=== PATIENT | female | born 1955 | race Caucasian/White ===

== ENCOUNTER → 2016-09-23 | Outpatient (CLI) | payer OTHER, MEDICAID, MEDICARE ==
[~2016-09-23] MED LIST: /ESOM40CA PO; ACET-654 PO; AMBI10TA; AMIT75TA2; ASPI1TAB24 PO; ASPI325T PO; ASPI81TA85 PO; AZEL0.05 OP; AZELASTINE; BACL10TA2 PO; BACT800T; CALC500T21 PO; CALCTAB68 PO; CAPT25TA3; CEPH500C PO; CLON1TAB PO; CLOP75TA2 PO; COLA100C2 PO; CRES20TA PO; CYCL5TA PO; D 50CAP PO; EFFE75CA75; GABA300C2 PO; HYDR-3716 PO; HYDR-3719 PO; HYDR25TA6 PO; LEVO100T PO; LIPI20TA; LISI2.5T PO; LORA10TA2 PO; METO25TA2 PO; NEXI40CA PO; OXYC-517 PO; PLAQ200T PO; PRED5TAB PO; SOMA350T PO; SUCR1TA PO; TIZA2CAP3 PO; VICO5TAB PO
--- NOTE | 2016-10-08 00:53 | ECWPNPC ---
PATIENT NAME: HAWK CASE : 1955 GENDER: FEMALE VISIT DATE: 09/23/2016 DISCHARGE DATE: 09/23/16 1418 VISIT LOCKED DATE TIME: PHYSICIAN: GERMAN SLAUGHTER RESOURCE: GERMAN SLAUGHTER REASON FOR APPOINTMENT 1. BACK HISTORY OF PRESENT ILLNESS HISTORY OF PRESENT ILLNESS: HERE FOR F/U OF CHRONIC LBP AND THORACIC PAIN. HX OF LUPUS ERYTHMATOSIS.RATING PAIN INTENSITY 6/10 VAS.PAIN DESCRIBED INTERMITTENT ACHING AND TENDERNESS. FINDS OXYCODONE 10/325 1 TAB PO Q4H PRN FOR SEVERE PAIN EPISODES HELPFUL AT REDUCING PAIN.DENIES ADVERSE SIDE EFFECTS.PAIN IS AGGREVATED BY LEANING FORWARD AND PROLONGED STANDING.FEELS SHE IS HAVING FIBROMYALGIA FLARE UP. PAIN THE PATIENT DESCRIBES THE PAIN... THE PATIENT DESCRIBES THE PAIN... THE PATIENT DESCRIBES THE PAIN... THE PATIENT DESCRIBES THE PAIN... FALL RISK SCREENING: SCREENING :NO FALLS IN THE PAST YEAR CURRENT MEDICATIONS TAKING VITAMIN D-3 2000 CAPSULE 1 CAPSULE ORALLY DAILY TAKING CARAFATE 1 GM TABLET 2TABLET ON AN EMPTY STOMACH ORALLY ONCE DAILY TAKING PLAQUENIL 200 MG TABLET 1 TABLET WITH FOOD OR MILK ORALLY TWICE A DAY TAKING ASPIR-81 81 MG TABLET DELAYED RELEASE 1 TABLET ORALLY ONCE A DAY TAKING KLONOPIN 0.5 MG TABLET 1 TABLET ORALLY QHS TAKING LORATADINE 10 MG TABLET 1 TABLET ORALLY ONCE A DAY TAKING LISINOPRIL 10 10 MG TABLET DIRECTED ORAL DAILY TAKING LEVOTHYROXINE SODIUM 100 MCG TABLET 1 TABLET EVERY MORNING ON AN EMPTY STOMACH ORALLY ONCE A DAY TAKING NEXIUM 40 MG CAPSULE DELAYED RELEASE 1 CAPSULE ORALLY TWICE A DAY TAKING PLAVIX 75 MG TABLET 1 TABLET ORALLY ONCE A DAY TAKING HYDROCHLOROTHIAZIDE 25 25 MG SOFT GEL 1 TABLETS ORAL DAILY TAKING CRESTOR 20 MG TABLET 1 TABLET ORALLY QHS TAKING MOVANTIK 25 MG TABLET 1 TABLET IN THE MORNING ORALLY ONCE A DAY W/C COVERAGE TAKING LAMOTRIGINE 25 MG TABLET 3 TABLETS ORALLY TWICE A DAY TAKING SOMA 350 MG TABLET 1 TABLET ORALLY QHS TAKING PERCOCET 10-325 MG TABLET 1 TABLET NEEDED ORALLY Q4-6H PRN MDD 5 NOT-TAKING ONDANSETRON 1 TAB ORAL EVERY 6 HRS NEEDED NOT-TAKING HYDROCODONE-ACETAMINOPHEN 10-325 MG TABLET 1 TAB(S) ORALLY [id number] NOT-TAKING DOCUSATE SODIUM 100 MG CAPSULE 1 CAPSULE NEEDED ORALLY TWO TIMES A DAY NOT-TAKING GABAPENTIN 100 MG CAPSULE DIRECTED ORALLY THREE TIMES A DAY NEEDED NOT-TAKING MS CONTIN 15 MG TABLET EXTENDED RELEASE 1 TABLET ORALLY EVERY 12 HRS MDD2 W/C COVERAGE NOT-TAKING MORPHINE SULFATE ER 15 MG TABLET EXTENDED RELEASE 1 TABLET ORALLY EVERY 12 HRS MDD2 W/C COVERED NOT-TAKING TEMOVATE 0.05 % OINTMENT 1 APPLICATION TO AFFECTED AREA EXTERNALLY SPARINGLY TO VULVA TWICE A DAY FOR 14 DAYS THEN TWICE A WEEK PRN NOT-TAKING VALIUM 10 MG TABLET 1 CAP(S) ORALLY DIRECTED NOT-TAKING ASTELIN 137 MCG/SPRAY SOLUTION 1 PUFF NASALLY TWICE A DAY NOT-TAKING CALCIUM 600 + D 600-200 MG-UNIT TABLET 1 TABLET ORALLY DAILY NOT-TAKING LOVAZA 1 GM CAPSULE 2 CAPSULES ORALLY TWICE A DAY NOT-TAKING AMBIEN 10 MG TABLET 1 TAB(S) ORAL AT BEDTIME MDD:1 MEDICATION LIST REVIEWED AND RECONCILED WITH THE PATIENT PAST MEDICAL HISTORY PALPITATIONS, HEART HX BLOOD CLOTS, LEFT LEG HX ANEMIA ARTHRITIS, OA BACK PAIN HX BONE SPURS INSOMNIA MOOD SWINGS XEROPTHALMIA EARLY SATIETY COLONIC POLYPS RECURRENT UTIS SYSTEMIC LUPUS ERYTHEMATOUS ESOPHAGEAL REFLUX HYPOTHYROIDISM HYPERTENSION HYPERCHOLESTEROLEMIA RAYNAUDS SYNDROME NECK PAIN DEPRESSION OSTEOARTHRITIS MYOCARDIAL INFARCTION MYOFASCIAL PAIN SYNDROME LOW BACK PAIN LUMBAR RADICULOPATHY ALLERGIES PROPRANOLOL HCL: NAUSEA/VOMITING: ALLERGY CAPTOPRIL: NAUSEA/VOMITING: ALLERGY MACROBID: N/DIARRHEA: ALLERGY CIPRO: NAUSEA/VOMITING/DIARRHEA: ALLERGY MS CONTIN: N/V UNABLE TO VOID ANTIDEPRESSANTS: FLU LIKE SYMPTOMS /NAUSEA NUCYNTA ER: NIGHTMARES, INCREASED DEPRESSION: SIDE EFFECTS SOCIAL HISTORY GENERAL: TOBACCO USE ARE YOU A:NONSMOKER 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 NEW PATIENT PAIN DIARY TODAY'S VISITNOTES FROM 0-10, WHAT LEVEL IS YOUR PAIN TODAY?0 PAIN CLINIC PFS, CLERGY, PUBLIC HEALTH REFERRALS PFS REFERRAL NEEDED?NO CLERGY REFERRAL NEEDED?NO PUBLIC HEALTH REFERRAL NEEDED?NO WAS THE PROVIDER NOTIFIED OF ANY PERTINENT INFO?NO PFS REFERRAL NEEDED?NO CLERGY REFERRAL NEEDED?NO PUBLIC HEALTH REFERRAL NEEDED?NO WAS THE PROVIDER NOTIFIED OF ANY PERTINENT INFO?NO REVIEW OF SYSTEMS CONSTITUTIONAL: ANY CHANGE IN YOUR MEDICAL CONDITION? NO . CHILLS NO . FEVER NO . INFECTION: DO YOU HAVE NEW INFECTIONS? NO . DO YOU HAVE HISTORY OF MRSA? NO . MUSCULOSKELETAL: ANY NEW PATTERNS OF PAIN OR NUMBNESS? YES, MORE HIP AND BACK PAIN . GASTROENTEROLOGY: ANY NEW CHANGE IN BOWEL CONTROL? NO . GENITOURINARY: ANY NEW CHANGE IN BLADDER CONTROL? YES, CHRONIC UTI BLADDER . IS THERE A CHANCE YOU COULD BE ? NO . HEMATOLOGY/LYMPH: DO YOU TAKE ANY BLOOD THINNERS? (FOR EXAMPLE- COUMADIN, PLAVIX, AGGRENOX, PLATEL, PRADAXA, OR XARELTO) YES, PLAVIX . WHEN WAS YOUR LAST DOSE? DATE:09/23/16 TIME:1030 . NEUROLOGY: HAVE YOU FALLEN IN THE PAST 6 MONTHS? NO . ANY NEW EXTREMITY NUMBNESS OR WEAKNESS? NO . CARDIOLOGY: DO YOU HAVE A PACEMAKER OR DEFIBRILLATOR? NO . RESPIRATORY: HAVE YOU BEEN SICK IN THE PAST WEEK? NO . FEVER NO . FLU LIKE SYMPTOMS? NO . COUGH NO . INTEGUMENTARY: DO YOU HAVE ANY RASHES OR OPEN SORES? YES, NECK AND BEHIND EARS . ALLERGIC/IMMUNO: ARE YOU ALLERGIC TO SHELLFISH OR IV DYE? NO . ANY NEW ALLERGIES? NO . PSYCHIATRIC: DO YOU HAVE THOUGHTS OF HURTING YOURSELF OR SOMEONE ELSE? NO . ARE YOU ABUSED, NEGLECTED, OR IN AN UNSAFE ENVIRONMENT? NO . ENDOCRINOLOGY: ARE YOU DIABETIC? NO . OTHER: DO YOU NEED ANY PRESCRIPTIONS? NO . IF YES, PLEASE LIST: ____ . ANY NEW PROBLEMS WITH YOUR MEDICATIONS? NO . WHEN DID YOU LAST EAT? ____ . WHEN DID YOU LAST DRINK? ____ . WHAT DID YOU LAST DRINK? ____ . NAME OF PERSON DRIVING YOU HOME? ____ . DO YOU HAVE ANY OTHER QUESTIONS OR CONCERNS YES, BROWN SPOTS ON BOTH BIG TOES UNDER THE TOENAIL . REVIEWED BY: PROVIDER: GERMAN BUTTS . VITAL SIGNS WT 182 LBS, HT 64 IN, BMI 31.24 INDEX, BP 141/84 MM HG, HR 65 /MIN, RR 16 /MIN, TEMP 97.7 F, OXYGEN SAT % 94, NA INITIALS TL 1345, REVIEWED BY: CS. EXAMINATION GENERAL EXAMINATION: LUNGS:LUNG SOUNDS ARE CLEAR. HEART:HEART RATE REGULAR. MUSCULOSKELETAL:MUSCLE STRENGTH TESTING 5/5 BILATERAL LOWER EXTREMITIES. PALPATION: POSITIVE FOR PAIN OVER L/S SPINE. POSITIVE FOR PAIN OVER L/S PARASPINALS.MULTIPLE AREAS OF TENDER SPOTS INDICATIVE OF FIBROMYALGIA.. 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 (PRIMARY) MYALGIA - M79.1 CHRONIC PRESCRIPTION OPIATE USE - Z79.891 SYSTEMIC LUPUS ERYTHEMATOSUS WITH OTHER ORGAN INVOLVEMENT, UNSPECIFIED SLE TYPE - M32.19 TREATMENT LUMBAGO WITH SCIATICA, LEFT SIDE CONTINUE SOMA TABLET, 350 MG, 1 TABLET, ORALLY, QHS REFILL PERCOCET TABLET, 10-325 MG, 1 TABLET NEEDED, ORALLY, Q4-6H PRN MDD 5, 30 DAY(S), 150, REFILLS 0 PROCEDURE CODES G8730 PAIN ASSESS POS TOOL F/U PLAN DOC G8427 DOC MEDS VERIFIED W/PT OR RE FA211 ESTABILISHED PATIENT [facility] CHARGE FOLLOW UP 2 MONTHS ELECTRONICALLY SIGNED BY BENJAMÍN CHAUDHRY ON 10/06/2016 AT 09:39 AM EST DISCLAIMER : THIS IS A VISIT SUMMARY EXTRACTED FROM THE [employer] CHART. IT IS NOT A COPY OF THE [employer] PROGRESS NOTE. OSMIN
== END ==
LOC: M PAIN 14:00
PROVIDERS: ATTEND Nurse Practitioner Family
DX: Z09 Encounter for follow-up examination after completed treatment for conditions other than malignant neoplasm (principal); G89.29 Other chronic pain; M54.42 Lumbago with sciatica, left side; M79.1 Myalgia; M32.19 Other organ or system involvement in systemic lupus erythematosus; M54.2 Cervicalgia; M19.90 Unspecified osteoarthritis, unspecified site; G47.30 Sleep apnea, unspecified; G47.00 Insomnia, unspecified; K21.9 Gastro-esophageal reflux disease without esophagitis; E03.9 Hypothyroidism, unspecified; I10 Essential (primary) hypertension; E78.00 Pure hypercholesterolemia, unspecified; I73.00 Raynaud's syndrome without gangrene; R68.81 Early satiety; E50.7 Other ocular manifestations of vitamin A deficiency; I25.2 Old myocardial infarction; F32.9 Major depressive disorder, single episode, unspecified; F34.89 Other specified persistent mood disorders; Z88.5 Allergy status to narcotic agent; Z88.8 Allergy status to other drugs, medicaments and biological substances; Z79.01 Long term (current) use of anticoagulants; Z79.82 Long term (current) use of aspirin; Z79.891 Long term (current) use of opiate analgesic; Z79.899 Other long term (current) drug therapy; Z86.718 Personal history of other venous thrombosis and embolism; Z86.2 Personal history of diseases of the blood and blood-forming organs and certain disorders involving the immune mechanism

== ENCOUNTER → 2016-10-26 | Outpatient (CLI) | payer MEDICARE, MEDICAID, OTHER ==
--- NOTE | 2016-11-02 00:21 | ECWPNPC ---
PATIENT NAME: HAWK CASE : 1955 GENDER: FEMALE VISIT DATE: 10/26/2016 DISCHARGE DATE: 10/26/16 1518 VISIT LOCKED DATE TIME: PHYSICIAN: ALONZO BLOCK RESOURCE: ALONZO BLOCK REASON FOR APPOINTMENT 1. FOLLOW UP- HISTORY OF PRESENT ILLNESS HISTORY OF PRESENT ILLNESS: PAIN THE PATIENT DESCRIBES THE PAIN... 61 YEAR OLD FEMALE PATIENT WITH HISTORY OF CHRONIC NECK PAIN. PATIENT DESCRIBES THE PAIN ACHING, TENDER, SORE, AND IT COMES AND GOES WITH A PAIN SCORE OF 2-3/10 ON TODAY'S VISIT AND PATIENT STATES THAT SHE HAS PAIN IN HER ARMS THAT SHE DESCRIBES THE SHARP THAT IS RADIATING FROM HER NECK AREA. PATIENT WAS INJURED IN A WORK RELATED INJURY ON 02/28/1996 WORKING FOR [employer], PATIENT WAS LIFTING A PATIENT ONTO THE BED WHEN SHE INJURED HER NECK. PATIENT REPORTS THAT SHE IS TAKING PLAVIX. PATIENT REPORTS THAT SHE HAS TIRED PHYSICAL THERAPY IN THE PAST AND IT DID NOT WORK. PATIENT REPORTS THAT THE MEDICATION SHE IS TAKING IS HELPING HER TO BE MOBILE AND INCREASES HER FUNCTIONALITY. PATIENT STATES THAT THE TEN UNITS SHE HAS GREATLY HELPS WITH HER PAIN MANAGEMENT. PATIENT REPORTS THAT SHE NEEDS A REFILL FOR HER ELECTRODES AND BATTERY FOR HER TENS UNIT. PATIENT DENIES UNEXPLAINABLE WEIGHT LOSS, FEVER, CHILLS, NEW CHANGES ON HER URINARY OR BOWEL CONTROL. FALL RISK SCREENING: SCREENING :NO FALLS IN THE PAST YEAR CURRENT MEDICATIONS TAKING VITAMIN D-3 2000 CAPSULE 1 CAPSULE ORALLY DAILY TAKING CARAFATE 1 GM TABLET 2TABLET ON AN EMPTY STOMACH ORALLY ONCE DAILY TAKING PLAQUENIL 200 MG TABLET 1 TABLET WITH FOOD OR MILK ORALLY TWICE A DAY TAKING ASPIR-81 81 MG TABLET DELAYED RELEASE 1 TABLET ORALLY ONCE A DAY TAKING KLONOPIN 0.5 MG TABLET 1 TABLET ORALLY QHS TAKING LORATADINE 10 MG TABLET 1 TABLET ORALLY ONCE A DAY TAKING LISINOPRIL 10 10 MG TABLET DIRECTED ORAL DAILY TAKING LEVOTHYROXINE SODIUM 100 MCG TABLET 1 TABLET EVERY MORNING ON AN EMPTY STOMACH ORALLY ONCE A DAY TAKING NEXIUM 40 MG CAPSULE DELAYED RELEASE 1 CAPSULE ORALLY TWICE A DAY TAKING PLAVIX 75 MG TABLET 1 TABLET ORALLY ONCE A DAY TAKING HYDROCHLOROTHIAZIDE 25 25 MG SOFT GEL 1 TABLETS ORAL DAILY TAKING CRESTOR 20 MG TABLET 1 TABLET ORALLY QHS TAKING MOVANTIK 25 MG TABLET 1 TABLET IN THE MORNING ORALLY ONCE A DAY W/C COVERAGE TAKING LAMOTRIGINE 25 MG TABLET 1 TABLET ORALLY ONCE A DAY TAKING SOMA 350 MG TABLET 1 TABLET ORALLY QHS TAKING PERCOCET 10-325 MG TABLET 1 TABLET NEEDED ORALLY Q4-6H PRN MDD 5 NOT-TAKING ONDANSETRON 1 TAB ORAL EVERY 6 HRS NEEDED NOT-TAKING HYDROCODONE-ACETAMINOPHEN 10-325 MG TABLET 1 TAB(S) ORALLY [id number] NOT-TAKING DOCUSATE SODIUM 100 MG CAPSULE 1 CAPSULE NEEDED ORALLY TWO TIMES A DAY NOT-TAKING GABAPENTIN 100 MG CAPSULE DIRECTED ORALLY THREE TIMES A DAY NEEDED NOT-TAKING MS CONTIN 15 MG TABLET EXTENDED RELEASE 1 TABLET ORALLY EVERY 12 HRS MDD2 W/C COVERAGE NOT-TAKING MORPHINE SULFATE ER 15 MG TABLET EXTENDED RELEASE 1 TABLET ORALLY EVERY 12 HRS MDD2 W/C COVERED NOT-TAKING TEMOVATE 0.05 % OINTMENT 1 APPLICATION TO AFFECTED AREA EXTERNALLY SPARINGLY TO VULVA TWICE A DAY FOR 14 DAYS THEN TWICE A WEEK PRN NOT-TAKING VALIUM 10 MG TABLET 1 CAP(S) ORALLY DIRECTED NOT-TAKING ASTELIN 137 MCG/SPRAY SOLUTION 1 PUFF NASALLY TWICE A DAY NOT-TAKING CALCIUM 600 + D 600-200 MG-UNIT TABLET 1 TABLET ORALLY DAILY NOT-TAKING LOVAZA 1 GM CAPSULE 2 CAPSULES ORALLY TWICE A DAY NOT-TAKING AMBIEN 10 MG TABLET 1 TAB(S) ORAL AT BEDTIME MDD:1 MEDICATION LIST REVIEWED AND RECONCILED WITH THE PATIENT PAST MEDICAL HISTORY PALPITATIONS, HEART HX BLOOD CLOTS, LEFT LEG HX ANEMIA ARTHRITIS, OA BACK PAIN HX BONE SPURS INSOMNIA MOOD SWINGS XEROPTHALMIA EARLY SATIETY COLONIC POLYPS RECURRENT UTIS SYSTEMIC LUPUS ERYTHEMATOUS ESOPHAGEAL REFLUX HYPOTHYROIDISM HYPERTENSION HYPERCHOLESTEROLEMIA RAYNAUDS SYNDROME NECK PAIN DEPRESSION OSTEOARTHRITIS MYOCARDIAL INFARCTION MYOFASCIAL PAIN SYNDROME LOW BACK PAIN LUMBAR RADICULOPATHY ALLERGIES PROPRANOLOL HCL: NAUSEA/VOMITING: ALLERGY CAPTOPRIL: NAUSEA/VOMITING: ALLERGY MACROBID: N/DIARRHEA: ALLERGY CIPRO: NAUSEA/VOMITING/DIARRHEA: ALLERGY MS CONTIN: N/V UNABLE TO VOID ANTIDEPRESSANTS: FLU LIKE SYMPTOMS /NAUSEA NUCYNTA ER: NIGHTMARES, INCREASED DEPRESSION: SIDE EFFECTS SURGICAL HISTORY NECK SURGERY BONE SPUR 1997 TUBAL LIGATION 1982 ENDOMETRIAL BIOPSY 2010 CARDIAC CATHETERIZATION 09/26 CARDIAC STENT 09/26 SURGERY TO REPAIR RIGHT FEMORAL ARTERY 09/26 CARDIAC STENT 10/27 CARDIAC STENT 03/26 COLONOSCOPY 2010 FAMILY HISTORY NO FAMILY HISTORY DOCUMENTED. SOCIAL HISTORY GENERAL: TOBACCO USE ARE YOU A:NONSMOKER 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 NEW PATIENT PAIN DIARY TODAY'S VISITNOTES FROM 0-10, WHAT LEVEL IS YOUR PAIN TODAY?0 PAIN CLINIC PFS, CLERGY, PUBLIC HEALTH REFERRALS PFS REFERRAL NEEDED?NO CLERGY REFERRAL NEEDED?NO PUBLIC HEALTH REFERRAL NEEDED?NO WAS THE PROVIDER NOTIFIED OF ANY PERTINENT INFO?NO PFS REFERRAL NEEDED?NO CLERGY REFERRAL NEEDED?NO PUBLIC HEALTH REFERRAL NEEDED?NO WAS THE PROVIDER NOTIFIED OF ANY PERTINENT INFO?NO HOSPITALIZATION/MAJOR DIAGNOSTIC PROCEDURE SURGERY RELATED MYOCARDIAL INFARCTION 09/26 REVIEW OF SYSTEMS CONSTITUTIONAL: ANY CHANGE IN YOUR MEDICAL CONDITION? YES, PALPITATIONS WHEN IN COLD WEATHER, WILL BE SCHEDULING STRESS TEST . CHILLS NO . FEVER NO . INFECTION: DO YOU HAVE NEW INFECTIONS? NO . DO YOU HAVE HISTORY OF MRSA? NO . MUSCULOSKELETAL: ANY NEW PATTERNS OF PAIN OR NUMBNESS? NO . GASTROENTEROLOGY: ANY NEW CHANGE IN BOWEL CONTROL? NO . GENITOURINARY: ANY NEW CHANGE IN BLADDER CONTROL? YES, SOMETIMES . IS THERE A CHANCE YOU COULD BE ? NO . HEMATOLOGY/LYMPH: DO YOU TAKE ANY BLOOD THINNERS? (FOR EXAMPLE- COUMADIN, PLAVIX, AGGRENOX, PLATEL, PRADAXA, OR XARELTO) NO . WHEN WAS YOUR LAST DOSE? DATE: TIME: . NEUROLOGY: HAVE YOU FALLEN IN THE PAST 6 MONTHS? NO . ANY NEW EXTREMITY NUMBNESS OR WEAKNESS? NO . CARDIOLOGY: DO YOU HAVE A PACEMAKER OR DEFIBRILLATOR? NO . RESPIRATORY: HAVE YOU BEEN SICK IN THE PAST WEEK? NO . FEVER NO . FLU LIKE SYMPTOMS? NO . COUGH NO . INTEGUMENTARY: DO YOU HAVE ANY RASHES OR OPEN SORES? YES . ALLERGIC/IMMUNO: ARE YOU ALLERGIC TO SHELLFISH OR IV DYE? NO . ANY NEW ALLERGIES? NO . PSYCHIATRIC: DO YOU HAVE THOUGHTS OF HURTING YOURSELF OR SOMEONE ELSE? NO . ARE YOU ABUSED, NEGLECTED, OR IN AN UNSAFE ENVIRONMENT? NO . ENDOCRINOLOGY: ARE YOU DIABETIC? NO . OTHER: DO YOU NEED ANY PRESCRIPTIONS? YES . IF YES, PLEASE LIST: TENS UNIT SUPPLIES . ANY NEW PROBLEMS WITH YOUR MEDICATIONS? NO . WHEN DID YOU LAST EAT? ____ . WHEN DID YOU LAST DRINK? ____ . WHAT DID YOU LAST DRINK? ____ . NAME OF PERSON DRIVING YOU HOME? ____ . DO YOU HAVE ANY OTHER QUESTIONS OR CONCERNS NO, . REVIEWED BY: PROVIDER: ALONZO BLOCK MD . VITAL SIGNS WT 188.2 LBS, HT 64 IN, BMI 32.30 INDEX, BP 133/74 MM HG, HR 58 /MIN, RR 16 /MIN, TEMP 97.8 F, OXYGEN SAT % 99%, NA INITIALS SC14:04, REVIEWED BY: LS. EXAMINATION : PATIENT IS ALERT O X 3 AND COOPERATIVE. PATIENT IS ABLE TO EXTEND HER NECK AT 45 DEGREES AND FLEX HER NECK AT 60 DEGREES. PATIENT IS ABLE TO TURN HER HEAD TO THE RIGHT AT 50 DEGREES AND TO THE LEFT AT 50 DEGREES. PATIENT HAS TENDERNESS IN THE RIGHT AND LEFT CERVICAL SPINE WITH BANDS OF TISSUES, RESTRICTION OF MOVEMENT, AND PRESENCE OF TRIGGER POINTS. PATIENT IS ABLE TO ABDUCT UPPER EXTREMITIES. 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 PATIENT HAS A SURGICAL SCAR IN THE BACK OF THE NECK THAT IS APPROXIMATELY 2 AND A HALF INCHES IN LENGTH. MRI OF THE CERVICAL SPINE DONE ON 11/18/2015 SHOWS FACET ARTHROPATHY CHANGES, SPINAL STENOSIS, AND POST OPERATIVE CHANGES. ASSESSMENTS MYALGIA - M79.1 (PRIMARY) CERVICALGIA - M54.2 TREATMENT MYALGIA NOTES: WE DISCUSSED SEVERAL ISSUES WITH MS. CASE'S PAIN MANAGEMENT CASE. AT THIS TIME THE PATIENT IS A GOOD CANDIDATE FOR A TRIGGER POINT INJECTION, WE DISCUSSED THE RISK, ALTERNATIVES, AND BENEFITS AND THE PATIENT WOULD LIKE TO PROCEED. SINCE THE PATIENT IS TAKING PLAVIX I WILL NEED TO TALK TO DR. JAMES, IF IT IS OKAY TO STOP THE BLOOD THINNER FOR TWO DAYS PRIOR TO THE PROCEDURE AND BEGINNING AGAIN TWO DAYS AFTER. PATIENT TO FOLLOW UP WITH ME IN TWO MONTHS. INSTRUCTIONS WERE GIVEN, QUESTIONS WERE ANSWERED, PATIENT REPORTS UNDERSTANDING AND AGREES WITH THE PLAN. I, PINO DAMON, DOCUMENTED THE ABOVE INFORMATION ACTING A SCRIBE FOR DR. BLOCK. I HAVE REVIEWED THE ABOVE DOCUMENT, WRITTEN BY PINO RODRIGUEZ AND I VERIFY THAT IT IS ACCURATE. PROCEDURES PN WORKMANS' COMP OPINION IN YOUR OPINION, WAS THE INCIDENT THAT THE PATIENT DESCRIBED THE COMPETENT MEDICAL CAUSE OF THIS INJURY/ILLNESS? YES ARE THE PATIENT'S COMPLAINTS CONSISTENT WITH HIS/HER HISTORY OF THE INJURY/ILLNESS? YES IS THE PATIENT'S HISTORY OF THE INJURY/ILLNESS CONSISTENT WITH YOUR OBJECTIVE FINDING? YES WHAT IS THE PERCENTAGE OF TEMPORARY IMPAIRMENT? MODERATE TO MARKED = 66.7% IS THE PATIENT WORKING? NO DOCTOR ON SITE: ALONZO ALCANTARA MD PROCEDURE CODES FA211 ESTABILISHED PATIENT [facility] FACILITY CHARGE G8730 PAIN ASSESS POS TOOL F/U PLAN DOC G8427 DOC MEDS VERIFIED W/PT OR RE DISPOSITION & COMMUNICATION FOLLOW UP TPI PENDING APPROVAL ELECTRONICALLY SIGNED BY ALONZO BLOCK MD ON 10/31/2016 AT 08:59 PM EST DISCLAIMER : THIS IS A VISIT SUMMARY EXTRACTED FROM THE [employer] CHART. IT IS NOT A COPY OF THE [employer] PROGRESS NOTE. MTDD
== END ==
LOC: M PAIN 14:00
PROVIDERS: ATTEND Anesthesiology
DX: Z09 Encounter for follow-up examination after completed treatment for conditions other than malignant neoplasm (principal); M79.1 Myalgia; M54.2 Cervicalgia; G89.29 Other chronic pain; M19.90 Unspecified osteoarthritis, unspecified site; M32.9 Systemic lupus erythematosus, unspecified; I10 Essential (primary) hypertension; I73.00 Raynaud's syndrome without gangrene; E03.9 Hypothyroidism, unspecified; F32.9 Major depressive disorder, single episode, unspecified; Z79.82 Long term (current) use of aspirin; Z79.891 Long term (current) use of opiate analgesic; Z88.8 Allergy status to other drugs, medicaments and biological substances; Z88.6 Allergy status to analgesic agent

== ENCOUNTER → 2016-11-23 | Outpatient (CLI) | payer MEDICARE, MEDICAID, OTHER ==
--- NOTE | 2016-11-28 01:52 | ECWPNPC ---
PATIENT NAME: HAWK CASE : 1955 GENDER: FEMALE VISIT DATE: 11/23/2016 DISCHARGE DATE: 11/23/16 1437 VISIT LOCKED DATE TIME: PHYSICIAN: GERMAN SLAUGHTER RESOURCE: GERMAN SLAUGHTER REASON FOR APPOINTMENT 1. BACK HISTORY OF PRESENT ILLNESS HISTORY OF PRESENT ILLNESS: HERE FOR F/U OF CHRONIC LBP AND THORACIC PAIN. HX OF LUPUS ERYTHMATOSIS.RATING PAIN INTENSITY 2/10 VAS.PAIN DESCRIBED INTERMITTENT ACHING AND TENDERNESS. FINDS OXYCODONE 10/325 1 TAB PO Q4H PRN FOR SEVERE PAIN EPISODES HELPFUL AT REDUCING PAIN.DENIES ADVERSE SIDE EFFECTS.PAIN IS AGGREVATED BY LEANING FORWARD AND PROLONGED STANDING.COMPLAINING OF INCREASE IN FATIGUE. PAIN THE PATIENT DESCRIBES THE PAIN... THE PATIENT DESCRIBES THE PAIN... THE PATIENT DESCRIBES THE PAIN... THE PATIENT DESCRIBES THE PAIN... THE PATIENT DESCRIBES THE PAIN... FALL RISK SCREENING: SCREENING :NO FALLS IN THE PAST YEAR CURRENT MEDICATIONS TAKING VITAMIN D-3 2000 CAPSULE 1 CAPSULE ORALLY DAILY TAKING CARAFATE 1 GM TABLET 2TABLET ON AN EMPTY STOMACH ORALLY ONCE DAILY TAKING PLAQUENIL 200 MG TABLET 1 TABLET WITH FOOD OR MILK ORALLY TWICE A DAY TAKING ASPIR-81 81 MG TABLET DELAYED RELEASE 1 TABLET ORALLY ONCE A DAY TAKING KLONOPIN 0.5 MG TABLET 1 TABLET ORALLY QHS TAKING LORATADINE 10 MG TABLET 1 TABLET ORALLY ONCE A DAY TAKING LISINOPRIL 10 10 MG TABLET DIRECTED ORAL DAILY TAKING LEVOTHYROXINE SODIUM 100 MCG TABLET 1 TABLET EVERY MORNING ON AN EMPTY STOMACH ORALLY ONCE A DAY TAKING NEXIUM 40 MG CAPSULE DELAYED RELEASE 1 CAPSULE ORALLY TWICE A DAY TAKING PLAVIX 75 MG TABLET 1 TABLET ORALLY ONCE A DAY TAKING HYDROCHLOROTHIAZIDE 25 25 MG SOFT GEL 1 TABLETS ORAL DAILY TAKING CRESTOR 20 MG TABLET 1 TABLET ORALLY QHS TAKING MOVANTIK 25 MG TABLET 1 TABLET IN THE MORNING ORALLY ONCE A DAY W/C COVERAGE, NOTES: NOT TAKING NOW TAKING LAMOTRIGINE 25 MG TABLET 1 TABLET ORALLY TWICE A DAY TAKING SOMA 350 MG TABLET 1 TABLET ORALLY QHS TAKING PERCOCET 10-325 MG TABLET 1 TABLET NEEDED ORALLY Q4-6H PRN MDD 5 NOT-TAKING ONDANSETRON 1 TAB ORAL EVERY 6 HRS NEEDED NOT-TAKING HYDROCODONE-ACETAMINOPHEN 10-325 MG TABLET 1 TAB(S) ORALLY [id number] NOT-TAKING DOCUSATE SODIUM 100 MG CAPSULE 1 CAPSULE NEEDED ORALLY TWO TIMES A DAY NOT-TAKING GABAPENTIN 100 MG CAPSULE DIRECTED ORALLY THREE TIMES A DAY NEEDED NOT-TAKING MS CONTIN 15 MG TABLET EXTENDED RELEASE 1 TABLET ORALLY EVERY 12 HRS MDD2 W/C COVERAGE NOT-TAKING MORPHINE SULFATE ER 15 MG TABLET EXTENDED RELEASE 1 TABLET ORALLY EVERY 12 HRS MDD2 W/C COVERED NOT-TAKING TEMOVATE 0.05 % OINTMENT 1 APPLICATION TO AFFECTED AREA EXTERNALLY SPARINGLY TO VULVA TWICE A DAY FOR 14 DAYS THEN TWICE A WEEK PRN NOT-TAKING VALIUM 10 MG TABLET 1 CAP(S) ORALLY DIRECTED NOT-TAKING ASTELIN 137 MCG/SPRAY SOLUTION 1 PUFF NASALLY TWICE A DAY NOT-TAKING CALCIUM 600 + D 600-200 MG-UNIT TABLET 1 TABLET ORALLY DAILY NOT-TAKING LOVAZA 1 GM CAPSULE 2 CAPSULES ORALLY TWICE A DAY NOT-TAKING AMBIEN 10 MG TABLET 1 TAB(S) ORAL AT BEDTIME MDD:1 MEDICATION LIST REVIEWED AND RECONCILED WITH THE PATIENT PAST MEDICAL HISTORY PALPITATIONS, HEART HX BLOOD CLOTS, LEFT LEG HX ANEMIA ARTHRITIS, OA BACK PAIN HX BONE SPURS INSOMNIA MOOD SWINGS XEROPTHALMIA EARLY SATIETY COLONIC POLYPS RECURRENT UTIS SYSTEMIC LUPUS ERYTHEMATOUS ESOPHAGEAL REFLUX HYPOTHYROIDISM HYPERTENSION HYPERCHOLESTEROLEMIA RAYNAUDS SYNDROME NECK PAIN DEPRESSION OSTEOARTHRITIS MYOCARDIAL INFARCTION MYOFASCIAL PAIN SYNDROME LOW BACK PAIN LUMBAR RADICULOPATHY ALLERGIES PROPRANOLOL HCL: NAUSEA/VOMITING: ALLERGY CAPTOPRIL: NAUSEA/VOMITING: ALLERGY MACROBID: N/DIARRHEA: ALLERGY CIPRO: NAUSEA/VOMITING/DIARRHEA: ALLERGY MS CONTIN: N/V UNABLE TO VOID ANTIDEPRESSANTS: FLU LIKE SYMPTOMS /NAUSEA NUCYNTA ER: NIGHTMARES, INCREASED DEPRESSION: SIDE EFFECTS SOCIAL HISTORY GENERAL: TOBACCO USE ARE YOU A:NONSMOKER 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 NEW PATIENT PAIN DIARY TODAY'S VISITNOTES FROM 0-10, WHAT LEVEL IS YOUR PAIN TODAY?0 PAIN CLINIC PFS, CLERGY, PUBLIC HEALTH REFERRALS PFS REFERRAL NEEDED?NO CLERGY REFERRAL NEEDED?NO PUBLIC HEALTH REFERRAL NEEDED?NO WAS THE PROVIDER NOTIFIED OF ANY PERTINENT INFO?NO PFS REFERRAL NEEDED?NO CLERGY REFERRAL NEEDED?NO PUBLIC HEALTH REFERRAL NEEDED?NO WAS THE PROVIDER NOTIFIED OF ANY PERTINENT INFO?NO REVIEW OF SYSTEMS CONSTITUTIONAL: ANY CHANGE IN YOUR MEDICAL CONDITION? NO . CHILLS NO . FEVER NO . INFECTION: DO YOU HAVE NEW INFECTIONS? NO . DO YOU HAVE HISTORY OF MRSA? NO . MUSCULOSKELETAL: ANY NEW PATTERNS OF PAIN OR NUMBNESS? NO . GASTROENTEROLOGY: ANY NEW CHANGE IN BOWEL CONTROL? NO . GENITOURINARY: ANY NEW CHANGE IN BLADDER CONTROL? YES, ? UTI OR BLADDER INFECTION AND WILL BE SEEING PRIMARY . IS THERE A CHANCE YOU COULD BE ? NO . HEMATOLOGY/LYMPH: DO YOU TAKE ANY BLOOD THINNERS? (FOR EXAMPLE- COUMADIN, PLAVIX, AGGRENOX, PLATEL, PRADAXA, OR XARELTO) YES, PLAVIX . WHEN WAS YOUR LAST DOSE? DATE:11/23/16 TIME:1030 . NEUROLOGY: HAVE YOU FALLEN IN THE PAST 6 MONTHS? NO . ANY NEW EXTREMITY NUMBNESS OR WEAKNESS? NO . CARDIOLOGY: DO YOU HAVE A PACEMAKER OR DEFIBRILLATOR? NO . RESPIRATORY: HAVE YOU BEEN SICK IN THE PAST WEEK? YES, COLD . FEVER NO . FLU LIKE SYMPTOMS? NO . COUGH NO . INTEGUMENTARY: DO YOU HAVE ANY RASHES OR OPEN SORES? YES SKIN IS ITCHY . ALLERGIC/IMMUNO: ARE YOU ALLERGIC TO SHELLFISH OR IV DYE? NO . ANY NEW ALLERGIES? NO . PSYCHIATRIC: DO YOU HAVE THOUGHTS OF HURTING YOURSELF OR SOMEONE ELSE? NO . ARE YOU ABUSED, NEGLECTED, OR IN AN UNSAFE ENVIRONMENT? NO . ENDOCRINOLOGY: ARE YOU DIABETIC? NO . OTHER: DO YOU NEED ANY PRESCRIPTIONS? NO . IF YES, PLEASE LIST: ____ . ANY NEW PROBLEMS WITH YOUR MEDICATIONS? NO . WHEN DID YOU LAST EAT? ____ . WHEN DID YOU LAST DRINK? ____ . WHAT DID YOU LAST DRINK? ____ . NAME OF PERSON DRIVING YOU HOME? ____ . DO YOU HAVE ANY OTHER QUESTIONS OR CONCERNS NO . REVIEWED BY: PROVIDER: GERMAN BUTTS . VITAL SIGNS WT 188.0 LBS, HT 64 IN, BMI 32.27 INDEX, BP 143/77 MM HG, HR 58 /MIN, RR 16 /MIN, TEMP 97.9 F, OXYGEN SAT % 97, NA INITIALS TL 1405, REVIEWED BY: BOWEN. EXAMINATION GENERAL EXAMINATION: LUNGS:LUNG SOUNDS ARE CLEAR. HEART:HEART RATE REGULAR. MUSCULOSKELETAL:MUSCLE STRENGTH TESTING 5/5 BILATERAL LOWER EXTREMITIES. PALPATION: POSITIVE FOR PAIN OVER L/S SPINE. POSITIVE FOR PAIN OVER L/S PARASPINALS.MULTIPLE AREAS OF TENDER SPOTS INDICATIVE OF FIBROMYALGIA.. 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 BRINGS IN MEDICATIONS WHICH IS APPROPRIATE FOR WHAT WAS DISPENSED. RECENT URINE TOXICOLOGY REVIEWED. NO UNAUTHORIZED MEDICATIONS. NO ILLICIT SUBSTANCES AND PRESCRIBED MEDICATIONS WERE PRESENT. , RISKS AND BENEFITS OF NARCOTIC/OPIOD MEDICATIONS WERE REVIEWED WITH PATIENT - THIS INCLUDES BUT IS NOT LIMITED TO RISK OF DEPENDANCE/DEVELOPMENT OF ADDICTION, MOOD DISTURBANCE AND DEPRESSION, OSTEOPOROSIS, HORMONAL AND LABIDAL CHANGES, RESPIRATORY DEPRESSION AND . PATIENT IS ADVISED NOT TO DRIVE WHILE ON THESE MEDICATIONS, FALLS CARE PLAN: 1. RECOMMEND REMOVING ALL THROW RUGS. 2. RECOMMEND NIGHT LIGHTS 3. RECOMMEND WEARING RUBBER SOLED SHOES AND TO NOT GO BAREFOOT. 4.. ADVISED TO CHANGE POSITION SLOWLY FROM SUPINE TO STANDING TO AVOID DIZZINESS. 5. ADVISED TO USE ASSISTIVE DEVICE SUCH CANE OR WALKER 6. USE LIFELINE SERVICES OR KEEP PORTABLE PHONE READILY AVAILABLE, #128 - SCREENING BMI AND F/U PLAN IN : BMI ABOVE NORMAL TODAY. DISCUSSED WITH PATIENT NUTRITIONAL FOOD CHOICES TO ASSIST WITH WEIGHT LOSS. RECCOMMENDED REDUCING SALT, SUGAR, SODA INTAKE. RECOMMEND INCREASE ACTIVITY TO INCLUDE WALKING ON A REGULAR BASIS. PROFESSIONAL NUTRITIONAL NUTRITIONAL GUIDANCE WAS OFFERED AND WAS DECLINED. , PATIENT WAS ADVISED TO START A WALKING PROGRAM TO STRENGTHEN LUMBAR PARASPINAL MUSCLES AND IMPROVE MOBILITY. THEY WERE ADVISED THAT THIS WILL IMPROVE WEIGHT LOSS AND ALSO DEPRESSION/FIBROMYALGIA SYMPTOMS. ADVISED TO WALK 10 MINUTES EVERY OTHER DAY ON A FLAT SURFACE. EMPHASIZED THE IMPORTANCE OF DOING THIS CONSISTANTLY AND NOT SPORATICALLY TO AVOID INJURY. STRONG ADVISED NOT TO DO MORE THAN 10 MINUTES EVERY OTHER DSY FOR THE FIRST 4 WEEKS. PROCEDURE CODES FA211 ESTABILISHED PATIENT [facility] CHARGE G8730 PAIN ASSESS POS TOOL F/U PLAN DOC G8427 DOC MEDS VERIFIED W/PT OR RE G8783 BP SCR PRFRM RCMDD DEFIND SCR INTVL 3016F PT SCRND UNHLTHY [place] USE 1124F ACP DISCUSS-NO DSCNMKR DOCD 1036F TOBACCO NON-USER 0518F FALL PLAN OF CARE DOCD G8417 BMI >=30 CALCUATE W/FOLLOWUP 3288F FALL RISK ASSESSMENT DOCD DISPOSITION & COMMUNICATION FOLLOW UP 2 MONTHS ELECTRONICALLY SIGNED BY BENJAMÍN CHAUDHRY ON 11/23/2016 AT 05:04 PM EDT DISCLAIMER : THIS IS A VISIT SUMMARY EXTRACTED FROM THE [facility] CHART. IT IS NOT A COPY OF THE [facility] PROGRESS NOTE. MTDD
== END ==
LOC: M PAIN 14:00
PROVIDERS: ATTEND Nurse Practitioner Family
DX: Z09 Encounter for follow-up examination after completed treatment for conditions other than malignant neoplasm (principal); G89.29 Other chronic pain; M54.42 Lumbago with sciatica, left side; M79.1 Myalgia; M32.19 Other organ or system involvement in systemic lupus erythematosus; M54.6 Pain in thoracic spine; R00.2 Palpitations; D64.9 Anemia, unspecified; G47.00 Insomnia, unspecified; K21.9 Gastro-esophageal reflux disease without esophagitis; E03.9 Hypothyroidism, unspecified; I10 Essential (primary) hypertension; E78.00 Pure hypercholesterolemia, unspecified; F32.9 Major depressive disorder, single episode, unspecified; M19.90 Unspecified osteoarthritis, unspecified site; I73.00 Raynaud's syndrome without gangrene; Z87.440 Personal history of urinary (tract) infections; I25.2 Old myocardial infarction; Z86.718 Personal history of other venous thrombosis and embolism; Z79.891 Long term (current) use of opiate analgesic; Z79.82 Long term (current) use of aspirin; Z79.02 Long term (current) use of antithrombotics/antiplatelets; Z79.899 Other long term (current) drug therapy; Z88.1 Allergy status to other antibiotic agents; Z88.5 Allergy status to narcotic agent; Z88.8 Allergy status to other drugs, medicaments and biological substances

== ENCOUNTER → 2016-12-20 | Outpatient (CLI) | payer MEDICARE, MEDICAID ==
[2016-12-20 12:52] LABS: BASO % 0.6 % (0.0-1.0); EOS # 0.1 K/mm3 (0.0-0.50); EOS % 4.1 % (0.0-3.0); LYMPH % 30.7 % (24.0-44.0); MEAN CORPUSCULAR HEMOGLOBIN 29.1 pg (27.0-33.0); MEAN CORPUSCULAR HGB CONC 32.3 g/dl (32.0-36.5); MEAN CORPUSCULAR VOLUME 89.9 fl (80.0-96.0); MONO # 0.3 K/mm3 (0.0-0.8); MONO % 8.7 % (0.0-5.0); NEUTROPHILS # 1.6 K/mm3 (1.8-7.7); NEUTROPHILS % 53.2 % (36.0-66.0); RED CELL DISTRIBUTION WIDTH 13.4 % (11.5-14.5); WHITE BLOOD COUNT 3.1 K/mm3 (4.0-10.0)
[2016-12-20 13:24] LABS: ALBUMIN 3.8 GM/DL (3.2-5.2); ALBUMIN/GLOBULIN RATIO 1.19 (1.00-1.93); ALKALINE PHOSPHATASE 78 U/L (45-117); ALT/SGPT 22 U/L (12-78); ANION GAP 7 MEQ/L (8-16); AST/SGOT 23 U/L (15-37); BILIRUBIN,TOTAL 0.2 MG/DL (0.2-1.0); BLOOD UREA NITROGEN 13 MG/DL (7-18); CALCIUM LEVEL 9.3 MG/DL (8.8-10.2); CARBON DIOXIDE LEVEL 29 MEQ/L (21-32); CHLORIDE LEVEL 105 MEQ/L (98-107); CHOLESTEROL LEVEL 154 MG/DL (<200); CREATININE FOR GFR 0.94 MG/DL (0.55-1.02); FREE T4 0.94 NG/DL (0.76-1.46); GLOMERULAR FILTRATION RATE > 60.0 (>45); GLUCOSE, FASTING 82 MG/DL (80-110); POTASSIUM SERUM 4.2 MEQ/L (3.5-5.1); SODIUM LEVEL 141 MEQ/L (136-145); TRIGLYCERIDES LEVEL 144 MG/DL (<150)
== END ==
LOC: M LAB 11:34
PROVIDERS: ATTEND Nurse Practitioner Adult Health
DX: E03.9 Hypothyroidism, unspecified (principal); E78.5 Hyperlipidemia, unspecified; E55.9 Vitamin D deficiency, unspecified; Z79.899 Other long term (current) drug therapy

== ENCOUNTER → 2017-01-01 | Outpatient (CLI) | payer MEDICARE, MEDICAID, OTHER ==
--- NOTE | 2017-01-15 00:22 | ECWPNPC ---
PATIENT NAME: HAWK CASE : 1955 GENDER: FEMALE VISIT DATE: 01/01/2017 DISCHARGE DATE: 01/01/17 1518 VISIT LOCKED DATE TIME: PHYSICIAN: GERMAN SLAUGHTER RESOURCE: GERMAN SLAUGHTER REASON FOR APPOINTMENT 1. MEDICARE, LOW BACK HISTORY OF PRESENT ILLNESS HISTORY OF PRESENT ILLNESS: HERE FOR EVALUATION OF NEW ONSET OF LOW BACK PAIN THAT RADIATES INTO ABDOMEN BILATERALLY.RATING PAIN2/10.PAIN HAS IMPROVED BUT RADIATION TO BILATERAL ABDOMEN IS STILL THERE INTERMITTENTLY.DESCRIBES PAIN INTERMITTENT SHARP AND ACHING PAIN.PAIN AGGREVATED BY PROLONGED SITTING OR STANDING.RELIEVED SOMEWHAT WITH HEAT AND MEDICATION. PAIN THE PATIENT DESCRIBES THE PAIN... FALL RISK SCREENING: SCREENING :NO FALLS IN THE PAST YEAR CURRENT MEDICATIONS TAKING VITAMIN D-3 2000 CAPSULE 1 CAPSULE ORALLY DAILY TAKING CARAFATE 1 GM TABLET 2TABLET ON AN EMPTY STOMACH ORALLY ONCE DAILY, NOTES: UP TO TWICE ADAY TAKING PLAQUENIL 200 MG TABLET 1 TABLET WITH FOOD OR MILK ORALLY TWICE A DAY TAKING ASPIR-81 81 MG TABLET DELAYED RELEASE 1 TABLET ORALLY ONCE A DAY TAKING KLONOPIN 0.5 MG TABLET 1 TABLET ORALLY QHS TAKING LORATADINE 10 MG TABLET 1 TABLET ORALLY ONCE A DAY TAKING LISINOPRIL 10 10 MG TABLET ORAL DAILY TAKING LEVOTHYROXINE SODIUM 100 MCG TABLET 1 TABLET EVERY MORNING ON AN EMPTY STOMACH ORALLY ONCE A DAY TAKING NEXIUM 40 MG CAPSULE DELAYED RELEASE 1 CAPSULE ORALLY TWICE A DAY TAKING PLAVIX 75 MG TABLET 1 TABLET ORALLY ONCE A DAY TAKING HYDROCHLOROTHIAZIDE 25 25 MG SOFT GEL 1 TABLETS ORAL DAILY TAKING CRESTOR 20 MG TABLET 1 TABLET ORALLY QHS TAKING LAMOTRIGINE 25 MG TABLET 1 TABLET ORALLY THREE TIMES DAILY TAKING DOCUSATE SODIUM 100 MG CAPSULE 1 CAPSULE NEEDED ORALLY TWO TIMES A DAY TAKING PERCOCET 10-325 MG TABLET 1 TABLET NEEDED ORALLY Q4-6H PRN MDD6 TAKING SOMA 350 MG TABLET 1 TABLET ORALLY Q8H PRN MDD3 NOT-TAKING MOVANTIK 25 MG TABLET 1 TABLET IN THE MORNING ORALLY ONCE A DAY W/C COVERAGE, NOTES: NOT TAKING NOW/ NO REFILS NOT-TAKING ONDANSETRON 1 TAB ORAL EVERY 6 HRS NEEDED NOT-TAKING HYDROCODONE-ACETAMINOPHEN 10-325 MG TABLET 1 TAB(S) ORALLY [id number] NOT-TAKING GABAPENTIN 100 MG CAPSULE DIRECTED ORALLY THREE TIMES A DAY NEEDED NOT-TAKING MS CONTIN 15 MG TABLET EXTENDED RELEASE 1 TABLET ORALLY EVERY 12 HRS MDD2 W/C COVERAGE NOT-TAKING MORPHINE SULFATE ER 15 MG TABLET EXTENDED RELEASE 1 TABLET ORALLY EVERY 12 HRS MDD2 W/C COVERED NOT-TAKING TEMOVATE 0.05 % OINTMENT 1 APPLICATION TO AFFECTED AREA EXTERNALLY SPARINGLY TO VULVA TWICE A DAY FOR 14 DAYS THEN TWICE A WEEK PRN NOT-TAKING VALIUM 10 MG TABLET 1 CAP(S) ORALLY DIRECTED NOT-TAKING ASTELIN 137 MCG/SPRAY SOLUTION 1 PUFF NASALLY TWICE A DAY NOT-TAKING CALCIUM 600 + D 600-200 MG-UNIT TABLET 1 TABLET ORALLY DAILY NOT-TAKING LOVAZA 1 GM CAPSULE 2 CAPSULES ORALLY TWICE A DAY NOT-TAKING AMBIEN 10 MG TABLET 1 TAB(S) ORAL AT BEDTIME MDD:1 MEDICATION LIST REVIEWED AND RECONCILED WITH THE PATIENT PAST MEDICAL HISTORY PALPITATIONS, HEART HX BLOOD CLOTS, LEFT LEG HX ANEMIA ARTHRITIS, OA BACK PAIN HX BONE SPURS INSOMNIA MOOD SWINGS XEROPTHALMIA EARLY SATIETY COLONIC POLYPS RECURRENT UTIS SYSTEMIC LUPUS ERYTHEMATOUS ESOPHAGEAL REFLUX HYPOTHYROIDISM HYPERTENSION HYPERCHOLESTEROLEMIA RAYNAUDS SYNDROME NECK PAIN DEPRESSION OSTEOARTHRITIS MYOCARDIAL INFARCTION MYOFASCIAL PAIN SYNDROME LOW BACK PAIN LUMBAR RADICULOPATHY ALLERGIES PROPRANOLOL HCL: NAUSEA/VOMITING: ALLERGY CAPTOPRIL: NAUSEA/VOMITING: ALLERGY MACROBID: N/DIARRHEA: ALLERGY CIPRO: NAUSEA/VOMITING/DIARRHEA: ALLERGY MS CONTIN: N/V UNABLE TO VOID ANTIDEPRESSANTS: FLU LIKE SYMPTOMS /NAUSEA NUCYNTA ER: NIGHTMARES, INCREASED DEPRESSION: SIDE EFFECTS SOCIAL HISTORY GENERAL: PAIN CLINIC PFS, CLERGY, PUBLIC HEALTH REFERRALS CLERGY REFERRAL NEEDED?NO WAS THE PROVIDER NOTIFIED OF ANY PERTINENT INFO?NO PFS REFERRAL NEEDED?NO PUBLIC HEALTH REFERRAL NEEDED?NO PATIENT: ____. REVIEW OF SYSTEMS CONSTITUTIONAL: ANY CHANGE IN YOUR MEDICAL CONDITION? NO . CHILLS NO . FEVER NO . INFECTION: DO YOU HAVE NEW INFECTIONS? NO . DO YOU HAVE HISTORY OF MRSA? NO . MUSCULOSKELETAL: ANY NEW PATTERNS OF PAIN OR NUMBNESS? NO . GASTROENTEROLOGY: ANY NEW CHANGE IN BOWEL CONTROL? NO . GENITOURINARY: ANY NEW CHANGE IN BLADDER CONTROL? NO . IS THERE A CHANCE YOU COULD BE ? NO . HEMATOLOGY/LYMPH: DO YOU TAKE ANY BLOOD THINNERS? (FOR EXAMPLE- COUMADIN, PLAVIX, AGGRENOX, PLATEL, PRADAXA, OR XARELTO) NO . WHEN WAS YOUR LAST DOSE? DATE: TIME: . NEUROLOGY: HAVE YOU FALLEN IN THE PAST 6 MONTHS? NO . ANY NEW EXTREMITY NUMBNESS OR WEAKNESS? NO . CARDIOLOGY: DO YOU HAVE A PACEMAKER OR DEFIBRILLATOR? NO . RESPIRATORY: HAVE YOU BEEN SICK IN THE PAST WEEK? NO . FEVER NO . FLU LIKE SYMPTOMS? NO . COUGH NO . INTEGUMENTARY: DO YOU HAVE ANY RASHES OR OPEN SORES? NO . ALLERGIC/IMMUNO: ARE YOU ALLERGIC TO SHELLFISH OR IV DYE? NO . ANY NEW ALLERGIES? NO . PSYCHIATRIC: DO YOU HAVE THOUGHTS OF HURTING YOURSELF OR SOMEONE ELSE? NO . ARE YOU ABUSED, NEGLECTED, OR IN AN UNSAFE ENVIRONMENT? NO . ENDOCRINOLOGY: ARE YOU DIABETIC? NO . OTHER: DO YOU NEED ANY PRESCRIPTIONS? NO . IF YES, PLEASE LIST: ____ . ANY NEW PROBLEMS WITH YOUR MEDICATIONS? NO . WHEN DID YOU LAST EAT? ____ . WHEN DID YOU LAST DRINK? ____ . WHAT DID YOU LAST DRINK? ____ . NAME OF PERSON DRIVING YOU HOME? ____ . DO YOU HAVE ANY OTHER QUESTIONS OR CONCERNS NO . REVIEWED BY: PROVIDER: GERMAN BUTTS . VITAL SIGNS WT 186.2 LBS, HT 64 IN, BMI 31.96 INDEX, BP 146/68 MM HG, HR 62 /MIN, RR 16 /MIN, TEMP 98.2 F, OXYGEN SAT % 96%, NA INITIALS SC 14:36, REVIEWED BY: KG. EXAMINATION GENERAL EXAMINATION: LUNGS:LUNG SOUNDS ARE CLEAR. HEART:HEART RATE REGULAR. MUSCULOSKELETAL:MUSCLE STRENGTH TESTING 5/5 BILATERAL LOWER EXTREMITIES. PALPATION: POSITIVE FOR PAIN OVER L/S SPINE. POSITIVE FOR PAIN OVER L/S PARASPINALS.MULTIPLE AREAS OF TENDER SPOTS INDICATIVE OF FIBROMYALGIA.. 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 WITHOUT [id number] PROCEDURE CODES FA211 ESTABILISHED PATIENT [facility] FACILITY CHARGE G8730 PAIN ASSESS POS TOOL F/U PLAN DOC G8427 DOC MEDS VERIFIED W/PT OR RE DISPOSITION & COMMUNICATION FOLLOW UP 4 WEEKS ELECTRONICALLY SIGNED BY BENJAMÍN CHAUDHRY ON 01/14/2017 AT 05:01 PM EDT DISCLAIMER : THIS IS A VISIT SUMMARY [facility]. IT IS NOT A COPY OF THE [email or web address] PROGRESS NOTE. OSMIN
== END ==
LOC: M PAIN 14:20
PROVIDERS: ATTEND Nurse Practitioner Family
DX: G89.29 Other chronic pain (principal); M54.42 Lumbago with sciatica, left side; M79.1 Myalgia; M19.90 Unspecified osteoarthritis, unspecified site; G47.00 Insomnia, unspecified; M32.9 Systemic lupus erythematosus, unspecified; K21.9 Gastro-esophageal reflux disease without esophagitis; E03.9 Hypothyroidism, unspecified; I10 Essential (primary) hypertension; E78.00 Pure hypercholesterolemia, unspecified; F32.9 Major depressive disorder, single episode, unspecified; I25.2 Old myocardial infarction; Z88.5 Allergy status to narcotic agent; Z88.8 Allergy status to other drugs, medicaments and biological substances; Z79.82 Long term (current) use of aspirin; Z79.891 Long term (current) use of opiate analgesic; Z79.899 Other long term (current) drug therapy

== ENCOUNTER → 2017-01-18 | Outpatient (CLI) | payer OTHER, MEDICARE, MEDICAID ==
--- NOTE | 2017-01-30 23:48 | ECWPNPC ---
PATIENT NAME: HAWK CASE : 1955 GENDER: FEMALE VISIT DATE: 01/18/2017 DISCHARGE DATE: 01/18/17 1653 VISIT LOCKED DATE TIME: PHYSICIAN: ALONZO BLOCK RESOURCE: ALONZO BLOCK REASON FOR APPOINTMENT 1. W/C NECK PAIN HISTORY OF PRESENT ILLNESS HISTORY OF PRESENT ILLNESS: PAIN THE PATIENT DESCRIBES THE PAIN... 61 YEAR OLD FEMALE PATIENT WITH HISTORY OF CHRONIC NECK PAIN. PATIENT DESCRIBES THE PAIN ACHING, SHARP, TENDER, WITH THE PAIN COMING AND GOING AND CURRENT PAIN SCORE OF 1-2/10. 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 PATIENT REPORTS HAVING A SURGERY IN 1997. MRS. CASE STATES THAT SHE HAS TRIED PHYSICAL THERAPY IN THE PAST BUT IT DID NOT AID IN PAIN RELIEF OR FUNCTIONALITY AND MOBILITY. MRS. CASE DOES USE A TENNS MACHINE AND STATES THAT IT KEEPS HER MOBILE AND FUNCTIONAL. CURRENTLY THE PATIENT IS USING SOMA AND PERCOCET FOR PAIN MANAGEMENT AND IT KEEPS HER MOBILE AND FUNCTIONAL. PATIENT DENIES UNEXPLAINABLE WEIGHT LOSS, FEVER, CHILLS, NEW CHANGES ON HER URINARY OR BOWEL CONTROL. FALL RISK SCREENING: SCREENING :NO FALLS IN THE PAST YEAR CURRENT MEDICATIONS TAKING VITAMIN D-3 2000 CAPSULE 1 CAPSULE ORALLY DAILY TAKING CARAFATE 1 GM TABLET 2TABLET ON AN EMPTY STOMACH ORALLY ONCE DAILY, NOTES: UP TO TWICE ADAY TAKING PLAQUENIL 200 MG TABLET 1 TABLET WITH FOOD OR MILK ORALLY TWICE A DAY TAKING ASPIR-81 81 MG TABLET DELAYED RELEASE 1 TABLET ORALLY ONCE A DAY TAKING KLONOPIN 0.5 MG TABLET 1 TABLET ORALLY QHS TAKING LORATADINE 10 MG TABLET 1 TABLET ORALLY ONCE A DAY TAKING LEVOTHYROXINE SODIUM 100 MCG TABLET 1 TABLET EVERY MORNING ON AN EMPTY STOMACH ORALLY ONCE A DAY TAKING NEXIUM 40 MG CAPSULE DELAYED RELEASE 1 CAPSULE ORALLY TWICE A DAY TAKING PLAVIX 75 MG TABLET 1 TABLET ORALLY ONCE A DAY TAKING HYDROCHLOROTHIAZIDE 25 25 MG SOFT GEL 1 TABLETS ORAL DAILY TAKING CRESTOR 20 MG TABLET 1 TABLET ORALLY QHS TAKING LAMOTRIGINE 100 MG TABLET 1 TABLET ORALLY ONCE DAILY TAKING DOCUSATE SODIUM 100 MG CAPSULE 1 CAPSULE NEEDED ORALLY TWO TIMES A DAY TAKING PERCOCET 10-325 MG TABLET 1 TABLET NEEDED ORALLY Q4-6H PRN MDD6 TAKING SOMA 350 MG TABLET 1 TABLET ORALLY Q8H PRN MDD3 TAKING LISINOPRIL 2.5 MG TABLET 1 TABLET ORALLY ONCE A DAY DISCONTINUED LISINOPRIL 10 10 MG TABLET ORAL DAILY DISCONTINUED MOVANTIK 25 MG TABLET 1 TABLET IN THE MORNING ORALLY ONCE A DAY W/C COVERAGE, NOTES: NOT TAKING NOW/ NO REFILS DISCONTINUED ONDANSETRON 1 TAB ORAL EVERY 6 HRS NEEDED DISCONTINUED HYDROCODONE-ACETAMINOPHEN 10-325 MG TABLET 1 TAB(S) ORALLY [id number] DISCONTINUED GABAPENTIN 100 MG CAPSULE DIRECTED ORALLY THREE TIMES A DAY NEEDED DISCONTINUED MS CONTIN 15 MG TABLET EXTENDED RELEASE 1 TABLET ORALLY EVERY 12 HRS MDD2 W/C COVERAGE DISCONTINUED MORPHINE SULFATE ER 15 MG TABLET EXTENDED RELEASE 1 TABLET ORALLY EVERY 12 HRS MDD2 W/C COVERED DISCONTINUED TEMOVATE 0.05 % OINTMENT 1 APPLICATION TO AFFECTED AREA EXTERNALLY SPARINGLY TO VULVA TWICE A DAY FOR 14 DAYS THEN TWICE A WEEK PRN DISCONTINUED VALIUM 10 MG TABLET 1 CAP(S) ORALLY DIRECTED DISCONTINUED ASTELIN 137 MCG/SPRAY SOLUTION 1 PUFF NASALLY TWICE A DAY DISCONTINUED CALCIUM 600 + D 600-200 MG-UNIT TABLET 1 TABLET ORALLY DAILY DISCONTINUED LOVAZA 1 GM CAPSULE 2 CAPSULES ORALLY TWICE A DAY DISCONTINUED AMBIEN 10 MG TABLET 1 TAB(S) ORAL AT BEDTIME MDD:1 MEDICATION LIST REVIEWED AND RECONCILED WITH THE PATIENT PAST MEDICAL HISTORY PALPITATIONS, HEART HX BLOOD CLOTS, LEFT LEG HX ANEMIA ARTHRITIS, OA BACK PAIN HX BONE SPURS INSOMNIA MOOD SWINGS XEROPTHALMIA EARLY SATIETY COLONIC POLYPS RECURRENT UTIS SYSTEMIC LUPUS ERYTHEMATOUS ESOPHAGEAL REFLUX HYPOTHYROIDISM HYPERTENSION HYPERCHOLESTEROLEMIA RAYNAUDS SYNDROME NECK PAIN DEPRESSION OSTEOARTHRITIS MYOCARDIAL INFARCTION MYOFASCIAL PAIN SYNDROME LOW BACK PAIN LUMBAR RADICULOPATHY ALLERGIES PROPRANOLOL HCL: NAUSEA/VOMITING: ALLERGY CAPTOPRIL: NAUSEA/VOMITING: ALLERGY MACROBID: N/DIARRHEA: ALLERGY CIPRO: NAUSEA/VOMITING/DIARRHEA: ALLERGY MS CONTIN: N/V UNABLE TO VOID ANTIDEPRESSANTS: FLU LIKE SYMPTOMS /NAUSEA NUCYNTA ER: NIGHTMARES, INCREASED DEPRESSION: SIDE EFFECTS SURGICAL HISTORY NECK SURGERY BONE SPUR 1997 TUBAL LIGATION 1982 ENDOMETRIAL BIOPSY 2010 CARDIAC CATHETERIZATION 09/26 CARDIAC STENT 09/26 SURGERY TO REPAIR RIGHT FEMORAL ARTERY 09/26 CARDIAC STENT 10/27 CARDIAC STENT 03/26 COLONOSCOPY 2010 FAMILY HISTORY NO FAMILY HISTORY DOCUMENTED. SOCIAL HISTORY GENERAL: PAIN CLINIC PFS, CLERGY, PUBLIC HEALTH REFERRALS CLERGY REFERRAL NEEDED?NO WAS THE PROVIDER NOTIFIED OF ANY PERTINENT INFO?NO PFS REFERRAL NEEDED?NO PUBLIC HEALTH REFERRAL NEEDED?NO PATIENT: ____. HOSPITALIZATION/MAJOR DIAGNOSTIC PROCEDURE SURGERY RELATED MYOCARDIAL INFARCTION 09/26 REVIEW OF SYSTEMS CONSTITUTIONAL: ANY CHANGE IN YOUR MEDICAL CONDITION? NO . CHILLS NO . FEVER NO . INFECTION: DO YOU HAVE NEW INFECTIONS? NO . DO YOU HAVE HISTORY OF MRSA? NO . MUSCULOSKELETAL: ANY NEW PATTERNS OF PAIN OR NUMBNESS? YES, PAST WEEK RIGHT ARM WAKES HER UP WHEN SLEEPING, EXTREME PAIN. TENDER TO TOUCH. HAS CLICKING IN RIGHT SIDE OF HER NECK. . GASTROENTEROLOGY: ANY NEW CHANGE IN BOWEL CONTROL? NO . GENITOURINARY: ANY NEW CHANGE IN BLADDER CONTROL? NO . IS THERE A CHANCE YOU COULD BE ? NO . HEMATOLOGY/LYMPH: DO YOU TAKE ANY BLOOD THINNERS? (FOR EXAMPLE- COUMADIN, PLAVIX, AGGRENOX, PLATEL, PRADAXA, OR XARELTO) YES, PLAVIX . WHEN WAS YOUR LAST DOSE? DATE: TIME: 01-18-17899 . NEUROLOGY: HAVE YOU FALLEN IN THE PAST 6 MONTHS? NO . ANY NEW EXTREMITY NUMBNESS OR WEAKNESS? NO . CARDIOLOGY: DO YOU HAVE A PACEMAKER OR DEFIBRILLATOR? NO . RESPIRATORY: HAVE YOU BEEN SICK IN THE PAST WEEK? NO . FEVER NO . FLU LIKE SYMPTOMS? NO . COUGH NO . INTEGUMENTARY: DO YOU HAVE ANY RASHES OR OPEN SORES? YES, RASH ON RIGHT NECK . ALLERGIC/IMMUNO: ARE YOU ALLERGIC TO SHELLFISH OR IV DYE? NO . ANY NEW ALLERGIES? NO . PSYCHIATRIC: DO YOU HAVE THOUGHTS OF HURTING YOURSELF OR SOMEONE ELSE? NO . ARE YOU ABUSED, NEGLECTED, OR IN AN UNSAFE ENVIRONMENT? NO . ENDOCRINOLOGY: ARE YOU DIABETIC? NO . OTHER: DO YOU NEED ANY PRESCRIPTIONS? NO . IF YES, PLEASE LIST: ____ . ANY NEW PROBLEMS WITH YOUR MEDICATIONS? NO . WHEN DID YOU LAST EAT? ____ . WHEN DID YOU LAST DRINK? ____ . WHAT DID YOU LAST DRINK? ____ . NAME OF PERSON DRIVING YOU HOME? ____ . DO YOU HAVE ANY OTHER QUESTIONS OR CONCERNS YES, WOULD LIKE TPI BUT IS ON PLAQUENAL AND HASN'T SEEN MD FOR LUPUS. NEEDS SCRIPT FOR A NEW TENS UNIT. . REVIEWED BY: PROVIDER: ALONZO BLOCK MD . VITAL SIGNS WT 186.2 LBS, HT 64 IN, BMI 31.96 INDEX, BP 136/62 MM HG, HR 62 /MIN, RR 16 /MIN, TEMP 97.4 F, OXYGEN SAT % 100%, NA INITIALS SC 15:46, REVIEWED BY: DVAID. EXAMINATION : PATIENT IS ALERT O X 3 AND COOPERATIVE. TENDERNESS IN THE CERVICAL AREA AND PARASPINAL MUSCLE GROUP. PATIENT ABLE TO EXTEND NECK 20 DEGREES AND FLEX 20 DEGREES WITH LATERAL ROTATION TO THE LEFT AND RIGHT AT 50 DEGREES. LEFT ARM AND HAND INSPECTOR HEATING AND REFRIGERATION IS WEAKER THEN THE RIGHT. BANDS OF TISSUE, RESTRICTION OF MOVEMENT, AND PRESENCE OF TRIGGER POINTS IN THE CERVICAL AREA. MRI DONE ON 11/18/15 SHOWS MULTILEVEL DEGENERATIVE DISC DISEASE, SPINAL STENOSIS, AND TARLOV CYSTS AT C7-T1. ASSESSMENTS SPONDYLOSIS WITHOUT MYELOPATHY OR RADICULOPATHY, CERVICAL REGION - M47.812 (PRIMARY) POSTLAMINECTOMY SYNDROME, NOT ELSEWHERE CLASSIFIED - M96.1 MYALGIA - M79.1 CERVICAL DISC DISORDER AT C4-C5 LEVEL WITH RADICULOPATHY - M50.121 MID-CERVICAL DISC DISORDER, UNSPECIFIED - M50.120 LUPUS PATIENT ON PLAQUENIL.HISTORY OF HEART ATTACKS - PLAVIXARTERIAL CORONARY DISEASE. TREATMENT SPONDYLOSIS WITHOUT MYELOPATHY OR RADICULOPATHY, CERVICAL REGION NOTES: WE DISCUSSED SEVERAL ISSUES WITH MRS. CASE'S PAIN MANAGEMENT CASE. AT THIS TIME THE PATIENT WILL CONTINUE WITH THE SAME MEDICATION REGIME BEFORE. PATIENT WILL CONTINUE TO USE THE PERCOCET FOR THE SOMATIC PAIN AND THE SOMA FOR THE MUSCLE SPASMS AND PAIN. PATIENT DENIES ABUSE OF ANY MEDICATION, DENIES USE OF ILLEGAL SUBSTANCES, AND STATES THAT SHE IS ONLY USING THE MEDICATION FOR PAIN MANAGEMENT. URINE TOXICOLOGY REPORT DONE ON 08/12/2016 SHOWS CONSISTENT RESULTS WITH THE PATIENT'S MEDICATION LIST. I WILL ORDER THE PATIENT A NEW TENNS UNIT, HERS HAS BROKEN AND SHE REPORTS IT AIDING IN PAIN RELIEF AND MOBILITY AND FUNCTIONALITY. PATIENT IS A GOOD CANDIDATE FOR TRIGGER POINT INJECTION OR A CERVICAL EPIDURAL HOWEVER AT THIS TIME THE PATIENT IS USING PLAQUENIL AND PLAVIX AND DOES NOT WANT TO STOP MEDICATION WITHOUT SPEAKING TO THE DOCTORS FIRST. I WILL SPEAK WITH THE PATIENT'S LUPUS DOCTOR ABOUT THE PLAQUENIL. PATIENT WILL FOLLOW UP IN 3 WEEKS AFTER I HAVE DISCUSSED THE MEDICATIONS WITH THE OTHER DOCTORS. INSTRUCTIONS WERE GIVEN, QUESTIONS WERE ANSWERED, PATIENT REPORTS UNDERSTANDING AND AGREES WITH THE PLAN. I, KORI ADLER, DOCUMENTED THE ABOVE INFORMATION ACTING A SCRIBE FOR DR. BLOCK. I HAVE REVIEWED THE ABOVE DOCUMENT, WRITTEN BY KORI RODRIGUEZ AND I VERIFY THAT IT IS ACCURATE. PROCEDURES PN WORKMANS' COMP OPINION IN YOUR OPINION, WAS THE INCIDENT THAT THE PATIENT DESCRIBED THE COMPETENT MEDICAL CAUSE OF THIS INJURY/ILLNESS? YES ARE THE PATIENT'S COMPLAINTS CONSISTENT WITH HIS/HER HISTORY OF THE INJURY/ILLNESS? YES IS THE PATIENT'S HISTORY OF THE INJURY/ILLNESS CONSISTENT WITH YOUR OBJECTIVE FINDING? YES WHAT IS THE PERCENTAGE OF TEMPORARY IMPAIRMENT? MODERATE TO MARKED = 66.7% IS THE PATIENT WORKING? NO DOCTOR ON SITE: ALONZO ALCANTARA MD PROCEDURE CODES FA211 ESTABILISHED PATIENT THE [facility] FACILITY CHARGE G8427 DOC MEDS VERIFIED W/PT OR RE G8730 PAIN ASSESS POS TOOL F/U PLAN DOC DISPOSITION & COMMUNICATION FOLLOW UP 3 WEEKS ELECTRONICALLY SIGNED BY ALONZO BLOCK MD ON 01/30/2017 AT 06:44 PM EDT DISCLAIMER : THIS IS A VISIT SUMMARY EXTRACTED FROM THE [employer] CHART. IT IS NOT A COPY OF THE [employer] PROGRESS NOTE. OSMIN
== END | disposition home or self-care (01) ==
LOC: M PAIN 15:40
PROVIDERS: ATTEND Anesthesiology
DX: G89.29 Other chronic pain (principal); M47.812 Spondylosis without myelopathy or radiculopathy, cervical region; M96.1 Postlaminectomy syndrome, not elsewhere classified; M79.1 Myalgia; M50.121 Cervical disc disorder at C4-C5 level with radiculopathy; M50.120 Mid-cervical disc disorder, unspecified level; I10 Essential (primary) hypertension; R00.2 Palpitations; D64.9 Anemia, unspecified; M19.90 Unspecified osteoarthritis, unspecified site; G47.00 Insomnia, unspecified; Z86.010 Personal history of colon polyps; Z87.440 Personal history of urinary (tract) infections; M32.9 Systemic lupus erythematosus, unspecified; K21.9 Gastro-esophageal reflux disease without esophagitis; E03.9 Hypothyroidism, unspecified; E78.00 Pure hypercholesterolemia, unspecified; I73.00 Raynaud's syndrome without gangrene; F33.9 Major depressive disorder, recurrent, unspecified; Z79.899 Other long term (current) drug therapy; Z79.82 Long term (current) use of aspirin; Z79.01 Long term (current) use of anticoagulants; Z88.8 Allergy status to other drugs, medicaments and biological substances

== ENCOUNTER → 2017-01-22 | Outpatient (CLI) | payer MEDICARE, MEDICAID ==
--- NOTE | 2017-01-22 19:32 | REP ---
MRI lumbar spine without contrast: History: Lumbago with sciatica left-sided. The patient reports low back pain going around to both hips and the abdomen. Comparison MRI study is from [facility] dated 11/09/2012. Technique: Sagittal and axial T1 and T2-weighted scans are acquired in the usual fashion with and without fat saturation. Sequences include spin echo, turbo spin-echo, and STIR imaging sequences. MRI findings: Lumbar vertebral body heights are preserved. Alignment is normal. A normal caliber aorta is seen. No extra spinal abnormality is appreciated. Conus medullaris is normal in position and appearance at T12-L1 unchanged. There is degenerative disc and osteoarthritic facet disease again noted at multiple levels. Axial and sagittal images taken at L1-L2 demonstrate diffuse disc bulging of the posterior disc margin. This effaces the ventral margin of the thecal sac. There is no central canal stenosis. No neural foraminal encroachment is seen. No change from comparison study. At L2-3, there are similar findings of diffuse disc bulging effacing the ventral subarachnoid space. Mild ligamentum flavum hypertrophy is seen. Canal size is borderline. No neural foraminal encroachment is seen. Findings are unchanged. At L3-4, there is mild central canal stenosis due to diffuse disc bulging, developmentally short pedicles, and ligamentum flavum and facet hypertrophy. The thecal sac has an 8 mm mid sagittal AP dimension at L3-4. No neural foraminal narrowing is seen. At L4-5, there is moderate central canal stenosis due to central disc broad-based protrusion with annulus tear, short pedicles, ligamentum flavum and facet hypertrophy. The disc protrusion is more prominent and the central canal stenosis is more prominent as a result when compared with the prior study. There is bilateral neural foraminal narrowing at L4-5 which also appears more prominent. At L5-S1, there is a 2 mm degenerative grade 1 spondylolisthesis without spondylolysis. This is unchanged. No neural foraminal narrowing is observed. No disc protrusion is seen. Osteoarthritic facet hypertrophy is noted bilaterally. Impression: Degenerative spondylosis. Central canal stenosis moderate at L4-5 and more pronounced due to increase in the size of the disc protrusion at L4-5 compared to the prior study. Mild central canal stenosis at L3-4 unchanged. Disc bulging at L1-2 L2-3 unchanged. Signed by Juan Miller MD 01/22/2017 08:53 P
== END ==
LOC: M PLARAD 14:42
PROVIDERS: ATTEND Nurse Practitioner Family
DX: M54.42 Lumbago with sciatica, left side (principal); M47.816 Spondylosis without myelopathy or radiculopathy, lumbar region; M99.53 Intervertebral disc stenosis of neural canal of lumbar region

== ENCOUNTER → 2017-01-27 | Outpatient (CLI) | payer MEDICARE, MEDICAID, OTHER ==
[~2017-01-27] MED LIST changes: +PENI250T57 PO; +ZOFR4TAB3 PO
--- NOTE | 2017-02-10 02:07 | ECWPNPC ---
PATIENT NAME: HAWK CASE : 1955 GENDER: FEMALE VISIT DATE: 01/27/2017 DISCHARGE DATE: 01/27/17 1515 VISIT LOCKED DATE TIME: PHYSICIAN: GERMAN SLAUGHTER RESOURCE: GERMAN SLAUGHTER HISTORY OF PRESENT ILLNESS HISTORY OF PRESENT ILLNESS: HERE FOR F/U OF LOW BACK PAIN AND REVIEW MRI L/S SPINE DONE ON 01-22-17.PATIENT HAD SEVERE EXACERBATION OF LBP A FEW MONTHS AGO.IT HAS DISIPATED A BIT BUT CONTINUES WITH LOW BACK PAIN RATED 2/10VAS.MRI REVIEWED SHOWING INCREASE IN DISC PROTRUSION AT L4/5 WITH INCREASE IN SEVERITY OF SPINAL STENOSIS.ALSO MORE PROMINENT NEURAL FORAMINAL NARROWING.DESCRIBES PAIN INTERMITTENT ACHING AND TENDERNESS. PAIN THE PATIENT DESCRIBES THE PAIN... FALL RISK SCREENING: SCREENING :NO FALLS IN THE PAST YEAR CURRENT MEDICATIONS TAKING VITAMIN D-3 2000 CAPSULE 1 CAPSULE ORALLY DAILY TAKING CARAFATE 1 GM TABLET 2TABLET ON AN EMPTY STOMACH ORALLY ONCE DAILY, NOTES: UP TO TWICE ADAY TAKING PLAQUENIL 200 MG TABLET 1 TABLET WITH FOOD OR MILK ORALLY TWICE A DAY TAKING ASPIR-81 81 MG TABLET DELAYED RELEASE 1 TABLET ORALLY ONCE A DAY TAKING KLONOPIN 0.5 MG TABLET 1 TABLET ORALLY QHS TAKING LORATADINE 10 MG TABLET 1 TABLET ORALLY ONCE A DAY TAKING LEVOTHYROXINE SODIUM 100 MCG TABLET 1 TABLET EVERY MORNING ON AN EMPTY STOMACH ORALLY ONCE A DAY TAKING NEXIUM 40 MG CAPSULE DELAYED RELEASE 1 CAPSULE ORALLY TWICE A DAY TAKING PLAVIX 75 MG TABLET 1 TABLET ORALLY ONCE A DAY TAKING HYDROCHLOROTHIAZIDE 25 25 MG SOFT GEL 1 TABLETS ORAL DAILY TAKING CRESTOR 20 MG TABLET 1 TABLET ORALLY QHS TAKING LAMOTRIGINE 100 MG TABLET 1 TABLET ORALLY ONCE DAILY TAKING DOCUSATE SODIUM 100 MG CAPSULE 1 CAPSULE NEEDED ORALLY TWO TIMES A DAY TAKING PERCOCET 10-325 MG TABLET 1 TABLET NEEDED ORALLY Q4-6H PRN MDD6 TAKING SOMA 350 MG TABLET 1 TABLET ORALLY Q8H PRN MDD3 TAKING LISINOPRIL 2.5 MG TABLET 1 TABLET ORALLY ONCE A DAY MEDICATION LIST REVIEWED AND RECONCILED WITH THE PATIENT PAST MEDICAL HISTORY PALPITATIONS, HEART HX BLOOD CLOTS, LEFT LEG HX ANEMIA ARTHRITIS, OA BACK PAIN HX BONE SPURS INSOMNIA MOOD SWINGS XEROPTHALMIA EARLY SATIETY COLONIC POLYPS RECURRENT UTIS SYSTEMIC LUPUS ERYTHEMATOUS ESOPHAGEAL REFLUX HYPOTHYROIDISM HYPERTENSION HYPERCHOLESTEROLEMIA RAYNAUDS SYNDROME NECK PAIN DEPRESSION OSTEOARTHRITIS MYOCARDIAL INFARCTION MYOFASCIAL PAIN SYNDROME LOW BACK PAIN LUMBAR RADICULOPATHY ALLERGIES PROPRANOLOL HCL: NAUSEA/VOMITING: ALLERGY CAPTOPRIL: NAUSEA/VOMITING: ALLERGY MACROBID: N/DIARRHEA: ALLERGY CIPRO: NAUSEA/VOMITING/DIARRHEA: ALLERGY MS CONTIN: N/V UNABLE TO VOID ANTIDEPRESSANTS: FLU LIKE SYMPTOMS /NAUSEA NUCYNTA ER: NIGHTMARES, INCREASED DEPRESSION: SIDE EFFECTS SURGICAL HISTORY NECK SURGERY BONE SPUR 1997 TUBAL LIGATION 1982 ENDOMETRIAL BIOPSY 2010 CARDIAC CATHETERIZATION 09/26 CARDIAC STENT 09/26 SURGERY TO REPAIR RIGHT FEMORAL ARTERY 09/26 CARDIAC STENT 10/27 CARDIAC STENT 03/26 COLONOSCOPY 2010 HOSPITALIZATION/MAJOR DIAGNOSTIC PROCEDURE SURGERY RELATED MYOCARDIAL INFARCTION 09/26 REVIEW OF SYSTEMS CONSTITUTIONAL: ANY CHANGE IN YOUR MEDICAL CONDITION? NO . CHILLS NO . FEVER NO . INFECTION: DO YOU HAVE NEW INFECTIONS? NO . DO YOU HAVE HISTORY OF MRSA? NO . MUSCULOSKELETAL: ANY NEW PATTERNS OF PAIN OR NUMBNESS? NO . GASTROENTEROLOGY: ANY NEW CHANGE IN BOWEL CONTROL? NO . GENITOURINARY: ANY NEW CHANGE IN BLADDER CONTROL? NO . IS THERE A CHANCE YOU COULD BE ? NO . HEMATOLOGY/LYMPH: DO YOU TAKE ANY BLOOD THINNERS? (FOR EXAMPLE- COUMADIN, PLAVIX, AGGRENOX, PLATEL, PRADAXA, OR XARELTO) NO . WHEN WAS YOUR LAST DOSE? DATE: TIME: . NEUROLOGY: HAVE YOU FALLEN IN THE PAST 6 MONTHS? NO . ANY NEW EXTREMITY NUMBNESS OR WEAKNESS? NO . CARDIOLOGY: DO YOU HAVE A PACEMAKER OR DEFIBRILLATOR? NO . RESPIRATORY: HAVE YOU BEEN SICK IN THE PAST WEEK? NO . FEVER NO . FLU LIKE SYMPTOMS? NO . COUGH NO . INTEGUMENTARY: DO YOU HAVE ANY RASHES OR OPEN SORES? YES. RASHES BEHIND EARS & ON NECK. PT STATES SHE SAW HER PCP FOR THIS, NO NEW TX GIVEN. PT STATSE SHE PUTS HYDROCORTISONE CREAM TO RASHES WHICH HELPS. . ALLERGIC/IMMUNO: ARE YOU ALLERGIC TO SHELLFISH OR IV DYE? NO . ANY NEW ALLERGIES? NO . PSYCHIATRIC: DO YOU HAVE THOUGHTS OF HURTING YOURSELF OR SOMEONE ELSE? NO . ARE YOU ABUSED, NEGLECTED, OR IN AN UNSAFE ENVIRONMENT? NO . ENDOCRINOLOGY: ARE YOU DIABETIC? NO . OTHER: DO YOU NEED ANY PRESCRIPTIONS? NO . IF YES, PLEASE LIST: ____ . ANY NEW PROBLEMS WITH YOUR MEDICATIONS? NO . WHEN DID YOU LAST EAT? ____ . WHEN DID YOU LAST DRINK? ____ . WHAT DID YOU LAST DRINK? ____ . NAME OF PERSON DRIVING YOU HOME? ____ . DO YOU HAVE ANY OTHER QUESTIONS OR CONCERNS NO . REVIEWED BY: PROVIDER: GERMAN BUTTS . VITAL SIGNS WT 188.2 LBS, HT 64 IN, BMI 32.30 INDEX, BP 114/65 MM HG, HR 65 /MIN, RR 16 /MIN, TEMP 98.2 F, OXYGEN SAT % 96%, SAFE IN ENV? (Y/N) Y, NA INITIALS TL 1430, REVIEWED BY: EM. EXAMINATION GENERAL EXAMINATION: LUNGS:LUNG SOUNDS ARE CLEAR. HEART:HEART RATE REGULAR. MUSCULOSKELETAL:MUSCLE STRENGTH TESTING 5/5 BILATERAL LOWER EXTREMITIES. PALPATION: POSITIVE FOR PAIN OVER L/S SPINE. POSITIVE FOR PAIN OVER L/S PARASPINALS.MULTIPLE AREAS OF TENDER SPOTS INDICATIVE OF FIBROMYALGIA.. 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 (PRIMARY) MYALGIA - M79.1 CHRONIC PRESCRIPTION OPIATE USE - Z79.891 TREATMENT LUMBAGO WITH SCIATICA, LEFT SIDE REFILL PERCOCET TABLET, 10-325 MG, 1 TABLET NEEDED, ORALLY, Q4-6H PRN MDD5, 30 DAY(S), 150, REFILLS 0 REFILL SOMA TABLET, 350 MG, 1 TABLET, ORALLY, Q8H PRN MDD3, 30 DAY(S), 45, REFILLS 0 NOTES: ISTOP REGISTRY REVIEWED AND DEMNOSTRATES COMPLLIANCE. BRINGS IN MEDICATIONS WHICH IS APPROPRIATE FOR WHAT WAS DISPENSED. RECENT URINE TOXICOLOGY REVIEWED. NO UNAUTHORIZED MEDICATIONS. NO ILLICIT SUBSTANCES AND PRESCRIBED MEDICATIONS WERE PRESENT. , RISKS AND BENEFITS OF NARCOTIC/OPIOD MEDICATIONS WERE REVIEWED WITH PATIENT - THIS INCLUDES BUT IS NOT LIMITED TO RISK OF DEPENDANCE/DEVELOPMENT OF ADDICTION, MOOD DISTURBANCE AND DEPRESSION, OSTEOPOROSIS, HORMONAL AND LABIDAL CHANGES, RESPIRATORY DEPRESSION AND . PATIENT IS ADVISED NOT TO DRIVE WHILE ON THESE MEDICATIONS. [facility] RE[facility]ON:L4/5 CENTRAL DISC PROTRUSION W ANNULUS TEAR/W RADICULOPATHY PROCEDURE CODES FA211 ESTABILISHED PATIENT [facility] FACILITY CHARGE K0120 PAIN ASSESS POS TOOL F/U PLAN DOC G8427 DOC MEDS VERIFIED W/PT OR RE DISPOSITION & COMMUNICATION FOLLOW UP 2 MONTHS (REASON: F/U LBP) ELECTRONICALLY SIGNED BY BENJAMÍN CHAUDHRY ON 02/09/2017 AT 09:08 AM EDT DISCLAIMER : THIS IS A VISIT SUMMARY EXTRACTED FROM THE [employer] CHART. IT IS NOT A COPY OF THE [employer] PROGRESS NOTE. OSMIN
== END ==
LOC: M PAIN 14:20
PROVIDERS: ATTEND Nurse Practitioner Family
DX: G89.29 Other chronic pain (principal); M54.42 Lumbago with sciatica, left side; M79.1 Myalgia; M19.90 Unspecified osteoarthritis, unspecified site; G47.00 Insomnia, unspecified; M32.9 Systemic lupus erythematosus, unspecified; K21.9 Gastro-esophageal reflux disease without esophagitis; E03.9 Hypothyroidism, unspecified; I10 Essential (primary) hypertension; E78.00 Pure hypercholesterolemia, unspecified; I73.00 Raynaud's syndrome without gangrene; F32.9 Major depressive disorder, single episode, unspecified; I25.2 Old myocardial infarction; R21 Rash and other nonspecific skin eruption; Z88.5 Allergy status to narcotic agent; Z88.8 Allergy status to other drugs, medicaments and biological substances; Z79.82 Long term (current) use of aspirin; Z79.891 Long term (current) use of opiate analgesic; Z79.899 Other long term (current) drug therapy

== ENCOUNTER 2017-02-13 19:57 | Emergency (ER) | payer MEDICARE, MEDICAID ==
[~2017-02-13] VITALS: Ht 160 cm; Wt 81.6 kg
[~2017-02-13 19:57] MED LIST changes: -PENI250T57 PO; -ZOFR4TAB3 PO
[2017-02-13 20:02] VITALS: BP 157/74
[2017-02-13] MEDS ORDERED: PENI250T57 PO (22:05)
[2017-02-13] MEDS ORDERED: ZOFR4TAB3 PO (22:06)
[2017-02-13] MEDS ORDERED: ONDANSETRON 4 MG TAB (S0181) PO ONE (22:15)
[2017-02-13] MEDS ORDERED: PENICILLIN V POTASSIUM 500 MG TAB PO ONE (22:15)
== END 2017-02-13 22:55 | disposition home or self-care (01) ==
LOC: M ED 20:56
DX: S02.5XXA Fracture of tooth (traumatic), initial encounter for closed fracture (principal); X58.XXXA Exposure to other specified factors, initial encounter; Y92.89 Other specified places as the place of occurrence of the external cause; Y93.89 Activity, other specified; Y99.8 Other external cause status; K02.9 Dental caries, unspecified; M32.9 Systemic lupus erythematosus, unspecified; Z88.1 Allergy status to other antibiotic agents; Z88.8 Allergy status to other drugs, medicaments and biological substances; Z91.040 Latex allergy status; Z91.041 Radiographic dye allergy status

== ENCOUNTER → 2017-03-26 | Outpatient (CLI) | payer MEDICARE, MEDICAID ==
[~2017-03-26] MED LIST changes: -ACET-654 PO; +ACET1TAB17 PO; +ASPI-161 PO; -ASPI1TAB24 PO; +KLON0.5T PO; +LAMO100T; +PENI250T57 PO; +VITA20008 PO; +ZOFR4TAB3 PO
--- NOTE | 2017-04-15 02:07 | ECWPNPC ---
PATIENT NAME: HAWK CASE : 1955 GENDER: FEMALE VISIT DATE: 03/26/2017 DISCHARGE DATE: 03/26/17 1504 VISIT LOCKED DATE TIME: PHYSICIAN: GERMAN SLAUGHTER RESOURCE: GERMAN SLAUGHTER REASON FOR APPOINTMENT 1. BACK HISTORY OF PRESENT ILLNESS HISTORY OF PRESENT ILLNESS: HERE FOR F/U AND EVALUATION OF CHRONIC LBP.RATING PAIN VAS 4/10.COMPLAINING OF RIGHT HIP PAIN.THIS HAS BEEN BOTHERING HER THE PAST TWO WEEKS.HAS BEEN USING STAIRS ON A REGULAR BASIS AND FEELS THIS HAS AGGREVATED PAIN.FINDS OXYCODONE 10/325 AND SOMA SOMEWHAT HELPFUL. PAIN THE PATIENT DESCRIBES THE PAIN... FALL RISK SCREENING: SCREENING :NO FALLS IN THE PAST YEAR CURRENT MEDICATIONS TAKING VITAMIN D-3 2000 CAPSULE 1 CAPSULE ORALLY DAILY TAKING CARAFATE 1 GM TABLET 2TABLET ON AN EMPTY STOMACH ORALLY ONCE DAILY, NOTES: UP TO TWICE ADAY TAKING PLAQUENIL 200 MG TABLET 1 TABLET WITH FOOD OR MILK ORALLY TWICE A DAY TAKING ASPIR-81 81 MG TABLET DELAYED RELEASE 1 TABLET ORALLY ONCE A DAY TAKING KLONOPIN 0.5 MG TABLET 1 TABLET ORALLY QHS TAKING LORATADINE 10 MG TABLET 1 TABLET ORALLY ONCE A DAY TAKING LEVOTHYROXINE SODIUM 100 MCG TABLET 1 TABLET EVERY MORNING ON AN EMPTY STOMACH ORALLY ONCE A DAY TAKING NEXIUM 40 MG CAPSULE DELAYED RELEASE 1 CAPSULE ORALLY TWICE A DAY TAKING PLAVIX 75 MG TABLET 1 TABLET ORALLY ONCE A DAY TAKING HYDROCHLOROTHIAZIDE 25 25 MG SOFT GEL 1 TABLETS ORAL DAILY TAKING CRESTOR 20 MG TABLET 1 TABLET ORALLY QHS TAKING LAMOTRIGINE 100 MG TABLET 1 TABLET ORALLY ONCE DAILY TAKING DOCUSATE SODIUM 100 MG CAPSULE 1 CAPSULE NEEDED ORALLY TWO TIMES A DAY TAKING LISINOPRIL 2.5 MG TABLET 1 TABLET ORALLY ONCE A DAY TAKING PERCOCET 10-325 MG TABLET 1 TABLET NEEDED ORALLY Q4-6H PRN MDD5 TAKING SOMA 350 MG TABLET 1 TABLET ORALLY Q8H PRN MDD3 TAKING AUGMENTIN 875-125 MG TABLET 1 TABLET ORALLY EVERY 12 HRS MEDICATION LIST REVIEWED AND RECONCILED WITH THE PATIENT PAST MEDICAL HISTORY PALPITATIONS, HEART HX BLOOD CLOTS, LEFT LEG HX ANEMIA ARTHRITIS, OA BACK PAIN HX BONE SPURS INSOMNIA MOOD SWINGS XEROPTHALMIA EARLY SATIETY COLONIC POLYPS RECURRENT UTIS SYSTEMIC LUPUS ERYTHEMATOUS ESOPHAGEAL REFLUX HYPOTHYROIDISM HYPERTENSION HYPERCHOLESTEROLEMIA RAYNAUDS SYNDROME NECK PAIN DEPRESSION OSTEOARTHRITIS MYOCARDIAL INFARCTION MYOFASCIAL PAIN SYNDROME LOW BACK PAIN LUMBAR RADICULOPATHY ALLERGIES PROPRANOLOL HCL: NAUSEA/VOMITING: ALLERGY CAPTOPRIL: NAUSEA/VOMITING: ALLERGY MACROBID: N/DIARRHEA: ALLERGY CIPRO: NAUSEA/VOMITING/DIARRHEA: ALLERGY MS CONTIN: N/V UNABLE TO VOID ANTIDEPRESSANTS: FLU LIKE SYMPTOMS /NAUSEA NUCYNTA ER: NIGHTMARES, INCREASED DEPRESSION: SIDE EFFECTS SURGICAL HISTORY NECK SURGERY BONE SPUR 1997 TUBAL LIGATION 1982 ENDOMETRIAL BIOPSY 2010 CARDIAC CATHETERIZATION 09/26 CARDIAC STENT 09/26 SURGERY TO REPAIR RIGHT FEMORAL ARTERY 09/26 CARDIAC STENT 10/27 CARDIAC STENT 03/26 COLONOSCOPY 2010 HOSPITALIZATION/MAJOR DIAGNOSTIC PROCEDURE SURGERY RELATED MYOCARDIAL INFARCTION 09/26 REVIEW OF SYSTEMS REVIEWED BY: PROVIDER: GERMAN BUTTS . CONSTITUTIONAL: ANY CHANGE IN YOUR MEDICAL CONDITION? NO . CHILLS NO . FEVER NO . INFECTION: DO YOU HAVE NEW INFECTIONS? YES, SINUSITIS, TAKING AUGMENTIN . DO YOU HAVE HISTORY OF MRSA? NO . MUSCULOSKELETAL: ANY NEW PATTERNS OF PAIN OR NUMBNESS? YES, RIGHT HIP PAIN-PAIN BOTHERS PT WHEN WALKING OR CLIMBING STAIRS. PT STATES SHE TAKES ONE STEP AT A TIME STARTING WITH LEFT LEG. PT STATES SHE PULLS HERSELF UPSTAIRS. . GASTROENTEROLOGY: ANY NEW CHANGE IN BOWEL CONTROL? NO . GENITOURINARY: ANY NEW CHANGE IN BLADDER CONTROL? NO . IS THERE A CHANCE YOU COULD BE ? NO . HEMATOLOGY/LYMPH: DO YOU TAKE ANY BLOOD THINNERS? (FOR EXAMPLE- COUMADIN, PLAVIX, AGGRENOX, PLATEL, PRADAXA, OR XARELTO) YES, PLAVIX . WHEN WAS YOUR LAST DOSE? DATE: TIME: . NEUROLOGY: HAVE YOU FALLEN IN THE PAST 6 MONTHS? NO . ANY NEW EXTREMITY NUMBNESS OR WEAKNESS? NO . CARDIOLOGY: DO YOU HAVE A PACEMAKER OR DEFIBRILLATOR? NO . RESPIRATORY: HAVE YOU BEEN SICK IN THE PAST WEEK? NO . FEVER NO . FLU LIKE SYMPTOMS? NO . COUGH NO . INTEGUMENTARY: DO YOU HAVE ANY RASHES OR OPEN SORES? NO . ALLERGIC/IMMUNO: ARE YOU ALLERGIC TO SHELLFISH OR IV DYE? NO . ANY NEW ALLERGIES? NO . PSYCHIATRIC: DO YOU HAVE THOUGHTS OF HURTING YOURSELF OR SOMEONE ELSE? NO . ARE YOU ABUSED, NEGLECTED, OR IN AN UNSAFE ENVIRONMENT? NO . ENDOCRINOLOGY: ARE YOU DIABETIC? NO . OTHER: DO YOU NEED ANY PRESCRIPTIONS? YES, WILL NEED SOON . IF YES, PLEASE LIST: ____ . ANY NEW PROBLEMS WITH YOUR MEDICATIONS? NO . WHEN DID YOU LAST EAT? ____ . WHEN DID YOU LAST DRINK? ____ . WHAT DID YOU LAST DRINK? ____ . NAME OF PERSON DRIVING YOU HOME? ____ . DO YOU HAVE ANY OTHER QUESTIONS OR CONCERNS NO . VITAL SIGNS WT 185.6 LBS, HT 64 IN, BMI 31.85 INDEX, BP 154/77 MM HG, HR 57 /MIN, RR 16 /MIN, TEMP 97.9 F, OXYGEN SAT % 100%, SAFE IN ENV? (Y/N) Y, NA INITIALS TL 1410, REVIEWED BY: EM. EXAMINATION GENERAL EXAMINATION: LUNGS:LUNG SOUNDS ARE CLEAR. HEART:HEART RATE REGULAR. MUSCULOSKELETAL:MUSCLE STRENGTH TESTING 5/5 BILATERAL LOWER EXTREMITIES. PALPATION: POSITIVE FOR PAIN OVER L/S SPINE. POSITIVE FOR PAIN OVER L/S PARASPINALS.MULTIPLE AREAS OF TENDER SPOTS INDICATIVE OF FIBROMYALGIA.. 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 (PRIMARY) MYALGIA - M79.1 CHRONIC PRESCRIPTION OPIATE USE - Z79.891 TREATMENT OTHERS REFILL PERCOCET TABLET, 10-325 MG, 1 TABLET NEEDED, ORALLY, Q4-6H PRN MDD5, 30 DAY(S), 150, REFILLS 0 REFILL SOMA TABLET, 350 MG, 1 TABLET, ORALLY, Q8H PRN MDD3, 30 DAY(S), 45, REFILLS 0 NOTES: ISTOP REGISTRY REVIEWED AND DEMNOSTRATES COMPLLIANCE. BRINGS IN MEDICATIONS WHICH IS APPROPRIATE FOR WHAT WAS DISPENSED. RECENT URINE TOXICOLOGY REVIEWED. NO UNAUTHORIZED MEDICATIONS. NO ILLICIT SUBSTANCES AND PRESCRIBED MEDICATIONS WERE PRESENT. , RISKS AND BENEFITS OF NARCOTIC/OPIOD MEDICATIONS WERE REVIEWED WITH PATIENT - THIS INCLUDES BUT IS NOT LIMITED TO RISK OF DEPENDANCE/DEVELOPMENT OF ADDICTION, MOOD DISTURBANCE AND DEPRESSION, OSTEOPOROSIS, HORMONAL AND LABIDAL CHANGES, RESPIRATORY DEPRESSION AND . PATIENT IS ADVISED NOT TO DRIVE WHILE ON THESE MEDICATIONS.URINE TOX TODAY. PROCEDURES PN WORKMANS' COMP OPINION IN YOUR OPINION, WAS THE INCIDENT THAT THE PATIENT DESCRIBED THE COMPETENT MEDICAL CAUSE OF THIS INJURY/ILLNESS? YES ARE THE PATIENT'S COMPLAINTS CONSISTENT WITH HIS/HER HISTORY OF THE INJURY/ILLNESS? YES IS THE PATIENT'S HISTORY OF THE INJURY/ILLNESS CONSISTENT WITH YOUR OBJECTIVE FINDING? YES WHAT IS THE PERCENTAGE OF TEMPORARY IMPAIRMENT? MODERATE TO MARKED = 66.7% IS THE PATIENT WORKING? NO DOCTOR ON SITE: ALONZO ALCANTARA MD PROCEDURE CODES FA211 ESTABILISHED PATIENT [facility] CHARGE DISPOSITION & COMMUNICATION FOLLOW UP 4 WEEKS ELECTRONICALLY SIGNED BY BENJAMÍN CHAUDHRY ON 04/14/2017 AT 07:12 PM EDT DISCLAIMER : THIS IS A VISIT SUMMARY EXTRACTED FROM THE [employer] CHART. IT IS NOT A COPY OF THE [employer] PROGRESS NOTE. OSMIN
== END ==
LOC: M PAIN 14:00
PROVIDERS: ATTEND Nurse Practitioner Family
DX: G89.29 Other chronic pain (principal); M54.42 Lumbago with sciatica, left side; M79.1 Myalgia; M19.90 Unspecified osteoarthritis, unspecified site; G47.00 Insomnia, unspecified; M32.9 Systemic lupus erythematosus, unspecified; K21.9 Gastro-esophageal reflux disease without esophagitis; E03.9 Hypothyroidism, unspecified; I10 Essential (primary) hypertension; E78.00 Pure hypercholesterolemia, unspecified; I73.00 Raynaud's syndrome without gangrene; I25.2 Old myocardial infarction; Z88.5 Allergy status to narcotic agent; Z88.8 Allergy status to other drugs, medicaments and biological substances; Z79.82 Long term (current) use of aspirin; Z79.891 Long term (current) use of opiate analgesic; Z79.899 Other long term (current) drug therapy

== ENCOUNTER → 2017-04-06 | Outpatient (CLI) | payer OTHER ==
--- NOTE | 2017-04-21 01:11 | ECWPNPC ---
PATIENT NAME: HAWK CASE : 1955 GENDER: FEMALE VISIT DATE: 04/06/2017 DISCHARGE DATE: 04/06/17 1348 VISIT LOCKED DATE TIME: PHYSICIAN: ALONZO BLOCK RESOURCE: ALONZO BLOCK REASON FOR APPOINTMENT 1. NECK W/C HISTORY OF PRESENT ILLNESS HISTORY OF PRESENT ILLNESS: PAIN THE PATIENT DESCRIBES THE PAIN... 61 YEAR OLD FEMALE PATIENT WITH HISTORY OF CHRONIC NECK PAIN. PATIENT DESCRIBES THE PAIN ACHING, TENDER, THROBBING AND SORE WITH THE PAIN COMING AND GOING AND CURRENT PAIN SCORE OF 2/10. 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 PATIENT REPORTS HAVING A SURGERY IN 1997. MRS. CASE STATES THAT SHE HAS TRIED PHYSICAL THERAPY IN THE PAST BUT IT DID NOT AID IN PAIN RELIEF OR FUNCTIONALITY AND MOBILITY. MRS. CASE DOES USE A TENNS MACHINE AND STATES THAT IT KEEPS HER MOBILE AND FUNCTIONAL. CURRENTLY THE PATIENT IS USING SOMA AND PERCOCET FOR PAIN MANAGEMENT AND IT KEEPS HER MOBILE AND FUNCTIONAL. PATIENT DENIES UNEXPLAINABLE WEIGHT LOSS, FEVER, CHILLS, NEW CHANGES ON HER URINARY OR BOWEL CONTROL. FALL RISK SCREENING: SCREENING :NO FALLS IN THE PAST YEAR CURRENT MEDICATIONS TAKING VITAMIN D-3 2000 CAPSULE 1 CAPSULE ORALLY DAILY TAKING CARAFATE 1 GM TABLET 2TABLET ON AN EMPTY STOMACH ORALLY ONCE DAILY, NOTES: UP TO TWICE ADAY TAKING PLAQUENIL 200 MG TABLET 1 TABLET WITH FOOD OR MILK ORALLY TWICE A DAY TAKING ASPIR-81 81 MG TABLET DELAYED RELEASE 1 TABLET ORALLY ONCE A DAY TAKING KLONOPIN 0.5 MG TABLET 1 TABLET ORALLY QHS TAKING LORATADINE 10 MG TABLET 1 TABLET ORALLY ONCE A DAY TAKING LEVOTHYROXINE SODIUM 100 MCG TABLET 1 TABLET EVERY MORNING ON AN EMPTY STOMACH ORALLY ONCE A DAY TAKING NEXIUM 40 MG CAPSULE DELAYED RELEASE 1 CAPSULE ORALLY TWICE A DAY TAKING PLAVIX 75 MG TABLET 1 TABLET ORALLY ONCE A DAY TAKING HYDROCHLOROTHIAZIDE 25 25 MG SOFT GEL 1 TABLETS ORAL DAILY TAKING CRESTOR 20 MG TABLET 1 TABLET ORALLY QHS TAKING LAMOTRIGINE 100 MG TABLET 1 TABLET ORALLY ONCE DAILY TAKING DOCUSATE SODIUM 100 MG CAPSULE 1 CAPSULE NEEDED ORALLY TWO TIMES A DAY TAKING LISINOPRIL 2.5 MG TABLET 1 TABLET ORALLY ONCE A DAY TAKING PERCOCET 10-325 MG TABLET 1 TABLET NEEDED ORALLY Q4-6H PRN MDD5 TAKING SOMA 350 MG TABLET 1 TABLET ORALLY Q8H PRN MDD3 DISCONTINUED AUGMENTIN 875-125 MG TABLET 1 TABLET ORALLY EVERY 12 HRS MEDICATION LIST REVIEWED AND RECONCILED WITH THE PATIENT PAST MEDICAL HISTORY PALPITATIONS, HEART HX BLOOD CLOTS, LEFT LEG HX ANEMIA ARTHRITIS, OA BACK PAIN HX BONE SPURS INSOMNIA MOOD SWINGS XEROPTHALMIA EARLY SATIETY COLONIC POLYPS RECURRENT UTIS SYSTEMIC LUPUS ERYTHEMATOUS ESOPHAGEAL REFLUX HYPOTHYROIDISM HYPERTENSION HYPERCHOLESTEROLEMIA RAYNAUDS SYNDROME NECK PAIN DEPRESSION OSTEOARTHRITIS MYOCARDIAL INFARCTION MYOFASCIAL PAIN SYNDROME LOW BACK PAIN LUMBAR RADICULOPATHY ALLERGIES PROPRANOLOL HCL: NAUSEA/VOMITING: ALLERGY CAPTOPRIL: NAUSEA/VOMITING: ALLERGY MACROBID: N/DIARRHEA: ALLERGY CIPRO: NAUSEA/VOMITING/DIARRHEA: ALLERGY MS CONTIN: N/V UNABLE TO VOID ANTIDEPRESSANTS: FLU LIKE SYMPTOMS /NAUSEA NUCYNTA ER: NIGHTMARES, INCREASED DEPRESSION: SIDE EFFECTS REVIEW OF SYSTEMS REVIEWED BY: PROVIDER: ALONZO BLOCK MD . CONSTITUTIONAL: ANY CHANGE IN YOUR MEDICAL CONDITION? NO . CHILLS NO . FEVER NO . INFECTION: DO YOU HAVE NEW INFECTIONS? NO . DO YOU HAVE HISTORY OF MRSA? NO . MUSCULOSKELETAL: ANY NEW PATTERNS OF PAIN OR NUMBNESS? NO . GASTROENTEROLOGY: ANY NEW CHANGE IN BOWEL CONTROL? PT REPORTS INCREASE IN CONSTIPATION, TAKES DOCUSATE NEEDED . GENITOURINARY: ANY NEW CHANGE IN BLADDER CONTROL? YES PT REPORTS INCREASE IN BLADDER STRESS INCONTINENCE. . IS THERE A CHANCE YOU COULD BE ? NO . HEMATOLOGY/LYMPH: DO YOU TAKE ANY BLOOD THINNERS? (FOR EXAMPLE- COUMADIN, PLAVIX, AGGRENOX, PLATEL, PRADAXA, OR XARELTO) NO . WHEN WAS YOUR LAST DOSE? DATE: TIME: . NEUROLOGY: HAVE YOU FALLEN IN THE PAST 6 MONTHS? NO . ANY NEW EXTREMITY NUMBNESS OR WEAKNESS? NO . CARDIOLOGY: DO YOU HAVE A PACEMAKER OR DEFIBRILLATOR? NO . RESPIRATORY: HAVE YOU BEEN SICK IN THE PAST WEEK? NO . FEVER NO . FLU LIKE SYMPTOMS? NO . COUGH NO . INTEGUMENTARY: DO YOU HAVE ANY RASHES OR OPEN SORES? NO . ALLERGIC/IMMUNO: ARE YOU ALLERGIC TO SHELLFISH OR IV DYE? NO . ANY NEW ALLERGIES? NO . PSYCHIATRIC: DO YOU HAVE THOUGHTS OF HURTING YOURSELF OR SOMEONE ELSE? NO . ARE YOU ABUSED, NEGLECTED, OR IN AN UNSAFE ENVIRONMENT? NO . ENDOCRINOLOGY: ARE YOU DIABETIC? NO . OTHER: DO YOU NEED ANY PRESCRIPTIONS? NO . IF YES, PLEASE LIST: ____ . ANY NEW PROBLEMS WITH YOUR MEDICATIONS? NO . WHEN DID YOU LAST EAT? ____ . WHEN DID YOU LAST DRINK? ____ . WHAT DID YOU LAST DRINK? ____ . NAME OF PERSON DRIVING YOU HOME? ____ . DO YOU HAVE ANY OTHER QUESTIONS OR CONCERNS YES STILL WAITING FOR TENS UNIT SINCE LAST VISIT 01/18/17 . VITAL SIGNS WT 185.0 LBS, HT 64 IN, BMI 31.75 INDEX, BP 152/67 MM HG, HR 65 /MIN, RR 16 /MIN, TEMP 97.6 F, OXYGEN SAT % 98%, SAFE IN ENV? (Y/N) YES, NA INITIALS TL 1303, REVIEWED BY: CLOVER. EXAMINATION : PATIENT IS ALERT O X 3 AND COOPERATIVE. TENDERNESS IN THE CERVICAL AREA AND PARASPINAL MUSCLE GROUP. PATIENT ABLE TO EXTEND NECK 20 DEGREES AND FLEX 20 DEGREES WITH LATERAL ROTATION TO THE LEFT AND RIGHT AT 50 DEGREES. 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 BANDS OF TISSUE, RESTRICTION OF MOVEMENT, AND PRESENCE OF TRIGGER POINTS IN THE CERVICAL AREA. MRI DONE ON 11/18/15 SHOWS MULTILEVEL DEGENERATIVE DISC DISEASE, SPINAL STENOSIS, AND TARLOV CYSTS AT C7-T1. ASSESSMENTS SPONDYLOSIS WITHOUT MYELOPATHY OR RADICULOPATHY, CERVICAL REGION - M47.812 (PRIMARY) MYALGIA - M79.1 CERVICAL DISC DISORDER AT C4-C5 LEVEL WITH RADICULOPATHY - M50.121 TREATMENT SPONDYLOSIS WITHOUT MYELOPATHY OR RADICULOPATHY, CERVICAL REGION NOTES: WE DISCUSSED SEVERAL ISSUES WITH MRS. CASE'S PAIN MANAGEMENT CASE. AT THIS TIME THE PATIENT WILL CONTINUE WITH THE SAME MEDICATION REGIME BEFORE. PATIENT WILL CONTINUE TO USE THE PERCOCET FOR THE SOMATIC PAIN AND THE SOMA FOR THE MUSCLE SPASMS AND PAIN. PATIENT DENIES ABUSE OF ANY MEDICATION, DENIES USE OF ILLEGAL SUBSTANCES, AND STATES THAT SHE IS ONLY USING THE MEDICATION FOR PAIN MANAGEMENT. URINE TOXICOLOGY REPORT DONE ON 03/16/17 SHOWS CONSISTENT RESULTS WITH THE PATIENT'S MEDICATION LIST. I WILL ORDER THE PATIENT A NEW TENNS UNIT, HERS HAS BROKEN AND SHE REPORTS IT AIDING IN PAIN RELIEF AND MOBILITY AND FUNCTIONALITY. PATIENT IS A GOOD CANDIDATE FOR TRIGGER POINT INJECTION OR A CERVICAL EPIDURAL HOWEVER AT THIS TIME THE PATIENT IS USING PLAQUENIL AND PLAVIX AND DOES NOT WANT TO STOP MEDICATION WITHOUT SPEAKING TO THE DOCTORS FIRST. I WILL SPEAK WITH THE PATIENT'S LUPUS DOCTOR ABOUT THE PLAQUENIL. PATIENT WILL FOLLOW UP IN 3 WEEKS AFTER I HAVE DISCUSSED THE MEDICATIONS WITH THE OTHER DOCTORS. INSTRUCTIONS WERE GIVEN, QUESTIONS WERE ANSWERED, PATIENT REPORTS UNDERSTANDING AND AGREES WITH THE PLAN. I, KORI ADLER, DOCUMENTED THE ABOVE INFORMATION ACTING A SCRIBE FOR DR. BLOCK. I HAVE REVIEWED THE ABOVE DOCUMENT, WRITTEN BY KORI RODRIGUEZ AND I VERIFY THAT IT IS ACCURATE. PROCEDURES PN WORKMANS' COMP OPINION IN YOUR OPINION, WAS THE INCIDENT THAT THE PATIENT DESCRIBED THE COMPETENT MEDICAL CAUSE OF THIS INJURY/ILLNESS? YES ARE THE PATIENT'S COMPLAINTS CONSISTENT WITH HIS/HER HISTORY OF THE INJURY/ILLNESS? YES IS THE PATIENT'S HISTORY OF THE INJURY/ILLNESS CONSISTENT WITH YOUR OBJECTIVE FINDING? YES WHAT IS THE PERCENTAGE OF TEMPORARY IMPAIRMENT? MODERATE TO MARKED = 66.7% IS THE PATIENT WORKING? NO DOCTOR ON SITE: ALONZO ALCANTARA MD PROCEDURE CODES FA211 ESTABILISHED PATIENT [facility] FACILITY CHARGE G8427 DOC MEDS VERIFIED W/PT OR RE G8730 PAIN ASSESS POS TOOL F/U PLAN DOC DISPOSITION & COMMUNICATION FOLLOW UP TPI AFTER CLEARANCE ELECTRONICALLY SIGNED BY ALONZO BLOCK MD ON 04/19/2017 AT 01:22 PM EDT DISCLAIMER : THIS IS A VISIT SUMMARY EXTRACTED FROM THE [employer] CHART. IT IS NOT A COPY OF THE [employer] PROGRESS NOTE. OSMIN
== END ==
LOC: M PAIN 13:00
PROVIDERS: ATTEND Anesthesiology
DX: G89.29 Other chronic pain (principal); M47.812 Spondylosis without myelopathy or radiculopathy, cervical region; M50.121 Cervical disc disorder at C4-C5 level with radiculopathy; M79.1 Myalgia; G47.00 Insomnia, unspecified; M32.9 Systemic lupus erythematosus, unspecified; K21.9 Gastro-esophageal reflux disease without esophagitis; E03.9 Hypothyroidism, unspecified; I10 Essential (primary) hypertension; E78.00 Pure hypercholesterolemia, unspecified; I73.00 Raynaud's syndrome without gangrene; F32.9 Major depressive disorder, single episode, unspecified; M19.90 Unspecified osteoarthritis, unspecified site; I25.2 Old myocardial infarction; Z88.5 Allergy status to narcotic agent; Z88.8 Allergy status to other drugs, medicaments and biological substances; Z79.82 Long term (current) use of aspirin; Z79.891 Long term (current) use of opiate analgesic; Z79.899 Other long term (current) drug therapy

== ENCOUNTER 2017-05-25 19:00 | Emergency (ER) | payer MEDICARE, MEDICAID ==
[~2017-05-25] VITALS: Ht 160 cm; Wt 83.2 kg
[~2017-05-25 19:00] MED LIST changes: -KLON0.5T PO; -LAMO100T; -VITA20008 PO
[2017-05-25] MEDS ORDERED: VITA20008 PO (19:12)
[2017-05-25] MEDS ORDERED: KLON0.5T PO (19:17)
[2017-05-25] MEDS ORDERED: SUCR1TA PO (19:17)
[2017-05-25] MEDS ORDERED: LAMO100T (19:17)
[2017-05-25] MEDS ORDERED: LIDOCAINE 1% MDV 20ML VIAL As Ordered ONE (21:57)
[2017-05-25] MEDS ORDERED: ADACEL/BOOSTRIX VACCINE (DIPHTH/PERTUSS/ACELL/TETANUS)0.5ML SYR (90715) IM ONE (22:00)
[2017-05-25] MEDS ORDERED: LIDOCAINE 1% MDV 20ML VIAL IM ONE (22:00)
[2017-05-25 22:44] VITALS: BP 110/62
== END 2017-05-25 22:48 | disposition home or self-care (01) ==
LOC: M ED 19:00
DX: S61.012A Laceration without foreign body of left thumb without damage to nail, initial encounter (principal); W26.8XXA Contact with other sharp object(s), not elsewhere classified, initial encounter; Y92.099 Unspecified place in other non-institutional residence as the place of occurrence of the external cause; Y93.89 Activity, other specified; Y99.9 Unspecified external cause status; F41.9 Anxiety disorder, unspecified; M32.9 Systemic lupus erythematosus, unspecified; Z87.891 Personal history of nicotine dependence; Z79.82 Long term (current) use of aspirin; Z79.899 Other long term (current) drug therapy; Z88.1 Allergy status to other antibiotic agents; Z88.8 Allergy status to other drugs, medicaments and biological substances; Z91.041 Radiographic dye allergy status; Z91.040 Latex allergy status

== ENCOUNTER → 2017-05-27 | Outpatient (CLI) | payer MEDICARE, MEDICAID, OTHER ==
[~2017-05-27] MED LIST changes: +KLON0.5T PO; +LAMO100T; +VITA20008 PO
--- NOTE | 2017-06-09 02:19 | ECWPNPC ---
PATIENT NAME: HAWK CASE : 1955 GENDER: FEMALE VISIT DATE: 05/27/2017 DISCHARGE DATE: 05/27/17 1430 VISIT LOCKED DATE TIME: PHYSICIAN: GERMAN SLAUGHTER RESOURCE: GERMAN SLAUGHTER REASON FOR APPOINTMENT 1. BACK HISTORY OF PRESENT ILLNESS HISTORY OF PRESENT ILLNESS: HERE FOR F/U AND EVALUATION OF CHRONIC LBP.RATING PAIN VAS 2/10.COMPLAINING OF RIGHT HIP PAIN.THIS HAS BEEN BOTHERING HER THE PAST TWO WEEKS.HAS BEEN USING STAIRS ON A REGULAR BASIS AND FEELS THIS HAS AGGREVATED PAIN.REPORTS FLARE UP OF LOW BACK PAIN AND RIGHT LEG PAIN ONE MONTH AGO.THIS HAS GOTTEN BETTER.C/O INCREASE IN BILATERAL KNEE PAIN LEFT >RIGHT.FINDS OXYCODONE 10/325 AND SOMA SOMEWHAT HELPFUL. PAIN THE PATIENT DESCRIBES THE PAIN... THE PATIENT DESCRIBES THE PAIN... FALL RISK SCREENING: SCREENING :NO FALLS IN THE PAST YEAR CURRENT MEDICATIONS TAKING VITAMIN D-3 2000 CAPSULE 1 CAPSULE ORALLY DAILY TAKING CARAFATE 1 GM TABLET 2TABLET ON AN EMPTY STOMACH ORALLY ONCE DAILY, NOTES: UP TO TWICE ADAY TAKING PLAQUENIL 200 MG TABLET 1 TABLET WITH FOOD OR MILK ORALLY TWICE A DAY TAKING ASPIR-81 81 MG TABLET DELAYED RELEASE 1 TABLET ORALLY ONCE A DAY TAKING KLONOPIN 0.5 MG TABLET 1 TABLET ORALLY QHS TAKING LORATADINE 10 MG TABLET 1 TABLET ORALLY ONCE A DAY TAKING LEVOTHYROXINE SODIUM 100 MCG TABLET 1 TABLET EVERY MORNING ON AN EMPTY STOMACH ORALLY ONCE A DAY TAKING NEXIUM 40 MG CAPSULE DELAYED RELEASE 1 CAPSULE ORALLY TWICE A DAY TAKING PLAVIX 75 MG TABLET 1 TABLET ORALLY ONCE A DAY TAKING HYDROCHLOROTHIAZIDE 25 25 MG SOFT GEL 1 TABLETS ORAL DAILY TAKING CRESTOR 20 MG TABLET 1 TABLET ORALLY QHS TAKING LAMOTRIGINE 100 MG TABLET 1 TABLET ORALLY ONCE DAILY TAKING DOCUSATE SODIUM 100 MG CAPSULE 1 CAPSULE NEEDED ORALLY TWO TIMES A DAY TAKING LISINOPRIL 2.5 MG TABLET 1 TABLET ORALLY ONCE A DAY TAKING SOMA 350 MG TABLET 1 TABLET ORALLY Q8H PRN MDD3 TAKING PERCOCET 10-325 MG TABLET 1 TABLET NEEDED ORALLY Q4-6H PRN MDD5 MEDICATION LIST REVIEWED AND RECONCILED WITH THE PATIENT PAST MEDICAL HISTORY PALPITATIONS, HEART HX BLOOD CLOTS, LEFT LEG HX ANEMIA ARTHRITIS, OA BACK PAIN HX BONE SPURS INSOMNIA MOOD SWINGS XEROPTHALMIA EARLY SATIETY COLONIC POLYPS RECURRENT UTIS SYSTEMIC LUPUS ERYTHEMATOUS ESOPHAGEAL REFLUX HYPOTHYROIDISM HYPERTENSION HYPERCHOLESTEROLEMIA RAYNAUDS SYNDROME NECK PAIN DEPRESSION OSTEOARTHRITIS MYOCARDIAL INFARCTION MYOFASCIAL PAIN SYNDROME LOW BACK PAIN LUMBAR RADICULOPATHY ALLERGIES PROPRANOLOL HCL: NAUSEA/VOMITING: ALLERGY CAPTOPRIL: NAUSEA/VOMITING: ALLERGY MACROBID: N/DIARRHEA: ALLERGY CIPRO: NAUSEA/VOMITING/DIARRHEA: ALLERGY MS CONTIN: N/V UNABLE TO VOID ANTIDEPRESSANTS: FLU LIKE SYMPTOMS /NAUSEA NUCYNTA ER: NIGHTMARES, INCREASED DEPRESSION: SIDE EFFECTS REVIEW OF SYSTEMS REVIEWED BY: PROVIDER: GERMAN BUTTS . CONSTITUTIONAL: ANY CHANGE IN YOUR MEDICAL CONDITION? NO . CHILLS NO . FEVER NO . INFECTION: DO YOU HAVE NEW INFECTIONS? NO . DO YOU HAVE HISTORY OF MRSA? NO . MUSCULOSKELETAL: ANY NEW PATTERNS OF PAIN OR NUMBNESS? YES, LEFT KNEE . GASTROENTEROLOGY: ANY NEW CHANGE IN BOWEL CONTROL? NO . GENITOURINARY: ANY NEW CHANGE IN BLADDER CONTROL? NO . IS THERE A CHANCE YOU COULD BE ? NO . HEMATOLOGY/LYMPH: DO YOU TAKE ANY BLOOD THINNERS? (FOR EXAMPLE- COUMADIN, PLAVIX, AGGRENOX, PLATEL, PRADAXA, OR XARELTO) YES, PLAVIX . WHEN WAS YOUR LAST DOSE? DATE: TIME: . NEUROLOGY: HAVE YOU FALLEN IN THE PAST 6 MONTHS? NO . ANY NEW EXTREMITY NUMBNESS OR WEAKNESS? NO . CARDIOLOGY: DO YOU HAVE A PACEMAKER OR DEFIBRILLATOR? NO . RESPIRATORY: HAVE YOU BEEN SICK IN THE PAST WEEK? NO . FEVER NO . FLU LIKE SYMPTOMS? NO . COUGH NO . INTEGUMENTARY: DO YOU HAVE ANY RASHES OR OPEN SORES? NO . ALLERGIC/IMMUNO: ARE YOU ALLERGIC TO SHELLFISH OR IV DYE? NO . ANY NEW ALLERGIES? NO . PSYCHIATRIC: DO YOU HAVE THOUGHTS OF HURTING YOURSELF OR SOMEONE ELSE? NO . ARE YOU ABUSED, NEGLECTED, OR IN AN UNSAFE ENVIRONMENT? NO . ENDOCRINOLOGY: ARE YOU DIABETIC? NO . OTHER: DO YOU NEED ANY PRESCRIPTIONS? YES . IF YES, PLEASE LIST: SOMA, HYDROCODONE . ANY NEW PROBLEMS WITH YOUR MEDICATIONS? NO . WHEN DID YOU LAST EAT? ____ . WHEN DID YOU LAST DRINK? ____ . WHAT DID YOU LAST DRINK? ____ . NAME OF PERSON DRIVING YOU HOME? ____ . DO YOU HAVE ANY OTHER QUESTIONS OR CONCERNS LEGS BOTHERING HER KNEES TO FEET. HURTS TO TOUCH/ RUB LOWER LEGS AND FEET HURT EVEN WHEN NOT WALKING NEEDS TO HAVE KNEE REPLACEMENTS . VITAL SIGNS WT 182.3 LBS, HT 64 IN, BMI 31.29 INDEX, BP 143/83 MM HG, HR 59 /MIN, RR 16 /MIN, TEMP 97 F, OXYGEN SAT % 100, REVIEWED BY: NL. EXAMINATION GENERAL EXAMINATION: LUNGS:LUNG SOUNDS ARE CLEAR. HEART:HEART RATE REGULAR. MUSCULOSKELETAL:MUSCLE STRENGTH TESTING 5/5 BILATERAL LOWER EXTREMITIES. PALPATION: POSITIVE FOR PAIN OVER L/S SPINE. POSITIVE FOR PAIN OVER L/S PARASPINALS.MULTIPLE AREAS OF TENDER SPOTS INDICATIVE OF FIBROMYALGIA.. 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 (PRIMARY) MYALGIA - M79.1 CHRONIC PRESCRIPTION OPIATE USE - Z79.891 TREATMENT LUMBAGO WITH SCIATICA, LEFT SIDE REFILL SOMA TABLET, 350 MG, 1 TABLET, ORALLY, Q8H PRN MDD3, 30 DAY(S), 45, REFILLS 0 REFILL PERCOCET TABLET, 10-325 MG, 1 TABLET NEEDED, ORALLY, Q4-6H PRN MDD5, 30 DAYS, 150, REFILLS 0 NOTES: ISTOP REGISTRY REVIEWED AND DEMNOSTRATES COMPLLIANCE. BRINGS IN MEDICATIONS WHICH IS APPROPRIATE FOR WHAT WAS DISPENSED. RECENT URINE TOXICOLOGY REVIEWED. NO UNAUTHORIZED MEDICATIONS. NO ILLICIT SUBSTANCES AND PRESCRIBED MEDICATIONS WERE PRESENT. , RISKS AND BENEFITS OF NARCOTIC/OPIOD MEDICATIONS WERE REVIEWED WITH PATIENT - THIS INCLUDES BUT IS NOT LIMITED TO RISK OF DEPENDANCE/DEVELOPMENT OF ADDICTION, MOOD DISTURBANCE AND DEPRESSION, OSTEOPOROSIS, HORMONAL AND LABIDAL CHANGES, RESPIRATORY DEPRESSION AND . PATIENT IS ADVISED NOT TO DRIVE WHILE ON THESE MEDICATIONS. PROCEDURE CODES FA211 ESTABILISHED PATIENT [facility] FACILITY CHARGE G8730 PAIN ASSESS POS TOOL F/U PLAN DOC G8427 DOC MEDS VERIFIED W/PT OR RE DISPOSITION & COMMUNICATION FOLLOW UP 2 MONTHS ELECTRONICALLY SIGNED BY BENJAMÍN CHAUDHRY ON 06/08/2017 AT 08:59 AM EDT DISCLAIMER : THIS IS A VISIT SUMMARY EXTRACTED FROM THE [employer] CHART. IT IS NOT A COPY OF THE [employer] PROGRESS NOTE. SERENAD
== END ==
LOC: M PAIN 14:00
PROVIDERS: ATTEND Nurse Practitioner Family
DX: G89.29 Other chronic pain (principal); M54.42 Lumbago with sciatica, left side; M79.1 Myalgia; E03.9 Hypothyroidism, unspecified; I10 Essential (primary) hypertension; E78.00 Pure hypercholesterolemia, unspecified; I73.00 Raynaud's syndrome without gangrene; I25.2 Old myocardial infarction; Z88.5 Allergy status to narcotic agent; Z88.8 Allergy status to other drugs, medicaments and biological substances; Z79.01 Long term (current) use of anticoagulants; Z79.82 Long term (current) use of aspirin; Z79.891 Long term (current) use of opiate analgesic; Z79.899 Other long term (current) drug therapy

== ENCOUNTER → 2017-07-02 | Outpatient (CLI) | payer MEDICAID, MEDICARE, OTHER ==
--- NOTE | 2017-07-30 02:00 | ECWPNPC ---
PATIENT NAME: HAWK CASE : 1955 GENDER: FEMALE VISIT DATE: 07/02/2017 DISCHARGE DATE: 07/02/17 1427 VISIT LOCKED DATE TIME: PHYSICIAN: GERMAN SLAUGHTER RESOURCE: GERMAN SLAUGHTER REASON FOR APPOINTMENT 1. W/C NECK PAIN HISTORY OF PRESENT ILLNESS HISTORY OF PRESENT ILLNESS: PAIN THE PATIENT DESCRIBES THE PAIN... THE PATIENT DESCRIBES THE PAIN... 61 YEAR OLD FEMALE PATIENT WITH HISTORY OF CHRONIC NECK PAIN. PATIENT DESCRIBES THE PAIN ACHING, TENDER, THROBBING AND SORE WITH THE PAIN COMING AND GOING AND CURRENT PAIN SCORE OF 5/10. 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 PATIENT REPORTS HAVING A SURGERY IN 1997. MRS. CASE STATES THAT SHE HAS TRIED PHYSICAL THERAPY IN THE PAST BUT IT DID NOT AID IN PAIN RELIEF OR FUNCTIONALITY AND MOBILITY. MRS. CASE DOES USE A TENS MACHINE AND STATES THAT IT KEEPS HER MOBILE AND FUNCTIONAL. PATIENT DENIES UNEXPLAINABLE WEIGHT LOSS, FEVER, CHILLS, NEW CHANGES ON HER URINARY OR BOWEL CONTROL.WE ARE EXPECTING TO GET CLEARANCE FROM RHEUMATOLOGY TO BE OFF PLAQUENIL FOR THREE DAYS.DR. BLOCK WOULD LIKE TO TRY TPI.SHE CAN NOT BE OFF PLAVIX PER CARDIOLOGY. FALL RISK SCREENING: SCREENING :NO FALLS IN THE PAST YEAR CURRENT MEDICATIONS TAKING VITAMIN D-3 2000 CAPSULE 1 CAPSULE ORALLY DAILY TAKING CARAFATE 1 GM TABLET 2TABLET ON AN EMPTY STOMACH ORALLY ONCE DAILY, NOTES: UP TO TWICE ADAY TAKING PLAQUENIL 200 MG TABLET 1 TABLET WITH FOOD OR MILK ORALLY TWICE A DAY TAKING ASPIR-81 81 MG TABLET DELAYED RELEASE 1 TABLET ORALLY ONCE A DAY TAKING KLONOPIN 0.5 MG TABLET 1 TABLET ORALLY QHS TAKING LORATADINE 10 MG TABLET 1 TABLET ORALLY ONCE A DAY TAKING LEVOTHYROXINE SODIUM 100 MCG TABLET 1 TABLET EVERY MORNING ON AN EMPTY STOMACH ORALLY ONCE A DAY TAKING NEXIUM 40 MG CAPSULE DELAYED RELEASE 1 CAPSULE ORALLY TWICE A DAY TAKING PLAVIX 75 MG TABLET 1 TABLET ORALLY ONCE A DAY TAKING HYDROCHLOROTHIAZIDE 25 25 MG SOFT GEL 1 TABLETS ORAL DAILY TAKING CRESTOR 20 MG TABLET 1 TABLET ORALLY QHS TAKING LAMOTRIGINE 100 MG TABLET 1 TABLET ORALLY ONCE DAILY TAKING DOCUSATE SODIUM 100 MG CAPSULE 1 CAPSULE NEEDED ORALLY TWO TIMES A DAY TAKING LISINOPRIL 2.5 MG TABLET 1 TABLET ORALLY ONCE A DAY TAKING SOMA 350 MG TABLET 1 TABLET ORALLY Q8H PRN MDD3 TAKING PERCOCET 10-325 MG TABLET 1 TABLET NEEDED ORALLY Q4-6H PRN MDD5 PAST MEDICAL HISTORY PALPITATIONS, HEART HX BLOOD CLOTS, LEFT LEG HX ANEMIA ARTHRITIS, OA BACK PAIN HX BONE SPURS INSOMNIA MOOD SWINGS XEROPTHALMIA EARLY SATIETY COLONIC POLYPS RECURRENT UTIS SYSTEMIC LUPUS ERYTHEMATOUS ESOPHAGEAL REFLUX HYPOTHYROIDISM HYPERTENSION HYPERCHOLESTEROLEMIA RAYNAUDS SYNDROME NECK PAIN DEPRESSION OSTEOARTHRITIS MYOCARDIAL INFARCTION MYOFASCIAL PAIN SYNDROME LOW BACK PAIN LUMBAR RADICULOPATHY ALLERGIES PROPRANOLOL HCL: NAUSEA/VOMITING: ALLERGY CAPTOPRIL: NAUSEA/VOMITING: ALLERGY MACROBID: N/DIARRHEA: ALLERGY CIPRO: NAUSEA/VOMITING/DIARRHEA: ALLERGY MS CONTIN: N/V UNABLE TO VOID ANTIDEPRESSANTS: FLU LIKE SYMPTOMS /NAUSEA NUCYNTA ER: NIGHTMARES, INCREASED DEPRESSION: SIDE EFFECTS SURGICAL HISTORY NECK SURGERY BONE SPUR 1997 TUBAL LIGATION 1982 ENDOMETRIAL BIOPSY 2010 CARDIAC CATHETERIZATION 09/26 CARDIAC STENT 09/26 SURGERY TO REPAIR RIGHT FEMORAL ARTERY 09/26 CARDIAC STENT 10/27 CARDIAC STENT 03/26 COLONOSCOPY 2011 HOSPITALIZATION/MAJOR DIAGNOSTIC PROCEDURE SURGERY RELATED MYOCARDIAL INFARCTION 09/26 REVIEW OF SYSTEMS REVIEWED BY: PROVIDER: GERMAN BUTTS . CONSTITUTIONAL: ANY CHANGE IN YOUR MEDICAL CONDITION? NO . CHILLS NO . FEVER NO . INFECTION: DO YOU HAVE NEW INFECTIONS? NO . DO YOU HAVE HISTORY OF MRSA? NO . MUSCULOSKELETAL: ANY NEW PATTERNS OF PAIN OR NUMBNESS? YES, LEFT ARM . GASTROENTEROLOGY: ANY NEW CHANGE IN BOWEL CONTROL? NO . GENITOURINARY: ANY NEW CHANGE IN BLADDER CONTROL? NO . IS THERE A CHANCE YOU COULD BE ? NO . HEMATOLOGY/LYMPH: DO YOU TAKE ANY BLOOD THINNERS? (FOR EXAMPLE- COUMADIN, PLAVIX, AGGRENOX, PLATEL, PRADAXA, OR XARELTO) YES . WHEN WAS YOUR LAST DOSE? DATE: TIME: . NEUROLOGY: HAVE YOU FALLEN IN THE PAST 6 MONTHS? NO . ANY NEW EXTREMITY NUMBNESS OR WEAKNESS? NO . CARDIOLOGY: DO YOU HAVE A PACEMAKER OR DEFIBRILLATOR? NO . RESPIRATORY: HAVE YOU BEEN SICK IN THE PAST WEEK? NO . FEVER NO . FLU LIKE SYMPTOMS? NO . COUGH NO . INTEGUMENTARY: DO YOU HAVE ANY RASHES OR OPEN SORES? NO . ALLERGIC/IMMUNO: ARE YOU ALLERGIC TO SHELLFISH OR IV DYE? NO . ANY NEW ALLERGIES? NO . PSYCHIATRIC: DO YOU HAVE THOUGHTS OF HURTING YOURSELF OR SOMEONE ELSE? NO . ARE YOU ABUSED, NEGLECTED, OR IN AN UNSAFE ENVIRONMENT? NO . ENDOCRINOLOGY: ARE YOU DIABETIC? NO . OTHER: DO YOU NEED ANY PRESCRIPTIONS? YES . IF YES, PLEASE LIST: PERCOCET . ANY NEW PROBLEMS WITH YOUR MEDICATIONS? NO . WHEN DID YOU LAST EAT? ____ . WHEN DID YOU LAST DRINK? ____ . WHAT DID YOU LAST DRINK? ____ . NAME OF PERSON DRIVING YOU HOME? ____ . DO YOU HAVE ANY OTHER QUESTIONS OR CONCERNS NO . VITAL SIGNS WT 182 LBS, HT 64 IN, BMI 31.24 INDEX, BP 147/70 MM HG, HR 59 /MIN, RR 16 /MIN, TEMP 98.6 F, OXYGEN SAT % 98%, NA INITIALS SC14:11, REVIEWED BY: NL. EXAMINATION GENERAL EXAMINATION: GENERAL APPEARANCE:COMFORTABLE. PSYCHAFFECT NORMAL. NECK:TRACHEA MIDLINE. NO CERVICAL OR SUPRACLAVICULAR LYMPHADENOPATHY NOTED. LUNGS:LUNG CATES ARE CLEAR TO AUSCULTATION BILATERALLY. GOOD MOVEMENT OF AIR. HEART:S1, S2 IN A REGULAR RATE AND RHYTHM. NO SIGNIFICANT MURMURS, RUBS OR GALLOPS NOTED. ABDOMEN:SOFT, NON-TENDER, NO ORGANOMEGALY, BOWEL SOUNDS ARE NORMAL. CERVICALMARKED TENDERNESS PALPATION OVER CERVICAL SPINE AND PARASPINALS L>R. ASSESSMENTS CERVICALGIA - M54.2 (PRIMARY) CERVICAL DISC DISPLACEMENT - M50.20 TREATMENT CERVICALGIA NOTES: W/C REQUEST TPI NECK. PROCEDURES PN WORKMANS' COMP OPINION IN YOUR OPINION, WAS THE INCIDENT THAT THE PATIENT DESCRIBED THE COMPETENT MEDICAL CAUSE OF THIS INJURY/ILLNESS? YES ARE THE PATIENT'S COMPLAINTS CONSISTENT WITH HIS/HER HISTORY OF THE INJURY/ILLNESS? YES IS THE PATIENT'S HISTORY OF THE INJURY/ILLNESS CONSISTENT WITH YOUR OBJECTIVE FINDING? YES WHAT IS THE PERCENTAGE OF TEMPORARY IMPAIRMENT? MODERATE TO MARKED = 66.7% IS THE PATIENT WORKING? NO DOCTOR ON SITE: ALONZO ALCANTARA MD PROCEDURE CODES FA211 ESTABILISHED PATIENT LOCATED WITHIN [facility] CHARGE DISPOSITION & COMMUNICATION FOLLOW UP 2WK POST AND, 4 WEEKS (REASON: W/C REQUEST TPI NECK) ELECTRONICALLY SIGNED BY BENJAMÍN CHAUDHRY ON 07/27/2017 AT 08:30 PM EST DISCLAIMER : THIS IS A VISIT SUMMARY EXTRACTED FROM THE [employer] CHART. IT IS NOT A COPY OF THE [employer] PROGRESS NOTE. OSMIN
== END ==
LOC: M PAIN 13:30
PROVIDERS: ATTEND Nurse Practitioner Family
DX: M54.2 Cervicalgia (principal); G89.29 Other chronic pain; I10 Essential (primary) hypertension; E03.9 Hypothyroidism, unspecified; E78.00 Pure hypercholesterolemia, unspecified; Z79.82 Long term (current) use of aspirin; Z79.01 Long term (current) use of anticoagulants; Z79.891 Long term (current) use of opiate analgesic; Z79.899 Other long term (current) drug therapy; Z88.2 Allergy status to sulfonamides; Z88.1 Allergy status to other antibiotic agents; Z88.8 Allergy status to other drugs, medicaments and biological substances

== ENCOUNTER → 2017-07-30 | Outpatient (CLI) | payer OTHER, MEDICARE, MEDICAID ==
--- NOTE | 2017-07-31 00:41 | ECWPNPC ---
PATIENT NAME: HAWK CASE : 1955 GENDER: FEMALE VISIT DATE: 07/30/2017 DISCHARGE DATE: 07/30/17 1432 VISIT LOCKED DATE TIME: PHYSICIAN: GERMAN SLAUGHTER RESOURCE: GERMAN SLAUGHTER REASON FOR APPOINTMENT 1. BACK- NON COMP HISTORY OF PRESENT ILLNESS HISTORY OF PRESENT ILLNESS: HERE FOR F/U AND EVALUATION OF CHRONIC LBP.RATING PAIN VAS 2/10.COMPLAINING OF RIGHT HIP PAIN.THIS HAS BEEN BOTHERING HER THE PAST TWO WEEKS.HAS BEEN USING STAIRS ON A REGULAR BASIS AND FEELS THIS HAS AGGREVATED PAIN.REPORTS FLARE UP OF LOW BACK PAIN AND RIGHT LEG PAIN ONE MONTH AGO.THIS HAS GOTTEN BETTER.C/O INCREASE IN BILATERAL KNEE PAIN LEFT >RIGHT.FINDS OXYCODONE 10/325 AND SOMA SOMEWHAT HELPFUL.PLAVIX WAS DISCONTINUED 2WK AGO BY CARDIOLOGY. PAIN THE PATIENT DESCRIBES THE PAIN... THE PATIENT DESCRIBES THE PAIN... THE PATIENT DESCRIBES THE PAIN... FALL RISK SCREENING: SCREENING :NO FALLS IN THE PAST YEAR CURRENT MEDICATIONS TAKING VITAMIN D-3 2000 CAPSULE 1 CAPSULE ORALLY DAILY TAKING CARAFATE 1 GM TABLET 2TABLET ON AN EMPTY STOMACH ORALLY ONCE DAILY, NOTES: UP TO TWICE ADAY TAKING PLAQUENIL 200 MG TABLET 1 TABLET WITH FOOD OR MILK ORALLY TWICE A DAY TAKING ASPIR-81 81 MG TABLET DELAYED RELEASE 1 TABLET ORALLY ONCE A DAY TAKING KLONOPIN 0.5 MG TABLET 1 TABLET ORALLY QHS TAKING LORATADINE 10 MG TABLET 1 TABLET ORALLY ONCE A DAY TAKING LEVOTHYROXINE SODIUM 100 MCG TABLET 1 TABLET EVERY MORNING ON AN EMPTY STOMACH ORALLY ONCE A DAY TAKING NEXIUM 40 MG CAPSULE DELAYED RELEASE 1 CAPSULE ORALLY TWICE A DAY TAKING HYDROCHLOROTHIAZIDE 25 25 MG SOFT GEL 1 TABLETS ORAL DAILY TAKING CRESTOR 20 MG TABLET 1 TABLET ORALLY QHS TAKING LAMOTRIGINE 200 MG TABLET 1 TABLET ORALLY ONCE DAILY TAKING DOCUSATE SODIUM 100 MG CAPSULE 1 CAPSULE NEEDED ORALLY TWO TIMES A DAY TAKING LISINOPRIL 2.5 MG TABLET 1 TABLET ORALLY ONCE A DAY TAKING SOMA 350 MG TABLET 1 TABLET ORALLY Q8H PRN MDD3 TAKING PERCOCET 10-325 MG TABLET 1 TABLET NEEDED ORALLY Q4-6H PRN MDD5 DISCONTINUED PLAVIX 75 MG TABLET 1 TABLET ORALLY ONCE A DAY MEDICATION LIST REVIEWED AND RECONCILED WITH THE PATIENT PAST MEDICAL HISTORY PALPITATIONS, HEART HX BLOOD CLOTS, LEFT LEG HX ANEMIA ARTHRITIS, OA BACK PAIN HX BONE SPURS INSOMNIA MOOD SWINGS XEROPTHALMIA EARLY SATIETY COLONIC POLYPS RECURRENT UTIS SYSTEMIC LUPUS ERYTHEMATOUS ESOPHAGEAL REFLUX HYPOTHYROIDISM HYPERTENSION HYPERCHOLESTEROLEMIA RAYNAUDS SYNDROME NECK PAIN DEPRESSION OSTEOARTHRITIS MYOCARDIAL INFARCTION MYOFASCIAL PAIN SYNDROME LOW BACK PAIN LUMBAR RADICULOPATHY ALLERGIES PROPRANOLOL HCL: NAUSEA/VOMITING: ALLERGY CAPTOPRIL: NAUSEA/VOMITING: ALLERGY MACROBID: N/DIARRHEA: ALLERGY CIPRO: NAUSEA/VOMITING/DIARRHEA: ALLERGY MS CONTIN: N/V UNABLE TO VOID ANTIDEPRESSANTS: FLU LIKE SYMPTOMS /NAUSEA NUCYNTA ER: NIGHTMARES, INCREASED DEPRESSION: SIDE EFFECTS SOCIAL HISTORY GENERAL: PAIN CLINIC PFS, CLERGY, PUBLIC HEALTH REFERRALS HAS THE PATIENT BEEN EDUCATED REGARDING HIS/HER PLAN OF CARE?YES HAS THE PATIENT BEEN EDUCATED REGARDING PAIN, THE RISK FOR PAIN, THE IMPORTANCE OF EFFECTIVE PAIN MANAGEMENT, AND THE PAIN ASSESSMENT PROCESS?YES PATIENT: ____. REVIEW OF SYSTEMS REVIEWED BY: PROVIDER: GERMAN BUTTS . CONSTITUTIONAL: ANY CHANGE IN YOUR MEDICAL CONDITION? NO . CHILLS NO . FEVER NO . INFECTION: DO YOU HAVE NEW INFECTIONS? NO . DO YOU HAVE HISTORY OF MRSA? NO . MUSCULOSKELETAL: ANY NEW PATTERNS OF PAIN OR NUMBNESS? YES . GASTROENTEROLOGY: ANY NEW CHANGE IN BOWEL CONTROL? NO . GENITOURINARY: ANY NEW CHANGE IN BLADDER CONTROL? YES . IS THERE A CHANCE YOU COULD BE ? NO . HEMATOLOGY/LYMPH: DO YOU TAKE ANY BLOOD THINNERS? (FOR EXAMPLE- COUMADIN, PLAVIX, AGGRENOX, PLATEL, PRADAXA, OR XARELTO) NO . WHEN WAS YOUR LAST DOSE? DATE: TIME: . NEUROLOGY: HAVE YOU FALLEN IN THE PAST 6 MONTHS? NO . ANY NEW EXTREMITY NUMBNESS OR WEAKNESS? NO . CARDIOLOGY: DO YOU HAVE A PACEMAKER OR DEFIBRILLATOR? NO . RESPIRATORY: HAVE YOU BEEN SICK IN THE PAST WEEK? NO . FEVER NO . FLU LIKE SYMPTOMS? NO . COUGH NO . INTEGUMENTARY: DO YOU HAVE ANY RASHES OR OPEN SORES? NO . ALLERGIC/IMMUNO: ARE YOU ALLERGIC TO SHELLFISH OR IV DYE? NO . ANY NEW ALLERGIES? NO . PSYCHIATRIC: DO YOU HAVE THOUGHTS OF HURTING YOURSELF OR SOMEONE ELSE? NO . ARE YOU ABUSED, NEGLECTED, OR IN AN UNSAFE ENVIRONMENT? NO . ENDOCRINOLOGY: ARE YOU DIABETIC? NO . OTHER: DO YOU NEED ANY PRESCRIPTIONS? YES . IF YES, PLEASE LIST: ____OXYCODONE,CARISPRODOL, . ANY NEW PROBLEMS WITH YOUR MEDICATIONS? NO . WHEN DID YOU LAST EAT? ____ . WHEN DID YOU LAST DRINK? ____ . WHAT DID YOU LAST DRINK? ____ . NAME OF PERSON DRIVING YOU HOME? ____ . DO YOU HAVE ANY OTHER QUESTIONS OR CONCERNS , YES,INCREASED PAIN IN LEFT ARM AND NUMBNESS, CLICKING ON THE RIGHT SIDE OF NECK . VITAL SIGNS WT 182.0 LBS, HT 64 IN, BMI 31.24 INDEX, BP 142/75 MM HG, HR 63 /MIN, RR 16 /MIN, TEMP 98.5 F, OXYGEN SAT % 98%, SAFE IN ENV? (Y/N) YES, NA INITIALS TL 1316, REVIEWED BY: ELIO. EXAMINATION GENERAL EXAMINATION: LUNGS:LUNG SOUNDS ARE CLEAR. HEART:HEART RATE REGULAR. MUSCULOSKELETAL:MUSCLE STRENGTH TESTING 5/5 BILATERAL LOWER EXTREMITIES. PALPATION: POSITIVE FOR PAIN OVER L/S SPINE. POSITIVE FOR PAIN OVER L/S PARASPINALS.MULTIPLE AREAS OF TENDER SPOTS INDICATIVE OF FIBROMYALGIA.. 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 (PRIMARY) PROTRUDED LUMBAR DISC - M51.26 TREATMENT LUMBAGO WITH SCIATICA, LEFT SIDE REFILL SOMA TABLET, 350 MG, 1 TABLET, ORALLY, Q8H PRN MDD3, 30 DAY(S), 45, REFILLS 0 REFILL PERCOCET TABLET, 10-325 MG, 1 TABLET NEEDED, ORALLY, Q4-6H PRN MDD5, 30 DAYS, 150, REFILLS 0 NOTES: L4/5 INTRALANINAR LESISTOP PLAQUENIL 3 DAYS PRE PROCEDURE,WHAT IS LUMBAR EPIDURAL INJECTION? MATERIAL WAS PRINTED, ISTOP REGISTRY REVIEWED [id number] AND DEMNOSTRATES COMPLLIANCE. BRINGS IN MEDICATIONS WHICH IS APPROPRIATE FOR WHAT WAS DISPENSED. RECENT URINE TOXICOLOGY REVIEWED. NO UNAUTHORIZED MEDICATIONS. NO ILLICIT SUBSTANCES AND PRESCRIBED MEDICATIONS WERE PRESENT. PROCEDURE CODES FA211 ESTABILISHED PATIENT [facility] FACILITY CHARGE G8730 PAIN ASSESS POS TOOL F/U PLAN DOC G8427 DOC MEDS VERIFIED W/PT OR RE DISPOSITION & COMMUNICATION FOLLOW UP 2WK POST (REASON: L4/5 INTRALAMINAR LESI) ELECTRONICALLY SIGNED BY BENJAMÍN CHAUDHRY ON 07/30/2017 AT 02:35 PM EST DISCLAIMER : THIS IS A VISIT SUMMARY EXTRACTED FROM THE [employer] CHART. IT IS NOT A COPY OF THE [employer] PROGRESS NOTE. OSMIN
== END ==
LOC: M PAIN 13:15
PROVIDERS: ATTEND Nurse Practitioner Family
DX: G89.29 Other chronic pain (principal); M54.42 Lumbago with sciatica, left side; M51.26 Other intervertebral disc displacement, lumbar region; M19.90 Unspecified osteoarthritis, unspecified site; G47.00 Insomnia, unspecified; M32.9 Systemic lupus erythematosus, unspecified; K21.9 Gastro-esophageal reflux disease without esophagitis; E03.9 Hypothyroidism, unspecified; I10 Essential (primary) hypertension; E78.5 Hyperlipidemia, unspecified; I73.00 Raynaud's syndrome without gangrene; F32.9 Major depressive disorder, single episode, unspecified; Z88.5 Allergy status to narcotic agent; Z88.8 Allergy status to other drugs, medicaments and biological substances; Z79.52 Long term (current) use of systemic steroids; Z79.891 Long term (current) use of opiate analgesic; Z79.899 Other long term (current) drug therapy

== ENCOUNTER → 2017-08-17 | Outpatient (CLI) | payer OTHER, MEDICAID, MEDICARE | LOC: M PAIN 13:45 | PROVIDERS: ATTEND Nurse Practitioner Family | DX: M54.2 Cervicalgia (principal); M96.1 Postlaminectomy syndrome, not elsewhere classified; G89.29 Other chronic pain; E03.9 Hypothyroidism, unspecified; I10 Essential (primary) hypertension; I25.2 Old myocardial infarction; Z79.82 Long term (current) use of aspirin; Z79.899 Other long term (current) drug therapy; Z79.891 Long term (current) use of opiate analgesic; Z88.1 Allergy status to other antibiotic agents; Z88.8 Allergy status to other drugs, medicaments and biological substances; Z86.718 Personal history of other venous thrombosis and embolism ==

== ENCOUNTER → 2017-10-12 | Outpatient (CLI) | payer MEDICARE, MEDICAID ==
[~2017-10-12] MED LIST changes: -/ESOM40CA PO; -ACET1TAB17 PO; -AMBI10TA; -AMIT75TA2; -ASPI-161 PO; -ASPI325T PO; -ASPI81TA85 PO; -AZEL0.05 OP; -AZELASTINE; -BACL10TA2 PO; -BACT800T; -CALC500T21 PO; -CALCTAB68 PO; -CAPT25TA3; -CEPH500C PO; -CLON1TAB PO; -CLOP75TA2 PO; -COLA100C2 PO; -CRES20TA PO; -CYCL5TA PO; -D 50CAP PO; -EFFE75CA75; -GABA300C2 PO; -HYDR-3716 PO; -HYDR-3719 PO; -HYDR25TA6 PO; +ISOVUE-M 300 61% 15ML VIAL (Q9967) As Ordered; -KLON0.5T PO; -LAMO100T; -LEVO100T PO; +LIDOCAINE 1% SDV INJ 30 ML VIAL As Ordered; -LIPI20TA; -LISI2.5T PO; -LORA10TA2 PO; -METO25TA2 PO; -NEXI40CA PO; -OXYC-517 PO; -PENI250T57 PO; -PLAQ200T PO; -PRED5TAB PO; -SOMA350T PO; -SUCR1TA PO; -TIZA2CAP3 PO; -VICO5TAB PO; -VITA20008 PO; -ZOFR4TAB3 PO; +diazePAM 5 MG TAB As Ordered; +diphenhydrAMINE 25 MG CAP As Ordered; +methylPREDNISolone SUSP 40 MG/ML (DEPO-medrol) VIAL (J1030) As Ordered; +oxyCODONE 5MG TAB As Ordered
== END ==
LOC: M PAIN 11:15
DX: G89.29 Other chronic pain (principal); M51.16 Intervertebral disc disorders with radiculopathy, lumbar region; Z86.718 Personal history of other venous thrombosis and embolism; M19.90 Unspecified osteoarthritis, unspecified site; G47.00 Insomnia, unspecified; M32.9 Systemic lupus erythematosus, unspecified; K21.9 Gastro-esophageal reflux disease without esophagitis; E03.9 Hypothyroidism, unspecified; I10 Essential (primary) hypertension; E78.00 Pure hypercholesterolemia, unspecified; I73.00 Raynaud's syndrome without gangrene; F32.9 Major depressive disorder, single episode, unspecified; I25.2 Old myocardial infarction; M79.7 Fibromyalgia; Z79.82 Long term (current) use of aspirin; Z79.891 Long term (current) use of opiate analgesic; Z88.1 Allergy status to other antibiotic agents; Z88.8 Allergy status to other drugs, medicaments and biological substances
CPT/HCPCS: J1030

== ENCOUNTER → 2017-10-25 | Outpatient (CLI) | payer OTHER, MEDICAID, MEDICARE ==
[~2017-10-25] MED LIST changes: +BUPIVACAINE HCL 0.25% 10 ML VIAL As Ordered; +BUPIVACAINE HCL 0.25% 30 ML VIAL As Ordered; -ISOVUE-M 300 61% 15ML VIAL (Q9967) As Ordered; -LIDOCAINE 1% SDV INJ 30 ML VIAL As Ordered; +TRIAMCINOLONE ACETONIDE SUSP 40 MG/ML VIAL (J3301) As Ordered; -diphenhydrAMINE 25 MG CAP As Ordered; -methylPREDNISolone SUSP 40 MG/ML (DEPO-medrol) VIAL (J1030) As Ordered
== END ==
LOC: M PAIN 14:00
DX: G89.29 Other chronic pain (principal); M79.1 Myalgia; I10 Essential (primary) hypertension; E03.9 Hypothyroidism, unspecified; Z79.82 Long term (current) use of aspirin; Z79.891 Long term (current) use of opiate analgesic; Z79.899 Other long term (current) drug therapy; Z88.1 Allergy status to other antibiotic agents; Z88.8 Allergy status to other drugs, medicaments and biological substances
CPT/HCPCS: J3301

== ENCOUNTER → 2017-11-02 | Outpatient (CLI) | payer MEDICARE, MEDICAID, OTHER | LOC: M PAIN 14:00 | DX: M54.42 Lumbago with sciatica, left side (principal); Z79.891 Long term (current) use of opiate analgesic; Z79.899 Other long term (current) drug therapy; Z79.82 Long term (current) use of aspirin; Z88.8 Allergy status to other drugs, medicaments and biological substances | CPT/HCPCS: G0463 ==

== ENCOUNTER → 2017-11-08 | Outpatient (REF) | payer MEDICARE, MEDICAID | LOC: M LAB REF 09:19 | DX: N39.0 Urinary tract infection, site not specified (principal) | CPT/HCPCS: 87186 ==

== ENCOUNTER → 2017-11-30 | Outpatient (CLI) | payer OTHER, MEDICAID, MEDICARE | LOC: M PAIN 13:30 | DX: M54.2 Cervicalgia (principal); M47.812 Spondylosis without myelopathy or radiculopathy, cervical region; I10 Essential (primary) hypertension; E03.9 Hypothyroidism, unspecified; E78.00 Pure hypercholesterolemia, unspecified; K21.9 Gastro-esophageal reflux disease without esophagitis; I73.00 Raynaud's syndrome without gangrene; Z79.82 Long term (current) use of aspirin; Z79.891 Long term (current) use of opiate analgesic; Z79.899 Other long term (current) drug therapy; Z88.8 Allergy status to other drugs, medicaments and biological substances; Z86.718 Personal history of other venous thrombosis and embolism; Z86.79 Personal history of other diseases of the circulatory system | CPT/HCPCS: G0463 ==

== ENCOUNTER → 2018-01-04 | Outpatient (CLI) | payer MEDICARE, MEDICAID, OTHER ==
[~2018-01-04] MED LIST changes: -BUPIVACAINE HCL 0.25% 10 ML VIAL As Ordered; -BUPIVACAINE HCL 0.25% 30 ML VIAL As Ordered; +ISOVUE-M 300 61% 15ML VIAL (Q9967) As Ordered; +LIDOCAINE 1% SDV INJ 30 ML VIAL As Ordered; -TRIAMCINOLONE ACETONIDE SUSP 40 MG/ML VIAL (J3301) As Ordered; +methylPREDNISolone SUSP 40 MG/ML (DEPO-medrol) VIAL (J1030) As Ordered
== END ==
LOC: M PAIN 10:45
DX: G89.29 Other chronic pain (principal); M51.16 Intervertebral disc disorders with radiculopathy, lumbar region; G47.00 Insomnia, unspecified; M32.9 Systemic lupus erythematosus, unspecified; K21.9 Gastro-esophageal reflux disease without esophagitis; E03.9 Hypothyroidism, unspecified; I10 Essential (primary) hypertension; E78.00 Pure hypercholesterolemia, unspecified; I73.00 Raynaud's syndrome without gangrene; F32.9 Major depressive disorder, single episode, unspecified; I25.2 Old myocardial infarction; Z79.82 Long term (current) use of aspirin; Z79.891 Long term (current) use of opiate analgesic; Z79.899 Other long term (current) drug therapy; Z86.718 Personal history of other venous thrombosis and embolism; Z88.1 Allergy status to other antibiotic agents; Z88.8 Allergy status to other drugs, medicaments and biological substances
CPT/HCPCS: J1030

== ENCOUNTER → 2018-01-25 | Outpatient (CLI) | payer MEDICARE, MEDICAID, OTHER ==
[~2018-01-25] MED LIST changes: +BUPIVACAINE HCL 0.25% 30 ML VIAL As Ordered; +MIDAZOLAM INJ 2 MG/2 ML VIAL (J2250) As Ordered; +TRIAMCINOLONE ACETONIDE SUSP 40 MG/ML VIAL (J3301) As Ordered; -diazePAM 5 MG TAB As Ordered; +fentaNYL 100 MCG/2 ML INJECTION (J3010) As Ordered; -methylPREDNISolone SUSP 40 MG/ML (DEPO-medrol) VIAL (J1030) As Ordered; -oxyCODONE 5MG TAB As Ordered
== END ==
LOC: M PAIN 13:00
DX: G89.29 Other chronic pain (principal); M47.812 Spondylosis without myelopathy or radiculopathy, cervical region; M19.90 Unspecified osteoarthritis, unspecified site; G47.00 Insomnia, unspecified; M32.9 Systemic lupus erythematosus, unspecified; K21.9 Gastro-esophageal reflux disease without esophagitis; E03.9 Hypothyroidism, unspecified; I10 Essential (primary) hypertension; I73.00 Raynaud's syndrome without gangrene; F29 Unspecified psychosis not due to a substance or known physiological condition; I25.2 Old myocardial infarction; Z79.82 Long term (current) use of aspirin; Z79.891 Long term (current) use of opiate analgesic; Z79.899 Other long term (current) drug therapy; Z88.5 Allergy status to narcotic agent; Z88.8 Allergy status to other drugs, medicaments and biological substances
CPT/HCPCS: J3301

== ENCOUNTER → 2018-02-16 | Outpatient (CLI) | payer OTHER, MEDICAID, MEDICARE | LOC: M PAIN 13:30 | DX: M47.892 Other spondylosis, cervical region (principal); G47.00 Insomnia, unspecified; E03.9 Hypothyroidism, unspecified; I10 Essential (primary) hypertension; E78.00 Pure hypercholesterolemia, unspecified; I73.00 Raynaud's syndrome without gangrene; F32.9 Major depressive disorder, single episode, unspecified; I25.2 Old myocardial infarction; M19.90 Unspecified osteoarthritis, unspecified site; Z79.82 Long term (current) use of aspirin; Z79.891 Long term (current) use of opiate analgesic; Z79.899 Other long term (current) drug therapy; Z88.5 Allergy status to narcotic agent; Z88.8 Allergy status to other drugs, medicaments and biological substances; Z86.79 Personal history of other diseases of the circulatory system | CPT/HCPCS: G0463 ==

== ENCOUNTER → 2018-04-22 | Outpatient (CLI) | payer MEDICARE, MEDICAID, OTHER | LOC: M PAIN 13:30 | DX: M54.42 Lumbago with sciatica, left side (principal); K21.9 Gastro-esophageal reflux disease without esophagitis; E03.9 Hypothyroidism, unspecified; I10 Essential (primary) hypertension; E78.00 Pure hypercholesterolemia, unspecified; I73.00 Raynaud's syndrome without gangrene; F32.9 Major depressive disorder, single episode, unspecified; M19.90 Unspecified osteoarthritis, unspecified site; I25.2 Old myocardial infarction; M79.1 Myalgia; G47.00 Insomnia, unspecified; M32.9 Systemic lupus erythematosus, unspecified; Z79.891 Long term (current) use of opiate analgesic; Z86.718 Personal history of other venous thrombosis and embolism; Z87.440 Personal history of urinary (tract) infections; Z79.82 Long term (current) use of aspirin; Z79.899 Other long term (current) drug therapy; Z95.5 Presence of coronary angioplasty implant and graft; Z88.1 Allergy status to other antibiotic agents; Z88.5 Allergy status to narcotic agent; Z88.8 Allergy status to other drugs, medicaments and biological substances | CPT/HCPCS: G0463 ==

== ENCOUNTER → 2018-04-26 | Outpatient (CLI) | payer MEDICARE, OTHER, MEDICAID | LOC: M PAIN 14:45 | DX: M54.2 Cervicalgia (principal); E03.9 Hypothyroidism, unspecified; I10 Essential (primary) hypertension; E78.00 Pure hypercholesterolemia, unspecified; F32.9 Major depressive disorder, single episode, unspecified; Z79.82 Long term (current) use of aspirin; Z79.891 Long term (current) use of opiate analgesic; Z79.899 Other long term (current) drug therapy; Z95.5 Presence of coronary angioplasty implant and graft; Z88.8 Allergy status to other drugs, medicaments and biological substances | CPT/HCPCS: G0463 ==

== ENCOUNTER → 2018-06-12 | Outpatient (CLI) | payer MEDICARE, MEDICAID | LOC: M RAD 14:29 | DX: M25.531 Pain in right wrist (principal) | CPT/HCPCS: 73110 ==

== ENCOUNTER → 2018-06-28 | Outpatient (CLI) | payer OTHER, MEDICAID, MEDICARE | LOC: M PAIN 14:00 | DX: M54.2 Cervicalgia (principal); M19.90 Unspecified osteoarthritis, unspecified site; G47.00 Insomnia, unspecified; M32.9 Systemic lupus erythematosus, unspecified; K21.9 Gastro-esophageal reflux disease without esophagitis; E03.9 Hypothyroidism, unspecified; I10 Essential (primary) hypertension; M79.18 Myalgia, other site; E78.00 Pure hypercholesterolemia, unspecified; I73.00 Raynaud's syndrome without gangrene; M54.16 Radiculopathy, lumbar region; F32.9 Major depressive disorder, single episode, unspecified; I25.2 Old myocardial infarction; Z86.718 Personal history of other venous thrombosis and embolism; Z95.5 Presence of coronary angioplasty implant and graft; Z87.442 Personal history of urinary calculi; Z79.82 Long term (current) use of aspirin; Z79.891 Long term (current) use of opiate analgesic; Z79.899 Other long term (current) drug therapy; Z88.1 Allergy status to other antibiotic agents; Z88.8 Allergy status to other drugs, medicaments and biological substances | CPT/HCPCS: G0463 ==

== ENCOUNTER → 2018-07-15 | Outpatient (CLI) | payer OTHER, MEDICAID, MEDICARE | LOC: M PAIN 14:30 | DX: M54.42 Lumbago with sciatica, left side (principal); G89.29 Other chronic pain; M19.90 Unspecified osteoarthritis, unspecified site; G47.00 Insomnia, unspecified; E03.9 Hypothyroidism, unspecified; I10 Essential (primary) hypertension; E78.00 Pure hypercholesterolemia, unspecified; I73.00 Raynaud's syndrome without gangrene; F32.9 Major depressive disorder, single episode, unspecified; I25.2 Old myocardial infarction; Z79.82 Long term (current) use of aspirin; Z79.891 Long term (current) use of opiate analgesic; Z79.899 Other long term (current) drug therapy; Z88.5 Allergy status to narcotic agent; Z88.8 Allergy status to other drugs, medicaments and biological substances; Z86.2 Personal history of diseases of the blood and blood-forming organs and certain disorders involving the immune mechanism; Z87.39 Personal history of other diseases of the musculoskeletal system and connective tissue | CPT/HCPCS: G0463 ==

== ENCOUNTER → 2018-08-26 | Outpatient (CLI) | payer OTHER, MEDICAID, MEDICARE ==
[~2018-08-26] MED LIST changes: +/ESOM40CA PO; +ACET1TAB55 PO; +AMBI10TA; +AMIT75TA2; +ASPI-161 PO; +ASPI325T PO; +ASPI81TA85 PO; +AUGM875T28 PO; +AZEL0.05 OP; +AZELASTINE; +BACL10TA2 PO; +BACT800T; -BUPIVACAINE HCL 0.25% 30 ML VIAL As Ordered; +CALC500T21 PO; +CALCTAB68 PO; +CAPT25TA3; +CEPH500C PO; +CLON1TAB8 PO; +CLOP75TA2 PO; +COLA100C2 PO; +CRES20TA PO; +CYCL5TA PO; +D 50CAP PO; +DIFL150T PO; +EFFE75CA75; +GABA300C2 PO; +HYDR-3716 PO; +HYDR-3719 PO; +HYDR25TA6 PO; -ISOVUE-M 300 61% 15ML VIAL (Q9967) As Ordered; +KLON0.5T PO; +LAMO100T; +LEVO100T PO; -LIDOCAINE 1% SDV INJ 30 ML VIAL As Ordered; +LIPI20TA; +LISI2.5T PO; +LORA10TA2 PO; +METO25TA2 PO; -MIDAZOLAM INJ 2 MG/2 ML VIAL (J2250) As Ordered; +MODA200T15 PO; +NEOM1SOL19 OTIC; +NEXI40CA PO; +OXYC-517 PO; +PENI250T57 PO; +PLAQ200T PO; +PRED5TAB PO; +SOMA350T PO; +SUCR1TA PO; +TIZA2CAP PO; -TRIAMCINOLONE ACETONIDE SUSP 40 MG/ML VIAL (J3301) As Ordered; +VICO5TAB PO; +VITA20008 PO; +ZOFR4TAB14 PO; -fentaNYL 100 MCG/2 ML INJECTION (J3010) As Ordered
--- NOTE | 2018-09-20 02:17 | ECWPNPC ---
PATIENT NAME: HAWK CASE : 1955 GENDER: FEMALE VISIT DATE: 08/26/2018 DISCHARGE DATE: 08/26/18 1451 VISIT LOCKED DATE TIME: PHYSICIAN: GERMAN SLAUGHTER RESOURCE: GERMAN SLAUGHTER REASON FOR APPOINTMENT 1. WC NECK HISTORY OF PRESENT ILLNESS DEPRESSION SCREENING: PHQ-2 IN LAST TWO WEEKS HAVE YOU BEEN BOTHERED BY LITTLE INTEREST OR PLEASURE IN DOING THINGSNO FEELING DOWN, DEPRESSED, OR HOPELESSNO HISTORY OF PRESENT ILLNESS: PAIN THE PATIENT DESCRIBES THE PAIN... THE PATIENT DESCRIBES THE PAIN... THE PATIENT DESCRIBES THE PAIN... THE PATIENT DESCRIBES THE PAIN... THE PATIENT DESCRIBES THE PAIN... THE PATIENT DESCRIBES THE PAIN... THE PATIENT DESCRIBES THE PAIN... PAIN THE PATIENT DESCRIBES THE PAIN... THE PATIENT DESCRIBES THE PAIN... THE PATIENT DESCRIBES THE PAIN... THE PATIENT DESCRIBES THE PAIN... THE PATIENT DESCRIBES THE PAIN... THE PATIENT DESCRIBES THE PAIN... THE PATIENT DESCRIBES THE PAIN... HERE FOR F/U OF CHRONIC NECK PAIN WITH HISTORY OF CHRONIC NECK PAIN. PATIENT DESCRIBES THE PAIN ACHING, TENDER, THROBBING AND SORE WITH THE PAIN COMING AND GOING AND CURRENT PAIN SCORE OF 3/10. 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 PATIENT REPORTS HAVING A SURGERY IN 1996. MRS. CASE STATES THAT SHE HAS TRIED PHYSICAL THERAPY IN THE PAST BUT IT DID NOT AID IN PAIN RELIEF OR FUNCTIONALITY AND MOBILITY. MRS. CASE DOES USE A TENS MACHINE AND STATES THAT IT KEEPS HER MOBILE AND FUNCTIONAL. PATIENT HAS HAD A 5# WEIGHT LOSS SINCE LAST VISIT.DENIES FEVER, CHILLS, NEW CHANGES ON HER URINARY OR BOWEL CONTROL. FALL RISK SCREENING: SCREENING :NO FALLS IN THE PAST YEAR CURRENT MEDICATIONS TAKING VITAMIN D-3 2000 CAPSULE 1 CAPSULE ORALLY DAILY TAKING CARAFATE 1 GM TABLET 2TABLET ON AN EMPTY STOMACH ORALLY ONCE DAILY TAKING ASPIR-81 81 MG TABLET DELAYED RELEASE 1 TABLET ORALLY ONCE A DAY TAKING KLONOPIN 1 MG TABLET 1 TABLET ORALLY QHS TAKING LORATADINE 10 MG TABLET 1 TABLET ORALLY ONCE A DAY TAKING LEVOTHYROXINE SODIUM 100 MCG TABLET 1 TABLET EVERY MORNING ON AN EMPTY STOMACH ORALLY ONCE A DAY TAKING NEXIUM 40 MG CAPSULE DELAYED RELEASE 1 CAPSULE ORALLY TWICE A DAY TAKING HYDROCHLOROTHIAZIDE 25 25 MG SOFT GEL 1 TABLETS ORAL DAILY TAKING CRESTOR 20 MG TABLET 1 TABLET ORALLY ONCE A DAY TAKING LAMOTRIGINE 200 MG TABLET HALF TABLET ORALLY ONCE DAILY TAKING LISINOPRIL 2.5 MG TABLET 1 TABLET ORALLY ONCE A DAY TAKING DOCUSATE SODIUM 100 MG CAPSULE 2 ORALLY 3X DAILY, NOTES: TAKES NEEDED TAKING MODAFINIL 200 MG TABLET 1 TABLET IN THE MORNING ORALLY ONCE A DAY TAKING SOMA 350 MG TABLET 1 TABLET ORALLY Q8H PRN MDD1 TAKING PERCOCET 10-325 MG TABLET 1 TABLET NEEDED ORALLY Q4-6H PRN MDD5 NOT-TAKING ARAVA 10 MG TABLET 1 TABLET ORALLY ONCE A DAY MEDICATION LIST REVIEWED AND RECONCILED WITH THE PATIENT PAST MEDICAL HISTORY PALPITATIONS, HEART HX BLOOD CLOTS, LEFT LEG HX ANEMIA ARTHRITIS, OA BACK PAIN HX BONE SPURS INSOMNIA MOOD SWINGS XEROPTHALMIA EARLY SATIETY COLONIC POLYPS RECURRENT UTIS SYSTEMIC LUPUS ERYTHEMATOUS ESOPHAGEAL REFLUX HYPOTHYROIDISM HYPERTENSION HYPERCHOLESTEROLEMIA RAYNAUDS SYNDROME NECK PAIN DEPRESSION OSTEOARTHRITIS MYOCARDIAL INFARCTION MYOFASCIAL PAIN SYNDROME LOW BACK PAIN LUMBAR RADICULOPATHY ALLERGIES PROPRANOLOL HCL: NAUSEA/VOMITING: ALLERGY CAPTOPRIL: NAUSEA/VOMITING: ALLERGY MACROBID: N/DIARRHEA: ALLERGY CIPRO: NAUSEA/VOMITING/DIARRHEA: ALLERGY MS CONTIN: N/V UNABLE TO VOID ANTIDEPRESSANTS: FLU LIKE SYMPTOMS /NAUSEA NUCYNTA ER: NIGHTMARES, INCREASED DEPRESSION: SIDE EFFECTS SURGICAL HISTORY NECK SURGERY BONE SPUR 1996 TUBAL LIGATION 1982 ENDOMETRIAL BIOPSY 2010 CARDIAC CATHETERIZATION 09/26 CARDIAC STENT 09/26 SURGERY TO REPAIR RIGHT FEMORAL ARTERY 09/26 CARDIAC STENT 10/27 CARDIAC STENT 03/26 COLONOSCOPY 2010 FAMILY HISTORY FATHER: DIAGNOSED WITH DIABETES, HYPERTENSION, CANCER MOTHER: DIAGNOSED WITH DIABETES, HYPERTENSION, CANCER PATERNAL GRAND MOTHER: DIAGNOSED WITH CANCER MATERNAL GRAND MOTHER: DIAGNOSED WITH CANCER SOCIAL HISTORY GENERAL: TOBACCO USE ARE YOU A:NONSMOKER ALCOHOL SCREENING DID YOU HAVE A DRINK CONTAINING ALCOHOL IN THE PAST YEAR?NO POINTS0 INTERPRETATIONNEGATIVE RECREATIONAL DRUG USE DRUG USE?NO CAFFEINE CAFFEINE USE?YES 1 CUP COFFEE/ DAY HINDUISM [id number] ALEVISM LANGUAGE LANGUAGES SPOKEN:AMHARIC EDUCATION LEVEL OF EDUCATION:COLLEGE A COUPLE OF SEMESTERS LEARNING BARRIERS / SPECIAL NEEDS BARRIERS TO LEARNING?NO HEARING IMPAIRED?NO VISION IMPAIRED?YES :CORRECTIVE LENSES COGNITIVELY IMPAIRED?NO READINESS TO LEARN?YES LEARNING PREFERENCES?YES :TAPES/VIDEOS, BOOKLETS, HANDOUTS LEARNING CAPABILITIES PRESENT?YES EMOTIONAL BARRIERS?NO SPECIAL DEVICES?YES :CANE 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 NEEDED?NO DOMESTIC VIOLENCE DO YOU FEEL SAFE IN YOUR ENVIRONMENT?YES PAIN CLINIC PFS, CLERGY, PUBLIC HEALTH REFERRALS PFS REFERRAL NEEDED?NO CLERGY REFERRAL NEEDED?NO PUBLIC HEALTH REFERRAL NEEDED?NO HAS THE PATIENT BEEN EDUCATED REGARDING HIS/HER PLAN OF CARE?YES HAS THE PATIENT BEEN EDUCATED REGARDING PAIN, THE RISK FOR PAIN, THE IMPORTANCE OF EFFECTIVE PAIN MANAGEMENT, AND THE PAIN ASSESSMENT PROCESS?YES ADVANCE DIRECTIVE ADVANCE DIRECTIVE DISCUSSED WITH PATIENT:YES HCP INFORMATION GIVEN AT THIS TIME, DECLINED ASSISTANCE WITH FILLING OUT FORM REVIEWED WITH PT 04/22/18 1345 LASREVIEWED WITH PT 06/28/18 1433 BVREVIEWED WITH PT 07/15/18 1418 BVREVIEWED WITH PATIENT 08/26/18 1420 JS. HOSPITALIZATION/MAJOR DIAGNOSTIC PROCEDURE SURGERY RELATED MYOCARDIAL INFARCTION 09/26 REVIEW OF SYSTEMS REVIEWED BY: PROVIDER: GERMAN BUTTS . CONSTITUTIONAL: ANY CHANGE IN YOUR MEDICAL CONDITION? YES, RIGHT HAND/WRIST/ARM IN A CAST DUE TO FRACTURED WRIST . CHILLS NO . FEVER NO . INFECTION: DO YOU HAVE NEW INFECTIONS? NO . DO YOU HAVE HISTORY OF MRSA? NO . MUSCULOSKELETAL: ANY NEW PATTERNS OF PAIN OR NUMBNESS? NO . GASTROENTEROLOGY: ANY NEW CHANGE IN BOWEL CONTROL? NO . GENITOURINARY: ANY NEW CHANGE IN BLADDER CONTROL? NO . IS THERE A CHANCE YOU COULD BE ? NO . HEMATOLOGY/LYMPH: DO YOU TAKE ANY BLOOD THINNERS? (FOR EXAMPLE- COUMADIN, PLAVIX, AGGRENOX, PLATEL, PRADAXA, OR XARELTO) NO . WHEN WAS YOUR LAST DOSE? DATE: TIME: . NEUROLOGY: HAVE YOU FALLEN IN THE PAST 6 MONTHS? YES, STATES DISCUSSED AT LAST VISIT . ANY NEW EXTREMITY NUMBNESS OR WEAKNESS? YES, STATES NUMBNESS/WEAKNESS TO RIGHT ARM . CARDIOLOGY: DO YOU HAVE A PACEMAKER OR DEFIBRILLATOR? NO . RESPIRATORY: HAVE YOU BEEN SICK IN THE PAST WEEK? NO . FEVER NO . FLU LIKE SYMPTOMS? NO . COUGH NO . INTEGUMENTARY: DO YOU HAVE ANY RASHES OR OPEN SORES? YES, SORES TO RIGHT SIDE OF NECK . ALLERGIC/IMMUNO: ARE YOU ALLERGIC TO SHELLFISH OR IV DYE? NO . ANY NEW ALLERGIES? NO . PSYCHIATRIC: DO YOU HAVE THOUGHTS OF HURTING YOURSELF OR SOMEONE ELSE? NO . ARE YOU ABUSED, NEGLECTED, OR IN AN UNSAFE ENVIRONMENT? NO . ENDOCRINOLOGY: ARE YOU DIABETIC? NO . OTHER: DO YOU NEED ANY PRESCRIPTIONS? YES . IF YES, PLEASE LIST: ____OXYCODONE . ANY NEW PROBLEMS WITH YOUR MEDICATIONS? NO . WHEN DID YOU LAST EAT? ____ . WHEN DID YOU LAST DRINK? ____ . WHAT DID YOU LAST DRINK? ____ . NAME OF PERSON DRIVING YOU HOME? ____ . DO YOU HAVE ANY OTHER QUESTIONS OR CONCERNS NO . VITAL SIGNS WT 177.6 LBS, HT 64 IN, BMI 30.48 INDEX, BP 149/69 MM HG, HR 56 /MIN, RR 18 /MIN, TEMP 97.5 F, OXYGEN SAT % 100%, SAFE IN ENV? (Y/N) YES, NA INITIALS AW 1409, REVIEWED BY: DAVID. EXAMINATION GENERAL EXAMINATION: LUNGS:LUNG SOUNDS ARE CLEAR. HEART:HEART RATE REGULAR. MUSCULOSKELETAL:MUSCLE STRENGTH TESTING 5/5 BILATERAL UPPER EXTREMITIES. PALPATION: POSITIVE FOR PAIN OVER CERVICAL SPINE. ASSESSMENTS CERVICALGIA - M54.2 (PRIMARY) TREATMENT CERVICALGIA NOTES: CONTINUE TENS UNIT. PROCEDURES PN WORKMANS' COMP OPINION IN YOUR OPINION, WAS THE INCIDENT THAT THE PATIENT DESCRIBED THE COMPETENT MEDICAL CAUSE OF THIS INJURY/ILLNESS? YES ARE THE PATIENT'S COMPLAINTS CONSISTENT WITH HIS/HER HISTORY OF THE INJURY/ILLNESS? YES IS THE PATIENT'S HISTORY OF THE INJURY/ILLNESS CONSISTENT WITH YOUR OBJECTIVE FINDING? YES WHAT IS THE PERCENTAGE OF TEMPORARY IMPAIRMENT? MODERATE TO MARKED = 66.7% IS THE PATIENT WORKING? NO DOCTOR ON SITE: ALONZO ALCANTARA MD PROCEDURE CODES FA211 ESTABILISHED PATIENT [facility] FACILITY CHARGE DISPOSITION & COMMUNICATION FOLLOW UP 3 MONTHS ELECTRONICALLY SIGNED BY BENJAMÍN MORALES ON 09/19/2018 AT 04:38 PM EST DISCLAIMER : THIS IS A VISIT SUMMARY EXTRACTED FROM THE [employer] CHART. IT IS NOT A COPY OF THE [employer] PROGRESS NOTE. OSMIN
== END ==
LOC: M PAIN 14:30
PROVIDERS: ATTEND Nurse Practitioner Family
DX: M54.2 Cervicalgia (principal); G89.29 Other chronic pain; G47.00 Insomnia, unspecified; E03.9 Hypothyroidism, unspecified; I10 Essential (primary) hypertension; E78.00 Pure hypercholesterolemia, unspecified; I73.00 Raynaud's syndrome without gangrene; F32.9 Major depressive disorder, single episode, unspecified; M19.90 Unspecified osteoarthritis, unspecified site; Z79.82 Long term (current) use of aspirin; Z79.891 Long term (current) use of opiate analgesic; Z79.899 Other long term (current) drug therapy; Z88.5 Allergy status to narcotic agent; Z88.8 Allergy status to other drugs, medicaments and biological substances; Z86.79 Personal history of other diseases of the circulatory system; Z87.39 Personal history of other diseases of the musculoskeletal system and connective tissue

== ENCOUNTER 2018-09-14 12:21 | Emergency (ER) | payer MEDICARE, MEDICAID ==
[~2018-09-14] VITALS: Ht 160 cm; Wt 77.7 kg
[~2018-09-14 12:21] MED LIST changes: -AUGM875T28 PO; -DIFL150T PO; -MODA200T15 PO; -NEOM1SOL19 OTIC
[2018-09-14 12:22] VITALS: BP 138/72
[2018-09-14] MEDS ORDERED: MODA200T15 PO (12:45)
[2018-09-14] MEDS ORDERED: NEOM1SOL19 OTIC (13:22)
[2018-09-14] MEDS ORDERED: AUGM875T28 PO (13:22)
[2018-09-14] MEDS ORDERED: DIFL150T PO (13:28)
== END 2018-09-14 13:32 | disposition home or self-care (01) ==
LOC: M ED 12:21
DX: J32.9 Chronic sinusitis, unspecified (principal); H60.91 Unspecified otitis externa, right ear; I10 Essential (primary) hypertension; E03.9 Hypothyroidism, unspecified; K21.9 Gastro-esophageal reflux disease without esophagitis; J06.9 Acute upper respiratory infection, unspecified; F41.9 Anxiety disorder, unspecified; F32.9 Major depressive disorder, single episode, unspecified; Z95.5 Presence of coronary angioplasty implant and graft; Z91.041 Radiographic dye allergy status; Z88.8 Allergy status to other drugs, medicaments and biological substances; Z88.1 Allergy status to other antibiotic agents; Z91.040 Latex allergy status; Z79.899 Other long term (current) drug therapy; Z79.82 Long term (current) use of aspirin
CPT/HCPCS: 99282; G0463

== ENCOUNTER → 2018-09-14 | Outpatient (CLI) | payer MEDICARE, MEDICAID ==
--- NOTE | 2018-10-05 02:06 | ECWPNPC ---
PATIENT NAME: HAWK CASE : 1955 GENDER: FEMALE VISIT DATE: 09/14/2018 DISCHARGE DATE: 09/14/18 1202 VISIT LOCKED DATE TIME: PHYSICIAN: GERMAN SLAUGHTER RESOURCE: GERMAN SLAUGHTER REASON FOR APPOINTMENT 1. BACK-NON COMP HISTORY OF PRESENT ILLNESS HISTORY OF PRESENT ILLNESS: HERE FOR F/U OF CHRONIC LOW BACK PAIN.PAIN IS WORSE LEFT HIP.DESCRIBES PAIN INTERMITTENT,TENDER AND SORE.PAIN OVER LEFT HIP AWAKENS HER AT NIGHT.RATING PAIN VAS 3/10.USING OXYCODONE 10/325 Q4-6HRS PRN FOR SEVERE PAIN WHICH PATIENT FINDS SOMEWHAT HELPFUL.TAKING SOMA 350MG AT HS PRN FOR SEVERE PAIN.DISCUSSED MEDICATION AND TREATMENT OPTIONS. PAIN THE PATIENT DESCRIBES THE PAIN... THE PATIENT DESCRIBES THE PAIN... THE PATIENT DESCRIBES THE PAIN... PAIN THE PATIENT DESCRIBES THE PAIN... THE PATIENT DESCRIBES THE PAIN... THE PATIENT DESCRIBES THE PAIN... FALL RISK SCREENING: SCREENING :NO FALLS IN THE PAST YEAR CURRENT MEDICATIONS TAKING VITAMIN D-3 2000 CAPSULE 1 CAPSULE ORALLY DAILY TAKING CARAFATE 1 GM TABLET 2TABLET ON AN EMPTY STOMACH ORALLY ONCE DAILY TAKING ASPIR-81 81 MG TABLET DELAYED RELEASE 1 TABLET ORALLY ONCE A DAY TAKING KLONOPIN 1 MG TABLET 1 TABLET ORALLY QHS TAKING LORATADINE 10 MG TABLET 1 TABLET ORALLY ONCE A DAY TAKING LEVOTHYROXINE SODIUM 100 MCG TABLET 1 TABLET EVERY MORNING ON AN EMPTY STOMACH ORALLY ONCE A DAY TAKING NEXIUM 40 MG CAPSULE DELAYED RELEASE 1 CAPSULE ORALLY TWICE A DAY TAKING HYDROCHLOROTHIAZIDE 25 25 MG SOFT GEL 1 TABLETS ORAL DAILY TAKING CRESTOR 20 MG TABLET 1 TABLET ORALLY ONCE A DAY TAKING LAMOTRIGINE 200 MG TABLET 1 TABLET ORALLY ONCE DAILY TAKING LISINOPRIL 2.5 MG TABLET 1 TABLET ORALLY ONCE A DAY TAKING DOCUSATE SODIUM 100 MG CAPSULE 2 ORALLY 3X DAILY, NOTES: TAKES NEEDED TAKING MODAFINIL 200 MG TABLET 1 TABLET IN THE MORNING ORALLY ONCE A DAY TAKING SOMA 350 MG TABLET 1 TABLET ORALLY Q8H PRN MDD1 TAKING PERCOCET 10-325 MG TABLET 1 TABLET NEEDED ORALLY Q4-6H PRN MDD5 NOT-TAKING ARAVA 10 MG TABLET 1 TABLET ORALLY ONCE A DAY MEDICATION LIST REVIEWED AND RECONCILED WITH THE PATIENT PAST MEDICAL HISTORY PALPITATIONS, HEART HX BLOOD CLOTS, LEFT LEG HX ANEMIA ARTHRITIS, OA BACK PAIN HX BONE SPURS INSOMNIA MOOD SWINGS XEROPTHALMIA EARLY SATIETY COLONIC POLYPS RECURRENT UTIS SYSTEMIC LUPUS ERYTHEMATOUS ESOPHAGEAL REFLUX HYPOTHYROIDISM HYPERTENSION HYPERCHOLESTEROLEMIA RAYNAUDS SYNDROME NECK PAIN DEPRESSION OSTEOARTHRITIS MYOCARDIAL INFARCTION MYOFASCIAL PAIN SYNDROME LOW BACK PAIN LUMBAR RADICULOPATHY FRACTURED HAND JOINT ALLERGIES PROPRANOLOL HCL: NAUSEA/VOMITING: ALLERGY CAPTOPRIL: NAUSEA/VOMITING: ALLERGY MACROBID: N/DIARRHEA: ALLERGY CIPRO: NAUSEA/VOMITING/DIARRHEA: ALLERGY MS CONTIN: N/V UNABLE TO VOID ANTIDEPRESSANTS: FLU LIKE SYMPTOMS /NAUSEA NUCYNTA ER: NIGHTMARES, INCREASED DEPRESSION: SIDE EFFECTS SURGICAL HISTORY NECK SURGERY BONE SPUR 1996 TUBAL LIGATION 1981 ENDOMETRIAL BIOPSY 2010 CARDIAC CATHETERIZATION 09/26 CARDIAC STENT 09/26 SURGERY TO REPAIR RIGHT FEMORAL ARTERY 09/26 CARDIAC STENT 10/27 CARDIAC STENT 03/26 COLONOSCOPY 2010 FAMILY HISTORY FATHER: DIAGNOSED WITH DIABETES, HYPERTENSION, CANCER MOTHER: DIAGNOSED WITH DIABETES, HYPERTENSION, CANCER PATERNAL GRAND MOTHER: DIAGNOSED WITH CANCER MATERNAL GRAND MOTHER: DIAGNOSED WITH CANCER SOCIAL HISTORY GENERAL: TOBACCO USE ARE YOU A:NONSMOKER ALCOHOL SCREENING DID YOU HAVE A DRINK CONTAINING ALCOHOL IN THE PAST YEAR?NO POINTS0 INTERPRETATIONNEGATIVE RECREATIONAL DRUG USE DRUG USE?NO CAFFEINE CAFFEINE USE?YES 1 CUP COFFEE/ DAY FAITH [id number] ANGLICAN LANGUAGE LANGUAGES SPOKEN:[place] EDUCATION LEVEL OF EDUCATION:COLLEGE A COUPLE OF SEMESTERS LEARNING BARRIERS / SPECIAL NEEDS BARRIERS TO LEARNING?NO HEARING IMPAIRED?NO VISION IMPAIRED?YES :CORRECTIVE LENSES COGNITIVELY IMPAIRED?NO READINESS TO LEARN?YES LEARNING PREFERENCES?YES :TAPES/VIDEOS, BOOKLETS, HANDOUTS LEARNING CAPABILITIES PRESENT?YES EMOTIONAL BARRIERS?NO SPECIAL DEVICES?YES :CANE 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 REVIEWED WITH PT 04/22/18 1345 LASREVIEWED WITH PT 06/28/18 1433 BVREVIEWED WITH PT 07/15/18 1418 BVREVIEWED WITH PATIENT 08/26/18 1420 JS. HOSPITALIZATION/MAJOR DIAGNOSTIC PROCEDURE SURGERY RELATED MYOCARDIAL INFARCTION 09/26 REVIEW OF SYSTEMS REVIEWED BY: PROVIDER: GERMAN BUTTS . CONSTITUTIONAL: ANY CHANGE IN YOUR MEDICAL CONDITION? YES, STATES SICK THIS PAST WEEK. ALSO STATES SHE HAS BEEN LOSING WEIGHT RECENTLY WITHOUT TRYING AND IS TIRED ALL OF THE TIME . CHILLS NO . FEVER NO . INFECTION: DO YOU HAVE NEW INFECTIONS? NO . DO YOU HAVE HISTORY OF MRSA? NO . MUSCULOSKELETAL: ANY NEW PATTERNS OF PAIN OR NUMBNESS? NO . GASTROENTEROLOGY: ANY NEW CHANGE IN BOWEL CONTROL? NO . GENITOURINARY: ANY NEW CHANGE IN BLADDER CONTROL? NO . IS THERE A CHANCE YOU COULD BE ? NO . HEMATOLOGY/LYMPH: DO YOU TAKE ANY BLOOD THINNERS? (FOR EXAMPLE- COUMADIN, PLAVIX, AGGRENOX, PLATEL, PRADAXA, OR XARELTO) NO . WHEN WAS YOUR LAST DOSE? DATE: TIME: . NEUROLOGY: HAVE YOU FALLEN IN THE PAST 6 MONTHS? YES, STATES FALL IN , DISCUSSED AT LAST VISIT. ALSO STATES A FALL A COUPLE OF WEEKS AGO FROM SLIPPING ON ICE, STATES NO INJURIES OR ED VISIT . ANY NEW EXTREMITY NUMBNESS OR WEAKNESS? YES, STATES OVERALL WEAKNESS . CARDIOLOGY: DO YOU HAVE A PACEMAKER OR DEFIBRILLATOR? NO . RESPIRATORY: HAVE YOU BEEN SICK IN THE PAST WEEK? YES, STATES NAUSEA AND COLD CHILLS THE PAST WEEK . FEVER NO . FLU LIKE SYMPTOMS? NO . COUGH YES . INTEGUMENTARY: DO YOU HAVE ANY RASHES OR OPEN SORES? YES, STATES LUPUS RASH/SORES AROUND EARS . ALLERGIC/IMMUNO: ARE YOU ALLERGIC TO SHELLFISH OR IV DYE? NO . ANY NEW ALLERGIES? NO . PSYCHIATRIC: DO YOU HAVE THOUGHTS OF HURTING YOURSELF OR SOMEONE ELSE? NO . ARE YOU ABUSED, NEGLECTED, OR IN AN UNSAFE ENVIRONMENT? NO . ENDOCRINOLOGY: ARE YOU DIABETIC? NO . OTHER: DO YOU NEED ANY PRESCRIPTIONS? NO . IF YES, PLEASE LIST: ____ . ANY NEW PROBLEMS WITH YOUR MEDICATIONS? NO . WHEN DID YOU LAST EAT? ____ . WHEN DID YOU LAST DRINK? ____ . WHAT DID YOU LAST DRINK? ____ . NAME OF PERSON DRIVING YOU HOME? ____ . DO YOU HAVE ANY OTHER QUESTIONS OR CONCERNS NO . VITAL SIGNS WT 171.4 LBS, HT 64 IN, BMI 29.42 INDEX, BP 126/64 MM HG, HR 64 /MIN, RR 18 /MIN, TEMP 97.2 F, OXYGEN SAT % 96%, SAFE IN ENV? (Y/N) YES, NA INITIALS AW 1118, REVIEWED BY: DAVID. EXAMINATION GENERAL EXAMINATION: LUNGS:LUNG SOUNDS ARE CLEAR. HEART:HEART RATE REGULAR. MUSCULOSKELETAL:MUSCLE STRENGTH TESTING 5/5 BILATERAL LOWER EXTREMITIES. PALPATION: POSITIVE FOR PAIN OVER L/S SPINE. POSITIVE FOR PAIN OVER L/S PARASPINALS.MULTIPLE AREAS OF TENDER SPOTS INDICATIVE OF FIBROMYALGIA.. 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 (PRIMARY) TREATMENT LUMBAGO WITH SCIATICA, LEFT SIDE REFILL SOMA TABLET, 350 MG, 1 TABLET, ORALLY, Q8H PRN MDD1, 30 DAY(S), 30, REFILLS 2 REFILL PERCOCET TABLET, 10-325 MG, 1 TABLET NEEDED, ORALLY, Q4-6H PRN MDD5, 30 DAY(S), 150, REFILLS 0 NOTES: [employer] REGISTRY REVIEWED AND DEMONSTRATES COMPLLIANCE. (REF # [id number] ) BRINGS IN MEDICATIONS WHICH IS APPROPRIATE FOR WHAT WAS DISPENSED. RECENT URINE TOXICOLOGY REVIEWED. NO UNAUTHORIZED MEDICATIONS. NO ILLICIT SUBSTANCES AND PRESCRIBED MEDICATIONS WERE PRESENT. , RISKS AND BENEFITS OF NARCOTIC/OPIOD MEDICATIONS WERE REVIEWED WITH PATIENT - THIS INCLUDES BUT IS NOT LIMITED TO RISK OF DEPENDANCE/DEVELOPMENT OF ADDICTION, MOOD DISTURBANCE AND DEPRESSION, OSTEOPOROSIS, HORMONAL AND LABIDAL CHANGES, RESPIRATORY DEPRESSION AND . PATIENT IS ADVISED NOT TO DRIVE OR DRINK ALCOHOL WHILE ON THESE MEDICATIONS. PROCEDURE CODES FA211 ESTABILISHED PATIENT [facility] CHARGE DISPOSITION & COMMUNICATION FOLLOW UP 3 MONTHS ELECTRONICALLY SIGNED BY BENJAMÍN MORALES ON 10/04/2018 AT 04:13 PM EST DISCLAIMER : THIS IS A VISIT SUMMARY EXTRACTED FROM THE [employer] CHART. IT IS NOT A COPY OF THE [employer] PROGRESS NOTE. OSMIN
== END ==
LOC: M PAIN 11:45
PROVIDERS: ATTEND Nurse Practitioner Family
DX: M54.42 Lumbago with sciatica, left side (principal); G89.29 Other chronic pain; E03.9 Hypothyroidism, unspecified; I10 Essential (primary) hypertension; E78.00 Pure hypercholesterolemia, unspecified; I73.00 Raynaud's syndrome without gangrene; F32.9 Major depressive disorder, single episode, unspecified; I25.2 Old myocardial infarction; M19.90 Unspecified osteoarthritis, unspecified site; G47.00 Insomnia, unspecified; R68.81 Early satiety; Z79.82 Long term (current) use of aspirin; Z79.891 Long term (current) use of opiate analgesic; Z79.899 Other long term (current) drug therapy; Z88.5 Allergy status to narcotic agent; Z88.8 Allergy status to other drugs, medicaments and biological substances; Z86.79 Personal history of other diseases of the circulatory system; Z87.39 Personal history of other diseases of the musculoskeletal system and connective tissue

== ENCOUNTER → 2018-11-28 | Outpatient (REF) | payer MEDICARE, MEDICAID ==
[~2018-11-28] MED LIST changes: +AUGM875T28 PO; +DIFL150T PO; +MODA200T15 PO; +NEOM1SOL19 OTIC
== END ==
LOC: M LAB REF 11:33
PROVIDERS: ATTEND Physician Assistant
DX: J09.X2 Influenza due to identified novel influenza A virus with other respiratory manifestations (principal)

== ENCOUNTER → 2018-12-13 | Outpatient (CLI) | payer MEDICARE, MEDICAID ==
[~2018-12-13] MED LIST changes: -/ESOM40CA PO; -CYCL5TA PO; +CYCL5TAB5 PO; +NEXI1CAP3 PO
--- NOTE | 2018-12-24 00:39 | ECWPNPC ---
PATIENT NAME: HAWK CASE : 1955 GENDER: FEMALE VISIT DATE: 12/13/2018 DISCHARGE DATE: 12/13/18 1354 VISIT LOCKED DATE TIME: PHYSICIAN: GERMAN SLAUGHTER RESOURCE: GERMAN SLAUGHTER REASON FOR APPOINTMENT 1. BACK-NON COMP HISTORY OF PRESENT ILLNESS HISTORY OF PRESENT ILLNESS: HERE FOR F/U OF CHRONIC LOW BACK PAIN.PAIN IS WORSE LEFT HIP.DESCRIBES PAIN INTERMITTENT,TENDER AND SORE.PAIN OVER LEFT HIP AWAKENS HER AT NIGHT.RATING PAIN VAS 3/10.USING OXYCODONE 10/325 Q4-6HRS PRN FOR SEVERE PAIN WHICH PATIENT FINDS SOMEWHAT HELPFUL.TAKING SOMA 350MG AT HS PRN FOR SEVERE PAIN.DISCUSSED MEDICATION AND TREATMENT OPTIONS. PAIN THE PATIENT DESCRIBES THE PAIN... THE PATIENT DESCRIBES THE PAIN... THE PATIENT DESCRIBES THE PAIN... THE PATIENT DESCRIBES THE PAIN... PAIN THE PATIENT DESCRIBES THE PAIN... THE PATIENT DESCRIBES THE PAIN... THE PATIENT DESCRIBES THE PAIN... THE PATIENT DESCRIBES THE PAIN... FALL RISK SCREENING: SCREENING :NO FALLS REPORTED IN THE LAST YEAR CURRENT MEDICATIONS TAKING VITAMIN D-3 2000 CAPSULE 1 CAPSULE ORALLY DAILY TAKING CARAFATE 1 GM TABLET 2TABLET ON AN EMPTY STOMACH ORALLY ONCE DAILY TAKING ASPIR-81 81 MG TABLET DELAYED RELEASE 1 TABLET ORALLY ONCE A DAY TAKING KLONOPIN 1 MG TABLET 1 TABLET ORALLY QHS TAKING LORATADINE 10 MG TABLET 1 TABLET ORALLY ONCE A DAY TAKING LEVOTHYROXINE SODIUM 100 MCG TABLET 1 TABLET EVERY MORNING ON AN EMPTY STOMACH ORALLY ONCE A DAY TAKING NEXIUM 40 MG CAPSULE DELAYED RELEASE 1 CAPSULE ORALLY TWICE A DAY TAKING HYDROCHLOROTHIAZIDE 25 25 MG SOFT GEL 1 TABLETS ORAL DAILY TAKING CRESTOR 20 MG TABLET 1 TABLET ORALLY ONCE A DAY TAKING LAMOTRIGINE 200 MG TABLET 1 TABLET ORALLY ONCE DAILY TAKING LISINOPRIL 2.5 MG TABLET 1 TABLET ORALLY ONCE A DAY TAKING DOCUSATE SODIUM 100 MG CAPSULE 2 ORALLY 3X DAILY, NOTES: TAKES NEEDED TAKING MODAFINIL 200 MG TABLET 1 TABLET IN THE MORNING ORALLY ONCE A DAY TAKING SOMA 350 MG TABLET 1 TABLET ORALLY Q8H PRN MDD1 TAKING PERCOCET 10-325 MG TABLET 1 TABLET NEEDED ORALLY Q4-6H PRN MDD5 TAKING FLUTICASONE FUROATE 27.5 MCG/SPRAY SUSPENSION 1 SPRAY IN EACH NOSTRIL NASALLY ONCE A DAY DISCONTINUED ARAVA 10 MG TABLET 1 TABLET ORALLY ONCE A DAY MEDICATION LIST REVIEWED AND RECONCILED WITH THE PATIENT PAST MEDICAL HISTORY PALPITATIONS, HEART HX BLOOD CLOTS, LEFT LEG HX ANEMIA ARTHRITIS, OA BACK PAIN HX BONE SPURS INSOMNIA MOOD SWINGS XEROPTHALMIA EARLY SATIETY COLONIC POLYPS RECURRENT UTIS SYSTEMIC LUPUS ERYTHEMATOUS ESOPHAGEAL REFLUX HYPOTHYROIDISM HYPERTENSION HYPERCHOLESTEROLEMIA RAYNAUDS SYNDROME NECK PAIN DEPRESSION OSTEOARTHRITIS MYOCARDIAL INFARCTION MYOFASCIAL PAIN SYNDROME LOW BACK PAIN LUMBAR RADICULOPATHY FRACTURED HAND JOINT ALLERGIES PROPRANOLOL HCL: NAUSEA/VOMITING - ALLERGY CAPTOPRIL: NAUSEA/VOMITING - ALLERGY MACROBID: N/DIARRHEA - ALLERGY CIPRO: NAUSEA/VOMITING/DIARRHEA - ALLERGY MS CONTIN: N/V UNABLE TO VOID ANTIDEPRESSANTS: FLU LIKE SYMPTOMS /NAUSEA NUCYNTA ER: NIGHTMARES, INCREASED DEPRESSION - SIDE EFFECTS SURGICAL HISTORY NECK SURGERY BONE SPUR 1997 TUBAL LIGATION 1981 ENDOMETRIAL BIOPSY 2010 CARDIAC CATHETERIZATION 09/26 CARDIAC STENT 09/26 SURGERY TO REPAIR RIGHT FEMORAL ARTERY 09/26 CARDIAC STENT 10/27 CARDIAC STENT 03/26 COLONOSCOPY 2010 FAMILY HISTORY FATHER: DIAGNOSED WITH CANCER, DIABETES, HYPERTENSION MOTHER: CANCER, DIABETES, HYPERTENSION PATERNAL GRAND MOTHER: CANCER MATERNAL GRAND MOTHER: CANCER 7 BROTHER(S) , 3 SISTER(S) . 1 SON(S) , 3 DAUGHTER(S) . BROTHER CAD,IMMDM,CANCER BROTHER HEART DIEASE IDDM,BROTHER HEART DIEASE, IDDM, SISTER FROM LIVER FAILURE, SISTER HEART DIEASE, HTNDAUGHTER DIESED FROM DRUG OVERDOSE METPROBAMATE. ONE DAUGHTER TIERRA. SOCIAL HISTORY GENERAL: TOBACCO USE ARE YOU A:NONSMOKER LATEX QUESTIONNAIRE LATEX ALLERGY : HAVE YOU EVER DEVELOPED ANY TYPE OF REACTION AFTER HANDLING LATEX PRODUCTS SUCH RUBBER GLOVES, CONDOMS, DIAPHRAGMS, BALLOONS, SOCKS, OR UNDERWEAR?YES - PLEASE INDICATE :RUBBER GLOVES LATEX ALLERGY : HAVE YOU EVER DEVELOPED ANY TYPE OF REACTION DURING OR AFTER DENTAL APPOINTMENT, VAGINAL/RECTAL EXAMINATION, SURGICAL PROCEDURE, OR ANY OTHER EXPOSURE?NO LATEX RISK : HAVE YOU EVER HAD ANY DIFFICULTY BREATHING OR HIVES AFTER EATING OR HANDLING ANY FRUITS, OR VEGETABLES; SUCH KIWI, BANANAS, STONE FRUITS, OR CHESTNUTSNO LATEX RISK : DO YOU HAVE A PREVIOUS PERSONAL HISTORY OF MORE THAN NINE SURGERIES, SPINA BIFIDA, OR REPEATED CATHERTIZATIONS? NO LATEX RISK : ARE YOU FREQUENTLY EXPOSED TO LATEX PRODUCTS IN YOUR OCCUPATION?NO DATE ASKED : 12/13/2018 ALCOHOL SCREENING DID YOU HAVE A DRINK CONTAINING ALCOHOL IN THE PAST YEAR?NO POINTS0 INTERPRETATIONNEGATIVE RECREATIONAL DRUG USE DRUG USE?NO CAFFEINE CAFFEINE USE?YES 1 CUP COFFEE/ DAY SIKH [id number] TENRIISM LANGUAGE LANGUAGES SPOKEN:MALTESE EDUCATION LEVEL OF EDUCATION:COLLEGE A COUPLE OF SEMESTERS LEARNING BARRIERS / SPECIAL NEEDS BARRIERS TO LEARNING?NO HEARING IMPAIRED?NO VISION IMPAIRED?YES :CORRECTIVE LENSES COGNITIVELY IMPAIRED?NO READINESS TO LEARN?YES LEARNING PREFERENCES?YES :TAPES/VIDEOS, BOOKLETS, HANDOUTS LEARNING CAPABILITIES PRESENT?YES EMOTIONAL BARRIERS?NO 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 DIET: REGULAR. EXERCISE: NONE. MARITAL STATUS: .. OTHERS AT HOME: CHILD. PAIN CLINIC PFS, CLERGY, PUBLIC HEALTH REFERRALS PFS REFERRAL NEEDED?NO CLERGY REFERRAL NEEDED?NO PUBLIC HEALTH REFERRAL NEEDED?NO HAS THE PATIENT BEEN EDUCATED REGARDING HIS/HER PLAN OF CARE?YES HAS THE PATIENT BEEN EDUCATED REGARDING PAIN, THE RISK FOR PAIN, THE IMPORTANCE OF EFFECTIVE PAIN MANAGEMENT, AND THE PAIN ASSESSMENT PROCESS?YES ADVANCE DIRECTIVE ADVANCE DIRECTIVE DISCUSSED WITH PATIENT:YES HCP INFORMATION GIVEN LAST VISIT, DECLINES INFORMATION THIS VISIT. REVIEWED WITH PT 04/22/18 1345 LASREVIEWED WITH PT 06/28/18 1433 BVREVIEWED WITH PT 07/15/18 1418 BVREVIEWED WITH PATIENT 08/26/18 1420 JS. HOSPITALIZATION/MAJOR DIAGNOSTIC PROCEDURE SURGERY RELATED MYOCARDIAL INFARCTION 09/26 REVIEW OF SYSTEMS REVIEWED BY: PROVIDER: GERMAN BUTTS . CONSTITUTIONAL: ANY CHANGE IN YOUR MEDICAL CONDITION? NO . CHILLS NO . FEVER NO . INFECTION: DO YOU HAVE NEW INFECTIONS? NO . DO YOU HAVE HISTORY OF MRSA? NO . MUSCULOSKELETAL: ANY NEW PATTERNS OF PAIN OR NUMBNESS? YES . GASTROENTEROLOGY: ANY NEW CHANGE IN BOWEL CONTROL? NO . GENITOURINARY: ANY NEW CHANGE IN BLADDER CONTROL? YES, UTI OR BLADDER INFECTION . IS THERE A CHANCE YOU COULD BE ? NO . HEMATOLOGY/LYMPH: DO YOU TAKE ANY BLOOD THINNERS? (FOR EXAMPLE- COUMADIN, PLAVIX, AGGRENOX, PLATEL, PRADAXA, OR XARELTO) NO . WHEN WAS YOUR LAST DOSE? DATE: TIME: . NEUROLOGY: HAVE YOU FALLEN IN THE PAST 12 MONTHS? YES . ANY NEW EXTREMITY NUMBNESS OR WEAKNESS? NO . CARDIOLOGY: DO YOU HAVE A PACEMAKER OR DEFIBRILLATOR? NO . RESPIRATORY: HAVE YOU BEEN SICK IN THE PAST WEEK? YES . FEVER YES . FLU LIKE SYMPTOMS? YES . COUGH NO . INTEGUMENTARY: DO YOU HAVE ANY RASHES OR OPEN SORES? NO . ALLERGIC/IMMUNO: ARE YOU ALLERGIC TO IV DYE? NO . ANY NEW ALLERGIES? NO . PSYCHIATRIC: DO YOU HAVE THOUGHTS OF HURTING YOURSELF OR SOMEONE ELSE? NO . ARE YOU ABUSED, NEGLECTED, OR IN AN UNSAFE ENVIRONMENT? NO . ENDOCRINOLOGY: ARE YOU DIABETIC? NO . OTHER: DO YOU NEED ANY PRESCRIPTIONS? NO . IF YES, PLEASE LIST: ____ . ANY NEW PROBLEMS WITH YOUR MEDICATIONS? NO . WHEN DID YOU LAST EAT? ____ . WHEN DID YOU LAST DRINK? ____ . WHAT DID YOU LAST DRINK? ____ . NAME OF PERSON DRIVING YOU HOME? ____ . DO YOU HAVE ANY OTHER QUESTIONS OR CONCERNS NO . VITAL SIGNS WT 164 LBS, HT 62 IN, BMI 29.99 INDEX, BP 148/68 MM HG, HR 51 /MIN, RR 18 /MIN, TEMP 97.5 F, OXYGEN SAT % 100, SAFE IN ENV? (Y/N) YES, REVIEWED BY: VD. EXAMINATION GENERAL EXAMINATION: LUNGS:LUNG SOUNDS ARE CLEAR. HEART:HEART RATE REGULAR. MUSCULOSKELETAL:MUSCLE STRENGTH TESTING 5/5 BILATERAL LOWER EXTREMITIES. PALPATION: POSITIVE FOR PAIN OVER L/S SPINE. POSITIVE FOR PAIN OVER L/S PARASPINALS.MULTIPLE AREAS OF TENDER SPOTS INDICATIVE OF FIBROMYALGIA.. 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 (PRIMARY) TREATMENT LUMBAGO WITH SCIATICA, LEFT SIDE CONTINUE SOMA TABLET, 350 MG, 1 TABLET, ORALLY, Q8H PRN MDD1, 30 DAY(S), 30, REFILLS 2 CONTINUE PERCOCET TABLET, 10-325 MG, 1 TABLET NEEDED, ORALLY, Q4-6H PRN MDD5, 30 DAY(S), 150, REFILLS 0 NOTES: ISTOP REGISTRY REVIEWED AND DEMONSTRATES COMPLLIANCE. (REF #[id number] ) BRINGS IN MEDICATIONS WHICH IS APPROPRIATE FOR WHAT WAS DISPENSED. RECENT URINE TOXICOLOGY REVIEWED. NO UNAUTHORIZED MEDICATIONS. NO ILLICIT SUBSTANCES AND PRESCRIBED MEDICATIONS WERE PRESENT. URINE TOX TODAY, RISKS AND BENEFITS OF NARCOTIC/OPIOD MEDICATIONS WERE REVIEWED WITH PATIENT - THIS INCLUDES BUT IS NOT LIMITED TO RISK OF DEPENDANCE/DEVELOPMENT OF ADDICTION, MOOD DISTURBANCE AND DEPRESSION, OSTEOPOROSIS, HORMONAL AND LABIDAL CHANGES, RESPIRATORY DEPRESSION AND . PATIENT IS ADVISED NOT TO DRIVE OR DRINK ALCOHOL WHILE ON THESE MEDICATIONS. PROCEDURE CODES FA211 ESTABILISHED PATIENT [facility] CHARGE DISPOSITION & COMMUNICATION FOLLOW UP 3 MONTHS ELECTRONICALLY SIGNED BY BENJAMÍN MORALES ON 12/23/2018 AT 04:36 PM EDT DISCLAIMER : THIS IS A VISIT SUMMARY EXTRACTED FROM THE [employer] CHART. IT IS NOT A COPY OF THE [employer] PROGRESS NOTE. OSMIN
== END ==
LOC: M PAIN 13:00
PROVIDERS: ATTEND Nurse Practitioner Family
DX: M54.42 Lumbago with sciatica, left side (principal); G89.29 Other chronic pain; M19.90 Unspecified osteoarthritis, unspecified site; E03.9 Hypothyroidism, unspecified; I10 Essential (primary) hypertension; E78.00 Pure hypercholesterolemia, unspecified; I73.00 Raynaud's syndrome without gangrene; F32.9 Major depressive disorder, single episode, unspecified; I25.2 Old myocardial infarction; Z79.82 Long term (current) use of aspirin; Z79.891 Long term (current) use of opiate analgesic; Z79.899 Other long term (current) drug therapy; Z88.5 Allergy status to narcotic agent; Z88.8 Allergy status to other drugs, medicaments and biological substances; Z91.040 Latex allergy status; Z87.39 Personal history of other diseases of the musculoskeletal system and connective tissue; Z86.79 Personal history of other diseases of the circulatory system

== ENCOUNTER → 2018-12-20 | Outpatient (CLI) | payer OTHER, MEDICAID ==
--- NOTE | 2019-01-03 01:57 | ECWPNPC ---
PATIENT NAME: HAWK CASE : 1955 GENDER: FEMALE VISIT DATE: 12/20/2018 DISCHARGE DATE: 12/20/18 1214 VISIT LOCKED DATE TIME: PHYSICIAN: GERMAN SLAUGHTER RESOURCE: GERMAN SLAUGHTER REASON FOR APPOINTMENT 1. WC NECK HISTORY OF PRESENT ILLNESS HISTORY OF PRESENT ILLNESS: PAIN THE PATIENT DESCRIBES THE PAIN... THE PATIENT DESCRIBES THE PAIN... THE PATIENT DESCRIBES THE PAIN... THE PATIENT DESCRIBES THE PAIN... THE PATIENT DESCRIBES THE PAIN... THE PATIENT DESCRIBES THE PAIN... THE PATIENT DESCRIBES THE PAIN... THE PATIENT DESCRIBES THE PAIN... PAIN THE PATIENT DESCRIBES THE PAIN... THE PATIENT DESCRIBES THE PAIN... THE PATIENT DESCRIBES THE PAIN... THE PATIENT DESCRIBES THE PAIN... THE PATIENT DESCRIBES THE PAIN... THE PATIENT DESCRIBES THE PAIN... THE PATIENT DESCRIBES THE PAIN... THE PATIENT DESCRIBES THE PAIN... HERE FOR F/U OF CHRONIC NECK PAIN WITH HISTORY OF CHRONIC NECK PAIN. PATIENT DESCRIBES THE PAIN ACHING, TENDER, THROBBING AND SORE WITH THE PAIN COMING AND GOING AND CURRENT PAIN SCORE OF 3/10. 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 PATIENT REPORTS HAVING A SURGERY IN 1996. MRS. CASE STATES THAT SHE HAS TRIED PHYSICAL THERAPY IN THE PAST BUT IT DID NOT AID IN PAIN RELIEF OR FUNCTIONALITY AND MOBILITY. MRS. CASE DOES USE A TENS MACHINE AND STATES THAT IT KEEPS HER MOBILE AND FUNCTIONAL. PATIENT HAS HAD A 5# WEIGHT LOSS SINCE LAST VISIT.DENIES FEVER, CHILLS, NEW CHANGES ON HER URINARY OR BOWEL CONTROL. FALL RISK SCREENING: SCREENING :NO FALLS REPORTED IN THE LAST YEAR CURRENT MEDICATIONS TAKING VITAMIN D-3 2000 CAPSULE 1 CAPSULE ORALLY DAILY TAKING CARAFATE 1 GM TABLET 2TABLET ON AN EMPTY STOMACH ORALLY ONCE DAILY TAKING ASPIR-81 81 MG TABLET DELAYED RELEASE 1 TABLET ORALLY ONCE A DAY TAKING KLONOPIN 1 MG TABLET 1 TABLET ORALLY QHS TAKING LORATADINE 10 MG TABLET 1 TABLET ORALLY ONCE A DAY TAKING LEVOTHYROXINE SODIUM 100 MCG TABLET 1 TABLET EVERY MORNING ON AN EMPTY STOMACH ORALLY ONCE A DAY TAKING NEXIUM 40 MG CAPSULE DELAYED RELEASE 1 CAPSULE ORALLY TWICE A DAY TAKING HYDROCHLOROTHIAZIDE 25 25 MG SOFT GEL 1 TABLETS ORAL DAILY TAKING CRESTOR 20 MG TABLET 1 TABLET ORALLY ONCE A DAY TAKING LAMOTRIGINE 200 MG TABLET 1 TABLET ORALLY ONCE DAILY TAKING LISINOPRIL 2.5 MG TABLET 1 TABLET ORALLY ONCE A DAY TAKING DOCUSATE SODIUM 100 MG CAPSULE 2 ORALLY 3X DAILY, NOTES: TAKES NEEDED TAKING MODAFINIL 200 MG TABLET 1 TABLET IN THE MORNING ORALLY ONCE A DAY TAKING FLUTICASONE FUROATE 27.5 MCG/SPRAY SUSPENSION 1 SPRAY IN EACH NOSTRIL NASALLY ONCE A DAY TAKING SOMA 350 MG TABLET 1 TABLET ORALLY Q8H PRN MDD1 TAKING PERCOCET 10-325 MG TABLET 1 TABLET NEEDED ORALLY Q4-6H PRN MDD5 MEDICATION LIST REVIEWED AND RECONCILED WITH THE PATIENT PAST MEDICAL HISTORY PALPITATIONS, HEART HX BLOOD CLOTS, LEFT LEG HX ANEMIA ARTHRITIS, OA BACK PAIN HX BONE SPURS INSOMNIA MOOD SWINGS XEROPTHALMIA EARLY SATIETY COLONIC POLYPS RECURRENT UTIS SYSTEMIC LUPUS ERYTHEMATOUS ESOPHAGEAL REFLUX HYPOTHYROIDISM HYPERTENSION HYPERCHOLESTEROLEMIA RAYNAUDS SYNDROME NECK PAIN DEPRESSION OSTEOARTHRITIS MYOCARDIAL INFARCTION MYOFASCIAL PAIN SYNDROME LOW BACK PAIN LUMBAR RADICULOPATHY FRACTURED HAND JOINT ALLERGIES PROPRANOLOL HCL: NAUSEA/VOMITING - ALLERGY CAPTOPRIL: NAUSEA/VOMITING - ALLERGY MACROBID: N/DIARRHEA - ALLERGY CIPRO: NAUSEA/VOMITING/DIARRHEA - ALLERGY MS CONTIN: N/V UNABLE TO VOID ANTIDEPRESSANTS: FLU LIKE SYMPTOMS /NAUSEA NUCYNTA ER: NIGHTMARES, INCREASED DEPRESSION - SIDE EFFECTS SURGICAL HISTORY NECK SURGERY BONE SPUR 1996 TUBAL LIGATION 1982 ENDOMETRIAL BIOPSY 2010 CARDIAC CATHETERIZATION 09/26 CARDIAC STENT 09/26 SURGERY TO REPAIR RIGHT FEMORAL ARTERY 09/26 CARDIAC STENT 10/27 CARDIAC STENT 03/26 COLONOSCOPY 2010 FAMILY HISTORY FATHER: DIAGNOSED WITH CANCER, DIABETES, HYPERTENSION MOTHER: CANCER, DIABETES, HYPERTENSION PATERNAL GRAND MOTHER: CANCER MATERNAL GRAND MOTHER: CANCER 7 BROTHER(S) , 3 SISTER(S) . 1 SON(S) , 3 DAUGHTER(S) . BROTHER CAD,IMMDM,CANCER BROTHER HEART DIEASE IDDM,BROTHER HEART DIEASE, IDDM, SISTER FROM LIVER FAILURE, SISTER HEART DIEASE, HTN\NDAUGHTER DIESED FROM DRUG OVERDOSE METPROBAMATE. ONE DAUGHTER TIERRA. SOCIAL HISTORY GENERAL: TOBACCO USE ARE YOU A:NONSMOKER LATEX QUESTIONNAIRE LATEX ALLERGY : HAVE YOU EVER DEVELOPED ANY TYPE OF REACTION AFTER HANDLING LATEX PRODUCTS SUCH RUBBER GLOVES, CONDOMS, DIAPHRAGMS, BALLOONS, SOCKS, OR UNDERWEAR?YES - PLEASE INDICATE :RUBBER GLOVES LATEX ALLERGY : HAVE YOU EVER DEVELOPED ANY TYPE OF REACTION DURING OR AFTER DENTAL APPOINTMENT, VAGINAL/RECTAL EXAMINATION, SURGICAL PROCEDURE, OR ANY OTHER EXPOSURE?NO LATEX RISK : HAVE YOU EVER HAD ANY DIFFICULTY BREATHING OR HIVES AFTER EATING OR HANDLING ANY FRUITS, OR VEGETABLES; SUCH KIWI, BANANAS, STONE FRUITS, OR CHESTNUTSNO LATEX RISK : DO YOU HAVE A PREVIOUS PERSONAL HISTORY OF MORE THAN NINE SURGERIES, SPINA BIFIDA, OR REPEATED CATHERTIZATIONS? NO LATEX RISK : ARE YOU FREQUENTLY EXPOSED TO LATEX PRODUCTS IN YOUR OCCUPATION?NO DATE ASKED : 12/13/2018 ALCOHOL SCREENING DID YOU HAVE A DRINK CONTAINING ALCOHOL IN THE PAST YEAR?NO POINTS0 INTERPRETATIONNEGATIVE RECREATIONAL DRUG USE DRUG USE?NO CAFFEINE CAFFEINE USE?YES 1 CUP COFFEE/ DAY MANDAEN [id number] MU-ISM LANGUAGE LANGUAGES SPOKEN:KAZAKH EDUCATION LEVEL OF EDUCATION:COLLEGE A COUPLE OF SEMESTERS LEARNING BARRIERS / SPECIAL NEEDS BARRIERS TO LEARNING?NO HEARING IMPAIRED?NO VISION IMPAIRED?YES :CORRECTIVE LENSES COGNITIVELY IMPAIRED?NO READINESS TO LEARN?YES LEARNING PREFERENCES?YES :TAPES/VIDEOS, BOOKLETS, HANDOUTS LEARNING CAPABILITIES PRESENT?YES EMOTIONAL BARRIERS?NO 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 DIET: REGULAR. EXERCISE: NONE. MARITAL STATUS: .. OTHERS AT HOME: CHILD. PAIN CLINIC PFS, CLERGY, PUBLIC HEALTH REFERRALS PFS REFERRAL NEEDED?NO CLERGY REFERRAL NEEDED?NO PUBLIC HEALTH REFERRAL NEEDED?NO HAS THE PATIENT BEEN EDUCATED REGARDING HIS/HER PLAN OF CARE?YES HAS THE PATIENT BEEN EDUCATED REGARDING PAIN, THE RISK FOR PAIN, THE IMPORTANCE OF EFFECTIVE PAIN MANAGEMENT, AND THE PAIN ASSESSMENT PROCESS?YES ADVANCE DIRECTIVE ADVANCE DIRECTIVE DISCUSSED WITH PATIENT:YES HCP INFORMATION GIVEN LAST VISIT, DECLINES INFORMATION THIS VISIT. 12/20/18 REVIEWED WITH PT 04/22/18 1345 LASREVIEWED WITH PT 06/28/18 1433 BVREVIEWED WITH PT 07/15/18 1418 BVREVIEWED WITH PATIENT 08/26/18 1420 JSREVIEWED WITH PT 12/20/18 1143 BV. 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 CONSTITUTIONAL: ANY CHANGE IN YOUR MEDICAL CONDITION? NO . CHILLS NO . FEVER NO . INFECTION: DO YOU HAVE NEW INFECTIONS? YES, PT STATES SHE HAD THE FLU AND AN EAR INFECTION ABOUT 2-3 WEEKS AGO. STATES SHE WENT TO URGENT CARE AND WAS TREATED. STATES SYMPTOMS HAVE RESOLVED AND SHE IS FEELING BETTER. . DO YOU HAVE HISTORY OF MRSA? NO . MUSCULOSKELETAL: ANY NEW PATTERNS OF PAIN OR NUMBNESS? YES, PT STATES SHE HAS HAD INTERMITTENT NUMBNESS IN BILATERAL ARMS FOR THE PAST MONTH. . GASTROENTEROLOGY: ANY NEW CHANGE IN BOWEL CONTROL? NO . GENITOURINARY: ANY NEW CHANGE IN BLADDER CONTROL? PT STATES SHE HAS CHRONIC UTI . IS THERE A CHANCE YOU COULD BE ? NO . HEMATOLOGY/LYMPH: DO YOU TAKE ANY BLOOD THINNERS? (FOR EXAMPLE- COUMADIN, PLAVIX, AGGRENOX, PLATEL, PRADAXA, OR XARELTO) NO . WHEN WAS YOUR LAST DOSE? DATE: TIME: . NEUROLOGY: HAVE YOU FALLEN IN THE PAST 12 MONTHS? NO . ANY NEW EXTREMITY NUMBNESS OR WEAKNESS? NO . CARDIOLOGY: DO YOU HAVE A PACEMAKER OR DEFIBRILLATOR? NO . RESPIRATORY: HAVE YOU BEEN SICK IN THE PAST WEEK? NO . FEVER NO . FLU LIKE SYMPTOMS? NO . COUGH NO . INTEGUMENTARY: DO YOU HAVE ANY RASHES OR OPEN SORES? YES, MULTIPLE SORES TO NECK. PT STATES SHE HAS LUPUS AND BREAKS OUT FREQUENTLY. . ALLERGIC/IMMUNO: ARE YOU ALLERGIC TO IV DYE? NO . ANY NEW ALLERGIES? NO . PSYCHIATRIC: DO YOU HAVE THOUGHTS OF HURTING YOURSELF OR SOMEONE ELSE? NO . ARE YOU ABUSED, NEGLECTED, OR IN AN UNSAFE ENVIRONMENT? NO . ENDOCRINOLOGY: ARE YOU DIABETIC? NO . OTHER: DO YOU NEED ANY PRESCRIPTIONS? NO . IF YES, PLEASE LIST: ____ . ANY NEW PROBLEMS WITH YOUR MEDICATIONS? NO . WHEN DID YOU LAST EAT? ____ . WHEN DID YOU LAST DRINK? ____ . WHAT DID YOU LAST DRINK? ____ . NAME OF PERSON DRIVING YOU HOME? ____ . DO YOU HAVE ANY OTHER QUESTIONS OR CONCERNS NO . VITAL SIGNS WT 164 LBS, HT 62 IN, BMI 29.99 INDEX, BP 145/67 MM HG, HR 51 /MIN, RR 18 /MIN, TEMP 97.4 F, OXYGEN SAT % 96%, NA INITIALS AW 1107, REVIEWED BY: BV. EXAMINATION GENERAL EXAMINATION: LUNGS:LUNG SOUNDS ARE CLEAR. HEART:HEART RATE REGULAR. MUSCULOSKELETAL:MUSCLE STRENGTH TESTING 5/5 BILATERAL UPPER EXTREMITIES. PALPATION: POSITIVE FOR PAIN OVER CERVICAL SPINE. ASSESSMENTS CERVICALGIA - M54.2 (PRIMARY) TREATMENT CERVICALGIA NOTES: CONTINUE USE OF TENS /HOME STRETCHING AND EXCERSISE. PROCEDURES PN WORKMANS' COMP OPINION IN YOUR OPINION, WAS THE INCIDENT THAT THE PATIENT DESCRIBED THE COMPETENT MEDICAL CAUSE OF THIS INJURY/ILLNESS? YES ARE THE PATIENT'S COMPLAINTS CONSISTENT WITH HIS/HER HISTORY OF THE INJURY/ILLNESS? YES IS THE PATIENT'S HISTORY OF THE INJURY/ILLNESS CONSISTENT WITH YOUR OBJECTIVE FINDING? YES WHAT IS THE PERCENTAGE OF TEMPORARY IMPAIRMENT? MODERATE TO MARKED = 66.7% IS THE PATIENT WORKING? NO DOCTOR ON SITE: ALONZO ALCANTARA MD PROCEDURE CODES FA211 ESTABILISHED PATIENT [facility] FACILITY CHARGE DISPOSITION & COMMUNICATION FOLLOW UP 3 MONTHS ELECTRONICALLY SIGNED BY BENJAMÍN MORALES ON 01/02/2019 AT 05:56 PM EDT DISCLAIMER : THIS IS A VISIT SUMMARY EXTRACTED FROM THE [employer] CHART. IT IS NOT A COPY OF THE [employer] PROGRESS NOTE. OSMIN
== END ==
LOC: M PAIN 11:15
PROVIDERS: ATTEND Nurse Practitioner Family
DX: M54.2 Cervicalgia (principal); G89.29 Other chronic pain; E03.9 Hypothyroidism, unspecified; I10 Essential (primary) hypertension; E78.00 Pure hypercholesterolemia, unspecified; I73.00 Raynaud's syndrome without gangrene; I25.2 Old myocardial infarction; M32.9 Systemic lupus erythematosus, unspecified; M19.90 Unspecified osteoarthritis, unspecified site; Z79.82 Long term (current) use of aspirin; Z79.899 Other long term (current) drug therapy; Z88.1 Allergy status to other antibiotic agents; Z88.5 Allergy status to narcotic agent; Z88.8 Allergy status to other drugs, medicaments and biological substances; Z91.09 Other allergy status, other than to drugs and biological substances; Z86.79 Personal history of other diseases of the circulatory system; Z86.59 Personal history of other mental and behavioral disorders

== ENCOUNTER → 2019-03-21 | Outpatient (CLI) | payer MEDICARE, MEDICAID ==
--- NOTE | 2019-04-05 02:30 | ECWPNPC ---
PATIENT NAME: HAWK CASE : 1955 GENDER: FEMALE VISIT DATE: 03/21/2019 DISCHARGE DATE: 03/21/19 1335 VISIT LOCKED DATE TIME: PHYSICIAN: GERMAN SLAUGHTER RESOURCE: GERMAN SLAUGHTER REASON FOR APPOINTMENT 1. BACK-NON COMP HISTORY OF PRESENT ILLNESS HISTORY OF PRESENT ILLNESS: HERE FOR F/U OF CHRONIC LOW BACK PAIN.PAIN IS WORSE LEFT HIP.DESCRIBES PAIN INTERMITTENT,TENDER AND SORE.PAIN OVER LEFT HIP AWAKENS HER AT NIGHT.RATING PAIN VAS 3/10.USING OXYCODONE 10/325 Q4-6HRS PRN FOR SEVERE PAIN WHICH PATIENT FINDS SOMEWHAT HELPFUL.TAKING SOMA 350MG AT HS PRN FOR SEVERE PAIN.DISCUSSED MEDICATION AND TREATMENT OPTIONS. PAIN THE PATIENT DESCRIBES THE PAIN... THE PATIENT DESCRIBES THE PAIN... THE PATIENT DESCRIBES THE PAIN... THE PATIENT DESCRIBES THE PAIN... THE PATIENT DESCRIBES THE PAIN... PAIN THE PATIENT DESCRIBES THE PAIN... THE PATIENT DESCRIBES THE PAIN... THE PATIENT DESCRIBES THE PAIN... THE PATIENT DESCRIBES THE PAIN... THE PATIENT DESCRIBES THE PAIN... FALL RISK SCREENING: SCREENING :NO FALLS REPORTED IN THE LAST YEAR CURRENT MEDICATIONS TAKING VITAMIN D-3 2000 CAPSULE 1 CAPSULE ORALLY DAILY TAKING CARAFATE 1 GM TABLET 2TABLET ON AN EMPTY STOMACH ORALLY ONCE DAILY TAKING ASPIR-81 81 MG TABLET DELAYED RELEASE 1 TABLET ORALLY ONCE A DAY TAKING KLONOPIN 1 MG TABLET 1 TABLET ORALLY QHS TAKING LORATADINE 10 MG TABLET 1 TABLET ORALLY ONCE A DAY TAKING LEVOTHYROXINE SODIUM 100 MCG TABLET 1 TABLET EVERY MORNING ON AN EMPTY STOMACH ORALLY ONCE A DAY TAKING NEXIUM 40 MG CAPSULE DELAYED RELEASE 1 CAPSULE ORALLY TWICE A DAY TAKING HYDROCHLOROTHIAZIDE 25 25 MG SOFT GEL 1 TABLETS ORAL DAILY TAKING CRESTOR 20 MG TABLET 1 TABLET ORALLY ONCE A DAY TAKING LAMOTRIGINE 200 MG TABLET 1 TABLET ORALLY ONCE DAILY TAKING LISINOPRIL 2.5 MG TABLET 1 TABLET ORALLY ONCE A DAY TAKING DOCUSATE SODIUM 100 MG CAPSULE 2 ORALLY 3X DAILY, NOTES: TAKES NEEDED TAKING MODAFINIL 200 MG TABLET 1 TABLET IN THE MORNING ORALLY ONCE A DAY TAKING SOMA 350 MG TABLET 1 TABLET ORALLY Q8H PRN MDD1 TAKING PERCOCET 10-325 MG TABLET 1 TABLET NEEDED ORALLY Q4-6H PRN MDD5 DISCONTINUED FLUTICASONE FUROATE 27.5 MCG/SPRAY SUSPENSION 1 SPRAY IN EACH NOSTRIL NASALLY ONCE A DAY MEDICATION LIST REVIEWED AND RECONCILED WITH THE PATIENT PAST MEDICAL HISTORY PALPITATIONS, HEART HX BLOOD CLOTS, LEFT LEG HX ANEMIA ARTHRITIS, OA BACK PAIN HX BONE SPURS INSOMNIA MOOD SWINGS XEROPTHALMIA EARLY SATIETY COLONIC POLYPS RECURRENT UTIS SYSTEMIC LUPUS ERYTHEMATOUS ESOPHAGEAL REFLUX HYPOTHYROIDISM HYPERTENSION HYPERCHOLESTEROLEMIA RAYNAUDS SYNDROME NECK PAIN DEPRESSION OSTEOARTHRITIS MYOCARDIAL INFARCTION MYOFASCIAL PAIN SYNDROME LOW BACK PAIN LUMBAR RADICULOPATHY FRACTURED HAND JOINT ALLERGIES PROPRANOLOL HCL: NAUSEA/VOMITING - ALLERGY CAPTOPRIL: NAUSEA/VOMITING - ALLERGY MACROBID: N/DIARRHEA - ALLERGY CIPRO: NAUSEA/VOMITING/DIARRHEA - ALLERGY MS CONTIN: N/V UNABLE TO VOID ANTIDEPRESSANTS: FLU LIKE SYMPTOMS /NAUSEA NUCYNTA ER: NIGHTMARES, INCREASED DEPRESSION - SIDE EFFECTS SURGICAL HISTORY NECK SURGERY BONE SPUR 1997 TUBAL LIGATION 1981 ENDOMETRIAL BIOPSY 2010 CARDIAC CATHETERIZATION 09/26 CARDIAC STENT 09/26 SURGERY TO REPAIR RIGHT FEMORAL ARTERY 09/26 CARDIAC STENT 10/27 CARDIAC STENT 03/26 COLONOSCOPY 2010 FAMILY HISTORY FATHER: DIAGNOSED WITH CANCER, DIABETES, HYPERTENSION MOTHER: CANCER, DIABETES, HYPERTENSION PATERNAL GRAND MOTHER: CANCER MATERNAL GRAND MOTHER: CANCER 7 BROTHER(S) , 3 SISTER(S) . 1 SON(S) , 3 DAUGHTER(S) . BROTHER CAD,IMMDM,CANCER BROTHER HEART DIEASE IDDM,BROTHER HEART DIEASE, IDDM, SISTER FROM LIVER FAILURE, SISTER HEART DIEASE, HTN\NDAUGHTER DIESED FROM DRUG OVERDOSE METPROBAMATE. ONE DAUGHTER TIERRA. SOCIAL HISTORY GENERAL: TOBACCO USE ARE YOU A:NONSMOKER OTHERS AT HOME: CHILD. EDUCATION LEVEL OF EDUCATION:COLLEGE A COUPLE OF SEMESTERS DIET: REGULAR. LANGUAGE LANGUAGES SPOKEN:[place] DOMESTIC VIOLENCE DO YOU FEEL SAFE IN YOUR ENVIRONMENT?YES RECREATIONAL DRUG USE DRUG USE?NO EXERCISE: NONE. LEARNING BARRIERS / SPECIAL NEEDS BARRIERS TO LEARNING?NO HEARING IMPAIRED?NO VISION IMPAIRED?YES :CORRECTIVE LENSES COGNITIVELY IMPAIRED?NO READINESS TO LEARN?YES LEARNING PREFERENCES?YES :TAPES/VIDEOS, BOOKLETS, HANDOUTS LEARNING CAPABILITIES PRESENT?YES EMOTIONAL BARRIERS?NO SPECIAL DEVICES?YES :CANE LEARNING ANALYST NEEDED?NO PAIN CLINIC PFS, CLERGY, PUBLIC HEALTH REFERRALS PFS REFERRAL NEEDED?NO CLERGY REFERRAL NEEDED?NO PUBLIC HEALTH REFERRAL NEEDED?NO HAS THE PATIENT BEEN EDUCATED REGARDING HIS/HER PLAN OF CARE?YES HAS THE PATIENT BEEN EDUCATED REGARDING PAIN, THE RISK FOR PAIN, THE IMPORTANCE OF EFFECTIVE PAIN MANAGEMENT, AND THE PAIN ASSESSMENT PROCESS?YES LATEX QUESTIONNAIRE LATEX ALLERGY : HAVE YOU EVER DEVELOPED ANY TYPE OF REACTION AFTER HANDLING LATEX PRODUCTS SUCH RUBBER GLOVES, CONDOMS, DIAPHRAGMS, BALLOONS, SOCKS, OR UNDERWEAR?YES - PLEASE INDICATE :RUBBER GLOVES LATEX ALLERGY : HAVE YOU EVER DEVELOPED ANY TYPE OF REACTION DURING OR AFTER DENTAL APPOINTMENT, VAGINAL/RECTAL EXAMINATION, SURGICAL PROCEDURE, OR ANY OTHER EXPOSURE?NO LATEX RISK : HAVE YOU EVER HAD ANY DIFFICULTY BREATHING OR HIVES AFTER EATING OR HANDLING ANY FRUITS, OR VEGETABLES; SUCH KIWI, BANANAS, STONE FRUITS, OR CHESTNUTSNO LATEX RISK : DO YOU HAVE A PREVIOUS PERSONAL HISTORY OF MORE THAN NINE SURGERIES, SPINA BIFIDA, OR REPEATED CATHERIZATIONS? NO LATEX RISK : ARE YOU FREQUENTLY EXPOSED TO LATEX PRODUCTS IN YOUR OCCUPATION?NO DATE ASKED : 12/13/2018 CAFFEINE CAFFEINE USE?YES 1 CUP COFFEE/ DAY ADVANCE DIRECTIVE ADVANCE DIRECTIVE DISCUSSED WITH PATIENT:YES HCP INFORMATION GIVEN LAST VISIT, DECLINES INFORMATION THIS VISIT. ANABAPTISM [id number] YAZDANISM MARITAL STATUS: .. ALCOHOL SCREENING DID YOU HAVE A DRINK CONTAINING ALCOHOL IN THE PAST YEAR?NO POINTS0 INTERPRETATIONNEGATIVE OCCUPATION: DISABLED. REVIEWED WITH PT 04/22/18 1345 LASREVIEWED WITH PT 06/28/18 1433 BVREVIEWED WITH PT 07/15/18 1418 BVREVIEWED WITH PATIENT 08/26/18 1420 JSREVIEWED WITH PT 12/20/18 1143 BV. HOSPITALIZATION/MAJOR DIAGNOSTIC PROCEDURE SURGERY RELATED MYOCARDIAL INFARCTION 09/26 REVIEW OF SYSTEMS REVIEWED BY: PROVIDER: GERMAN BUTTS . CONSTITUTIONAL: ANY CHANGE IN YOUR MEDICAL CONDITION? NO . CHILLS NO . FEVER NO . INFECTION: DO YOU HAVE NEW INFECTIONS? YES, SUN POISONING DX BY PHARMACIST . DO YOU HAVE HISTORY OF MRSA? NO . MUSCULOSKELETAL: ANY NEW PATTERNS OF PAIN OR NUMBNESS? YES, LEFT HIP PAIN WHEN RAISING LEG TO GET INTO VEHICLE . GASTROENTEROLOGY: ANY NEW CHANGE IN BOWEL CONTROL? NO . GENITOURINARY: ANY NEW CHANGE IN BLADDER CONTROL? NO . IS THERE A CHANCE YOU COULD BE ? NO . HEMATOLOGY/LYMPH: DO YOU TAKE ANY BLOOD THINNERS? (FOR EXAMPLE- COUMADIN, PLAVIX, AGGRENOX, PLATEL, PRADAXA, OR XARELTO) NO . WHEN WAS YOUR LAST DOSE? DATE: TIME: . NEUROLOGY: HAVE YOU FALLEN IN THE PAST 12 MONTHS? YES ,PRIOR TO LAST VISIT . ANY NEW EXTREMITY NUMBNESS OR WEAKNESS? NO . CARDIOLOGY: DO YOU HAVE A PACEMAKER OR DEFIBRILLATOR? NO . RESPIRATORY: HAVE YOU BEEN SICK IN THE PAST WEEK? YES, SUN POISONING . FEVER NO . FLU LIKE SYMPTOMS? NO . COUGH NO . INTEGUMENTARY: DO YOU HAVE ANY RASHES OR OPEN SORES? YES, SKIN PEELING FROM SUNBURN . ALLERGIC/IMMUNO: ARE YOU ALLERGIC TO IV DYE? NO . ANY NEW ALLERGIES? NO . PSYCHIATRIC: DO YOU HAVE THOUGHTS OF HURTING YOURSELF OR SOMEONE ELSE? NO . ARE YOU ABUSED, NEGLECTED, OR IN AN UNSAFE ENVIRONMENT? NO . ENDOCRINOLOGY: ARE YOU DIABETIC? NO . OTHER: DO YOU NEED ANY PRESCRIPTIONS? NO . IF YES, PLEASE LIST: ____ . ANY NEW PROBLEMS WITH YOUR MEDICATIONS? NO . WHEN DID YOU LAST EAT? ____ . WHEN DID YOU LAST DRINK? ____ . WHAT DID YOU LAST DRINK? ____ . NAME OF PERSON DRIVING YOU HOME? ____ . DO YOU HAVE ANY OTHER QUESTIONS OR CONCERNS YES, STILL SEEING DR RAIN PCP, IN PROCESS OF SEEING A NEW ADULT CLINIC, HAVE TO SIGN RELEASE TO GET RECORDS SENT . VITAL SIGNS WT 168.4 LBS, HT 62 IN, BMI 30.80 INDEX, BP 159/69 MM HG, HR 53 /MIN, RR 18 /MIN, TEMP 98.0 F, OXYGEN SAT % 98%, NA INITIALS AW 1252, REVIEWED BY: EM. EXAMINATION GENERAL EXAMINATION: LUNGS:LUNG SOUNDS ARE CLEAR. HEART:HEART RATE REGULAR. MUSCULOSKELETAL:MUSCLE STRENGTH TESTING 5/5 BILATERAL LOWER EXTREMITIES. PALPATION: POSITIVE FOR PAIN OVER L/S SPINE. POSITIVE FOR PAIN OVER L/S PARASPINALS.MULTIPLE AREAS OF TENDER SPOTS INDICATIVE OF FIBROMYALGIA.. 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 (PRIMARY) TREATMENT LUMBAGO WITH SCIATICA, LEFT SIDE CONTINUE SOMA TABLET, 350 MG, 1 TABLET, ORALLY, Q8H PRN MDD1 CONTINUE PERCOCET TABLET, 10-325 MG, 1 TABLET NEEDED, ORALLY, Q4-6H PRN MDD5 NOTES: ISTOP REGISTRY REVIEWED AND DEMONSTRATES COMPLLIANCE. (REF # ) BRINGS IN MEDICATIONS WHICH IS APPROPRIATE FOR WHAT WAS DISPENSED. RECENT URINE TOXICOLOGY REVIEWED. NO UNAUTHORIZED MEDICATIONS. NO ILLICIT SUBSTANCES AND PRESCRIBED MEDICATIONS WERE PRESENT. , RISKS AND BENEFITS OF NARCOTIC/OPIOD MEDICATIONS WERE REVIEWED WITH PATIENT - THIS INCLUDES BUT IS NOT LIMITED TO RISK OF DEPENDANCE/DEVELOPMENT OF ADDICTION, MOOD DISTURBANCE AND DEPRESSION, OSTEOPOROSIS, HORMONAL AND LABIDAL CHANGES, RESPIRATORY DEPRESSION AND . PATIENT IS ADVISED NOT TO DRIVE OR DRINK ALCOHOL WHILE ON THESE MEDICATIONS. PROCEDURE CODES FA211 ESTABILISHED PATIENT [facility] CHARGE DISPOSITION & COMMUNICATION FOLLOW UP 3 MONTHS ELECTRONICALLY SIGNED BY BENJAMÍN MORALES ON 04/03/2019 AT 08:50 AM EDT DISCLAIMER : THIS IS A VISIT SUMMARY EXTRACTED FROM THE [employer] CHART. IT IS NOT A COPY OF THE [employer] PROGRESS NOTE. OSMIN
== END ==
LOC: M PAIN 13:00
PROVIDERS: ATTEND Nurse Practitioner Family
DX: M54.42 Lumbago with sciatica, left side (principal); R00.2 Palpitations; M19.90 Unspecified osteoarthritis, unspecified site; G47.00 Insomnia, unspecified; M32.9 Systemic lupus erythematosus, unspecified; K21.9 Gastro-esophageal reflux disease without esophagitis; E03.9 Hypothyroidism, unspecified; I10 Essential (primary) hypertension; E78.00 Pure hypercholesterolemia, unspecified; I73.00 Raynaud's syndrome without gangrene; F32.9 Major depressive disorder, single episode, unspecified; I25.2 Old myocardial infarction; M79.18 Myalgia, other site; Z79.82 Long term (current) use of aspirin; Z79.891 Long term (current) use of opiate analgesic; Z79.899 Other long term (current) drug therapy; Z95.5 Presence of coronary angioplasty implant and graft; Z88.1 Allergy status to other antibiotic agents; Z88.8 Allergy status to other drugs, medicaments and biological substances

== ENCOUNTER → 2019-04-18 | Outpatient (CLI) | payer OTHER ==
--- NOTE | 2019-05-02 23:58 | ECWPNPC ---
PATIENT NAME: HAWK CASE : 1955 GENDER: FEMALE VISIT DATE: 04/18/2019 DISCHARGE DATE: 04/18/19 1539 VISIT LOCKED DATE TIME: PHYSICIAN: GERMAN SLAUGHTER RESOURCE: GERMAN SLAUGHTER REASON FOR APPOINTMENT 1. W/C NECK HISTORY OF PRESENT ILLNESS HISTORY OF PRESENT ILLNESS: PAIN THE PATIENT DESCRIBES THE PAIN... THE PATIENT DESCRIBES THE PAIN... THE PATIENT DESCRIBES THE PAIN... THE PATIENT DESCRIBES THE PAIN... THE PATIENT DESCRIBES THE PAIN... THE PATIENT DESCRIBES THE PAIN... THE PATIENT DESCRIBES THE PAIN... THE PATIENT DESCRIBES THE PAIN... THE PATIENT DESCRIBES THE PAIN... THE PATIENT DESCRIBES THE PAIN... THE PATIENT DESCRIBES THE PAIN... THE PATIENT DESCRIBES THE PAIN... THE PATIENT DESCRIBES THE PAIN... THE PATIENT DESCRIBES THE PAIN... THE PATIENT DESCRIBES THE PAIN... THE PATIENT DESCRIBES THE PAIN... THE PATIENT DESCRIBES THE PAIN... PAIN THE PATIENT DESCRIBES THE PAIN... THE PATIENT DESCRIBES THE PAIN... THE PATIENT DESCRIBES THE PAIN... THE PATIENT DESCRIBES THE PAIN... THE PATIENT DESCRIBES THE PAIN... THE PATIENT DESCRIBES THE PAIN... THE PATIENT DESCRIBES THE PAIN... THE PATIENT DESCRIBES THE PAIN... THE PATIENT DESCRIBES THE PAIN... THE PATIENT DESCRIBES THE PAIN... THE PATIENT DESCRIBES THE PAIN... THE PATIENT DESCRIBES THE PAIN... THE PATIENT DESCRIBES THE PAIN... THE PATIENT DESCRIBES THE PAIN... THE PATIENT DESCRIBES THE PAIN... THE PATIENT DESCRIBES THE PAIN... THE PATIENT DESCRIBES THE PAIN... HERE FOR F/U OF CHRONIC NECK PAIN WITH HISTORY OF CHRONIC NECK PAIN. PATIENT DESCRIBES THE PAIN ACHING, TENDER, THROBBING AND SORE WITH THE PAIN COMING AND GOING AND CURRENT PAIN SCORE OF 3/10. 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 PATIENT REPORTS HAVING A SURGERY IN 1996. MRS. CASE STATES THAT SHE HAS TRIED PHYSICAL THERAPY IN THE PAST BUT IT DID NOT AID IN PAIN RELIEF OR FUNCTIONALITY AND MOBILITY. MRS. CASE DOES USE A TENS MACHINE AND STATES THAT IT KEEPS HER MOBILE. HERE FOR F/U OF CHRONIC NECK PAIN WITH HISTORY OF CHRONIC NECK PAIN. PATIENT DESCRIBES THE PAIN ACHING, TENDER, THROBBING AND SORE WITH THE PAIN COMING AND GOING AND CURRENT PAIN SCORE OF 3/10. 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 PATIENT REPORTS HAVING A SURGERY IN 1996. MRS. CASE STATES THAT SHE HAS TRIED PHYSICAL THERAPY IN THE PAST BUT IT DID NOT AID IN PAIN RELIEF OR FUNCTIONALITY AND MOBILITY. MRS. CASE DOES USE A TENS MACHINE AND STATES THAT IT KEEPS HER MOBILE AND FUNCTIONAL. PATIENT HAS HAD A 5# WEIGHT LOSS SINCE LAST VISIT.DENIES FEVER, CHILLS, NEW CHANGES ON HER URINARY OR BOWEL CONTROL. FALL RISK SCREENING: SCREENING :NO FALLS REPORTED IN THE LAST YEAR CURRENT MEDICATIONS TAKING VITAMIN D-3 2000 CAPSULE 1 CAPSULE ORALLY DAILY TAKING CARAFATE 1 GM TABLET 2TABLET ON AN EMPTY STOMACH ORALLY ONCE DAILY TAKING ASPIR-81 81 MG TABLET DELAYED RELEASE 1 TABLET ORALLY ONCE A DAY TAKING KLONOPIN 1 MG TABLET 1 TABLET ORALLY QHS TAKING LORATADINE 10 MG TABLET 1 TABLET ORALLY ONCE A DAY TAKING LEVOTHYROXINE SODIUM 100 MCG TABLET 1 TABLET EVERY MORNING ON AN EMPTY STOMACH ORALLY ONCE A DAY TAKING NEXIUM 40 MG CAPSULE DELAYED RELEASE 1 CAPSULE ORALLY TWICE A DAY TAKING HYDROCHLOROTHIAZIDE 25 25 MG SOFT GEL 1 TABLETS ORAL DAILY TAKING CRESTOR 20 MG TABLET 1 TABLET ORALLY ONCE A DAY TAKING LAMOTRIGINE 200 MG TABLET 1 TABLET ORALLY ONCE DAILY TAKING LISINOPRIL 2.5 MG TABLET 1 TABLET ORALLY ONCE A DAY TAKING DOCUSATE SODIUM 100 MG CAPSULE 2 ORALLY 3X DAILY, NOTES: TAKES NEEDED TAKING MODAFINIL 200 MG TABLET 1 TABLET IN THE MORNING ORALLY ONCE A DAY TAKING SOMA 350 MG TABLET 1 TABLET ORALLY Q8H PRN MDD1 TAKING PERCOCET 10-325 MG TABLET 1 TABLET NEEDED ORALLY Q4-6H PRN MDD5 MEDICATION LIST REVIEWED AND RECONCILED WITH THE PATIENT PAST MEDICAL HISTORY PALPITATIONS, HEART HX BLOOD CLOTS, LEFT LEG HX ANEMIA ARTHRITIS, OA BACK PAIN HX BONE SPURS INSOMNIA MOOD SWINGS XEROPTHALMIA EARLY SATIETY COLONIC POLYPS RECURRENT UTIS SYSTEMIC LUPUS ERYTHEMATOUS ESOPHAGEAL REFLUX HYPOTHYROIDISM HYPERTENSION HYPERCHOLESTEROLEMIA RAYNAUDS SYNDROME NECK PAIN DEPRESSION OSTEOARTHRITIS MYOCARDIAL INFARCTION MYOFASCIAL PAIN SYNDROME LOW BACK PAIN LUMBAR RADICULOPATHY FRACTURED HAND JOINT ALLERGIES PROPRANOLOL HCL: NAUSEA/VOMITING - ALLERGY CAPTOPRIL: NAUSEA/VOMITING - ALLERGY MACROBID: N/DIARRHEA - ALLERGY CIPRO: NAUSEA/VOMITING/DIARRHEA - ALLERGY MS CONTIN: N/V UNABLE TO VOID ANTIDEPRESSANTS: FLU LIKE SYMPTOMS /NAUSEA NUCYNTA ER: NIGHTMARES, INCREASED DEPRESSION - SIDE EFFECTS SURGICAL HISTORY NECK SURGERY BONE SPUR 1996 TUBAL LIGATION 1981 ENDOMETRIAL BIOPSY 2010 CARDIAC CATHETERIZATION 09/26 CARDIAC STENT 09/26 SURGERY TO REPAIR RIGHT FEMORAL ARTERY 09/26 CARDIAC STENT 10/27 CARDIAC STENT 03/26 COLONOSCOPY 2010 FAMILY HISTORY FATHER: DIAGNOSED WITH CANCER, DIABETES, HYPERTENSION MOTHER: CANCER, DIABETES, HYPERTENSION PATERNAL GRAND MOTHER: CANCER MATERNAL GRAND MOTHER: CANCER 7 BROTHER(S) , 3 SISTER(S) . 1 SON(S) , 3 DAUGHTER(S) . BROTHER CAD,IMMDM,CANCER BROTHER HEART DIEASE IDDM,BROTHER HEART DIEASE, IDDM, SISTER FROM LIVER FAILURE, SISTER HEART DIEASE, HTN\NDAUGHTER DIESED FROM DRUG OVERDOSE METPROBAMATE. ONE DAUGHTER TIERRA. SOCIAL HISTORY GENERAL: TOBACCO USE ARE YOU A:NONSMOKER OTHERS AT HOME: CHILD. EDUCATION LEVEL OF EDUCATION:COLLEGE A COUPLE OF SEMESTERS DIET: REGULAR. LANGUAGE LANGUAGES SPOKEN:[place]WK DOMESTIC VIOLENCE DO YOU FEEL SAFE IN YOUR ENVIRONMENT?YES RECREATIONAL DRUG USE DRUG USE?NO EXERCISE: NONE. 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 NEEDED?NO PAIN CLINIC PFS, CLERGY, PUBLIC HEALTH REFERRALS PFS REFERRAL NEEDED?NO CLERGY REFERRAL NEEDED?NO PUBLIC HEALTH REFERRAL NEEDED?NO HAS THE PATIENT BEEN EDUCATED REGARDING HIS/HER PLAN OF CARE?YES HAS THE PATIENT BEEN EDUCATED REGARDING PAIN, THE RISK FOR PAIN, THE IMPORTANCE OF EFFECTIVE PAIN MANAGEMENT, AND THE PAIN ASSESSMENT PROCESS?YES LATEX QUESTIONNAIRE LATEX ALLERGY : HAVE YOU EVER DEVELOPED ANY TYPE OF REACTION AFTER HANDLING LATEX PRODUCTS SUCH RUBBER GLOVES, CONDOMS, DIAPHRAGMS, BALLOONS, SOCKS, OR UNDERWEAR?YES - PLEASE INDICATE :RUBBER GLOVES LATEX ALLERGY : HAVE YOU EVER DEVELOPED ANY TYPE OF REACTION DURING OR AFTER DENTAL APPOINTMENT, VAGINAL/RECTAL EXAMINATION, SURGICAL PROCEDURE, OR ANY OTHER EXPOSURE?NO LATEX RISK : HAVE YOU EVER HAD ANY DIFFICULTY BREATHING OR HIVES AFTER EATING OR HANDLING ANY FRUITS, OR VEGETABLES; SUCH KIWI, BANANAS, STONE FRUITS, OR CHESTNUTSNO LATEX RISK : DO YOU HAVE A PREVIOUS PERSONAL HISTORY OF MORE THAN NINE SURGERIES, SPINA BIFIDA, OR REPEATED CATHERIZATIONS? NO LATEX RISK : ARE YOU FREQUENTLY EXPOSED TO LATEX PRODUCTS IN YOUR OCCUPATION?NO DATE ASKED : 12/13/2018 CAFFEINE CAFFEINE USE?YES 1 CUP COFFEE/ DAY ADVANCE DIRECTIVE ADVANCE DIRECTIVE DISCUSSED WITH PATIENT:YES HCP INFORMATION GIVEN , DECLINES ASSISTANCE AT THIS TIME ZOROASTRIAN [id number] PROTESTANT MARITAL STATUS: .. ALCOHOL SCREENING DID YOU HAVE A DRINK CONTAINING ALCOHOL IN THE PAST YEAR?NO POINTS0 INTERPRETATIONNEGATIVE OCCUPATION: DISABLED. REVIEWED WITH PT 04/22/18 1345 LASREVIEWED WITH PT 06/28/18 1433 BVREVIEWED WITH PT 07/15/18 1418 BVREVIEWED WITH PATIENT 08/26/18 1420 JSREVIEWED WITH PT 12/20/18 1143 BVREVIEWED WITH PT 04/18/19 1500 LAS. HOSPITALIZATION/MAJOR DIAGNOSTIC PROCEDURE SURGERY RELATED MYOCARDIAL INFARCTION 09/26 REVIEW OF SYSTEMS REVIEWED BY: PROVIDER: GERMAN BUTTS . CONSTITUTIONAL: ANY CHANGE IN YOUR MEDICAL CONDITION? NO . CHILLS NO . FEVER NO . INFECTION: DO YOU HAVE NEW INFECTIONS? NO . DO YOU HAVE HISTORY OF MRSA? NO . MUSCULOSKELETAL: ANY NEW PATTERNS OF PAIN OR NUMBNESS? NO . GASTROENTEROLOGY: ANY NEW CHANGE IN BOWEL CONTROL? NO . GENITOURINARY: ANY NEW CHANGE IN BLADDER CONTROL? NO . IS THERE A CHANCE YOU COULD BE ? NO . HEMATOLOGY/LYMPH: DO YOU TAKE ANY BLOOD THINNERS? (FOR EXAMPLE- COUMADIN, PLAVIX, AGGRENOX, PLATEL, PRADAXA, OR XARELTO) NO . WHEN WAS YOUR LAST DOSE? DATE: TIME: . NEUROLOGY: HAVE YOU FALLEN IN THE PAST 12 MONTHS? NO . ANY NEW EXTREMITY NUMBNESS OR WEAKNESS? NO . CARDIOLOGY: DO YOU HAVE A PACEMAKER OR DEFIBRILLATOR? NO . RESPIRATORY: HAVE YOU BEEN SICK IN THE PAST WEEK? NO . FEVER NO . FLU LIKE SYMPTOMS? NO . COUGH NO . INTEGUMENTARY: DO YOU HAVE ANY RASHES OR OPEN SORES? YES PT HAS A RASH ON THE RIGHT SIDE OF HER FACE/CHEEK/NECK. SEES HER LUPUS DOCTOR, WHO HAS PRESCRIBED A CREAM FOR THIS. . ALLERGIC/IMMUNO: ARE YOU ALLERGIC TO IV DYE? NO . ANY NEW ALLERGIES? NO . PSYCHIATRIC: DO YOU HAVE THOUGHTS OF HURTING YOURSELF OR SOMEONE ELSE? NO . ARE YOU ABUSED, NEGLECTED, OR IN AN UNSAFE ENVIRONMENT? NO . ENDOCRINOLOGY: ARE YOU DIABETIC? NO . OTHER: DO YOU NEED ANY PRESCRIPTIONS? NO . IF YES, PLEASE LIST: ____ . ANY NEW PROBLEMS WITH YOUR MEDICATIONS? NO . WHEN DID YOU LAST EAT? ____ . WHEN DID YOU LAST DRINK? ____ . WHAT DID YOU LAST DRINK? ____ . NAME OF PERSON DRIVING YOU HOME? ____ . DO YOU HAVE ANY OTHER QUESTIONS OR CONCERNS NO . VITAL SIGNS WT 170.8 LBS, HT 62 IN, BMI 31.24 INDEX, BP 183/76 MM HG, HR 50 /MIN, RR 18 /MIN, TEMP 98.1 F, OXYGEN SAT % 100%, SAFE IN ENV? (Y/N) YES, NA INITIALS SC 14:50, REVIEWED BY: CLOVER. EXAMINATION GENERAL EXAMINATION: LUNGS:LUNG SOUNDS ARE CLEAR. HEART:HEART RATE REGULAR. MUSCULOSKELETAL:MUSCLE STRENGTH TESTING 5/5 BILATERAL UPPER EXTREMITIES. PALPATION: POSITIVE FOR PAIN OVER CERVICAL SPINE. ASSESSMENTS CERVICALGIA - M54.2 (PRIMARY) PROCEDURES PN WORKMANS' COMP OPINION IN YOUR OPINION, WAS THE INCIDENT THAT THE PATIENT DESCRIBED THE COMPETENT MEDICAL CAUSE OF THIS INJURY/ILLNESS? YES ARE THE PATIENT'S COMPLAINTS CONSISTENT WITH HIS/HER HISTORY OF THE INJURY/ILLNESS? YES IS THE PATIENT'S HISTORY OF THE INJURY/ILLNESS CONSISTENT WITH YOUR OBJECTIVE FINDING? YES WHAT IS THE PERCENTAGE OF TEMPORARY IMPAIRMENT? MODERATE TO MARKED = 66.7% IS THE PATIENT WORKING? NO DOCTOR ON SITE: ALONZO ALCANTARA MD PROCEDURE CODES FA211 ESTABILISHED PATIENT [facility] CHARGE DISPOSITION & COMMUNICATION FOLLOW UP 3 MONTHS (REASON: W/C NECK) ELECTRONICALLY SIGNED BY BENJAMÍN MORALES ON 05/02/2019 AT 03:13 PM EDT DISCLAIMER : THIS IS A VISIT SUMMARY EXTRACTED FROM THE [employer] CHART. IT IS NOT A COPY OF THE [employer] PROGRESS NOTE. OSMIN
== END ==
LOC: M PAIN 14:30
PROVIDERS: ATTEND Nurse Practitioner Family
DX: M54.2 Cervicalgia (principal); G89.29 Other chronic pain; M19.90 Unspecified osteoarthritis, unspecified site; G47.00 Insomnia, unspecified; Z86.59 Personal history of other mental and behavioral disorders; K21.9 Gastro-esophageal reflux disease without esophagitis; E03.9 Hypothyroidism, unspecified; I10 Essential (primary) hypertension; E78.00 Pure hypercholesterolemia, unspecified; I25.2 Old myocardial infarction; Z95.5 Presence of coronary angioplasty implant and graft; Z88.1 Allergy status to other antibiotic agents; Z88.5 Allergy status to narcotic agent; Z88.8 Allergy status to other drugs, medicaments and biological substances; Z79.82 Long term (current) use of aspirin; Z79.899 Other long term (current) drug therapy

== ENCOUNTER → 2019-07-04 | Outpatient (CLI) | payer MEDICARE, MEDICAID ==
--- NOTE | 2019-07-18 01:04 | ECWPNPC ---
PATIENT NAME: HAWK CASE : 1955 GENDER: FEMALE VISIT DATE: 07/04/2019 DISCHARGE DATE: 07/04/191513 VISIT LOCKED DATE TIME: PHYSICIAN: GERMAN SLAUGHTER RESOURCE: GERMAN SLAUGHTER REASON FOR APPOINTMENT 1. BACK-NON COMP HISTORY OF PRESENT ILLNESS HISTORY OF PRESENT ILLNESS: HERE FOR F/U OF CHRONIC LOW BACK PAIN.PAIN IS WORSE LEFT HIP.DESCRIBES PAIN INTERMITTENT,TENDER AND SORE.RATING PAIN VAS 3/10.PROLONGED SITTING OR STANDING AGGREVATES PAIN.CONTINUES WITH NUMBNESS AND TINGLING OVER LEFT LEG.USING OXYCODONE 10/325 Q4-6HRS PRN FOR SEVERE PAIN WHICH PATIENT FINDS SOMEWHAT HELPFUL.TAKING SOMA 350MG AT HS PRN FOR SEVERE PAIN.REPORTING AN INCREASE IN BILAT FOOT AND LEG CRAMPING.DISCUSSED MEDICATION AND TREATMENT OPTIONS. PAIN THE PATIENT DESCRIBES THE PAIN... THE PATIENT DESCRIBES THE PAIN... THE PATIENT DESCRIBES THE PAIN... THE PATIENT DESCRIBES THE PAIN... THE PATIENT DESCRIBES THE PAIN... THE PATIENT DESCRIBES THE PAIN... FALL RISK SCREENING: SCREENING :NO FALLS REPORTED IN THE LAST YEAR CURRENT MEDICATIONS TAKING VITAMIN D-3 2000 CAPSULE 1 CAPSULE ORALLY DAILY TAKING CARAFATE 1 GM TABLET 2TABLET ON AN EMPTY STOMACH ORALLY ONCE DAILY TAKING ASPIR-81 81 MG TABLET DELAYED RELEASE 1 TABLET ORALLY ONCE A DAY TAKING KLONOPIN 1 MG TABLET 1 TABLET ORALLY QHS TAKING LORATADINE 10 MG TABLET 1 TABLET ORALLY ONCE A DAY TAKING LEVOTHYROXINE SODIUM 100 MCG TABLET 1 TABLET EVERY MORNING ON AN EMPTY STOMACH ORALLY ONCE A DAY TAKING NEXIUM 40 MG CAPSULE DELAYED RELEASE 1 CAPSULE ORALLY TWICE A DAY TAKING HYDROCHLOROTHIAZIDE 25 25 MG SOFT GEL 1 TABLETS ORAL DAILY TAKING CRESTOR 20 MG TABLET 1 TABLET ORALLY ONCE A DAY TAKING LAMOTRIGINE 200 MG TABLET 1 TABLET ORALLY ONCE DAILY TAKING LISINOPRIL 2.5 MG TABLET 1 TABLET ORALLY ONCE A DAY TAKING DOCUSATE SODIUM 100 MG CAPSULE 2 ORALLY 3X DAILY, NOTES: TAKES NEEDED TAKING MODAFINIL 200 MG TABLET 1 TABLET IN THE MORNING ORALLY ONCE A DAY TAKING SOMA 350 MG TABLET 1 TABLET ORALLY Q8H PRN MDD1 TAKING PERCOCET 10-325 MG TABLET 1 TABLET NEEDED ORALLY Q4-6H PRN MDD5 TAKING MIRALAX - PACKET 1 PACKET MIXED WITH 8 OUNCES OF FLUID ORALLY ONCE A DAY MEDICATION LIST REVIEWED AND RECONCILED WITH THE PATIENT PAST MEDICAL HISTORY PALPITATIONS, HEART HX BLOOD CLOTS, LEFT LEG HX ANEMIA ARTHRITIS, OA BACK PAIN HX BONE SPURS INSOMNIA MOOD SWINGS XEROPTHALMIA EARLY SATIETY COLONIC POLYPS RECURRENT UTIS SYSTEMIC LUPUS ERYTHEMATOUS ESOPHAGEAL REFLUX HYPOTHYROIDISM HYPERTENSION HYPERCHOLESTEROLEMIA RAYNAUDS SYNDROME NECK PAIN DEPRESSION OSTEOARTHRITIS MYOCARDIAL INFARCTION MYOFASCIAL PAIN SYNDROME LOW BACK PAIN LUMBAR RADICULOPATHY FRACTURED HAND JOINT ALLERGIES PROPRANOLOL HCL: NAUSEA/VOMITING - ALLERGY CAPTOPRIL: NAUSEA/VOMITING - ALLERGY MACROBID: N/DIARRHEA - ALLERGY CIPRO: NAUSEA/VOMITING/DIARRHEA - ALLERGY MS CONTIN: N/V UNABLE TO VOID ANTIDEPRESSANTS: FLU LIKE SYMPTOMS /NAUSEA NUCYNTA ER: NIGHTMARES, INCREASED DEPRESSION - SIDE EFFECTS SURGICAL HISTORY NECK SURGERY BONE SPUR 1997 TUBAL LIGATION 1981 ENDOMETRIAL BIOPSY 2010 CARDIAC CATHETERIZATION 09/26 CARDIAC STENT 09/26 SURGERY TO REPAIR RIGHT FEMORAL ARTERY 09/26 CARDIAC STENT 10/27 CARDIAC STENT 03/26 COLONOSCOPY 2010 FAMILY HISTORY FATHER: DIAGNOSED WITH DIABETES, HYPERTENSION, OTHER MALIGNANT NEOPLASM OF UNSPECIFIED SITE MOTHER: DIABETES, HYPERTENSION, OTHER MALIGNANT NEOPLASM OF UNSPECIFIED SITE PATERNAL GRAND MOTHER: OTHER MALIGNANT NEOPLASM OF UNSPECIFIED SITE MATERNAL GRAND MOTHER: OTHER MALIGNANT NEOPLASM OF UNSPECIFIED SITE 7 BROTHER(S) , 3 SISTER(S) . 1 SON(S) , 3 DAUGHTER(S) . BROTHER CAD,IMMDM,CANCER BROTHER HEART DIEASE IDDM,BROTHER HEART DIEASE, IDDM, SISTER FROM LIVER FAILURE, SISTER HEART DIEASE, HTN\NDAUGHTER DIESED FROM DRUG OVERDOSE METPROBAMATE. ONE DAUGHTER LUPUS, BACK PROBLEMS. SOCIAL HISTORY GENERAL: TOBACCO USE ARE YOU A:NONSMOKER OTHERS AT HOME: CHILD. EDUCATION LEVEL OF EDUCATION:COLLEGE A COUPLE OF SEMESTERS DIET: REGULAR. LANGUAGE LANGUAGES SPOKEN:EGYPTIAN DOMESTIC VIOLENCE DO YOU FEEL SAFE IN YOUR ENVIRONMENT?YES RECREATIONAL DRUG USE DRUG USE?NO EXERCISE: NONE. LEARNING BARRIERS / SPECIAL NEEDS BARRIERS TO LEARNING?NO HEARING IMPAIRED?NO VISION IMPAIRED?YES COGNITIVELY IMPAIRED?NO :CORRECTIVE LENSES READINESS TO LEARN?YES LEARNING PREFERENCES?YES :TAPES/VIDEOS, BOOKLETS, HANDOUTS LEARNING CAPABILITIES PRESENT?YES EMOTIONAL BARRIERS?NO SPECIAL DEVICES?YES :CANE REFUELING RAMPMAN NEEDED?NO PAIN CLINIC PFS, CLERGY, PUBLIC HEALTH REFERRALS PFS REFERRAL NEEDED?NO CLERGY REFERRAL NEEDED?NO PUBLIC HEALTH REFERRAL NEEDED?NO HAS THE PATIENT BEEN EDUCATED REGARDING HIS/HER PLAN OF CARE?YES HAS THE PATIENT BEEN EDUCATED REGARDING PAIN, THE RISK FOR PAIN, THE IMPORTANCE OF EFFECTIVE PAIN MANAGEMENT, AND THE PAIN ASSESSMENT PROCESS?YES LATEX QUESTIONNAIRE LATEX ALLERGY : HAVE YOU EVER DEVELOPED ANY TYPE OF REACTION AFTER HANDLING LATEX PRODUCTS SUCH RUBBER GLOVES, CONDOMS, DIAPHRAGMS, BALLOONS, SOCKS, OR UNDERWEAR?YES - PLEASE INDICATE :RUBBER GLOVES LATEX ALLERGY : HAVE YOU EVER DEVELOPED ANY TYPE OF REACTION DURING OR AFTER DENTAL APPOINTMENT, VAGINAL/RECTAL EXAMINATION, SURGICAL PROCEDURE, OR ANY OTHER EXPOSURE?NO LATEX RISK : HAVE YOU EVER HAD ANY DIFFICULTY BREATHING OR HIVES AFTER EATING OR HANDLING ANY FRUITS, OR VEGETABLES; SUCH KIWI, BANANAS, STONE FRUITS, OR CHESTNUTSNO LATEX RISK : DO YOU HAVE A PREVIOUS PERSONAL HISTORY OF MORE THAN NINE SURGERIES, SPINA BIFIDA, OR REPEATED CATHERIZATIONS? NO LATEX RISK : ARE YOU FREQUENTLY EXPOSED TO LATEX PRODUCTS IN YOUR OCCUPATION?NO DATE ASKED : 12/13/2018 CAFFEINE CAFFEINE USE?YES 1 CUP COFFEE/ DAY ADVANCE DIRECTIVE ADVANCE DIRECTIVE DISCUSSED WITH PATIENT:YES PATIENT STATES SHE HAS THE INFORMATION AT HOME, DECLINES ASSISTANCE AT THIS TIME IN FILLING IT OUT. ANABAPTIST [id number] ORTHODOX MARITAL STATUS: .. ALCOHOL SCREENING DID YOU HAVE A DRINK CONTAINING ALCOHOL IN THE PAST YEAR?NO POINTS0 INTERPRETATIONNEGATIVE OCCUPATION: DISABLED. REVIEWED WITH PT 04/22/18 1345 LASREVIEWED WITH PT 06/28/18 1433 BVREVIEWED WITH PT 07/15/18 1418 BVREVIEWED WITH PATIENT 08/26/18 1420 JSREVIEWED WITH PT 12/20/18 1143 BVREVIEWED WITH PT 04/18/19 1500 LASREVIEWED WITH PATIENT 07/04/19 1413 JS. HOSPITALIZATION/MAJOR DIAGNOSTIC PROCEDURE SURGERY RELATED MYOCARDIAL INFARCTION 09/26 REVIEW OF SYSTEMS REVIEWED BY: PROVIDER: GERMAN BUTTS . CONSTITUTIONAL: ANY CHANGE IN YOUR MEDICAL CONDITION? NO . CHILLS NO . FEVER NO . INFECTION: DO YOU HAVE NEW INFECTIONS? NO . DO YOU HAVE HISTORY OF MRSA? NO . MUSCULOSKELETAL: ANY NEW PATTERNS OF PAIN OR NUMBNESS? YES, STATES PAIN INCREASES THROUGHOUT THE DAY NO MATTER WHAT HER ACTIVITY IS . GASTROENTEROLOGY: ANY NEW CHANGE IN BOWEL CONTROL? NO, STATES INCREASE IN CONSTIPATION . GENITOURINARY: ANY NEW CHANGE IN BLADDER CONTROL? YES, STATES URINARY URGENCY AND SOME INCONTINENCE . IS THERE A CHANCE YOU COULD BE ? NO . HEMATOLOGY/LYMPH: DO YOU TAKE ANY BLOOD THINNERS? (FOR EXAMPLE- COUMADIN, PLAVIX, AGGRENOX, PLATEL, PRADAXA, OR XARELTO) NO . WHEN WAS YOUR LAST DOSE? DATE: TIME: . NEUROLOGY: HAVE YOU FALLEN IN THE PAST 12 MONTHS? YES, STATES FALL PRIOR TO LAST VISIT, DISCUSSED AT PREVIOUS VISIT . ANY NEW EXTREMITY NUMBNESS OR WEAKNESS? NO . CARDIOLOGY: DO YOU HAVE A PACEMAKER OR DEFIBRILLATOR? NO . RESPIRATORY: HAVE YOU BEEN SICK IN THE PAST WEEK? YES, COUGHING, SNEEZING, SOME NAUSEA . FEVER NO . FLU LIKE SYMPTOMS? NO . COUGH YES . INTEGUMENTARY: DO YOU HAVE ANY RASHES OR OPEN SORES? YES, RASH/SORE TO FACE/NECK AREA, STATES DUE TO LUPUS . ALLERGIC/IMMUNO: ARE YOU ALLERGIC TO IV DYE? NO . ANY NEW ALLERGIES? NO, STATES DERMATOLOGY APPOINTMENT SCHEDULED TP DETERMINE CAUSE OF RASH/SORES . PSYCHIATRIC: DO YOU HAVE THOUGHTS OF HURTING YOURSELF OR SOMEONE ELSE? NO . ARE YOU ABUSED, NEGLECTED, OR IN AN UNSAFE ENVIRONMENT? NO . ENDOCRINOLOGY: ARE YOU DIABETIC? NO . OTHER: DO YOU NEED ANY PRESCRIPTIONS? YES . IF YES, PLEASE LIST: ____OXYCODONE NEEDED JULY 15 . ANY NEW PROBLEMS WITH YOUR MEDICATIONS? NO . WHEN DID YOU LAST EAT? ____ . WHEN DID YOU LAST DRINK? ____ . WHAT DID YOU LAST DRINK? ____ . NAME OF PERSON DRIVING YOU HOME? ____ . DO YOU HAVE ANY OTHER QUESTIONS OR CONCERNS NO . VITAL SIGNS WT 169.4 LBS, HT 62 IN, BMI 30.98 INDEX, BP 157/70 MM HG, HR 52 /MIN, RR 18 /MIN, TEMP 98.1 F, OXYGEN SAT % 100%, NA INITIALS SC 14:16. EXAMINATION GENERAL EXAMINATION: LUNGS:LUNG SOUNDS ARE CLEAR. HEART:HEART RATE REGULAR. MUSCULOSKELETAL:MUSCLE STRENGTH TESTING 5/5 BILATERAL LOWER EXTREMITIES. PALPATION: POSITIVE FOR PAIN OVER L/S SPINE. POSITIVE FOR PAIN OVER L/S PARASPINALS.MULTIPLE AREAS OF TENDER SPOTS INDICATIVE OF FIBROMYALGIA.. 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 (PRIMARY) TREATMENT LUMBAGO WITH SCIATICA, LEFT SIDE REFILL SOMA TABLET, 350 MG, 1 TABLET, ORALLY, Q8H PRN MDD1, 30 DAYS, 30, REFILLS 2 REFILL PERCOCET TABLET, 10-325 MG, 1 TABLET NEEDED, ORALLY, Q4-6H PRN MDD5, 30 DAYS, 150, REFILLS 0 START ROPINIROLE HCL TABLET, 0.25 MG, 1 TO 2 TAB, ORALLY, 2 HRS PRE BEDTIME, 30 DAY(S), 60, REFILLS 1 START LIDOCAINE HCL CREAM, 2 %, DIRECTED, EXTERNALLY, APPLY TO LEFT HIP DIRECTED Q8H PRN, 30 DAYS, 1, REFILLS 5 NOTES: ISTOP REGISTRY REVIEWED AND DEMONSTRATES COMPLLIANCE. BRINGS IN MEDICATIONS WHICH IS APPROPRIATE FOR WHAT WAS DISPENSED. RECENT URINE TOXICOLOGY REVIEWED. NO UNAUTHORIZED MEDICATIONS. NO ILLICIT SUBSTANCES AND PRESCRIBED MEDICATIONS WERE PRESENT. URINE TOX TODAY, RISKS OF NARCOTIC/OPIOD MEDICATIONS INCLUDES BUT IS NOT LIMITED TO RISK OF DEPENDANCE/DEVELOPMENT OF ADDICTION, MOOD DISTURBANCE AND DEPRESSION, OSTEOPOROSIS, HORMONAL AND LABIDAL CHANGES, RESPIRATORY DEPRESSION AND . PATIENT IS ADVISED NOT TO DRIVE OR DRINK ALCOHOL WHILE ON THESE MEDICATIONS. PREVENTIVE MEDICINE PAIN CLINIC TEACHING: PROCEDURE TEACHING [place] AND LIDOCAINE DRUG INFO SJEETS PRINTED AND REVIEWED WITH PATIENT 07/04/19 1511 [facility]. PROCEDURE CODES FA211 ESTABILISHED PATIENT [facility] CHARGE DISPOSITION & COMMUNICATION FOLLOW UP 3 MONTHS (REASON: NON COMP LBP) ELECTRONICALLY SIGNED BY BENJAMÍN MORALES ON 07/17/2019 AT 03:51 PM EST DISCLAIMER : THIS IS A VISIT SUMMARY EXTRACTED FROM THE [employer] CHART. IT IS NOT A COPY OF THE [employer] PROGRESS NOTE. OSMIN
== END ==
LOC: M PAIN 13:30
PROVIDERS: ATTEND Nurse Practitioner Family
DX: M54.42 Lumbago with sciatica, left side (principal); G89.29 Other chronic pain; M19.90 Unspecified osteoarthritis, unspecified site; G47.00 Insomnia, unspecified; Z86.59 Personal history of other mental and behavioral disorders; K21.9 Gastro-esophageal reflux disease without esophagitis; E03.9 Hypothyroidism, unspecified; I10 Essential (primary) hypertension; E78.00 Pure hypercholesterolemia, unspecified; I25.2 Old myocardial infarction; Z88.1 Allergy status to other antibiotic agents; Z88.5 Allergy status to narcotic agent; Z88.8 Allergy status to other drugs, medicaments and biological substances; Z79.82 Long term (current) use of aspirin; Z79.899 Other long term (current) drug therapy

== ENCOUNTER → 2019-07-19 | Outpatient (CLI) | payer OTHER, MEDICAID ==
[~2019-07-19] MED LIST changes: +AMOX875T PO; +CRES20TA2 PO; +DOCU100C16 PO; +HYDR25TAB PO; +LAMO200T2 PO; +LISI-1046 PO; +LORA-674 PO; +MODA100T13 PO; +OXYC10TA3 PO; +SYNT100T PO
--- NOTE | 2019-08-09 04:55 | ECWPNPC ---
PATIENT NAME: HAWK CASE : 1955 GENDER: FEMALE VISIT DATE: 07/19/2019 DISCHARGE DATE: 07/19/19 1509 VISIT LOCKED DATE TIME: PHYSICIAN: GERMAN SLAUGHTER RESOURCE: GERMAN SLAUGHTER REASON FOR APPOINTMENT 1. W/C NECK HISTORY OF PRESENT ILLNESS HISTORY OF PRESENT ILLNESS: PAIN THE PATIENT DESCRIBES THE PAIN... THE PATIENT DESCRIBES THE PAIN... THE PATIENT DESCRIBES THE PAIN... THE PATIENT DESCRIBES THE PAIN... THE PATIENT DESCRIBES THE PAIN... THE PATIENT DESCRIBES THE PAIN... THE PATIENT DESCRIBES THE PAIN... THE PATIENT DESCRIBES THE PAIN... THE PATIENT DESCRIBES THE PAIN... THE PATIENT DESCRIBES THE PAIN... THE PATIENT DESCRIBES THE PAIN... THE PATIENT DESCRIBES THE PAIN... THE PATIENT DESCRIBES THE PAIN... THE PATIENT DESCRIBES THE PAIN... THE PATIENT DESCRIBES THE PAIN... THE PATIENT DESCRIBES THE PAIN... THE PATIENT DESCRIBES THE PAIN... THE PATIENT DESCRIBES THE PAIN... HERE FOR F/U OF CHRONIC NECK PAIN WITH HISTORY OF CHRONIC NECK PAIN. PATIENT DESCRIBES THE PAIN ACHING, TENDER, THROBBING AND SORE WITH THE PAIN COMING AND GOING AND CURRENT PAIN SCORE OF 3/10. 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 PATIENT REPORTS HAVING A SURGERY IN 1996. MRS. CASE STATES THAT SHE HAS TRIED PHYSICAL THERAPY IN THE PAST BUT IT DID NOT AID IN PAIN RELIEF OR FUNCTIONALITY AND MOBILITY. MRS. CASE DOES USE A TENS MACHINE AND STATES THAT IT KEEPS HER MOBILE. FALL RISK SCREENING: SCREENING :NO FALLS REPORTED IN THE LAST YEAR CURRENT MEDICATIONS TAKING VITAMIN D-3 2000 CAPSULE 1 CAPSULE ORALLY DAILY TAKING CARAFATE 1 GM TABLET 2TABLET ON AN EMPTY STOMACH ORALLY ONCE DAILY TAKING ASPIR-81 81 MG TABLET DELAYED RELEASE 1 TABLET ORALLY ONCE A DAY TAKING KLONOPIN 1 MG TABLET 1 TABLET ORALLY QHS TAKING LORATADINE 10 MG TABLET 1 TABLET ORALLY ONCE A DAY TAKING LEVOTHYROXINE SODIUM 100 MCG TABLET 1 TABLET EVERY MORNING ON AN EMPTY STOMACH ORALLY ONCE A DAY TAKING NEXIUM 40 MG CAPSULE DELAYED RELEASE 1 CAPSULE ORALLY TWICE A DAY TAKING HYDROCHLOROTHIAZIDE 25 25 MG SOFT GEL 1 TABLETS ORAL DAILY TAKING CRESTOR 20 MG TABLET 1 TABLET ORALLY ONCE A DAY TAKING LAMOTRIGINE 200 MG TABLET 1 TABLET ORALLY ONCE DAILY TAKING LISINOPRIL 2.5 MG TABLET 1 TABLET ORALLY ONCE A DAY TAKING DOCUSATE SODIUM 100 MG CAPSULE 2 ORALLY 3X DAILY, NOTES: TAKES NEEDED TAKING MODAFINIL 200 MG TABLET 1 TABLET IN THE MORNING ORALLY ONCE A DAY TAKING MIRALAX - PACKET 1 PACKET MIXED WITH 8 OUNCES OF FLUID ORALLY ONCE A DAY TAKING SOMA 350 MG TABLET 1 TABLET ORALLY Q8H PRN MDD1 TAKING PERCOCET 10-325 MG TABLET 1 TABLET NEEDED ORALLY Q4-6H PRN MDD5 TAKING ROPINIROLE HCL 0.25 MG TABLET 1 TO 2 TAB ORALLY 2 HRS PRE BEDTIME TAKING LIDOCAINE HCL 2 % CREAM DIRECTED EXTERNALLY APPLY TO LEFT HIP DIRECTED Q8H PRN MEDICATION LIST REVIEWED AND RECONCILED WITH THE PATIENT PAST MEDICAL HISTORY PALPITATIONS, HEART HX BLOOD CLOTS, LEFT LEG HX ANEMIA ARTHRITIS, OA BACK PAIN HX BONE SPURS INSOMNIA MOOD SWINGS XEROPTHALMIA EARLY SATIETY COLONIC POLYPS RECURRENT UTIS SYSTEMIC LUPUS ERYTHEMATOUS ESOPHAGEAL REFLUX HYPOTHYROIDISM HYPERTENSION HYPERCHOLESTEROLEMIA RAYNAUDS SYNDROME NECK PAIN DEPRESSION OSTEOARTHRITIS MYOCARDIAL INFARCTION MYOFASCIAL PAIN SYNDROME LOW BACK PAIN LUMBAR RADICULOPATHY FRACTURED HAND JOINT ALLERGIES PROPRANOLOL HCL: NAUSEA/VOMITING - ALLERGY CAPTOPRIL: NAUSEA/VOMITING - ALLERGY MACROBID: N/DIARRHEA - ALLERGY CIPRO: NAUSEA/VOMITING/DIARRHEA - ALLERGY MS CONTIN: N/V UNABLE TO VOID ANTIDEPRESSANTS: FLU LIKE SYMPTOMS /NAUSEA NUCYNTA ER: NIGHTMARES, INCREASED DEPRESSION - SIDE EFFECTS SURGICAL HISTORY NECK SURGERY BONE SPUR 1997 TUBAL LIGATION 1982 ENDOMETRIAL BIOPSY 2010 CARDIAC CATHETERIZATION 09/26 CARDIAC STENT 09/26 SURGERY TO REPAIR RIGHT FEMORAL ARTERY 09/26 CARDIAC STENT 10/27 CARDIAC STENT 03/26 COLONOSCOPY 2010 FAMILY HISTORY FATHER: DIAGNOSED WITH DIABETES, HYPERTENSION, OTHER MALIGNANT NEOPLASM OF UNSPECIFIED SITE MOTHER: DIABETES, HYPERTENSION, OTHER MALIGNANT NEOPLASM OF UNSPECIFIED SITE PATERNAL GRAND MOTHER: OTHER MALIGNANT NEOPLASM OF UNSPECIFIED SITE MATERNAL GRAND MOTHER: OTHER MALIGNANT NEOPLASM OF UNSPECIFIED SITE 7 BROTHER(S) , 3 SISTER(S) . 1 SON(S) , 3 DAUGHTER(S) . BROTHER CAD,IMMDM,CANCER BROTHER HEART DIEASE IDDM,BROTHER HEART DIEASE, IDDM, SISTER FROM LIVER FAILURE, SISTER HEART DIEASE, HTN\NDAUGHTER DIESED FROM DRUG OVERDOSE METPROBAMATE. ONE DAUGHTER LUPUS, BACK PROBLEMS. SOCIAL HISTORY GENERAL: TOBACCO USE ARE YOU A:NONSMOKER OTHERS AT HOME: CHILD. EDUCATION LEVEL OF EDUCATION:COLLEGE A COUPLE OF SEMESTERS DIET: REGULAR. LANGUAGE LANGUAGES SPOKEN:DJIBOUTIAN DOMESTIC VIOLENCE DO YOU FEEL SAFE IN YOUR ENVIRONMENT?YES RECREATIONAL DRUG USE DRUG USE?NO EXERCISE: NONE. LEARNING BARRIERS / SPECIAL NEEDS BARRIERS TO LEARNING?NO HEARING IMPAIRED?NO VISION IMPAIRED?YES COGNITIVELY IMPAIRED?NO :CORRECTIVE LENSES READINESS TO LEARN?YES LEARNING PREFERENCES?YES :TAPES/VIDEOS, BOOKLETS, HANDOUTS LEARNING CAPABILITIES PRESENT?YES EMOTIONAL BARRIERS?NO SPECIAL DEVICES?YES :CANE ENERGY RISK MANAGEMENT ANALYST NEEDED?NO PAIN CLINIC PFS, CLERGY, PUBLIC HEALTH REFERRALS PFS REFERRAL NEEDED?NO CLERGY REFERRAL NEEDED?NO PUBLIC HEALTH REFERRAL NEEDED?NO HAS THE PATIENT BEEN EDUCATED REGARDING HIS/HER PLAN OF CARE?YES HAS THE PATIENT BEEN EDUCATED REGARDING PAIN, THE RISK FOR PAIN, THE IMPORTANCE OF EFFECTIVE PAIN MANAGEMENT, AND THE PAIN ASSESSMENT PROCESS?YES LATEX QUESTIONNAIRE LATEX ALLERGY : HAVE YOU EVER DEVELOPED ANY TYPE OF REACTION AFTER HANDLING LATEX PRODUCTS SUCH RUBBER GLOVES, CONDOMS, DIAPHRAGMS, BALLOONS, SOCKS, OR UNDERWEAR?YES - PLEASE INDICATE :RUBBER GLOVES LATEX ALLERGY : HAVE YOU EVER DEVELOPED ANY TYPE OF REACTION DURING OR AFTER DENTAL APPOINTMENT, VAGINAL/RECTAL EXAMINATION, SURGICAL PROCEDURE, OR ANY OTHER EXPOSURE?NO LATEX RISK : HAVE YOU EVER HAD ANY DIFFICULTY BREATHING OR HIVES AFTER EATING OR HANDLING ANY FRUITS, OR VEGETABLES; SUCH KIWI, BANANAS, STONE FRUITS, OR CHESTNUTSNO LATEX RISK : DO YOU HAVE A PREVIOUS PERSONAL HISTORY OF MORE THAN NINE SURGERIES, SPINA BIFIDA, OR REPEATED CATHERIZATIONS? NO LATEX RISK : ARE YOU FREQUENTLY EXPOSED TO LATEX PRODUCTS IN YOUR OCCUPATION?NO DATE ASKED : 12/13/2018 CAFFEINE CAFFEINE USE?YES 1 CUP COFFEE/ DAY ADVANCE DIRECTIVE ADVANCE DIRECTIVE DISCUSSED WITH PATIENT:YES PATIENT STATES SHE HAS THE INFORMATION AT HOME, DECLINES ASSISTANCE AT THIS TIME IN FILLING IT OUT. SPIRITISM [id number] CHEONDOISM MARITAL STATUS: .. ALCOHOL SCREENING DID YOU HAVE A DRINK CONTAINING ALCOHOL IN THE PAST YEAR?NO POINTS0 INTERPRETATIONNEGATIVE OCCUPATION: DISABLED. REVIEWED WITH PT 04/22/18 1345 LASREVIEWED WITH PT 06/28/18 1433 BVREVIEWED WITH PT 07/15/18 1418 BVREVIEWED WITH PATIENT 08/26/18 1420 JSREVIEWED WITH PT 12/20/18 1143 BVREVIEWED WITH PT 04/18/19 1500 LASREVIEWED WITH PATIENT 07/04/19 1413 JSREVIEWED WITH PATIENT 07/19/19 1434 JS. HOSPITALIZATION/MAJOR DIAGNOSTIC PROCEDURE SURGERY RELATED MYOCARDIAL INFARCTION 09/26 REVIEW OF SYSTEMS REVIEWED BY: PROVIDER: GERMAN BUTTS . CONSTITUTIONAL: ANY CHANGE IN YOUR MEDICAL CONDITION? NO . CHILLS NO . FEVER NO . INFECTION: DO YOU HAVE NEW INFECTIONS? YES, INFECTION IN RIGHT UPPER TEETH - TAKING AMOXICILLIN . DO YOU HAVE HISTORY OF MRSA? NO . MUSCULOSKELETAL: ANY NEW PATTERNS OF PAIN OR NUMBNESS? YES, STATES INCREASED PAIN AND NUMBNESS TO BILATERAL ARMS . GASTROENTEROLOGY: ANY NEW CHANGE IN BOWEL CONTROL? NO . GENITOURINARY: ANY NEW CHANGE IN BLADDER CONTROL? NO . IS THERE A CHANCE YOU COULD BE ? NO . HEMATOLOGY/LYMPH: DO YOU TAKE ANY BLOOD THINNERS? (FOR EXAMPLE- COUMADIN, PLAVIX, AGGRENOX, PLATEL, PRADAXA, OR XARELTO) NO . WHEN WAS YOUR LAST DOSE? DATE: TIME: . NEUROLOGY: HAVE YOU FALLEN IN THE PAST 12 MONTHS? NO . ANY NEW EXTREMITY NUMBNESS OR WEAKNESS? YES, INCREASED NUMBNESS AND WEAKNESS TO BILATERAL ARMS . CARDIOLOGY: DO YOU HAVE A PACEMAKER OR DEFIBRILLATOR? NO . RESPIRATORY: HAVE YOU BEEN SICK IN THE PAST WEEK? NO . FEVER NO . FLU LIKE SYMPTOMS? NO . COUGH NO . INTEGUMENTARY: DO YOU HAVE ANY RASHES OR OPEN SORES? YES, SORES TO FACE, HAS DERMATOLOGY APPOINTMENT . ALLERGIC/IMMUNO: ARE YOU ALLERGIC TO IV DYE? NO . ANY NEW ALLERGIES? NO . PSYCHIATRIC: DO YOU HAVE THOUGHTS OF HURTING YOURSELF OR SOMEONE ELSE? NO . ARE YOU ABUSED, NEGLECTED, OR IN AN UNSAFE ENVIRONMENT? NO . ENDOCRINOLOGY: ARE YOU DIABETIC? NO . OTHER: DO YOU NEED ANY PRESCRIPTIONS? NO . IF YES, PLEASE LIST: ____ . ANY NEW PROBLEMS WITH YOUR MEDICATIONS? NO . WHEN DID YOU LAST EAT? ____ . WHEN DID YOU LAST DRINK? ____ . WHAT DID YOU LAST DRINK? ____ . NAME OF PERSON DRIVING YOU HOME? ____ . DO YOU HAVE ANY OTHER QUESTIONS OR CONCERNS FLU VACCINE SOON< BR>STATES LAST VISIT LIDOCAINE CREAM / GEL WAS ORDERED AND THE PHARMACY SAID SHE WOULD HAVE TO PAY FOR IT [id number]. STATES INSURANCE WOULD PAY FOR IT IF IT WAS A HIGHER STRENGTH OF THE CREAM . VITAL SIGNS WT 169.4 LBS, HT 62 IN, BMI 30.98 INDEX, BP 197/77 MM HG, REPEAT BP 156/80 MM HG, HR 51 /MIN, RR 18 /MIN, TEMP 96.0 F, OXYGEN SAT % 99%, SAFE IN ENV? (Y/N) YES, NA INITIALS AW 1424, REVIEWED BY: DAVID. EXAMINATION GENERAL EXAMINATION: LUNGS:LUNG SOUNDS ARE CLEAR. HEART:HEART RATE REGULAR. MUSCULOSKELETAL:MUSCLE STRENGTH TESTING 5/5 BILATERAL LOWER EXTREMITIES. PALPATION: POSITIVE FOR PAIN OVER L/S SPINE. POSITIVE FOR PAIN OVER L/S PARASPINALS.MULTIPLE AREAS OF TENDER SPOTS INDICATIVE OF FIBROMYALGIA.. ASSESSMENTS CERVICALGIA - M54.2 (PRIMARY) TREATMENT CERVICALGIA NOTES: CONTINUE HOME EXCERSISE AND STRETCHING. PROCEDURES PN WORKMANS' COMP OPINION IN YOUR OPINION, WAS THE INCIDENT THAT THE PATIENT DESCRIBED THE COMPETENT MEDICAL CAUSE OF THIS INJURY/ILLNESS? YES ARE THE PATIENT'S COMPLAINTS CONSISTENT WITH HIS/HER HISTORY OF THE INJURY/ILLNESS? YES IS THE PATIENT'S HISTORY OF THE INJURY/ILLNESS CONSISTENT WITH YOUR OBJECTIVE FINDING? YES WHAT IS THE PERCENTAGE OF TEMPORARY IMPAIRMENT? MODERATE TO MARKED = 66.7% IS THE PATIENT WORKING? NO DOCTOR ON SITE: ALONZO ALCANTARA MD PROCEDURE CODES FA211 ESTABILISHED PATIENT [facility] CHARGE DISPOSITION & COMMUNICATION FOLLOW UP 2 MONTHS W/C NECK ELECTRONICALLY SIGNED BY BENJAMÍN MORALES ON 08/08/2019 AT 03:34 PM EST DISCLAIMER : THIS IS A VISIT SUMMARY EXTRACTED FROM THE [employer] CHART. IT IS NOT A COPY OF THE [employer] PROGRESS NOTE. OSMIN
== END ==
LOC: M PAIN 14:15
PROVIDERS: ATTEND Nurse Practitioner Family
DX: M54.2 Cervicalgia (principal)

== ENCOUNTER 2019-07-29 18:56 | Inpatient (IN) | payer MEDICARE, MEDICAID ==
[~2019-07-29] VITALS: Ht 160 cm; Wt 74.6 kg
[~2019-07-29 18:56] MED LIST changes: -AMOX875T PO; -CRES20TA2 PO; -DOCU100C16 PO; -HYDR25TAB PO; -LAMO200T2 PO; -LISI-1046 PO; -LORA-674 PO; -MODA100T13 PO; -OXYC10TA3 PO; -SYNT100T PO
[2019-07-29 19:36] LABS: BASO % 0.5 % (0.0-1.0); HEMATOCRIT 42.3 % (36.0-47.0); HEMOGLOBIN 13.5 g/dl (12.0-15.5); LYMPH # 1.2 10^3/uL (1.5-5.0); LYMPH % 15.4 % (24.0-44.0); MEAN CORPUSCULAR HEMOGLOBIN 29.3 pg (27.0-33.0); MEAN CORPUSCULAR HGB CONC 31.9 g/dl (32.0-36.5); MEAN CORPUSCULAR VOLUME 91.8 fl (80.0-96.0); MONO # 0.6 10^3/uL (0.0-0.8); MONO % 7.4 % (0.0-5.0); NEUTROPHILS # 5.8 10^3/uL (1.5-8.5); NEUTROPHILS % 76.4 % (36.0-66.0); PLATELET COUNT, AUTOMATED 279 10^3/uL (150-450); RED BLOOD COUNT 4.61 10^6/uL (4.00-5.40); WHITE BLOOD COUNT 7.6 10^3/uL (4.0-10.0)
[2019-07-29] MEDS ORDERED: GI COCKTAIL 50ML BTL(HYOSCYAMINE/MAALOX/LIDOCAINE VISCOUS)(1:3:1) PO ONE (19:45)
[2019-07-29 20:02] LABS: CALCIUM LEVEL 10.3 MG/DL (8.8-10.2); CREATININE FOR GFR 1.14 MG/DL (0.55-1.30); GLOMERULAR FILTRATION RATE 50.9 (>45); MB/CK RELATIVE INDEX 1.33 (< OR =4); POTASSIUM SERUM 4.3 MEQ/L (3.5-5.1); TROPONIN I 0.08 NG/ML (< 0.10)
[2019-07-29] MEDS ORDERED: AMOX875T PO (21:12)
[2019-07-29] MEDS ORDERED: OXYC10TA3 PO (21:12)
[2019-07-30 00:48] LABS: CK-MB VALUE MASS 1.9 NG/ML (<3.6); MB/CK RELATIVE INDEX 2.75 (< OR =4); TROPONIN I 0.17 NG/ML (< 0.10)
[2019-07-30] MEDS ORDERED: SUCRALFATE 1 GM TAB PO ONE (01:30)
[2019-07-30] MEDS ORDERED: HEPARIN SOD (PORCINE) 5000 UNITS/ML VIAL IV ONE (01:30)
--- NOTE | 2019-07-30 01:35 | HPEPDOC ---
[facility] Medical History & Physical Date of Admission Jul 30, 2019 Date of Service: Jul 30, 2019 Primary Care Physician: Yoshi Stout Attending Physician: LULU CASILLAS MD History and Physical TIME OF SERVICE: 2:20 AM CHIEF COMPLAINT: Throat discomfort HISTORY OF PRESENT ILLNESS: This is a 64 year old female who presents with complaints of throat discomfort that occurred this evening after drinking V8 juice. Thereafter, she developed tightness in her mid-upper chest associated with numbness & tingling in her arms, nausea, and sweating. The discomfort lasted for about 35-45 minutes and improved after taking nitroglycerin and aspirin. She couldn't identify any sp ecific aggravating factors. She is concerned because this is similar to the way she felt when she had her heart attack. She denied having a cough, fever, or leg swelling. REVIEW OF SYSTEMS: 12 point review of systems negative except as listed in HPI PAST MEDICAL/ SURGICAL HISTORY: Hypothyroidism CAD status post PCI 3 times, 1 of the procedures was complicated by femoral artery rupture Dyslipidemia Chronic hypertension Depression. History of left lower extremity DVT Osteoarthritis affecting the neck SLE Raynaud's phenomenon Insomnia Status post tubal ligation SOCIAL HISTORY: She does not smoke FAMILY HISTORY: Diabetes CAD Lupus Liver failure Hypertension Cancer ALLERGIES: Please see below. HOME MEDICATIONS: Please see below. PHYSICAL EXAMINATION: VITAL SIGNS: Please see below. GENERAL APPEARANCE: well-nourished, well-developed, HEENT: normocephalic, atraumatic, mucous membranes moist and pink. CARDIOVASCULAR: the chest pain is not reproducible with palpation. Heart has regular rate and rhythm. There are no murmurs, rubs or gallops. Radial pulses are intact. There is no lower extremity edema LUNGS: Clear to auscultation bilaterally there MUSCULOSKELETAL: Range of motion is intact in all 4 external pacer gait is normal INTEGUMENT: She does not have any xanthelasma NEUROLOGICAL: Cranial nerves II-12 are grossly intact. Speech is not dysarthric PSYCHIATRIC: Alert and oriented to person, place and time, able to understand and follow commands. She has a flat affect LABORATORY DATA: See below. IMAGING: Chest x-ray is unremarkable but the final report is pending EKG: Sinus bradycardia with a heart rate of 53 MICROBIOLOGY: Please see below. ASSESSMENT: Ms. Holm is a 64-year-old female the past medical history of chronic CAD, hypothyroid, chronic hypertension, depression, lupus, Raynaud's phenomenon, dyslipidemia, and OA who will be admitted for management of chest pain and elevated troponins, possibly due to NSTEMI. PLAN: 1. Chest Pain The chest x-ray, EKG and troponin have been reviewed The last angiogram was in 2013 She has a history of dyslipidemia as well KAIT Score for NSTEMI = 3 to 4 points Plan: admit to PCU / telemetry / f/u 2 more troponins, BNP, Echo, HgA1C, lipid panel to calculate ACVD risk score / follow-up repeat EKG with chest pain/ Acetaminophen & Nitro PRN for chest pain / continue heparin drip, add Plavix, ASA, switch from rosuvastatin 20-40, Ezetimibe (has been shown to reduce the risk of future cardiovascular events in patients with acute coronary syndrome) / patient states she can't take a beta susan because it made her hypotensive in the past / follow up with Dr. Oliva 2 Hypothyroidism Plan: Resume home meds 3. Chronic hypertension Plan: Resume home meds 4. Depression Plan: Resume home meds 5. Osteoarthritis Plan: Resume home meds 6. SLE Plan: Resume home meds 7. Insomnia Plan: Resume home meds She doesn't require DVT prophylaxis because she is on heparin drip. Disposition: Likely home after more than 2 midnight stay Vital Signs Vital Signs Date Time Temp Pulse Resp B/P (MAP) Pulse Ox O2 Delivery O2 Flow Rate FiO2 07/30/19 01:17 54 20 153/70 (97) 96 Room Air 07/29/19 19:27 96.9 Laboratory Data Labs 24H Laboratory Tests 2 07/29/19 19:27: Immature Granulocyte % (Auto) 0.3, Neutrophils (%) (Auto) 76.4H, Lymphocytes (%) (Auto) 15.4L, Monocytes (%) (Auto) 7.4H, Eosinophils (%) (Auto) 0.0, Basophils (%) (Auto) 0.5, Neutrophils # (Auto) 5.8, Lymphocytes # (Auto) 1.2L, Monocytes # (Auto) 0.6, Eosinophils # (Auto) 0.0, Basophils # (Auto) 0.0, Nucleated Red Blood Cells % (auto) 0.0, Anion Gap 5L, Glomerular Filtration Rate 50.9, Calcium Level 10.3H, Total Creatine Kinase 75, Creatine Kinase MB 1.0, Creatine Kinase MB Relative Index 1.33, Troponin I 0.08 07/30/19 00:13: Total Creatine Kinase 69, Creatine Kinase MB 1.9, Creatine Kinase MB Relative Index 2.75, Troponin I 0.17#H CBC/BMP Laboratory Tests 07/29/19 19:27 Home Medications Scheduled Amoxicillin (Amoxicillin) 875 Mg Tablet, 875 MG PO BID Aspirin (Aspirin EC) 81 Mg Tab, 81 MG PO DAILY Carisoprodol (Soma) 350 Mg Tab, 350 MG PO QHS Clonazepam (Clonazepam) 1 Mg Tab, 1 MG PO QHS Esomeprazole Magnesium (Nexium) 40 Mg Cap, 40 MG PO BID Hydrochlorothiazide (Hydrochlorothiazide) 25 Mg Tablet, 25 MG PO DAILY Lamotrigine (Lamotrigine) 200 Mg Tablet, 200 MG PO DAILY Levothyroxine Sodium (Synthroid) 100 Mcg Tablet, 100 MCG PO DAILY Lisinopril (Lisinopril) 2.5 Mg Tablet, 2.5 MG PO DAILY Loratadine (Loratadine) 10 Mg Tablet, 10 MG PO DAILY Modafinil (Modafinil) 200 Mg Tablet, 100 MG PO DAILY TAKES AT NOON. WRITTEN FOR 200MG, PATIENT SAID IT WAS TOO STRONG SO SHE TAKES HALF Rosuvastatin Calcium (Crestor) 20 Mg Tablet, 20 MG PO DAILY Sucralfate (Sucralfate) 1 Gm Tab, 1 GM PO DAILY Scheduled PRN Docusate Sodium (Docusate Sodium) 100 Mg Capsule, 100 MG PO DAILY PRN for CONSTIPATION Oxycodone HCl/Acetaminophen (Oxycodone-Acetaminophen 10-325) 1 Each Tablet, 1 TAB PO q4-6h PRN for PAIN Allergies Coded Allergies: Contrast Media (Verified Allergy, Unknown, 07/29/19) captopril (Verified Allergy, Unknown, 07/29/19) ciprofloxacin (Verified Allergy, Unknown, 07/29/19) diclofenac (Verified Allergy, Unknown, 07/29/19) gabapentin (Verified Allergy, Unknown, 07/29/19) latex (Verified Allergy, Unknown, 07/29/19) misoprostol (Verified Allergy, Unknown, 07/29/19) nitrofurantoin (Verified Allergy, Unknown, 07/29/19) propranolol (Verified Allergy, Unknown, 07/29/19) tapentadol (Verified Allergy, Unknown, 07/29/19) A-FIB/CHADSVASC A-FIB History Current/History of A-Fib/PAF?: No Current PO Anticoag Therapy: LULU Holbrook MD Jul 30, 2019 01:35
[2019-07-30] MEDS ORDERED: NITROGLYCERIN 0.4 MG SUBL TABLET SL PRN (02:00)
[2019-07-30] MEDS ORDERED: HEPARIN DRIP 25,000 UNITS in IV 1 EA IV SCH ×2 (02:00→09:18)
[2019-07-30] MEDS ORDERED: ACETAMINOPHEN TAB 650MG DOSE (2X325MG) PO PRN (02:00)
[2019-07-30 02:03] LABS: INR 1.03; PARTIAL THROMBOPLASTIN TIME 27.9 SECONDS (25.0-38.4); PROTHROMBIN TIME 13.3 SECONDS (11.8-14.0)
[2019-07-30] MEDS ORDERED: MODA100T13 PO (02:04)
[2019-07-30] MEDS ORDERED: CRES20TA2 PO (02:04)
[2019-07-30] MEDS ORDERED: LORA-674 PO (02:04)
[2019-07-30] MEDS ORDERED: LISI-1046 PO (02:04)
[2019-07-30] MEDS ORDERED: DOCU100C16 PO (02:04)
[2019-07-30] MEDS ORDERED: SYNT100T PO (02:04)
[2019-07-30] MEDS ORDERED: LAMO200T2 PO (02:04)
[2019-07-30] MEDS ORDERED: HYDR25TAB PO (02:04)
[2019-07-30] MEDS ORDERED: MODA200T15 PO (02:09)
[2019-07-30] MEDS ORDERED: DOCUSATE SODIUM 100 MG CAP PO PRN (03:00)
[2019-07-30] MEDS ORDERED: CLOPIDOGREL 300 MG TAB (PLAVIX) PO ONE (03:00)
[2019-07-30] MEDS: EZETIMIBE 10 MG TAB (ZETIA) PO SCH ×2 (03:57→20:11)
[2019-07-30] MEDS: LEVOTHYROXINE 100MCG TABLET (0.1MG) PO SCH (05:04)
[2019-07-30 05:30] LABS: HEMOGLOBIN A1c 5.4 %
[2019-07-30 05:41] LABS: CHOLESTEROL RISK RATIO 2.593 (<5); TROPONIN I 0.54 NG/ML (< 0.10)
[2019-07-30 08:00] VITALS: BP 128/62
[2019-07-30] MEDS: SUCRALFATE 1 GM TAB PO SCH (08:22)
[2019-07-30] MEDS: LISINOPRIL *2.5 MG* TAB PO SCH (08:23)
[2019-07-30] MEDS: ASPIRIN 81 MG ENTERIC TAB PO SCH (08:23)
[2019-07-30] MEDS: lamoTRIgine 100MG TAB PO SCH (08:23)
[2019-07-30] MEDS: PANTOPRAZOLE 40MG TAB (PROTONIX) PO SCH ×2 (08:23→20:15)
[2019-07-30] MEDS: LORATADINE 10 MG TAB PO SCH (08:23)
[2019-07-30] MEDS: hydroCHLOROthiazide 25 MG TAB PO SCH (08:23)
--- NOTE | 2019-07-30 08:30 | REP ---
Portable chest x-ray: Sitting AP view. History: Chest pain. Comparison study: May 16, 2016. Findings: Monitoring electrodes are seen. The lungs are well inflated and clear. The pleural angles are sharp. Heart is not enlarged. Pulmonary vasculature is not increased. Impression: No active disease. Electronically Signed by Juan Miller MD 07/30/2019 08:22 A
[2019-07-30] MEDS ORDERED: ATORVASTATIN 20 MG TAB PO SCH (09:00)
[2019-07-30] MEDS: ANEXSIA, NORCO 7.5MG/325MG TABLET(HYDROCODONE/APAP) PO PRN (09:11)
[2019-07-30] MEDS ORDERED: HEPARIN SOD (PORCINE) 5000 UNITS/ML VIAL IV PRN (09:30)
--- NOTE | 2019-07-30 12:11 | ECGEPIP ---
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
--- NOTE | 2019-07-30 12:13 | ECGEPIP ---
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
[2019-07-30 13:00] VITALS: BP 127/64
--- NOTE | 2019-07-30 14:55 | CR ---
DATE OF CONSULTATION: 07/30/2019 REFERRING PHYSICIAN: Dr. Owen INDICATION: Acute coronary syndrome. HISTORY OF PRESENT ILLNESS: Mrs. Holm is known to me, she is a patient of mine who has a history of coronary artery disease. She presented with inferior wall myocardial infarction in October 2013 that was addressed by two stents to right coronary artery and left circumflex artery and then had additional cardiac intervention in March 2014 where she got an additional stent to right coronary artery (RCA) plus one stent to left anterior descending (LAD). She has not had any interventions since. She presented to our emergency room yesterday in the evening hours with episode of abdominal and later throat discomfort. She believes that the episode was triggered by drinking V8 juice. Shortly thereafter she developed nauseated feeling, and there was a pressure in her epigastrium that shortly thereafter was followed by a burning sensation in her throat. She recalled that she had similar sensation with her myocardial infarction in 2013. She took three sublingual nitroglycerin and called an ambulance. By the time they arrived, the pain was still present, and she received three tablets of aspirin. She tells me that after the aspirin, the pain subsided considerably but did not diminish completely. On arrival to emergency room, her vital signs were stable and her EKG did not reveal any ST-segment shift. She was given gastrointestinal (GI) cocktail that led to near complete resolution of the throat discomfort and shortly thereafter she became completely pain free. She believes that the total duration of the throat discomfort may have been about an hour, and she had longer duration of epigastric discomfort. She has been basically asymptomatic since even though she still has occasional brief sensation of nausea. The patient tells me that she lately has been under exorbitant amount of stress related to poor relationship with her daughter, but she did not have any unusual recent physical events. PAST MEDICAL HISTORY: 1. Coronary artery disease as above. The cardiac catheterization in October 2013 was complicated by laceration of right iliac artery that had to be surgically repaired. Her last evaluation for ischemia was exercise stress test in August 2017 that was negative at 8 metabolic equivalents. 2. Dyslipidemia. 3. Hypertension. 4. Depression. 5. History of left lower extremity deep vein thrombosis (DVT). 6. Degenerative joint disease, mostly affecting her spine. 7. Lupus. 8. Raynaud's phenomenon. 9. Depression/anxiety. 10. Chronic back pain treated by pain clinic. SURGICAL HISTORY: Positive for cervical surgery, tubal ligation and iliac artery repair. SOCIAL HISTORY: The patient is but has a significant other. She is the mother of four children. There is a remote history of smoking. She denies any recent alcohol. FAMILY HISTORY: Positive for coronary artery disease and diabetes in close relatives. ALLERGIES: She does have reported numerous allergies including to IV CONTRAST, CAPTOPRIL, CIPRO, DICLOFENAC, GABAPENTIN, LATEX, MISOPROSTOL, NITROFURANTOIN, BETA BLOCKERS (causing bradycardia), and TAPENTADOL. OUTPATIENT MEDICATIONS: Amoxicillin 875 mg twice a day, aspirin 81 mg a day, Soma 350 mg at night, clonazepam 1 mg at night, Colace 100 mg twice a day, Nexium 40 mg a day, hydrochlorothiazide 25 mg a day, lamotrigine 200 mg a day, levothyroxine 100 mg a day, lisinopril 2.5 mg a day, loratadine 10 mg a day, modafinil 200 mg a day, oxycodone/acetaminophen 10-325 every 4 to 6 hours as needed, Crestor 20 mg a day and sucralfate 1 gram daily. She also takes Plavix 75 mg daily. REVIEW OF SYSTEMS: She does admit that she has been under a lot of stress lately emotionally but no physical illnesses. No specific fever, chills, nausea, vomiting or diarrhea. She has not had any chest discomfort until presentation with current illness. There is no history of stroke. No genitourinary symptoms. She does have trouble with her GI tract, tells me that as of last few months she has been prone to constipation, and she also believes that she probably has perianal fistula. She is scheduled to have a colonoscopy in near future. PHYSICAL EXAMINATION: Mrs. Holm is a 64-year-old woman who appears approximately her age. Vital signs: Blood pressure 120/62, heart rate has been in 50s, sinus rhythm with occasional premature atrial contractions (PACs). Afebrile. Saturation 96% on room air. She is alert and oriented and appropriate, appears slightly anxious. Her jugular venous pressure (JVP) is not high. I do not appreciate carotid bruits. Lungs are clear. Good air movement. Heart: Exam reveals regular rhythm. I do not appreciate any gallop or rub or murmur. Abdomen is soft. No tenderness or rebound tenderness. No guarding. Extremities are free of edema. Peripheral pulses are palpable on both lower extremities. Neurologically, she is intact even though she is at times slightly tearful. LABORATORY: CBC is normal. Basic metabolic panel is normal but for glucose 135. She already had four troponins and the level is climbing; first one 1927 hours yesterday was 0.08, at around midnight was 0.17, then 5 o'clock 0.54 and at noon today 0.91. The CK, CK-MB have been negative times two. Lipid panel reveals total cholesterol 166, LDL 86, HDL 64 and triglycerides 80. ECG reveals sinus rhythm with possible old inferior of my old inferior wall myocardial infarction and no ST-segment deviations. Chest x-ray is unremarkable revealing no evidence for congestive heart failure or cardiomegaly. ASSESSMENT/PLAN: Mrs. Holm is a 64-year-old female who has a history of multiple coronary interventions in 2013 and has stents in all three coronary arteries. She presents with chest discomfort and throat discomfort that seems clinically typical for unstable angina and has mild troponin elevation. She has been pain free since last night. I do recommend that she proceeds with coronary intervention. I think that it gives her the best prognosis and best outcome. I explained the rationale to the patient and her significant other who is at bedside. They agree with the plan. In the interim, I would continue current medications. Her lipid lowering medications were further intensified with addition of Zetia, her blood pressure is well controlled, and she probably would not be able to tolerate beta-blockers because she is already relatively bradycardic. She is on aspirin and Plavix and heparin. PTT has been therapeutic. I contacted Dr. Humphrey, interventional cardiology, in [place] and there was tentative plan to transfer the patient for coronary angiography tomorrow morning. If by any chance, she has recurrent chest discomfort and especially if there is any obvious evolution on ECG, then the transfer may occur more urgently, though.
[2019-07-30 16:00] VITALS: BP 122/55
[2019-07-30 19:00] VITALS: BP 130/74
[2019-07-30 20:00] VITALS: BP_SYST 132; BP_SYST 135; BP_DIAS 65; BP_DIAS 68
[2019-07-30] MEDS: predniSONE 20 MG TAB PO SCH (20:14)
[2019-07-30] MEDS: diphenhydrAMINE 50 MG CAP PO SCH (20:15)
[2019-07-30] MEDS ORDERED: ROSUVASTATIN 10 MG TAB (CRESTOR) PO SCH (21:00)
[2019-07-30] MEDS ORDERED: clonazePAM 1 MG TAB PO SCH (21:00)
[2019-07-30] MEDS ORDERED: CARISOPRODOL 350 MG TAB PO SCH (21:00)
[2019-07-30] MEDS ORDERED: OMEPRAZOLE 20 MG CAP PO STA (21:49)
[2019-07-30] MEDS: ONDANSETRON 4MG/2ML VIAL (J2405) IV PRN (22:05)
[2019-07-31] VITALS: BP 148/74
[2019-07-31 04:00] VITALS: BP 106/66
[2019-07-31] MEDS: LEVOTHYROXINE 100MCG TABLET (0.1MG) PO SCH (05:39)
[2019-07-31 07:38] LABS: HEMATOCRIT 43.3 % (36.0-47.0); HEMOGLOBIN 13.7 g/dl (12.0-15.5); MEAN CORPUSCULAR HEMOGLOBIN 29.5 pg (27.0-33.0); MEAN CORPUSCULAR HGB CONC 31.6 g/dl (32.0-36.5); MEAN CORPUSCULAR VOLUME 93.1 fl (80.0-96.0); PLATELET COUNT, AUTOMATED 283 10^3/uL (150-450); RED BLOOD COUNT 4.65 10^6/uL (4.00-5.40); WHITE BLOOD COUNT 6.2 10^3/uL (4.0-10.0)
[2019-07-31] MEDS: hydroCHLOROthiazide 25 MG TAB PO SCH (07:44)
[2019-07-31] MEDS: PANTOPRAZOLE 40MG TAB (PROTONIX) PO SCH (07:44)
[2019-07-31] MEDS: lamoTRIgine 100MG TAB PO SCH (07:44)
[2019-07-31] MEDS: SUCRALFATE 1 GM TAB PO SCH (07:44)
[2019-07-31 07:46] VITALS: BP 153/71
[2019-07-31] MEDS: predniSONE 20 MG TAB PO SCH (07:46)
[2019-07-31] MEDS: LISINOPRIL *2.5 MG* TAB PO SCH (07:46)
[2019-07-31] MEDS: LORATADINE 10 MG TAB PO SCH (07:46)
[2019-07-31] MEDS: ASPIRIN 81 MG ENTERIC TAB PO SCH (07:46)
[2019-07-31] MEDS: diphenhydrAMINE 50 MG CAP PO SCH (07:50)
[2019-07-31 08:00] VITALS: BP 149/86
[2019-07-31 08:07] LABS: CREATININE FOR GFR 1.18 MG/DL (0.55-1.30)
[2019-07-31 08:08] LABS: CALCIUM LEVEL 11.1 MG/DL (8.8-10.2); GLOMERULAR FILTRATION RATE 48.9 (>45); MAGNESIUM LEVEL 2.3 MG/DL (1.8-2.4); POTASSIUM SERUM 4.1 MEQ/L (3.5-5.1); TROPONIN I 0.62 NG/ML (< 0.10)
[2019-07-31] MEDS ORDERED: CLOPIDOGREL 75 MG TAB PO SCH (09:00)
[2019-07-31] MEDS: ANEXSIA, NORCO 7.5MG/325MG TABLET(HYDROCODONE/APAP) PO PRN (09:56)
[2019-07-31] MEDS: ONDANSETRON 4MG/2ML VIAL (J2405) IV PRN (09:56)
[2019-07-31 09:59] VITALS: BP 134/82
--- NOTE | 2019-07-31 10:11 | DS.PDOC ---
Discharge Summary General Date of Admission Jul 30, 2019 at 01:34 Date of Discharge 07/31/19 Discharge Summary ADMITTING DIAGNOSES: NSTEMI DISCHARGE DIAGNOSES: NSTEMI COMPLICATIONS/CHIEF COMPLAINT: Chest Pain. HISTORY OF PRESENT ILLNESS: "64 year old female who presents with complaints of throat discomfort that occurred this evening after drinking V8 juice. Thereafter, she developed tightness in her mid-upper chest associated with numbness & tingling in her arms, nausea, and sweating. The discomfort lasted for about 35-45 minutes and improved after taking nitroglycerin and aspirin. She couldn't identify any specific aggravating factors. She is concerned because this is similar to the way she felt when she had her heart attack. She denied having a cough, fever, or leg swelling." HOSPITAL COURSE: 64 y/o F initially came for chest pain was admitted for NSTEMI. Pt was started on iv heparin ggt. Pt was evaluated by cardiology service recommendations were to transfer the patient to [place] for cardiac cath. Pt was seen and examined at bedside on day of discharge. Pt stated that she is feeling fine and denied chest pain Pt was clinically and vitally stable at the time of transfer. PHYSICAL EXAMINATION ON DISCHARGE: VITAL SIGNS: Please see below. GENERAL: comfortable CARDIOVASCULAR EXAMINATION: Regular rate and rhythm RESPIRATORY EXAMINATION: clear to auscultation ABDOMINAL EXAMINATION: Soft, non tender EXTREMITIES: NO edema NEUROLOGICAL EXAMINATION: No focal deficit I spent 35 minutes of time in coordinating discharge of this patient. Vital Signs/I&Os Vital Signs Date Time Temp Pulse Resp B/P (MAP) Pulse Ox O2 Delivery O2 Flow Rate FiO2 07/31/19 04:00 96.5 71 16 106/66 (79) 92 Room Air I&O- Last 24 Hours up to 6 AM 07/31/19 05:59 Intake Total 1150 ml Output Total 0 ml Balance 1150 ml Laboratory Data Labs 24H Laboratory Tests 2 07/30/19 09:28: Activated Partial Thromboplast Time 69.4H 07/30/19 11:53: Troponin I 0.91#H 07/30/19 15:18: Activated Partial Thromboplast Time 63.9H 07/30/19 20:57: Activated Partial Thromboplast Time 171.0*H 07/30/19 22:10: Troponin I 0.88H 07/31/19 03:21: Activated Partial Thromboplast Time 70.2H 07/31/19 06:58: Nucleated Red Blood Cells % (auto) 0.0 CBC/BMP Laboratory Tests 07/31/19 06:58 Discharge Medications Scheduled Amoxicillin (Amoxicillin) 875 Mg Tablet, 875 MG PO BID, (Reported) Aspirin (Aspirin EC) 81 Mg Tab, 81 MG PO DAILY, (Reported) Carisoprodol (Soma) 350 Mg Tab, 350 MG PO QHS, (Reported) Clonazepam (Clonazepam) 1 Mg Tab, 1 MG PO QHS, (Reported) Esomeprazole Magnesium (Nexium) 40 Mg Cap, 40 MG PO BID, (Reported) Hydrochlorothiazide (Hydrochlorothiazide) 25 Mg Tablet, 25 MG PO DAILY, (Reported) Lamotrigine (Lamotrigine) 200 Mg Tablet, 200 MG PO DAILY, (Reported) Levothyroxine Sodium (Synthroid) 100 Mcg Tablet, 100 MCG PO DAILY, (Reported) Lisinopril (Lisinopril) 2.5 Mg Tablet, 2.5 MG PO DAILY, (Reported) Loratadine (Loratadine) 10 Mg Tablet, 10 MG PO DAILY, (Reported) Modafinil (Modafinil) 200 Mg Tablet, 100 MG PO DAILY, (Reported) TAKES AT NOON. WRITTEN FOR 200MG, PATIENT SAID IT WAS TOO STRONG SO SHE TAKES HALF Rosuvastatin Calcium (Crestor) 20 Mg Tablet, 20 MG PO DAILY, (Reported) Sucralfate (Sucralfate) 1 Gm Tab, 1 GM PO DAILY, (Reported) Scheduled PRN Docusate Sodium (Docusate Sodium) 100 Mg Capsule, 100 MG PO DAILY PRN for CONSTIPATION, (Reported) Oxycodone HCl/Acetaminophen (Oxycodone-Acetaminophen 10-325) 1 Each Tablet, 1 TAB PO q4-6h PRN for PAIN, (Reported) Allergies Coded Allergies: Contrast Media (Verified Allergy, Unknown, 07/29/19) captopril (Verified Allergy, Unknown, 07/29/19) ciprofloxacin (Verified Allergy, Unknown, 07/29/19) diclofenac (Verified Allergy, Unknown, 07/29/19) gabapentin (Verified Allergy, Unknown, 07/29/19) latex (Verified Allergy, Unknown, 07/29/19) misoprostol (Verified Allergy, Unknown, 07/29/19) nitrofurantoin (Verified Allergy, Unknown, 07/29/19) propranolol (Verified Allergy, Unknown, 07/29/19) tapentadol (Verified Allergy, Unknown, 07/29/19) PEDRO HAY MD Jul 31, 2019 07:43
--- NOTE | 2019-08-01 21:20 | ECGEPIP ---
[facility] Test Date: 2019-07-30 Pat Name: HAWK CASE Department: Room: 01[facility] Gender: Female Manager Equity: LURDES: 1955 Requested By: LULU CASILLAS Order Number: [id number] Reading MD: Alexys Gamino Measurements Intervals [place] Rate: 58 P: 35 LA: 179 QRS: -19 QRSD: 85 T: 4 QT: 413 QTc: 408 Interpretive Statements SINUS BRADYCARDIA WITH MARKED SINUS ARRHYTHMIA POSSIBLE PRIOR INFERIOR WALL INFARCT POSSIBLE RIGHT VENTRICULAR CONDUCTION DELAY MODERATE VOLTAGE CRITERIA FOR LVH, CONSIDER NORMAL VARIANT NONSPECIFIC ST-T ABNORMALITY MANIFESTED BY MINIMAL ST ELEVATION COMPARED TO THE 3 TRACINGS IN THE SYSTEM, NO SIGNIFICANT CHANGES Electronically Signed on 08-01-2019 21:20:02 EST by Alexys Gamino
--- NOTE | 2019-08-01 21:27 | ECGEPIP ---
[facility] Test Date: 2019-07-31 Pat Name: HAWK CASE Department: Room: 01[facility] Gender: Female Densitometrist: ab : 1955 Requested By: Arcenio Oliva Order Number: [id number] Reading MD: Alexys Gamino Measurements Intervals [place] Rate: 59 P: 72 WI: 195 QRS: -1 QRSD: 85 T: 4 QT: 391 QTc: 389 Interpretive Statements SINUS BRADYCARDIA WITH MARKED SINUS ARRHYTHMIA VERSUS PACs PROBABLE INFERIOR MYOCARDIAL INFARCTION, PROBABLY OLD NONSPECIFIC ST-T ABNORMALITIES MANIFESTED BY EARLY REPOLARIZATION COMPARED TO THE LAST 2 TRACINGS IN THE SYSTEM, THEY REVEALED A RIGHT VENTRICULAR CONDUCTION DELAY OTHERWISE NO REMARKABLE CHANGES Electronically Signed on 08-01-2019 21:27:16 EST by Alexys Gamino
== END 2019-07-31 10:09 | disposition home or self-care (01) | DRG 282 ==
LOC: M ED 18:56 → M ED INP 07-30 01:34
PROVIDERS: ADMIT Internal Medicine; ATTEND Internal Medicine
DX: I21.4 Non-ST elevation (NSTEMI) myocardial infarction (principal); Z79.899 Other long term (current) drug therapy; Z79.82 Long term (current) use of aspirin; Z91.041 Radiographic dye allergy status; Z88.8 Allergy status to other drugs, medicaments and biological substances; E03.9 Hypothyroidism, unspecified; E78.5 Hyperlipidemia, unspecified; I10 Essential (primary) hypertension; G47.00 Insomnia, unspecified; I25.10 Atherosclerotic heart disease of native coronary artery without angina pectoris; F32.9 Major depressive disorder, single episode, unspecified; Z86.718 Personal history of other venous thrombosis and embolism; M19.90 Unspecified osteoarthritis, unspecified site; F41.9 Anxiety disorder, unspecified; M54.5 Low back pain; I73.00 Raynaud's syndrome without gangrene

== ENCOUNTER → 2019-09-18 | Outpatient (CLI) | payer OTHER, MEDICAID ==
[~2019-09-18] MED LIST changes: +AMOX875T PO; +CRES20TA2 PO; +DOCU100C16 PO; +HYDR25TAB PO; -LAMO100T; +LAMO100T3; +LAMO200T3 PO; +LISI-1046 PO; +LORA-674 PO; +MODA100T13 PO; +OXYC10TA3 PO; +SYNT100T PO
--- NOTE | 2019-10-03 06:23 | ECWPNPC ---
PATIENT NAME: HAWK CASE : 1955 GENDER: FEMALE VISIT DATE: 09/18/2019 DISCHARGE DATE: 09/18/19 1420 VISIT LOCKED DATE TIME: PHYSICIAN: GERMAN SLAUGHTER RESOURCE: GERMAN SLAUGHTER REASON FOR APPOINTMENT 1. W/C NECK HISTORY OF PRESENT ILLNESS HISTORY OF PRESENT ILLNESS: PAIN THE PATIENT DESCRIBES THE PAIN... HERE FOR F/U OF CHRONIC NECK PAIN WITH HISTORY OF CHRONIC NECK PAIN. PATIENT DESCRIBES THE PAIN ACHING, TENDER, THROBBING AND SORE WITH THE PAIN COMING AND GOING AND CURRENT PAIN SCORE OF 3/10. 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 PATIENT REPORTS HAVING A SURGERY IN 1996. MRS. CASE STATES THAT SHE HAS TRIED PHYSICAL THERAPY IN THE PAST BUT IT DID NOT AID IN PAIN RELIEF OR FUNCTIONALITY AND MOBILITY. MRS. CASE DOES USE A TENS MACHINE AND STATES THAT IT KEEPS HER MOBILE. FALL RISK SCREENING: SCREENING :NO FALLS REPORTED IN THE LAST YEAR CURRENT MEDICATIONS TAKING VITAMIN D-3 2000 CAPSULE 1 CAPSULE ORALLY DAILY TAKING CARAFATE 1 GM TABLET 2TABLET ON AN EMPTY STOMACH ORALLY ONCE DAILY TAKING ASPIR-81 81 MG TABLET DELAYED RELEASE 1 TABLET ORALLY ONCE A DAY TAKING KLONOPIN 1 MG TABLET 1 TABLET ORALLY QHS TAKING LORATADINE 10 MG TABLET 1 TABLET ORALLY ONCE A DAY TAKING LEVOTHYROXINE SODIUM 100 MCG TABLET 1 TABLET EVERY MORNING ON AN EMPTY STOMACH ORALLY ONCE A DAY TAKING NEXIUM 40 MG CAPSULE DELAYED RELEASE 1 CAPSULE ORALLY TWICE A DAY TAKING HYDROCHLOROTHIAZIDE 25 25 MG SOFT GEL 1 TABLETS ORAL DAILY TAKING CRESTOR 20 MG TABLET 1 TABLET ORALLY ONCE A DAY TAKING LAMOTRIGINE 200 MG TABLET 1 TABLET ORALLY ONCE DAILY TAKING LISINOPRIL 10 MG TABLET 1 TABLET ORALLY ONCE A DAY TAKING DOCUSATE SODIUM 100 MG CAPSULE 2 ORALLY 3X DAILY, NOTES: TAKES NEEDED TAKING MODAFINIL 200 MG TABLET 1 TABLET IN THE MORNING ORALLY ONCE A DAY TAKING MIRALAX - PACKET 1 PACKET MIXED WITH 8 OUNCES OF FLUID ORALLY ONCE A DAY TAKING SOMA 350 MG TABLET 1 TABLET ORALLY Q8H PRN MDD1 TAKING ROPINIROLE HCL 0.25 MG TABLET 1 TO 2 TAB ORALLY 2 HRS PRE BEDTIME TAKING LIDOCAINE HCL 2 % CREAM DIRECTED EXTERNALLY APPLY TO LEFT HIP DIRECTED Q8H PRN TAKING PERCOCET 10-325 MG TABLET 1 TABLET NEEDED ORALLY Q4-6H PRN MDD5 TAKING PLAVIX 75 MG TABLET 1 TABLET ORALLY ONCE A DAY TAKING ZETIA 10 MG TABLET 1 TABLET ORALLY ONCE A DAY MEDICATION LIST REVIEWED AND RECONCILED WITH THE PATIENT PAST MEDICAL HISTORY PALPITATIONS, HEART HX BLOOD CLOTS, LEFT LEG HX ANEMIA ARTHRITIS, OA BACK PAIN HX BONE SPURS INSOMNIA MOOD SWINGS XEROPTHALMIA EARLY SATIETY COLONIC POLYPS RECURRENT UTIS SYSTEMIC LUPUS ERYTHEMATOUS ESOPHAGEAL REFLUX HYPOTHYROIDISM HYPERTENSION HYPERCHOLESTEROLEMIA RAYNAUDS SYNDROME NECK PAIN DEPRESSION OSTEOARTHRITIS MYOCARDIAL INFARCTION 2013, 2018 MYOFASCIAL PAIN SYNDROME LOW BACK PAIN LUMBAR RADICULOPATHY FRACTURED HAND JOINT ALLERGIES PROPRANOLOL HCL: NAUSEA/VOMITING - ALLERGY CAPTOPRIL: NAUSEA/VOMITING - ALLERGY MACROBID: N/DIARRHEA - ALLERGY CIPRO: NAUSEA/VOMITING/DIARRHEA - ALLERGY MS CONTIN: N/V UNABLE TO VOID ANTIDEPRESSANTS: FLU LIKE SYMPTOMS /NAUSEA NUCYNTA ER: NIGHTMARES, INCREASED DEPRESSION - SIDE EFFECTS SURGICAL HISTORY NECK SURGERY BONE SPUR 1996 TUBAL LIGATION 1981 ENDOMETRIAL BIOPSY 2010 CARDIAC CATHETERIZATION 09/26 CARDIAC STENT 09/26 SURGERY TO REPAIR RIGHT FEMORAL ARTERY 09/26 CARDIAC STENT 10/27 CARDIAC STENT 03/26 COLONOSCOPY 2010 FAMILY HISTORY FATHER: DIAGNOSED WITH DIABETES, HYPERTENSION, OTHER MALIGNANT NEOPLASM OF UNSPECIFIED SITE MOTHER: DIABETES, HYPERTENSION, OTHER MALIGNANT NEOPLASM OF UNSPECIFIED SITE PATERNAL GRAND MOTHER: OTHER MALIGNANT NEOPLASM OF UNSPECIFIED SITE MATERNAL GRAND MOTHER: OTHER MALIGNANT NEOPLASM OF UNSPECIFIED SITE 7 BROTHER(S) , 3 SISTER(S) . 1 SON(S) , 3 DAUGHTER(S) . BROTHER CAD,IMMDM,CANCER BROTHER HEART DIEASE IDDM,BROTHER HEART DIEASE, IDDM, SISTER FROM LIVER FAILURE, SISTER HEART DIEASE, HTN\NDAUGHTER DIESED FROM DRUG OVERDOSE METPROBAMATE. ONE DAUGHTER LUPUS, BACK PROBLEMS. SOCIAL HISTORY GENERAL: TOBACCO USE ARE YOU A:NONSMOKER OTHERS AT HOME: CHILD. EDUCATION LEVEL OF EDUCATION:COLLEGE A COUPLE OF SEMESTERS DIET: REGULAR. LANGUAGE LANGUAGES SPOKEN:MACANESE DOMESTIC VIOLENCE DO YOU FEEL SAFE IN YOUR ENVIRONMENT?YES RECREATIONAL DRUG USE DRUG USE?NO EXERCISE: NONE. 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 NEEDED?NO PAIN CLINIC PFS, CLERGY, PUBLIC HEALTH REFERRALS PFS REFERRAL NEEDED?NO CLERGY REFERRAL NEEDED?NO PUBLIC HEALTH REFERRAL NEEDED?NO WAS THE PROVIDER NOTIFIED OF ANY PERTINENT INFO?YES HAS THE PATIENT BEEN EDUCATED REGARDING HIS/HER PLAN OF CARE?YES HAS THE PATIENT BEEN EDUCATED REGARDING PAIN, THE RISK FOR PAIN, THE IMPORTANCE OF EFFECTIVE PAIN MANAGEMENT, AND THE PAIN ASSESSMENT PROCESS?YES LATEX QUESTIONNAIRE LATEX ALLERGY : HAVE YOU EVER DEVELOPED ANY TYPE OF REACTION AFTER HANDLING LATEX PRODUCTS SUCH RUBBER GLOVES, CONDOMS, DIAPHRAGMS, BALLOONS, SOCKS, OR UNDERWEAR?YES - PLEASE INDICATE :RUBBER GLOVES LATEX ALLERGY : HAVE YOU EVER DEVELOPED ANY TYPE OF REACTION DURING OR AFTER DENTAL APPOINTMENT, VAGINAL/RECTAL EXAMINATION, SURGICAL PROCEDURE, OR ANY OTHER EXPOSURE?NO LATEX RISK : HAVE YOU EVER HAD ANY DIFFICULTY BREATHING OR HIVES AFTER EATING OR HANDLING ANY FRUITS, OR VEGETABLES; SUCH KIWI, BANANAS, STONE FRUITS, OR CHESTNUTSNO LATEX RISK : DO YOU HAVE A PREVIOUS PERSONAL HISTORY OF MORE THAN NINE SURGERIES, SPINA BIFIDA, OR REPEATED CATHERIZATIONS? NO LATEX RISK : ARE YOU FREQUENTLY EXPOSED TO LATEX PRODUCTS IN YOUR OCCUPATION?NO DATE ASKED : 09/18/2019 CAFFEINE CAFFEINE USE?YES 1 CUP COFFEE/ DAY ADVANCE DIRECTIVE ADVANCE DIRECTIVE DISCUSSED WITH PATIENT:YES PATIENT STATES SHE HAS THE INFORMATION AT HOME, DECLINES ASSISTANCE AT THIS TIME IN FILLING IT OUT. [facility] [id number] PENTECOSTALISM MARITAL STATUS: .. ALCOHOL SCREENING DID YOU HAVE A DRINK CONTAINING ALCOHOL IN THE PAST YEAR?NO POINTS0 INTERPRETATIONNEGATIVE OCCUPATION: DISABLED. REVIEWED WITH PT 04/22/18 1345 LASREVIEWED WITH PT 06/28/18 1433 BVREVIEWED WITH PT 07/15/18 1418 BVREVIEWED WITH PATIENT 08/26/18 1420 JSREVIEWED WITH PT 12/20/18 1143 BVREVIEWED WITH PT 04/18/19 1500 LASREVIEWED WITH PATIENT 07/04/19 1413 JSREVIEWED WITH PATIENT 07/19/19 1434 JSREVIEWED INFORMATION WITH PATIENT 120 DS. HOSPITALIZATION/MAJOR DIAGNOSTIC PROCEDURE SURGERY RELATED MYOCARDIAL INFARCTION 09/26, 08/01 REVIEW OF SYSTEMS REVIEWED BY: PROVIDER: GERMAN BUTTS . CONSTITUTIONAL: ANY CHANGE IN YOUR MEDICAL CONDITION? YES, HEART ATTACK 07-31-19 . CHILLS NO . FEVER NO . INFECTION: DO YOU HAVE NEW INFECTIONS? NO . DO YOU HAVE HISTORY OF MRSA? NO . MUSCULOSKELETAL: ANY NEW PATTERNS OF PAIN OR NUMBNESS? YES, NECK PAIN RADIATING DOWN BILATERAL ARMS . GASTROENTEROLOGY: ANY NEW CHANGE IN BOWEL CONTROL? NO . GENITOURINARY: ANY NEW CHANGE IN BLADDER CONTROL? NO . IS THERE A CHANCE YOU COULD BE ? NO . HEMATOLOGY/LYMPH: DO YOU TAKE ANY BLOOD THINNERS? (FOR EXAMPLE- COUMADIN, PLAVIX, AGGRENOX, PLATEL, PRADAXA, OR XARELTO) YES, PLAVIX . WHEN WAS YOUR LAST DOSE? DATE: TIME: . NEUROLOGY: HAVE YOU FALLEN IN THE PAST 12 MONTHS? NO . ANY NEW EXTREMITY NUMBNESS OR WEAKNESS? YES . CARDIOLOGY: DO YOU HAVE A PACEMAKER OR DEFIBRILLATOR? NO . RESPIRATORY: HAVE YOU BEEN SICK IN THE PAST WEEK? NO . FEVER NO . FLU LIKE SYMPTOMS? NO . COUGH NO . INTEGUMENTARY: DO YOU HAVE ANY RASHES OR OPEN SORES? YES, OPEN SORES ON FACE, NO DRAINAGE . ALLERGIC/IMMUNO: ARE YOU ALLERGIC TO IV DYE? NO . ANY NEW ALLERGIES? NO . PSYCHIATRIC: DO YOU HAVE THOUGHTS OF HURTING YOURSELF OR SOMEONE ELSE? NO . ARE YOU ABUSED, NEGLECTED, OR IN AN UNSAFE ENVIRONMENT? NO . ENDOCRINOLOGY: ARE YOU DIABETIC? NO . OTHER: DO YOU NEED ANY PRESCRIPTIONS? NO . IF YES, PLEASE LIST: ____ . ANY NEW PROBLEMS WITH YOUR MEDICATIONS? NO . WHEN DID YOU LAST EAT? ____ . WHEN DID YOU LAST DRINK? ____ . WHAT DID YOU LAST DRINK? ____ . NAME OF PERSON DRIVING YOU HOME? ____ . DO YOU HAVE ANY OTHER QUESTIONS OR CONCERNS PAIN STARTS IN NECK, RADIATING DOWN BOTH ARMS . VITAL SIGNS WT 173.0 LBS, HT 62 IN, BMI 31.64 INDEX, BP 143/65 MM HG, HR 60 /MIN, RR 18 /MIN, TEMP 96.4 F, OXYGEN SAT % 98%, SAFE IN ENV? (Y/N) Y, NA INITIALS AW 1334, REVIEWED BY: CHEN. EXAMINATION GENERAL EXAMINATION: LUNGS:LUNG SOUNDS ARE CLEAR. HEART:HEART RATE REGULAR. MUSCULOSKELETAL:MUSCLE STRENGTH TESTING :WEAK OVER LEFT ARM. ASSESSMENTS CERVICAL DISC DISORDER AT C4-C5 LEVEL WITH RADICULOPATHY - M50.121 (PRIMARY) TREATMENT CERVICAL DISC DISORDER AT C4-C5 LEVEL WITH RADICULOPATHY NOTES: CONTINUE USE OF TENS UNIT AND HOME STRETCHING EXCERSISES. PROCEDURES PN WORKMANS' COMP OPINION IN YOUR OPINION, WAS THE INCIDENT THAT THE PATIENT DESCRIBED THE COMPETENT MEDICAL CAUSE OF THIS INJURY/ILLNESS? YES ARE THE PATIENT'S COMPLAINTS CONSISTENT WITH HIS/HER HISTORY OF THE INJURY/ILLNESS? YES IS THE PATIENT'S HISTORY OF THE INJURY/ILLNESS CONSISTENT WITH YOUR OBJECTIVE FINDING? YES WHAT IS THE PERCENTAGE OF TEMPORARY IMPAIRMENT? MODERATE TO MARKED = 66.7% IS THE PATIENT WORKING? NO DOCTOR ON SITE: ALONZO ALCANTARA MD PROCEDURE CODES FA211 ESTABILISHED PATIENT [facility] CHARGE DISPOSITION & COMMUNICATION FOLLOW UP 2 MONTHS (REASON: W/C NECK) ELECTRONICALLY SIGNED BY BENJAMÍN MORALES ON 10/02/2019 AT 03:17 PM EST DISCLAIMER : THIS IS A VISIT SUMMARY EXTRACTED FROM THE [employer] CHART. IT IS NOT A COPY OF THE [employer] PROGRESS NOTE. OSMIN
== END ==
LOC: M PAIN 13:15
PROVIDERS: ATTEND Nurse Practitioner Family
DX: M50.121 Cervical disc disorder at C4-C5 level with radiculopathy (principal)

== ENCOUNTER → 2019-10-04 | Outpatient (CLI) | payer MEDICARE, MEDICAID ==
--- NOTE | 2019-10-05 05:28 | ECWPNPC ---
PATIENT NAME: HAWK CASE : 1955 GENDER: FEMALE VISIT DATE: 10/04/2019 DISCHARGE DATE: 10/04/19 1424 VISIT LOCKED DATE TIME: PHYSICIAN: GERMAN SLAUGHTER RESOURCE: GERMAN SLAUGHTER REASON FOR APPOINTMENT 1. NON COMP- BACK HISTORY OF PRESENT ILLNESS HISTORY OF PRESENT ILLNESS: HERE FOR F/U OF CHRONIC LOW BACK PAIN.PAIN IS WORSE LEFT HIP.DESCRIBES PAIN INTERMITTENT,TENDER AND SORE.RATING PAIN VAS 3/10.PROLONGED SITTING OR STANDING AGGREVATES PAIN.HISTORY OF MULTIPLE MEDICATION TRIALS OVER THE YEARS WITH INEFFECTIVENESS OR SIDE EFFECTS. USING OXYCODONE 10/325 Q4-6HRS PRN FOR SEVERE PAIN WHICH PATIENT FINDS SOMEWHAT HELPFUL.TAKING SOMA 350MG AT HS PRN FOR SEVERE PAIN.REPORTING AN INCREASE IN BILAT FOOT AND LEG CRAMPING.DISCUSSED MEDICATION AND TREATMENT OPTIONS. PAIN THE PATIENT DESCRIBES THE PAIN... FALL RISK SCREENING: SCREENING :NO FALLS REPORTED IN THE LAST YEAR CURRENT MEDICATIONS TAKING VITAMIN D-3 2000 CAPSULE 1 CAPSULE ORALLY DAILY TAKING CARAFATE 1 GM TABLET 2TABLET ON AN EMPTY STOMACH ORALLY ONCE DAILY TAKING ASPIR-81 81 MG TABLET DELAYED RELEASE 1 TABLET ORALLY ONCE A DAY TAKING KLONOPIN 1 MG TABLET 1 TABLET ORALLY QHS TAKING LORATADINE 10 MG TABLET 1 TABLET ORALLY ONCE A DAY TAKING LEVOTHYROXINE SODIUM 100 MCG TABLET 1 TABLET EVERY MORNING ON AN EMPTY STOMACH ORALLY ONCE A DAY TAKING NEXIUM 40 MG CAPSULE DELAYED RELEASE 1 CAPSULE ORALLY TWICE A DAY TAKING HYDROCHLOROTHIAZIDE 25 25 MG SOFT GEL 1 TABLETS ORAL DAILY TAKING CRESTOR 20 MG TABLET 1 TABLET ORALLY ONCE A DAY TAKING LAMOTRIGINE 200 MG TABLET 1 TABLET ORALLY ONCE DAILY TAKING LISINOPRIL 10 MG TABLET 1 TABLET ORALLY ONCE A DAY TAKING DOCUSATE SODIUM 100 MG CAPSULE 2 ORALLY 3X DAILY, NOTES: TAKES NEEDED TAKING MODAFINIL 200 MG TABLET 1 TABLET IN THE MORNING ORALLY ONCE A DAY TAKING MIRALAX - PACKET 1 PACKET MIXED WITH 8 OUNCES OF FLUID ORALLY ONCE A DAY TAKING ROPINIROLE HCL 0.25 MG TABLET 1 TO 2 TAB ORALLY 2 HRS PRE BEDTIME TAKING LIDOCAINE HCL 2 % CREAM DIRECTED EXTERNALLY APPLY TO LEFT HIP DIRECTED Q8H PRN TAKING PERCOCET 10-325 MG TABLET 1 TABLET NEEDED ORALLY Q4-6H PRN MDD5 TAKING PLAVIX 75 MG TABLET 1 TABLET ORALLY ONCE A DAY TAKING ZETIA 10 MG TABLET 1 TABLET ORALLY ONCE A DAY TAKING SOMA 350 MG TABLET 1 TABLET ORALLY Q8H MDD3 MEDICATION LIST REVIEWED AND RECONCILED WITH THE PATIENT PAST MEDICAL HISTORY PALPITATIONS, HEART HX BLOOD CLOTS, LEFT LEG HX ANEMIA ARTHRITIS, OA BACK PAIN HX BONE SPURS INSOMNIA MOOD SWINGS XEROPTHALMIA EARLY SATIETY COLONIC POLYPS RECURRENT UTIS SYSTEMIC LUPUS ERYTHEMATOUS ESOPHAGEAL REFLUX HYPOTHYROIDISM HYPERTENSION HYPERCHOLESTEROLEMIA RAYNAUDS SYNDROME NECK PAIN DEPRESSION OSTEOARTHRITIS MYOCARDIAL INFARCTION 2013, 2018 MYOFASCIAL PAIN SYNDROME LOW BACK PAIN LUMBAR RADICULOPATHY FRACTURED HAND JOINT ALLERGIES PROPRANOLOL HCL: NAUSEA/VOMITING - ALLERGY CAPTOPRIL: NAUSEA/VOMITING - ALLERGY MACROBID: N/DIARRHEA - ALLERGY CIPRO: NAUSEA/VOMITING/DIARRHEA - ALLERGY MS CONTIN: N/V UNABLE TO VOID ANTIDEPRESSANTS: FLU LIKE SYMPTOMS /NAUSEA NUCYNTA ER: NIGHTMARES, INCREASED DEPRESSION - SIDE EFFECTS SURGICAL HISTORY NECK SURGERY BONE SPUR 1996 TUBAL LIGATION 1981 ENDOMETRIAL BIOPSY 2010 CARDIAC CATHETERIZATION 09/26 CARDIAC STENT 09/26 SURGERY TO REPAIR RIGHT FEMORAL ARTERY 09/26 CARDIAC STENT 10/27 CARDIAC STENT 03/26 COLONOSCOPY 2010 CARDIAC CATH/STENT PLACEMENT 07/31/2019 FAMILY HISTORY FATHER: DIAGNOSED WITH DIABETES, HYPERTENSION, OTHER MALIGNANT NEOPLASM OF UNSPECIFIED SITE MOTHER: DIABETES, HYPERTENSION, OTHER MALIGNANT NEOPLASM OF UNSPECIFIED SITE PATERNAL GRAND MOTHER: OTHER MALIGNANT NEOPLASM OF UNSPECIFIED SITE MATERNAL GRAND MOTHER: OTHER MALIGNANT NEOPLASM OF UNSPECIFIED SITE 7 BROTHER(S) , 3 SISTER(S) . 1 SON(S) , 3 DAUGHTER(S) . BROTHER CAD,IMMDM,CANCER BROTHER HEART DIEASE IDDM,BROTHER HEART DIEASE, IDDM, SISTER FROM LIVER FAILURE, SISTER HEART DIEASE, HTN\NDAUGHTER DIESED FROM DRUG OVERDOSE METPROBAMATE. ONE DAUGHTER LUPUS, BACK PROBLEMS. SOCIAL HISTORY GENERAL: TOBACCO USE ARE YOU A:NONSMOKER OTHERS AT HOME: CHILD. EDUCATION LEVEL OF EDUCATION:COLLEGE A COUPLE OF SEMESTERS DIET: REGULAR. LANGUAGE LANGUAGES SPOKEN:BANGLADESHI DOMESTIC VIOLENCE DO YOU FEEL SAFE IN YOUR ENVIRONMENT?YES RECREATIONAL DRUG USE DRUG USE?NO EXERCISE: NONE. LEARNING BARRIERS / SPECIAL NEEDS BARRIERS TO LEARNING?NO HEARING IMPAIRED?NO VISION IMPAIRED?YES COGNITIVELY IMPAIRED?NO :CORRECTIVE LENSES READINESS TO LEARN?YES LEARNING PREFERENCES?YES :TAPES/VIDEOS, BOOKLETS, HANDOUTS LEARNING CAPABILITIES PRESENT?YES EMOTIONAL BARRIERS?NO SPECIAL DEVICES?YES :CANE BEVELER NEEDED?NO PAIN CLINIC PFS, CLERGY, PUBLIC HEALTH REFERRALS PFS REFERRAL NEEDED?NO CLERGY REFERRAL NEEDED?NO PUBLIC HEALTH REFERRAL NEEDED?NO WAS THE PROVIDER NOTIFIED OF ANY PERTINENT INFO?YES HAS THE PATIENT BEEN EDUCATED REGARDING HIS/HER PLAN OF CARE?YES HAS THE PATIENT BEEN EDUCATED REGARDING PAIN, THE RISK FOR PAIN, THE IMPORTANCE OF EFFECTIVE PAIN MANAGEMENT, AND THE PAIN ASSESSMENT PROCESS?YES LATEX QUESTIONNAIRE LATEX ALLERGY : HAVE YOU EVER DEVELOPED ANY TYPE OF REACTION AFTER HANDLING LATEX PRODUCTS SUCH RUBBER GLOVES, CONDOMS, DIAPHRAGMS, BALLOONS, SOCKS, OR UNDERWEAR?YES - PLEASE INDICATE :RUBBER GLOVES LATEX ALLERGY : HAVE YOU EVER DEVELOPED ANY TYPE OF REACTION DURING OR AFTER DENTAL APPOINTMENT, VAGINAL/RECTAL EXAMINATION, SURGICAL PROCEDURE, OR ANY OTHER EXPOSURE?NO LATEX RISK : HAVE YOU EVER HAD ANY DIFFICULTY BREATHING OR HIVES AFTER EATING OR HANDLING ANY FRUITS, OR VEGETABLES; SUCH KIWI, BANANAS, STONE FRUITS, OR CHESTNUTSNO LATEX RISK : DO YOU HAVE A PREVIOUS PERSONAL HISTORY OF MORE THAN NINE SURGERIES, SPINA BIFIDA, OR REPEATED CATHERIZATIONS? NO LATEX RISK : ARE YOU FREQUENTLY EXPOSED TO LATEX PRODUCTS IN YOUR OCCUPATION?NO DATE ASKED : 09/18/2019 CAFFEINE CAFFEINE USE?YES 1 CUP COFFEE/ DAY ADVANCE DIRECTIVE ADVANCE DIRECTIVE DISCUSSED WITH PATIENT:YES 10/04/2019 PATIENT STATES SHE HAS THE INFORMATION AT HOME, DECLINES ASSISTANCE AT THIS TIME IN FILLING IT OUT. JS MANDAEN [id number] MORMONISM MARITAL STATUS: .. ALCOHOL SCREENING DID YOU HAVE A DRINK CONTAINING ALCOHOL IN THE PAST YEAR?NO POINTS0 INTERPRETATIONNEGATIVE OCCUPATION: DISABLED. REVIEWED WITH PT 04/22/18 1345 LASREVIEWED WITH PT 06/28/18 1433 BVREVIEWED WITH PT 07/15/18 1418 BVREVIEWED WITH PATIENT 08/26/18 1420 JSREVIEWED WITH PT 12/20/18 1143 BVREVIEWED WITH PT 04/18/19 1500 LASREVIEWED WITH PATIENT 07/04/19 1413 JSREVIEWED WITH PATIENT 07/19/19 1434 JSREVIEWED INFORMATION WITH PATIENT 09-18-19 DSREVIEWED WITH PATIENT 10/04/2019 1355 JS. HOSPITALIZATION/MAJOR DIAGNOSTIC PROCEDURE SURGERY RELATED MYOCARDIAL INFARCTION 09/26, 08/01 REVIEW OF SYSTEMS REVIEWED BY: PROVIDER: GERMAN BUTTS . CONSTITUTIONAL: ANY CHANGE IN YOUR MEDICAL CONDITION? YES, STATES ULTRASOUND OF RIGHT ARM SHOWED A BUILD OF FLUID IN HER RIGHT WRIST - HAS NOT HAD FOLLOW UP RAGARDING THIS YET . CHILLS NO . FEVER NO . INFECTION: DO YOU HAVE NEW INFECTIONS? NO . DO YOU HAVE HISTORY OF MRSA? NO . MUSCULOSKELETAL: ANY NEW PATTERNS OF PAIN OR NUMBNESS? YES, STATES AN INCREASE IN BILATERAL ARM PAIN AND RIGHT WRIST PAIN . GASTROENTEROLOGY: ANY NEW CHANGE IN BOWEL CONTROL? NO . GENITOURINARY: ANY NEW CHANGE IN BLADDER CONTROL? NO . IS THERE A CHANCE YOU COULD BE ? NO . HEMATOLOGY/LYMPH: DO YOU TAKE ANY BLOOD THINNERS? (FOR EXAMPLE- COUMADIN, PLAVIX, AGGRENOX, PLATEL, PRADAXA, OR XARELTO) YES, PLAVIX . WHEN WAS YOUR LAST DOSE? DATE: 10/04/2019TIME: 0930 . NEUROLOGY: HAVE YOU FALLEN IN THE PAST 12 MONTHS? NO . ANY NEW EXTREMITY NUMBNESS OR WEAKNESS? YES, STATES RIGHT HAND NUMBNESS/WEAKNESS . CARDIOLOGY: DO YOU HAVE A PACEMAKER OR DEFIBRILLATOR? NO . RESPIRATORY: HAVE YOU BEEN SICK IN THE PAST WEEK? NO . FEVER NO . FLU LIKE SYMPTOMS? NO . COUGH NO . INTEGUMENTARY: DO YOU HAVE ANY RASHES OR OPEN SORES? YES, LUPUS RASH . ALLERGIC/IMMUNO: ARE YOU ALLERGIC TO IV DYE? NO . ANY NEW ALLERGIES? NO . PSYCHIATRIC: DO YOU HAVE THOUGHTS OF HURTING YOURSELF OR SOMEONE ELSE? NO . ARE YOU ABUSED, NEGLECTED, OR IN AN UNSAFE ENVIRONMENT? NO . ENDOCRINOLOGY: ARE YOU DIABETIC? NO . OTHER: DO YOU NEED ANY PRESCRIPTIONS? YES . IF YES, PLEASE LIST: ____SOMA, OXYCODONE . ANY NEW PROBLEMS WITH YOUR MEDICATIONS? YES, PLAVIX - STATES SINCE BEING PUT BACK ON HER BLOOD THINNER SHE'S HAD STOMACH UPSET TO THE POINT OF FEELING LIKE SHE IS GOING TO THROW UP . WHEN DID YOU LAST EAT? ____ . WHEN DID YOU LAST DRINK? ____ . WHAT DID YOU LAST DRINK? ____ . NAME OF PERSON DRIVING YOU HOME? ____ . DO YOU HAVE ANY OTHER QUESTIONS OR CONCERNS NO . VITAL SIGNS WT 172.4 LBS, HT 62 IN, BMI 31.53 INDEX, BP 133/61 MM HG, HR 62 /MIN, RR 16 /MIN, TEMP 96.8 F, OXYGEN SAT % 98%, SAFE IN ENV? (Y/N) YES, REVIEWED BY: DAVID. EXAMINATION GENERAL EXAMINATION: GENERAL AWAKE,ALERT ,PLEASANT . PSYCH AFFECT NORMAL . LUNGS: LUNG CATES ARE CLEAR TO AUSCULTATION BILATERALLY. GOOD MOVEMENT OF AIR . HEART: S1, S2 IN A REGULAR RATE AND RHYTHM. NO SIGNIFICANT MURMURS, RUBS OR GALLOPS NOTED . 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 (PRIMARY) TREATMENT LUMBAGO WITH SCIATICA, LEFT SIDE REFILL PERCOCET TABLET, 10-325 MG, 1 TABLET NEEDED, ORALLY, Q4-6H PRN MDD5, 30 DAYS, 150, REFILLS 0 REFILL SOMA TABLET, 350 MG, 1 TABLET, ORALLY, Q8H MDD3, 10 DAY(S), 30, REFILLS 0 NOTES: ISTOP REGISTRY REVIEWED AND DEMONSTRATES COMPLLIANCE. BRINGS IN MEDICATIONS WHICH IS APPROPRIATE FOR WHAT WAS DISPENSED. RECENT URINE TOXICOLOGY REVIEWED. NO UNAUTHORIZED MEDICATIONS. NO ILLICIT SUBSTANCES AND PRESCRIBED MEDICATIONS WERE PRESENT. . PROCEDURE CODES FA211 ESTABILISHED PATIENT [facility] CHARGE DISPOSITION & COMMUNICATION FOLLOW UP 3 MONTHS (REASON: LBP/MED MGMNT) ELECTRONICALLY SIGNED BY BENJAMÍN MORALES ON 10/04/2019 AT 03:02 PM EST DISCLAIMER : THIS IS A VISIT SUMMARY EXTRACTED FROM THE [employer] CHART. IT IS NOT A COPY OF THE [employer] PROGRESS NOTE. OSMIN
== END ==
LOC: M PAIN 13:30
PROVIDERS: ATTEND Nurse Practitioner Family
DX: M54.42 Lumbago with sciatica, left side (principal); G89.29 Other chronic pain; G47.00 Insomnia, unspecified; E03.9 Hypothyroidism, unspecified; I10 Essential (primary) hypertension; E78.00 Pure hypercholesterolemia, unspecified; Z86.59 Personal history of other mental and behavioral disorders; I25.2 Old myocardial infarction; Z88.1 Allergy status to other antibiotic agents; Z88.5 Allergy status to narcotic agent; Z88.8 Allergy status to other drugs, medicaments and biological substances; Z79.01 Long term (current) use of anticoagulants; Z79.82 Long term (current) use of aspirin; Z79.899 Other long term (current) drug therapy

== ENCOUNTER → 2019-11-09 | Outpatient (CLI) | payer MEDICARE, MEDICAID ==
[2019-11-09 15:56] LABS: ALBUMIN 4.3 GM/DL (3.2-5.2); BILIRUBIN,TOTAL 0.3 MG/DL (0.2-1.0); CALCIUM LEVEL 10.5 MG/DL (8.8-10.2); CREATININE FOR GFR 1.1 MG/DL (0.55-1.30); GLOMERULAR FILTRATION RATE 53.1 (>45); MAGNESIUM LEVEL 2.2 MG/DL (1.8-2.4); POTASSIUM SERUM 4.1 MEQ/L (3.5-5.1); TOTAL PROTEIN 7.6 GM/DL (6.4-8.2)
[2019-11-09 16:06] LABS: PTH INTACT 169.4 PG/ML (18.5-88.0)
== END ==
LOC: M LAB 14:37
PROVIDERS: ATTEND Internal Medicine Rheumatology
DX: E83.52 Hypercalcemia (principal)

== ENCOUNTER → 2019-11-27 | Outpatient (CLI) | payer OTHER, MEDICAID, MEDICARE ==
--- NOTE | 2019-12-12 01:56 | ECWPNPC ---
PATIENT NAME: HAWK CASE : 1955 GENDER: FEMALE VISIT DATE: 11/27/2019 DISCHARGE DATE: 11/27/19 1346 VISIT LOCKED DATE TIME: PHYSICIAN: GERMAN SLAUGHTER RESOURCE: GERMAN SLAUGHTER REASON FOR APPOINTMENT 1. W/C NECK HISTORY OF PRESENT ILLNESS HISTORY OF PRESENT ILLNESS: PAIN THE PATIENT DESCRIBES THE PAIN... HERE FOR F/U OF CHRONIC NECK PAIN.N PATIENT DESCRIBES THE PAIN ACHING, TENDER, THROBBING AND SORE WITH THE PAIN COMING AND GOING AND CURRENT PAIN SCORE OF 3/10. 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 PATIENT REPORTS HAVING A SURGERY IN 1996. MRS. CASE STATES THAT SHE HAS TRIED PHYSICAL THERAPY IN THE PAST BUT IT DID NOT AID IN PAIN RELIEF OR FUNCTIONALITY AND MOBILITY. MRS. CASE DOES USE A TENS MACHINE AND STATES THAT IT KEEPS HER MOBILE. FALL RISK SCREENING: SCREENING :NO FALLS REPORTED IN THE LAST YEAR CURRENT MEDICATIONS TAKING CARAFATE 1 GM TABLET 2TABLET ON AN EMPTY STOMACH ORALLY ONCE DAILY TAKING ASPIR-81 81 MG TABLET DELAYED RELEASE 1 TABLET ORALLY ONCE A DAY TAKING KLONOPIN 1 MG TABLET 1 TABLET ORALLY QHS TAKING LORATADINE 10 MG TABLET 1 TABLET ORALLY ONCE A DAY TAKING LEVOTHYROXINE SODIUM 100 MCG TABLET 1 TABLET EVERY MORNING ON AN EMPTY STOMACH ORALLY ONCE A DAY TAKING NEXIUM 40 MG CAPSULE DELAYED RELEASE 1 CAPSULE ORALLY TWICE A DAY TAKING HYDROCHLOROTHIAZIDE 25 25 MG SOFT GEL 1 TABLETS ORAL DAILY TAKING CRESTOR 20 MG TABLET 1 TABLET ORALLY ONCE A DAY TAKING LAMOTRIGINE 200 MG TABLET 1 TABLET ORALLY ONCE DAILY TAKING LISINOPRIL 10 MG TABLET 1 TABLET ORALLY ONCE A DAY TAKING DOCUSATE SODIUM 100 MG CAPSULE 2 ORALLY 3X DAILY, NOTES: TAKES NEEDED TAKING MODAFINIL 200 MG TABLET 1 TABLET IN THE MORNING ORALLY ONCE A DAY TAKING MIRALAX - PACKET 1 PACKET MIXED WITH 8 OUNCES OF FLUID ORALLY ONCE A DAY TAKING PLAVIX 75 MG TABLET 1 TABLET ORALLY ONCE A DAY TAKING ZETIA 10 MG TABLET 1 TABLET ORALLY ONCE A DAY TAKING PERCOCET 10-325 MG TABLET 1 TABLET NEEDED ORALLY Q4-6H PRN MDD5 TAKING SOMA 350 MG TABLET 1 TABLET ORALLY Q8H MDD3 NOT-TAKING VITAMIN D-3 2000 CAPSULE 1 CAPSULE ORALLY DAILY NOT-TAKING ROPINIROLE HCL 0.25 MG TABLET 1 TO 2 TAB ORALLY 2 HRS PRE BEDTIME NOT-TAKING LIDOCAINE HCL 2 % CREAM DIRECTED EXTERNALLY APPLY TO LEFT HIP DIRECTED Q8H PRN MEDICATION LIST REVIEWED AND RECONCILED WITH THE PATIENT PAST MEDICAL HISTORY PALPITATIONS, HEART HX BLOOD CLOTS, LEFT LEG HX ANEMIA ARTHRITIS, OA BACK PAIN HX BONE SPURS INSOMNIA MOOD SWINGS XEROPTHALMIA EARLY SATIETY COLONIC POLYPS RECURRENT UTIS SYSTEMIC LUPUS ERYTHEMATOUS ESOPHAGEAL REFLUX HYPOTHYROIDISM HYPERTENSION HYPERCHOLESTEROLEMIA RAYNAUDS SYNDROME NECK PAIN DEPRESSION OSTEOARTHRITIS MYOCARDIAL INFARCTION 2013, 2018 MYOFASCIAL PAIN SYNDROME LOW BACK PAIN LUMBAR RADICULOPATHY FRACTURED HAND JOINT HYPERCALCEMIA HYPONATREMIA ALLERGIES PROPRANOLOL HCL: NAUSEA/VOMITING - ALLERGY CAPTOPRIL: NAUSEA/VOMITING - ALLERGY MACROBID: N/DIARRHEA - ALLERGY CIPRO: NAUSEA/VOMITING/DIARRHEA - ALLERGY MS CONTIN: N/V UNABLE TO VOID ANTIDEPRESSANTS: FLU LIKE SYMPTOMS /NAUSEA NUCYNTA ER: NIGHTMARES, INCREASED DEPRESSION - SIDE EFFECTS SURGICAL HISTORY NECK SURGERY BONE SPUR 1996 TUBAL LIGATION 1981 ENDOMETRIAL BIOPSY 2010 CARDIAC CATHETERIZATION 09/26 CARDIAC STENT 09/26 SURGERY TO REPAIR RIGHT FEMORAL ARTERY 09/26 CARDIAC STENT 10/27 CARDIAC STENT 03/26 COLONOSCOPY 2010 CARDIAC CATH/STENT PLACEMENT 07/31/2019 FAMILY HISTORY FATHER: DIAGNOSED WITH HYPERTENSION, OTHER MALIGNANT NEOPLASM OF UNSPECIFIED SITE, DIABETES MOTHER: DIABETES, HYPERTENSION, OTHER MALIGNANT NEOPLASM OF UNSPECIFIED SITE PATERNAL GRAND MOTHER: OTHER MALIGNANT NEOPLASM OF UNSPECIFIED SITE MATERNAL GRAND MOTHER: OTHER MALIGNANT NEOPLASM OF UNSPECIFIED SITE 7 BROTHER(S) , 3 SISTER(S) . 1 SON(S) , 3 DAUGHTER(S) . BROTHER CAD,IMMDM,CANCER BROTHER HEART DIEASE IDDM,BROTHER HEART DIEASE, IDDM, SISTER FROM LIVER FAILURE, SISTER HEART DIEASE, HTN\NDAUGHTER FROM DRUG OVERDOSE METPROBAMATE. ONE DAUGHTER LUPUS, BACK PROBLEMS, SPINAL STENOSIS AND SPINAL CYSTS. SOCIAL HISTORY GENERAL: TOBACCO USE ARE YOU A:NONSMOKER OTHERS AT HOME: CHILD. EDUCATION LEVEL OF EDUCATION:COLLEGE A COUPLE OF SEMESTERS DIET: REGULAR. LANGUAGE LANGUAGES SPOKEN:SAUDI ARABIAN DOMESTIC VIOLENCE DO YOU FEEL SAFE IN YOUR ENVIRONMENT?YES RECREATIONAL DRUG USE DRUG USE?NO EXERCISE: NONE. LEARNING BARRIERS / SPECIAL NEEDS BARRIERS TO LEARNING?NO HEARING IMPAIRED?NO VISION IMPAIRED?YES COGNITIVELY IMPAIRED?NO :CORRECTIVE LENSES READINESS TO LEARN?YES LEARNING PREFERENCES?YES :TAPES/VIDEOS, BOOKLETS, HANDOUTS LEARNING CAPABILITIES PRESENT?YES EMOTIONAL BARRIERS?NO SPECIAL DEVICES?YES :CANE SALESPERSON FASHION ACCESSORIES NEEDED?NO PAIN CLINIC PFS, CLERGY, PUBLIC HEALTH REFERRALS PFS REFERRAL NEEDED?NO CLERGY REFERRAL NEEDED?NO PUBLIC HEALTH REFERRAL NEEDED?NO WAS THE PROVIDER NOTIFIED OF ANY PERTINENT INFO?YES HAS THE PATIENT BEEN EDUCATED REGARDING HIS/HER PLAN OF CARE?YES HAS THE PATIENT BEEN EDUCATED REGARDING PAIN, THE RISK FOR PAIN, THE IMPORTANCE OF EFFECTIVE PAIN MANAGEMENT, AND THE PAIN ASSESSMENT PROCESS?YES LATEX QUESTIONNAIRE LATEX ALLERGY : HAVE YOU EVER DEVELOPED ANY TYPE OF REACTION AFTER HANDLING LATEX PRODUCTS SUCH RUBBER GLOVES, CONDOMS, DIAPHRAGMS, BALLOONS, SOCKS, OR UNDERWEAR?YES - PLEASE INDICATE :RUBBER GLOVES LATEX ALLERGY : HAVE YOU EVER DEVELOPED ANY TYPE OF REACTION DURING OR AFTER DENTAL APPOINTMENT, VAGINAL/RECTAL EXAMINATION, SURGICAL PROCEDURE, OR ANY OTHER EXPOSURE?NO LATEX RISK : HAVE YOU EVER HAD ANY DIFFICULTY BREATHING OR HIVES AFTER EATING OR HANDLING ANY FRUITS, OR VEGETABLES; SUCH KIWI, BANANAS, STONE FRUITS, OR CHESTNUTSNO LATEX RISK : DO YOU HAVE A PREVIOUS PERSONAL HISTORY OF MORE THAN NINE SURGERIES, SPINA BIFIDA, OR REPEATED CATHERIZATIONS? NO LATEX RISK : ARE YOU FREQUENTLY EXPOSED TO LATEX PRODUCTS IN YOUR OCCUPATION?NO DATE ASKED : 09/18/2019 CAFFEINE CAFFEINE USE?YES 1 CUP COFFEE/ DAY ADVANCE DIRECTIVE ADVANCE DIRECTIVE DISCUSSED WITH PATIENT:YES 11/27/2019 PATIENT STATES SHE HAS THE INFORMATION AT HOME, DECLINES ASSISTANCE AT THIS TIME IN FILLING IT OUT. MU-ISM [id number] LATTER-DAY MARITAL STATUS: .. ALCOHOL SCREENING DID YOU HAVE A DRINK CONTAINING ALCOHOL IN THE PAST YEAR?NO POINTS0 INTERPRETATIONNEGATIVE OCCUPATION: DISABLED. HOSPITALIZATION/MAJOR DIAGNOSTIC PROCEDURE SURGERY RELATED MYOCARDIAL INFARCTION 09/26, 08/01 REVIEW OF SYSTEMS REVIEWED BY: PROVIDER: GERMAN BUTTS . CONSTITUTIONAL: ANY CHANGE IN YOUR MEDICAL CONDITION? YES, STATES HYPERCALCEMIA AND HYPONATREMIA - DOCTOR TO INVESTIGATE FURTHER . CHILLS NO . FEVER NO . INFECTION: DO YOU HAVE NEW INFECTIONS? NO . DO YOU HAVE HISTORY OF MRSA? NO . MUSCULOSKELETAL: ANY NEW PATTERNS OF PAIN OR NUMBNESS? NO . GASTROENTEROLOGY: ANY NEW CHANGE IN BOWEL CONTROL? NO . GENITOURINARY: ANY NEW CHANGE IN BLADDER CONTROL? YES, STATES URINE HAS AWFUL SMELL RECENTLY AND HAS URINARY URGENCY AND FREQUENCY, HASN'T NOTICED ANY BLOOD IN THE URINE . IS THERE A CHANCE YOU COULD BE ? NO . HEMATOLOGY/LYMPH: DO YOU TAKE ANY BLOOD THINNERS? (FOR EXAMPLE- COUMADIN, PLAVIX, AGGRENOX, PLATEL, PRADAXA, OR XARELTO) YES, PLAVIX . WHEN WAS YOUR LAST DOSE? DATE: 11/27/2019TIME: 0900 . NEUROLOGY: HAVE YOU FALLEN IN THE PAST 12 MONTHS? NO . ANY NEW EXTREMITY NUMBNESS OR WEAKNESS? NO . CARDIOLOGY: DO YOU HAVE A PACEMAKER OR DEFIBRILLATOR? NO . RESPIRATORY: HAVE YOU BEEN SICK IN THE PAST WEEK? NO . FEVER NO . FLU LIKE SYMPTOMS? NO . COUGH NO . INTEGUMENTARY: DO YOU HAVE ANY RASHES OR OPEN SORES? YES, RASH TO FACE/NECK - GOING TO DERMATOLOGY SOON . ALLERGIC/IMMUNO: ARE YOU ALLERGIC TO IV DYE? NO . ANY NEW ALLERGIES? NO . PSYCHIATRIC: DO YOU HAVE THOUGHTS OF HURTING YOURSELF OR SOMEONE ELSE? NO . ARE YOU ABUSED, NEGLECTED, OR IN AN UNSAFE ENVIRONMENT? NO . ENDOCRINOLOGY: ARE YOU DIABETIC? NO . OTHER: DO YOU NEED ANY PRESCRIPTIONS? NO . IF YES, PLEASE LIST: ____ . ANY NEW PROBLEMS WITH YOUR MEDICATIONS? NO . WHEN DID YOU LAST EAT? ____ . WHEN DID YOU LAST DRINK? ____ . WHAT DID YOU LAST DRINK? ____ . NAME OF PERSON DRIVING YOU HOME? ____ . DO YOU HAVE ANY OTHER QUESTIONS OR CONCERNS NO . VITAL SIGNS WT 172.0 LBS, HT 62 IN, BMI 31.46 INDEX, BP 177/70 MM HG, HR 58 /MIN, RR 18 /MIN, TEMP 97.0 F, OXYGEN SAT % 98%, SAFE IN ENV? (Y/N) YES, NA INITIALS AW 1316, REVIEWED BY: JS. EXAMINATION GENERAL EXAMINATION: GENERAL AWAKE,ALERT ,PLEASANT . PSYCH AFFECT NORMAL . LUNGS: LUNG CATES ARE CLEAR TO AUSCULTATION BILATERALLY. GOOD MOVEMENT OF AIR . HEART: S1, S2 IN A REGULAR RATE AND RHYTHM. NO SIGNIFICANT MURMURS, RUBS OR GALLOPS NOTED . 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 (PRIMARY) PROCEDURES PN WORKMANS' COMP OPINION IN YOUR OPINION, WAS THE INCIDENT THAT THE PATIENT DESCRIBED THE COMPETENT MEDICAL CAUSE OF THIS INJURY/ILLNESS? YES ARE THE PATIENT'S COMPLAINTS CONSISTENT WITH HIS/HER HISTORY OF THE INJURY/ILLNESS? YES IS THE PATIENT'S HISTORY OF THE INJURY/ILLNESS CONSISTENT WITH YOUR OBJECTIVE FINDING? YES WHAT IS THE PERCENTAGE OF TEMPORARY IMPAIRMENT? MODERATE TO MARKED = 66.7% IS THE PATIENT WORKING? NO DOCTOR ON SITE: ALONZO ALCANTARA MD PROCEDURE CODES FA211 ESTABILISHED PATIENT [facility] CHARGE DISPOSITION & COMMUNICATION FOLLOW UP 3 MONTHS (REASON: W/C NECK) ELECTRONICALLY SIGNED BY BENJAMÍN MORALES ON 12/11/2019 AT 02:36 PM EDT DISCLAIMER : THIS IS A VISIT SUMMARY EXTRACTED FROM THE [employer] CHART. IT IS NOT A COPY OF THE [employer] PROGRESS NOTE. OSMIN
== END ==
LOC: M PAIN 13:15
PROVIDERS: ATTEND Nurse Practitioner Family
DX: M54.42 Lumbago with sciatica, left side (principal); I10 Essential (primary) hypertension; I25.2 Old myocardial infarction; E03.9 Hypothyroidism, unspecified; E78.00 Pure hypercholesterolemia, unspecified; Z79.01 Long term (current) use of anticoagulants; Z79.02 Long term (current) use of antithrombotics/antiplatelets; Z79.82 Long term (current) use of aspirin; Z79.891 Long term (current) use of opiate analgesic; Z79.899 Other long term (current) drug therapy; Z86.718 Personal history of other venous thrombosis and embolism; Z88.1 Allergy status to other antibiotic agents; Z88.8 Allergy status to other drugs, medicaments and biological substances

== ENCOUNTER → 2020-01-03 | Outpatient (CLI) | payer MEDICARE, MEDICAID ==
--- NOTE | 2020-01-05 03:40 | ECWPNPC ---
PATIENT NAME: HAWK CASE : 1955 GENDER: FEMALE VISIT DATE: 01/03/2020 DISCHARGE DATE: 01/03/20 1039 VISIT LOCKED DATE TIME: PHYSICIAN: GERMAN SLAUGHTER RESOURCE: GERMAN SLAUGHTER REASON FOR APPOINTMENT 1. MEDICARE 3 MONTHS HISTORY OF PRESENT ILLNESS HISTORY OF PRESENT ILLNESS: PHONE CALL TO PATIENT AND SHE IS AGREEABLE TO TELEPHONE VISIT TODAY. THIS IS A ROUTINE FOLLOW-UP OF CHRONIC LOW BACK PAIN AND MID THORACIC BACK PAIN. DESCRIBES PAIN INTERMITTENT,TENDER AND SORE.RATING PAIN VAS 3/10.PROLONGED SITTING OR STANDING AGGREVATES PAIN.HISTORY OF MULTIPLE MEDICATION TRIALS OVER THE YEARS WITH INEFFECTIVENESS OR SIDE EFFECTS. USING OXYCODONE 10/325 Q4-6HRS PRN FOR SEVERE PAIN WHICH PATIENT FINDS SOMEWHAT HELPFUL.TAKING SOMA 350MG AT HS PRN FOR SEVERE PAIN.REPORTING AN INCREASE IN BILAT FOOT AND LEG CRAMPING.DISCUSSED MEDICATION AND TREATMENT OPTIONS. PAIN THE PATIENT DESCRIBES THE PAIN... FALL RISK SCREENING: SCREENING :NO FALLS REPORTED IN THE LAST YEAR CURRENT MEDICATIONS TAKING CARAFATE 1 GM TABLET 2TABLET ON AN EMPTY STOMACH ORALLY ONCE DAILY TAKING ASPIR-81 81 MG TABLET DELAYED RELEASE 1 TABLET ORALLY ONCE A DAY TAKING KLONOPIN 1 MG TABLET 1 TABLET ORALLY QHS TAKING LORATADINE 10 MG TABLET 1 TABLET ORALLY ONCE A DAY TAKING LEVOTHYROXINE SODIUM 100 MCG TABLET 1 TABLET EVERY MORNING ON AN EMPTY STOMACH ORALLY ONCE A DAY TAKING NEXIUM 40 MG CAPSULE DELAYED RELEASE 1 CAPSULE ORALLY TWICE A DAY TAKING HYDROCHLOROTHIAZIDE 25 25 MG SOFT GEL 1 TABLETS ORAL DAILY TAKING CRESTOR 20 MG TABLET 1 TABLET ORALLY ONCE A DAY TAKING LAMOTRIGINE 200 MG TABLET 1 TABLET ORALLY ONCE DAILY TAKING LISINOPRIL 10 MG TABLET 1 TABLET ORALLY ONCE A DAY TAKING DOCUSATE SODIUM 100 MG CAPSULE 2 ORALLY 3X DAILY, NOTES: TAKES NEEDED TAKING MODAFINIL 200 MG TABLET 1 TABLET IN THE MORNING ORALLY ONCE A DAY TAKING MIRALAX - PACKET 1 PACKET MIXED WITH 8 OUNCES OF FLUID ORALLY ONCE A DAY TAKING PLAVIX 75 MG TABLET 1 TABLET ORALLY ONCE A DAY TAKING ZETIA 10 MG TABLET 1 TABLET ORALLY ONCE A DAY TAKING PERCOCET 10-325 MG TABLET 1 TABLET NEEDED ORALLY Q4-6H PRN MDD5 TAKING SOMA 350 MG TABLET 1 TABLET ORALLY Q8H MDD3 NOT-TAKING VITAMIN D-3 2000 CAPSULE 1 CAPSULE ORALLY DAILY NOT-TAKING ROPINIROLE HCL 0.25 MG TABLET 1 TO 2 TAB ORALLY 2 HRS PRE BEDTIME NOT-TAKING LIDOCAINE HCL 2 % CREAM DIRECTED EXTERNALLY APPLY TO LEFT HIP DIRECTED Q8H PRN MEDICATION LIST REVIEWED AND RECONCILED WITH THE PATIENT PAST MEDICAL HISTORY PALPITATIONS, HEART HX BLOOD CLOTS, LEFT LEG HX ANEMIA ARTHRITIS, OA BACK PAIN HX BONE SPURS INSOMNIA MOOD SWINGS XEROPTHALMIA EARLY SATIETY COLONIC POLYPS RECURRENT UTIS SYSTEMIC LUPUS ERYTHEMATOUS ESOPHAGEAL REFLUX HYPOTHYROIDISM HYPERTENSION HYPERCHOLESTEROLEMIA RAYNAUDS SYNDROME NECK PAIN DEPRESSION OSTEOARTHRITIS MYOCARDIAL INFARCTION 2013, 2018 MYOFASCIAL PAIN SYNDROME LOW BACK PAIN LUMBAR RADICULOPATHY FRACTURED HAND JOINT HYPERCALCEMIA HYPONATREMIA LUPUS ALLERGIES PROPRANOLOL HCL: NAUSEA/VOMITING - ALLERGY CAPTOPRIL: NAUSEA/VOMITING - ALLERGY MACROBID: N/DIARRHEA - ALLERGY CIPRO: NAUSEA/VOMITING/DIARRHEA - ALLERGY MS CONTIN: N/V UNABLE TO VOID ANTIDEPRESSANTS: FLU LIKE SYMPTOMS /NAUSEA NUCYNTA ER: NIGHTMARES, INCREASED DEPRESSION - SIDE EFFECTS SURGICAL HISTORY NECK SURGERY BONE SPUR 1996 TUBAL LIGATION 1981 ENDOMETRIAL BIOPSY 2010 CARDIAC CATHETERIZATION 09/26 CARDIAC STENT 09/26 SURGERY TO REPAIR RIGHT FEMORAL ARTERY 09/26 CARDIAC STENT 10/27 CARDIAC STENT 03/26 COLONOSCOPY 2010 CARDIAC CATH/STENT PLACEMENT 07/31/2019 FAMILY HISTORY FATHER: DIAGNOSED WITH HYPERTENSION, OTHER MALIGNANT NEOPLASM OF UNSPECIFIED SITE, DIABETES MOTHER: DIABETES, HYPERTENSION, OTHER MALIGNANT NEOPLASM OF UNSPECIFIED SITE PATERNAL GRAND MOTHER: OTHER MALIGNANT NEOPLASM OF UNSPECIFIED SITE MATERNAL GRAND MOTHER: OTHER MALIGNANT NEOPLASM OF UNSPECIFIED SITE 7 BROTHER(S) , 3 SISTER(S) . 1 SON(S) , 3 DAUGHTER(S) . BROTHER CAD,IMMDM,CANCER BROTHER HEART DIEASE IDDM,BROTHER HEART DIEASE, IDDM, SISTER FROM LIVER FAILURE, SISTER HEART DIEASE, HTN\NDAUGHTER FROM DRUG OVERDOSE METPROBAMATE. ONE DAUGHTER LUPUS, BACK PROBLEMS, SPINAL STENOSIS AND SPINAL CYSTSBROTHER - COVID-19. SOCIAL HISTORY GENERAL: TOBACCO USE ARE YOU A:NONSMOKER LATEX QUESTIONNAIRE LATEX ALLERGY : HAVE YOU EVER DEVELOPED ANY TYPE OF REACTION AFTER HANDLING LATEX PRODUCTS SUCH RUBBER GLOVES, CONDOMS, DIAPHRAGMS, BALLOONS, SOCKS, OR UNDERWEAR?YES - PLEASE INDICATE :RUBBER GLOVES LATEX ALLERGY : HAVE YOU EVER DEVELOPED ANY TYPE OF REACTION DURING OR AFTER DENTAL APPOINTMENT, VAGINAL/RECTAL EXAMINATION, SURGICAL PROCEDURE, OR ANY OTHER EXPOSURE?NO LATEX RISK : HAVE YOU EVER HAD ANY DIFFICULTY BREATHING OR HIVES AFTER EATING OR HANDLING ANY FRUITS, OR VEGETABLES; SUCH KIWI, BANANAS, STONE FRUITS, OR CHESTNUTSNO LATEX RISK : DO YOU HAVE A PREVIOUS PERSONAL HISTORY OF MORE THAN NINE SURGERIES, SPINA BIFIDA, OR REPEATED CATHERIZATIONS? NO LATEX RISK : ARE YOU FREQUENTLY EXPOSED TO LATEX PRODUCTS IN YOUR OCCUPATION?NO DATE ASKED : 01/03/2020 ALCOHOL SCREENING DID YOU HAVE A DRINK CONTAINING ALCOHOL IN THE PAST YEAR?NO POINTS0 INTERPRETATIONNEGATIVE RECREATIONAL DRUG USE DRUG USE?NO CAFFEINE CAFFEINE USE?YES 1 CUP COFFEE/ DAY TEMPLE [id number] [place] LANGUAGE LANGUAGES SPOKEN:ARABIC EDUCATION LEVEL OF EDUCATION:COLLEGE A COUPLE OF SEMESTERS LEARNING BARRIERS / SPECIAL NEEDS BARRIERS TO LEARNING?NO HEARING IMPAIRED?NO VISION IMPAIRED?YES COGNITIVELY IMPAIRED?NO :CORRECTIVE LENSES READINESS TO LEARN?YES LEARNING PREFERENCES?YES :TAPES/VIDEOS, BOOKLETS, HANDOUTS LEARNING CAPABILITIES PRESENT?YES EMOTIONAL BARRIERS?NO SPECIAL DEVICES?YES :CANE EDITORIAL INTERN NEEDED?NO DOMESTIC 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 DIET: REGULAR. EXERCISE: NONE. MARITAL STATUS: .. OTHERS AT HOME: CHILD. NEW PATIENT PAIN DIARY TODAY'S VISITNOTES 01/03/2020 PATIENT DESCRIBES PAIN :ACHING, IT COMES AND GOES, STABBING FROM 0-10, WHAT LEVEL IS YOUR PAIN TODAY?2 ALLEVIATING FACTORS TENS, MEDICATIONS PAIN CLINIC PFS, CLERGY, PUBLIC HEALTH REFERRALS PFS REFERRAL NEEDED?NO CLERGY REFERRAL NEEDED?NO PUBLIC HEALTH REFERRAL NEEDED?NO WAS THE PROVIDER NOTIFIED OF ANY PERTINENT INFO?YES HAS THE PATIENT BEEN EDUCATED REGARDING HIS/HER PLAN OF CARE?YES HAS THE PATIENT BEEN EDUCATED REGARDING PAIN, THE RISK FOR PAIN, THE IMPORTANCE OF EFFECTIVE PAIN MANAGEMENT, AND THE PAIN ASSESSMENT PROCESS?YES ADVANCE DIRECTIVE ADVANCE DIRECTIVE DISCUSSED WITH PATIENT:YES 11/27/2019 PATIENT STATES SHE HAS THE INFORMATION AT HOME, DECLINES ASSISTANCE AT THIS TIME IN FILLING IT OUT. JS HOSPITALIZATION/MAJOR DIAGNOSTIC PROCEDURE SURGERY RELATED MYOCARDIAL INFARCTION 09/26, 08/01 REVIEW OF SYSTEMS REVIEWED BY: PROVIDER: GERMAN BUTTS . CONSTITUTIONAL: ANY CHANGE IN YOUR MEDICAL CONDITION? NO . CHILLS NO . FEVER NO . INFECTION: DO YOU HAVE NEW INFECTIONS? YES, POSSIBLE UTI OR BLADDER INFECTION . DO YOU HAVE HISTORY OF MRSA? NO . MUSCULOSKELETAL: ANY NEW PATTERNS OF PAIN OR NUMBNESS? NO . GASTROENTEROLOGY: ANY NEW CHANGE IN BOWEL CONTROL? NO . GENITOURINARY: ANY NEW CHANGE IN BLADDER CONTROL? YES, URINARY FREQUENCY AND URGENCY - THINKS RELATED TO POSSIBLE UTI/BLADDER INFECTION . IS THERE A CHANCE YOU COULD BE ? NO . HEMATOLOGY/LYMPH: DO YOU TAKE ANY BLOOD THINNERS? (FOR EXAMPLE- COUMADIN, PLAVIX, AGGRENOX, PLATEL, PRADAXA, OR XARELTO) YES, PLAVIX . WHEN WAS YOUR LAST DOSE? DATE: 01/02/2020TIME: 1200 . NEUROLOGY: HAVE YOU FALLEN IN THE PAST 12 MONTHS? NO . ANY NEW EXTREMITY NUMBNESS OR WEAKNESS? NO . CARDIOLOGY: DO YOU HAVE A PACEMAKER OR DEFIBRILLATOR? NO . RESPIRATORY: HAVE YOU BEEN SICK IN THE PAST WEEK? NO . FEVER NO . FLU LIKE SYMPTOMS? NO . COUGH NO . INTEGUMENTARY: DO YOU HAVE ANY RASHES OR OPEN SORES? YES, RASH TO FACE - POSSIBLE LUPUS . ALLERGIC/IMMUNO: ARE YOU ALLERGIC TO IV DYE? NO . ANY NEW ALLERGIES? NO . PSYCHIATRIC: DO YOU HAVE THOUGHTS OF HURTING YOURSELF OR SOMEONE ELSE? NO . ARE YOU ABUSED, NEGLECTED, OR IN AN UNSAFE ENVIRONMENT? NO . ENDOCRINOLOGY: ARE YOU DIABETIC? NO . OTHER: DO YOU NEED ANY PRESCRIPTIONS? YES . IF YES, PLEASE LIST: ____PERCOCET . ANY NEW PROBLEMS WITH YOUR MEDICATIONS? NO . WHEN DID YOU LAST EAT? ____ . WHEN DID YOU LAST DRINK? ____ . WHAT DID YOU LAST DRINK? ____ . NAME OF PERSON DRIVING YOU HOME? ____ . DO YOU HAVE ANY OTHER QUESTIONS OR CONCERNS NO . 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 (PRIMARY) CHRONIC PRESCRIPTION OPIATE USE - Z79.891 DISCOGENIC THORACIC PAIN - M54.6 TREATMENT LUMBAGO WITH SCIATICA, LEFT SIDE REFILL PERCOCET TABLET, 10-325 MG, 1 TABLET NEEDED, ORALLY, Q4-6H PRN MDD5, 30 DAYS, 150, REFILLS 0 CONTINUE SOMA TABLET, 350 MG, 1 TABLET, ORALLY, Q8H MDD3 NOTES: ISTOP REGISTRY REVIEWED AND DEMONSTRATES COMPLLIANCE.RECENT URINE TOXICOLOGY REVIEWED. NO UNAUTHORIZED MEDICATIONS. NO ILLICIT SUBSTANCES AND PRESCRIBED MEDICATIONS WERE PRESENT. TIME SPENT DURING TELEPHONE CONSULTATION WAS APPROXIMATELY 11 MINUTES. OTHERS NOTES: NO VITALS OBTAINED DUE TO PHONE VISIT. DISPOSITION & COMMUNICATION FOLLOW UP 2 MONTHS (REASON: THORACIC/LBP/MED MGMNT) ELECTRONICALLY SIGNED BY BENJAMÍN MORALES ON 01/04/2020 AT 11:11 AM EDT DISCLAIMER : THIS IS A VISIT SUMMARY EXTRACTED FROM THE [employer] CHART. IT IS NOT A COPY OF THE [employer] PROGRESS NOTE. OSMIN
== END ==
LOC: M PAIN 13:30
PROVIDERS: ATTEND Nurse Practitioner Family
DX: M54.42 Lumbago with sciatica, left side (principal); Z79.891 Long term (current) use of opiate analgesic; M54.6 Pain in thoracic spine; I10 Essential (primary) hypertension; E03.9 Hypothyroidism, unspecified; Z79.82 Long term (current) use of aspirin; Z79.899 Other long term (current) drug therapy; Z88.1 Allergy status to other antibiotic agents; Z88.8 Allergy status to other drugs, medicaments and biological substances

== ENCOUNTER → 2020-02-13 | Outpatient (CLI) | payer MEDICARE, MEDICAID ==
[~2020-02-13] MED LIST changes: -LISI-1046 PO; +LISI2.5T2 PO
--- NOTE | 2020-02-15 03:43 | ECWPNPC ---
PATIENT NAME: HAWK CASE : 1955 GENDER: FEMALE VISIT DATE: 02/13/2020 DISCHARGE DATE: 02/13/20 1455 VISIT LOCKED DATE TIME: PHYSICIAN: GERMAN SLAUGHTER RESOURCE: GERMAN SLAUGHTER REASON FOR APPOINTMENT 1. MEDICARE-BACK HISTORY OF PRESENT ILLNESS GENERAL: -. PAIN SCREENING: PATIENT HAS A COMPLAINT OF ACUTE OR CHRONIC PAIN :YES LOCATION OF PAIN:LOW BACK, LEG(S) LEFT LEG INTENSITY OF PAIN (SCALE OF 1 TO 10):3 WHAT DOES YOUR PAIN FEEL LIKE:ACHING, BURNING, INTERMITTENT DURATION:INTERMITTENT PAIN IS INCREASED BY:ACTIVITIES, PROLONGED STANDING PAIN IS DECREASED BY:USE OF PAIN MEDICATIONS TENS UNIT, ASPERCREME PAIN HAS INTERFERED WITH THE FOLLOWING:MOOD, WALKING ABILITY, RELATIONSHIP WITH OTHERS, ENJOYMENT OF LIFE PLAN/GOALS/TREATMENT/INTERVENTION/FOLLOW UP:SEE PLAN FALL RISK SCREENING: SCREENING :NO FALLS REPORTED IN THE LAST YEAR DEPRESSION SCREENING: PHQ-2 (2015 EDITION) LITTLE INTEREST OR PLEASURE IN DOING THINGS?NOT AT ALL FEELING DOWN, DEPRESSED, OR HOPELESS?NOT AT ALL TOTAL SCORE0 PAIN CENTER INTAKE QUESTIONS: DO YOU HAVE A HISTORY OF MRSA? :NO DO YOU TAKE A BLOOD THINNERS? :YES PLAVIX-02/13/20 @ 10AM DO YOU HAVE ANY BLEEDING DISORDERS? :NO ANY NEW NUMBNESS OR WEAKNESS IN YOUR LEGS OR ARMS? :YES BOTH ARMS ANY PACEMAKER,DEFIBRILLATOR, OR DORSAL COLUMN STIMULATOR? :NO DO YOU HAVE ANY RASHES OR OPEN SORES? :NO ARE YOU ALLERGIC TO IV DYE? :NO ARE YOU DIABETIC? :NO ANY NEW PROBLEMS WITH YOUR MEDICATIONS? :NO HAVE YOU RECEIVED A VACCINE IN THE PAST 30 DAYS? :NO DO YOU PLAN TO RECEIVE A VACCINE IN THE NEXT 21 DAYS? :NO DO YOU NEED ANY PRESCRIPTION? :NO DO YOU TAKE ANY IMMUNOSUPPRESSIVE MEDICATIONS? :NO NURSING NOTE: -. HISTORY OF PRESENT ILLNESS: THIS IS A ROUTINE FOLLOW-UP OF CHRONIC LOW BACK PAIN AND MID THORACIC BACK PAIN. DESCRIBES PAIN INTERMITTENT,TENDER AND SORE.RATING PAIN VAS 3/10.PROLONGED SITTING OR STANDING AGGREVATES PAIN.HISTORY OF MULTIPLE MEDICATION TRIALS OVER THE YEARS WITH INEFFECTIVENESS OR SIDE EFFECTS. USING OXYCODONE 10/325 Q4-6HRS PRN FOR SEVERE PAIN WHICH PATIENT FINDS SOMEWHAT HELPFUL.TAKING SOMA 350MG AT HS PRN FOR SEVERE PAIN.DISCUSSED MEDICATION AND TREATMENT OPTIONS. PAIN THE PATIENT DESCRIBES THE PAIN... CURRENT MEDICATIONS TAKING CARAFATE 1 GM TABLET 2TABLET ON AN EMPTY STOMACH ORALLY ONCE DAILY TAKING ASPIR-81 81 MG TABLET DELAYED RELEASE 1 TABLET ORALLY ONCE A DAY TAKING KLONOPIN 1 MG TABLET 1 TABLET ORALLY QHS TAKING LORATADINE 10 MG TABLET 1 TABLET ORALLY ONCE A DAY TAKING LEVOTHYROXINE SODIUM 100 MCG TABLET 1 TABLET EVERY MORNING ON AN EMPTY STOMACH ORALLY ONCE A DAY TAKING NEXIUM 40 MG CAPSULE DELAYED RELEASE 1 CAPSULE ORALLY TWICE A DAY TAKING HYDROCHLOROTHIAZIDE 25 25 MG SOFT GEL 1 TABLETS ORAL DAILY TAKING CRESTOR 20 MG TABLET 1 TABLET ORALLY ONCE A DAY TAKING LAMOTRIGINE 200 MG TABLET 1 TABLET ORALLY ONCE DAILY TAKING LISINOPRIL 10 MG TABLET 1 TABLET ORALLY ONCE A DAY TAKING DOCUSATE SODIUM 100 MG CAPSULE 2 ORALLY 3X DAILY, NOTES: TAKES NEEDED TAKING MODAFINIL 200 MG TABLET 1 TABLET IN THE MORNING ORALLY ONCE A DAY TAKING MIRALAX - PACKET 1 PACKET MIXED WITH 8 OUNCES OF FLUID ORALLY ONCE A DAY TAKING PLAVIX 75 MG TABLET 1 TABLET ORALLY ONCE A DAY TAKING ZETIA 10 MG TABLET 1 TABLET ORALLY ONCE A DAY TAKING SOMA 350 MG TABLET 1 TABLET ORALLY Q8H MDD3 TAKING PERCOCET 10-325 MG TABLET 1 TABLET NEEDED ORALLY Q4-6H PRN MDD5 TAKING DEXILANT 30 MG CAPSULE DELAYED RELEASE 1 CAPSULE ORALLY ONCE A DAY, NOTES: UNSURE OF DOSAGE NOT-TAKING VITAMIN D-3 2000 CAPSULE 1 CAPSULE ORALLY DAILY NOT-TAKING ROPINIROLE HCL 0.25 MG TABLET 1 TO 2 TAB ORALLY 2 HRS PRE BEDTIME NOT-TAKING LIDOCAINE HCL 2 % CREAM DIRECTED EXTERNALLY APPLY TO LEFT HIP DIRECTED Q8H PRN MEDICATION LIST REVIEWED AND RECONCILED WITH THE PATIENT PAST MEDICAL HISTORY PALPITATIONS, HEART HX BLOOD CLOTS, LEFT LEG HX ANEMIA ARTHRITIS, OA BACK PAIN HX BONE SPURS INSOMNIA MOOD SWINGS XEROPTHALMIA EARLY SATIETY COLONIC POLYPS RECURRENT UTIS SYSTEMIC LUPUS ERYTHEMATOUS ESOPHAGEAL REFLUX HYPOTHYROIDISM HYPERTENSION HYPERCHOLESTEROLEMIA RAYNAUDS SYNDROME NECK PAIN DEPRESSION OSTEOARTHRITIS MYOCARDIAL INFARCTION 2013, 2018 MYOFASCIAL PAIN SYNDROME LOW BACK PAIN LUMBAR RADICULOPATHY FRACTURED HAND JOINT HYPERCALCEMIA HYPONATREMIA LUPUS ALLERGIES PROPRANOLOL HCL: NAUSEA/VOMITING - ALLERGY CAPTOPRIL: NAUSEA/VOMITING - ALLERGY MACROBID: N/DIARRHEA - ALLERGY CIPRO: NAUSEA/VOMITING/DIARRHEA - ALLERGY MS CONTIN: N/V UNABLE TO VOID ANTIDEPRESSANTS: FLU LIKE SYMPTOMS /NAUSEA NUCYNTA ER: NIGHTMARES, INCREASED DEPRESSION - SIDE EFFECTS SURGICAL HISTORY NECK SURGERY BONE SPUR 1996 TUBAL LIGATION 1981 ENDOMETRIAL BIOPSY 2010 CARDIAC CATHETERIZATION 09/26 CARDIAC STENT 09/26 SURGERY TO REPAIR RIGHT FEMORAL ARTERY 09/26 CARDIAC STENT 10/27 CARDIAC STENT 03/26 COLONOSCOPY 2010 CARDIAC CATH/STENT PLACEMENT 07/31/2019 FAMILY HISTORY FATHER: DIAGNOSED WITH DIABETES, HYPERTENSION, OTHER MALIGNANT NEOPLASM OF UNSPECIFIED SITE MOTHER: DIABETES, HYPERTENSION, OTHER MALIGNANT NEOPLASM OF UNSPECIFIED SITE PATERNAL GRAND MOTHER: OTHER MALIGNANT NEOPLASM OF UNSPECIFIED SITE MATERNAL GRAND MOTHER: OTHER MALIGNANT NEOPLASM OF UNSPECIFIED SITE 7 BROTHER(S) , 3 SISTER(S) . 1 SON(S) , 3 DAUGHTER(S) . BROTHER CAD,IMMDM,CANCER BROTHER HEART DIEASE IDDM,BROTHER HEART DIEASE, IDDM, SISTER FROM LIVER FAILURE, SISTER HEART DIEASE, HTN\NDAUGHTER FROM DRUG OVERDOSE METPROBAMATE. ONE DAUGHTER LUPUS, BACK PROBLEMS, SPINAL STENOSIS AND SPINAL CYSTSBROTHER - COVID-19. SOCIAL HISTORY GENERAL: TOBACCO USE ARE YOU A:NONSMOKER LATEX QUESTIONNAIRE LATEX ALLERGY : HAVE YOU EVER DEVELOPED ANY TYPE OF REACTION AFTER HANDLING LATEX PRODUCTS SUCH RUBBER GLOVES, CONDOMS, DIAPHRAGMS, BALLOONS, SOCKS, OR UNDERWEAR?YES - PLEASE INDICATE :RUBBER GLOVES LATEX ALLERGY : HAVE YOU EVER DEVELOPED ANY TYPE OF REACTION DURING OR AFTER DENTAL APPOINTMENT, VAGINAL/RECTAL EXAMINATION, SURGICAL PROCEDURE, OR ANY OTHER EXPOSURE?NO LATEX RISK : HAVE YOU EVER HAD ANY DIFFICULTY BREATHING OR HIVES AFTER EATING OR HANDLING ANY FRUITS, OR VEGETABLES; SUCH KIWI, BANANAS, STONE FRUITS, OR CHESTNUTSNO LATEX RISK : DO YOU HAVE A PREVIOUS PERSONAL HISTORY OF MORE THAN NINE SURGERIES, SPINA BIFIDA, OR REPEATED CATHERIZATIONS? NO LATEX RISK : ARE YOU FREQUENTLY EXPOSED TO LATEX PRODUCTS IN YOUR OCCUPATION?NO DATE ASKED : 02/13/2020 ALCOHOL SCREENING DID YOU HAVE A DRINK CONTAINING ALCOHOL IN THE PAST YEAR?NO POINTS0 INTERPRETATIONNEGATIVE RECREATIONAL DRUG USE DRUG USE?NO CAFFEINE CAFFEINE USE?YES 1 CUP COFFEE/ DAY YAZIDI [id number] [employer]OX LANGUAGE LANGUAGES SPOKEN:TAJIK EDUCATION LEVEL OF EDUCATION:COLLEGE A COUPLE OF SEMESTERS LEARNING BARRIERS / SPECIAL NEEDS BARRIERS TO LEARNING?NO HEARING IMPAIRED?NO VISION IMPAIRED?YES COGNITIVELY IMPAIRED?NO :CORRECTIVE LENSES READINESS TO LEARN?YES LEARNING PREFERENCES?YES :TAPES/VIDEOS, BOOKLETS, HANDOUTS LEARNING CAPABILITIES PRESENT?YES EMOTIONAL BARRIERS?NO SPECIAL DEVICES?YES :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 DIET: REGULAR. EXERCISE: NONE. MARITAL STATUS: .. OTHERS AT HOME: CHILD. NEW PATIENT PAIN DIARY TODAY'S VISITNOTES PATIENT DESCRIBES PAIN :ACHING, IT COMES AND GOES, STABBING FROM 0-10, WHAT LEVEL IS YOUR PAIN TODAY?2 ALLEVIATING FACTORS TENS, MEDICATIONS PAIN CLINIC PFS, CLERGY, PUBLIC HEALTH REFERRALS PFS REFERRAL NEEDED?NO CLERGY REFERRAL NEEDED?NO PUBLIC HEALTH REFERRAL NEEDED?NO WAS THE PROVIDER NOTIFIED OF ANY PERTINENT INFO?YES HAS THE PATIENT BEEN EDUCATED REGARDING HIS/HER PLAN OF CARE?YES HAS THE PATIENT BEEN EDUCATED REGARDING PAIN, THE RISK FOR PAIN, THE IMPORTANCE OF EFFECTIVE PAIN MANAGEMENT, AND THE PAIN ASSESSMENT PROCESS?YES ADVANCE DIRECTIVE ADVANCE DIRECTIVE DISCUSSED WITH PATIENT:YES 11/27/2019 PATIENT STATES SHE HAS THE INFORMATION AT HOME, DECLINES ASSISTANCE AT THIS TIME IN FILLING IT OUT. JS HOSPITALIZATION/MAJOR DIAGNOSTIC PROCEDURE SURGERY RELATED MYOCARDIAL INFARCTION 09/26, 08/01 REVIEW OF SYSTEMS CONSTITUTIONAL: ANY RECENT FEVER OR ILLNESS NO . CHILLS NO . GASTROENTEROLOGY: BOWEL INCONTINENCE NO . ANY NEW CHANGE IN BOWEL CONTROL? NO . ABDOMINAL PAIN NO . CONSTIPATION NO . GENITOURINARY: ANY NEW CHANGE IN BLADDER CONTROL? NO . IS THERE A CHANCE YOU COULD BE ? NO . URINARY INCONTINENCE NO . CARDIOLOGY: CHEST PRESSURE NO . CHEST PAIN NO . RESPIRATORY: COUGH NO . SHORTNESS OF BREATH NO . VITAL SIGNS WT 178 LBS, HT 62 IN, BMI 32.55 INDEX, BP 146/65 MM HG, HR 58 /MIN, RR 18 /MIN, TEMP 98.0 F, OXYGEN SAT % 97%, SAFE IN ENV? (Y/N) YES, NA INITIALS AW [id number] ASUMADU PANEL WIRER. EXAMINATION GENERAL EXAMINATION: GENERAL AWAKE,ALERT ,PLEASANT . PSYCH AFFECT NORMAL . LUNGS: LUNG CATES ARE CLEAR TO AUSCULTATION BILATERALLY. GOOD MOVEMENT OF AIR . HEART: S1, S2 IN A REGULAR RATE AND RHYTHM. NO SIGNIFICANT MURMURS, RUBS OR GALLOPS NOTED . 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 (PRIMARY) CHRONIC PRESCRIPTION OPIATE USE - Z79.891 DISCOGENIC THORACIC PAIN - M54.6 TREATMENT LUMBAGO WITH SCIATICA, LEFT SIDE CONTINUE SOMA TABLET, 350 MG, 1 TABLET, ORALLY, Q8H MDD3 CONTINUE PERCOCET TABLET, 10-325 MG, 1 TABLET NEEDED, ORALLY, Q4-6H PRN MDD5 NOTES: ORAL SLAB TOXICOLOGY TEST TODAY , ISTOP REGISTRY REVIEWED AND DEMONSTRATES COMPLLIANCE. BRINGS IN MEDICATIONS WHICH IS APPROPRIATE FOR WHAT WAS DISPENSED. RECENT URINE TOXICOLOGY REVIEWED. NO UNAUTHORIZED MEDICATIONS. NO ILLICIT SUBSTANCES AND PRESCRIBED MEDICATIONS WERE PRESENT. , RISKS OF NARCOTIC/OPIOD MEDICATIONS INCLUDES BUT IS NOT LIMITED TO RISK OF DEPENDANCE/DEVELOPMENT OF ADDICTION, MOOD DISTURBANCE AND DEPRESSION, OSTEOPOROSIS, HORMONAL AND LABIDAL CHANGES, RESPIRATORY DEPRESSION AND . PATIENT IS ADVISED NOT TO DRIVE OR DRINK ALCOHOL WHILE ON THESE MEDICATIONS. DISPOSITION & COMMUNICATION FOLLOW UP 3 MONTHS (REASON: NON-COMP LOW BACK PAIN) ELECTRONICALLY SIGNED BY BENJAMÍN MORALES ON 02/14/2020 AT 02:42 PM EDT DISCLAIMER : THIS IS A VISIT SUMMARY EXTRACTED FROM THE [employer] CHART. IT IS NOT A COPY OF THE [employer] PROGRESS NOTE. OSMIN
== END ==
LOC: M PAIN 13:15
PROVIDERS: ATTEND Nurse Practitioner Family
DX: M54.42 Lumbago with sciatica, left side (principal); Z79.891 Long term (current) use of opiate analgesic; M54.6 Pain in thoracic spine; I10 Essential (primary) hypertension; E03.9 Hypothyroidism, unspecified; Z79.82 Long term (current) use of aspirin; Z79.899 Other long term (current) drug therapy; Z88.1 Allergy status to other antibiotic agents; Z88.8 Allergy status to other drugs, medicaments and biological substances

== ENCOUNTER → 2020-02-26 | Outpatient (CLI) | payer OTHER, MEDICAID, MEDICARE ==
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
== END ==
LOC: M PAIN 13:00
PROVIDERS: ATTEND Nurse Practitioner Family
DX: M54.2 Cervicalgia (principal)

== ENCOUNTER → 2020-04-09 | Outpatient (CLI) | payer MEDICARE, MEDICAID ==
[~2020-04-09] MED LIST changes: +DEXI30CA2; +zetia
[2020-05-07 02:38] LABS: BASO % 0.8 % (0.0-1.0); HEMOGLOBIN 12.3 g/dl (12.0-15.5); LYMPH # 1.5 10^3/uL (1.5-5.0); LYMPH % 37.3 % (24.0-44.0); MEAN CORPUSCULAR HEMOGLOBIN 29.4 pg (27.0-33.0); MEAN CORPUSCULAR HGB CONC 32.4 g/dl (32.0-36.5); MEAN CORPUSCULAR VOLUME 90.7 fl (80.0-96.0); MONO # 0.5 10^3/uL (0.0-0.8); MONO % 12.3 % (0.0-5.0); NEUTROPHILS % 49.3 % (36.0-66.0); PLATELET COUNT, AUTOMATED 267 10^3/uL (150-450); RED BLOOD COUNT 4.19 10^6/uL (4.00-5.40)
[2020-05-24 11:18] LABS: ALBUMIN 3.9 GM/DL (3.2-5.2); BILIRUBIN,TOTAL 0.3 MG/DL (0.2-1.0); CHOLESTEROL RISK RATIO 2.851 (<5); CREATININE FOR GFR 1.08 MG/DL (0.55-1.30); FREE T4 1.21 NG/DL (0.76-1.46); GLOMERULAR FILTRATION RATE 54.2 (>45); THYROID STIMULATING HORMONE 1.23 uIU/ML (0.358-3.740)
== END ==
LOC: M LAB 09:15
PROVIDERS: ATTEND Physician Assistant Medical
DX: R53.83 Other fatigue (principal); I10 Essential (primary) hypertension; E03.9 Hypothyroidism, unspecified; E78.2 Mixed hyperlipidemia; M32.9 Systemic lupus erythematosus, unspecified

== ENCOUNTER → 2020-05-15 | Outpatient (CLI) | payer MEDICARE, MEDICAID | LOC: M PAIN 13:05 | PROVIDERS: ATTEND Nurse Practitioner Family | DX: M47.817 Spondylosis without myelopathy or radiculopathy, lumbosacral region (principal) ==

== ENCOUNTER → 2020-05-28 | Outpatient (CLI) | payer OTHER, MEDICARE, MEDICAID | LOC: M PAIN 12:50 | PROVIDERS: ATTEND Nurse Practitioner Family | DX: M54.12 Radiculopathy, cervical region (principal) ==

== ENCOUNTER → 2020-06-09 | Outpatient (CLI) | payer MEDICARE, MEDICAID | LOC: M LAB 13:25 | PROVIDERS: ATTEND Physician Assistant Medical | DX: R53.83 Other fatigue (principal); I10 Essential (primary) hypertension; E03.9 Hypothyroidism, unspecified; E78.2 Mixed hyperlipidemia; M32.9 Systemic lupus erythematosus, unspecified ==

== ENCOUNTER 2020-06-11 10:49 | Emergency (ER) | payer MEDICARE, MEDICAID ==
[~2020-06-11] VITALS: Ht 157.5 cm; Wt 76.9 kg
[~2020-06-11 10:49] MED LIST changes: -DEXI30CA2; -zetia
[2020-06-11] MEDS ORDERED: DEXI30CA2 (11:02)
[2020-06-11] MEDS ORDERED: zetia (11:03)
--- NOTE | 2020-06-11 11:48 | REPVR ---
PROCEDURE INFORMATION: Exam: XR Right Knee Exam date and time: 06/11/2020 11:07 AM Age: 64 years old Clinical indication: Pain; Knee; Right; Additional info: Knee pain p grocery shopping TECHNIQUE: Imaging protocol: XR Right knee. Views: 4 or more views. COMPARISON: No relevant prior studies available. FINDINGS: Bones/joints: There is spurring of the tibial spines. There is a moderate effusion. There is moderate to severe patellofemoral arthritis. This is chiefly laterally. There is no fracture, dislocation or subluxation. Soft tissues: Normal. IMPRESSION: Arthritis and effusion. Electronically signed by: Silvio Ron On 06/11/2020 11:47:47 AM
[2020-06-11 12:10] VITALS: BP 128/66
== END 2020-06-11 12:25 | disposition home or self-care (01) ==
LOC: M ED 10:49
DX: M17.11 Unilateral primary osteoarthritis, right knee (principal); M25.461 Effusion, right knee; S83.91XA Sprain of unspecified site of right knee, initial encounter; X50.0XXA Overexertion from strenuous movement or load, initial encounter; Y92.019 Unspecified place in single-family (private) house as the place of occurrence of the external cause; Y99.9 Unspecified external cause status; I10 Essential (primary) hypertension; E78.5 Hyperlipidemia, unspecified; K21.9 Gastro-esophageal reflux disease without esophagitis; E03.9 Hypothyroidism, unspecified; F33.9 Major depressive disorder, recurrent, unspecified; F41.9 Anxiety disorder, unspecified; Z88.0 Allergy status to penicillin; Z88.8 Allergy status to other drugs, medicaments and biological substances; Z91.040 Latex allergy status; Z91.041 Radiographic dye allergy status; Z79.82 Long term (current) use of aspirin; Z79.899 Other long term (current) drug therapy

== ENCOUNTER → 2020-08-14 | Outpatient (CLI) | payer MEDICARE, MEDICAID ==
[~2020-08-14] MED LIST changes: +DEXI30CA2; +zetia
--- NOTE | 2020-08-17 05:16 | ECWPNPC ---
PATIENT NAME: HAWK CASE : 1955 GENDER: FEMALE VISIT DATE: 08/14/2020 DISCHARGE DATE: 08/14/20 1420 VISIT LOCKED DATE TIME: PHYSICIAN: GERMAN SLAUGHTER RESOURCE: GERMAN SLAUGHTER REASON FOR APPOINTMENT 1. NON COMP LOW BACK/MED MANAGEMENT HISTORY OF PRESENT ILLNESS GENERAL: -. FALL RISK SCREENING: SCREENING :NO FALLS REPORTED IN THE LAST YEAR PAIN SCREENING: PATIENT HAS A COMPLAINT OF ACUTE OR CHRONIC PAIN :YES LOCATION OF PAIN:LOW BACK INTENSITY OF PAIN (SCALE OF 1 TO 10):4 WHAT DOES YOUR PAIN FEEL LIKE:ACHING, INTERMITTENT, STABBING DURATION:INTERMITTENT PAIN IS INCREASED BY:ACTIVITIES, PROLONGED STANDING PAIN IS DECREASED BY:OTHERS TENS UNIT, BIOFREEZE NURSING NOTE: -. PAIN CENTER INTAKE QUESTIONS: DO YOU HAVE A HISTORY OF MRSA? :NO DO YOU TAKE A BLOOD THINNERS? :YES PLAVIX DO YOU HAVE ANY BLEEDING DISORDERS? :NO ANY NEW NUMBNESS OR WEAKNESS IN YOUR LEGS OR ARMS? :YES WEAKNESS TO BILATERAL LEGS, RIGHT>LEFT ANY PACEMAKER,DEFIBRILLATOR, OR DORSAL COLUMN STIMULATOR? :NO DO YOU HAVE ANY RASHES OR OPEN SORES? :YES RASHES CONSTANTLY DUE TO VARYING THINGS ARE YOU ALLERGIC TO IV DYE? :NO ARE YOU DIABETIC? :NO ANY NEW PROBLEMS WITH YOUR MEDICATIONS? :NO HAVE YOU RECEIVED A VACCINE IN THE PAST 30 DAYS? :NO DO YOU PLAN TO RECEIVE A VACCINE IN THE NEXT 21 DAYS? :NO DO YOU NEED ANY PRESCRIPTION? :YES SOMA DO YOU TAKE ANY IMMUNOSUPPRESSIVE MEDICATIONS? :NO IS THERE A CHANCE YOU COULD BE ? :NO ARE YOU BREAST FEEDING? :NO HISTORY OF PRESENT ILLNESS: THIS IS A ROUTINE FOLLOW-UP OF CHRONIC LOW BACK PAIN AND MID THORACIC BACK PAIN. DESCRIBES PAIN INTERMITTENT,TENDER AND SORE.RATING PAIN VAS 3/10.PROLONGED SITTING OR STANDING AGGREVATES PAIN.HISTORY OF MULTIPLE MEDICATION TRIALS OVER THE YEARS WITH INEFFECTIVENESS OR SIDE EFFECTS. USING OXYCODONE 10/325 Q4-6HRS PRN FOR SEVERE PAIN WHICH PATIENT FINDS SOMEWHAT HELPFUL.TAKING SOMA 350MG AT HS PRN FOR SEVERE PAIN.DISCUSSED MEDICATION AND TREATMENT OPTIONS. PAIN THE PATIENT DESCRIBES THE PAIN... CURRENT MEDICATIONS TAKING SOMA 350 MG TABLET 1 TABLET ORALLY Q8H MDD3 TAKING ASPIR-81 81 MG TABLET DELAYED RELEASE 1 TABLET ORALLY ONCE A DAY TAKING KLONOPIN 0.5 MG TABLET 1 TABLET ORALLY QHS TAKING LORATADINE 10 MG TABLET 1 TABLET ORALLY ONCE A DAY TAKING LEVOTHYROXINE SODIUM 100 MCG TABLET 1 TABLET EVERY MORNING ON AN EMPTY STOMACH ORALLY ONCE A DAY TAKING HYDROCHLOROTHIAZIDE 25 25 MG SOFT GEL 1 TABLETS ORAL DAILY TAKING CRESTOR 20 MG TABLET 1 TABLET ORALLY ONCE A DAY TAKING LAMOTRIGINE 200 MG TABLET 1 TABLET ORALLY ONCE DAILY TAKING LISINOPRIL 10 MG TABLET 1 TABLET ORALLY ONCE A DAY TAKING DOCUSATE SODIUM 100 MG CAPSULE 2 ORALLY 3X DAILY, NOTES: TAKES NEEDED TAKING PLAVIX 75 MG TABLET 1 TABLET ORALLY ONCE A DAY TAKING ZETIA 10 MG TABLET 1 TABLET ORALLY ONCE A DAY TAKING DEXILANT 30 MG CAPSULE DELAYED RELEASE 1 CAPSULE ORALLY ONCE A DAY TAKING PERCOCET 10-325 MG TABLET 1 TABLET NEEDED ORALLY Q4-6H PRN MDD5 NOT-TAKING CARAFATE 1 GM TABLET 2TABLET ON AN EMPTY STOMACH ORALLY ONCE DAILY NOT-TAKING NEXIUM 40 MG CAPSULE DELAYED RELEASE 1 CAPSULE ORALLY TWICE A DAY NOT-TAKING MODAFINIL 100 MG TABLET 1 TABLET IN THE MORNING ORALLY ONCE A DAY NOT-TAKING MIRALAX - PACKET 1 PACKET MIXED WITH 8 OUNCES OF FLUID ORALLY ONCE A DAY NOT-TAKING VITAMIN D-3 2000 CAPSULE 1 CAPSULE ORALLY DAILY NOT-TAKING ROPINIROLE HCL 0.25 MG TABLET 1 TO 2 TAB ORALLY 2 HRS PRE BEDTIME NOT-TAKING LIDOCAINE HCL 2 % CREAM DIRECTED EXTERNALLY APPLY TO LEFT HIP DIRECTED Q8H PRN MEDICATION LIST REVIEWED AND RECONCILED WITH THE PATIENT PAST MEDICAL HISTORY PALPITATIONS, HEART HX BLOOD CLOTS, LEFT LEG HX ANEMIA ARTHRITIS, OA BACK PAIN HX BONE SPURS INSOMNIA MOOD SWINGS XEROPTHALMIA EARLY SATIETY COLONIC POLYPS RECURRENT UTIS SYSTEMIC LUPUS ERYTHEMATOUS ESOPHAGEAL REFLUX HYPOTHYROIDISM HYPERTENSION HYPERCHOLESTEROLEMIA RAYNAUDS SYNDROME NECK PAIN DEPRESSION OSTEOARTHRITIS MYOCARDIAL INFARCTION 2013, 2019 MYOFASCIAL PAIN SYNDROME LOW BACK PAIN LUMBAR RADICULOPATHY FRACTURED HAND JOINT HYPERCALCEMIA HYPONATREMIA LUPUS ALLERGIES PROPRANOLOL HCL: NAUSEA/VOMITING - ALLERGY CAPTOPRIL: NAUSEA/VOMITING - ALLERGY MACROBID: N/DIARRHEA - ALLERGY CIPRO: NAUSEA/VOMITING/DIARRHEA - ALLERGY MS CONTIN: N/V UNABLE TO VOID ANTIDEPRESSANTS: FLU LIKE SYMPTOMS /NAUSEA NUCYNTA ER: NIGHTMARES, INCREASED DEPRESSION - SIDE EFFECTS SURGICAL HISTORY NECK SURGERY BONE SPUR 1997 TUBAL LIGATION 1982 ENDOMETRIAL BIOPSY 2010 CARDIAC CATHETERIZATION 09/26 CARDIAC STENT 09/26 SURGERY TO REPAIR RIGHT FEMORAL ARTERY 09/26 CARDIAC STENT 10/27 CARDIAC STENT 03/26 COLONOSCOPY 2010 CARDIAC CATH/STENT PLACEMENT 07/31/2019 FAMILY HISTORY FATHER: DIAGNOSED WITH HYPERTENSION, DIABETES, OTHER MALIGNANT NEOPLASM OF UNSPECIFIED SITE MOTHER: HYPERTENSION, DIABETES, OTHER MALIGNANT NEOPLASM OF UNSPECIFIED SITE PATERNAL GRAND MOTHER: OTHER MALIGNANT NEOPLASM OF UNSPECIFIED SITE MATERNAL GRAND MOTHER: OTHER MALIGNANT NEOPLASM OF UNSPECIFIED SITE 7 BROTHER(S) , 3 SISTER(S) . 1 SON(S) , 3 DAUGHTER(S) . BROTHER CAD,IMMDM,CANCER BROTHER HEART DIEASE IDDM,BROTHER HEART DIEASE, IDDM, SISTER FROM LIVER FAILURE, SISTER HEART DIEASE, HTN\NDAUGHTER FROM DRUG OVERDOSE METPROBAMATE. ONE DAUGHTER LUPUS, BACK PROBLEMS, SPINAL STENOSIS AND SPINAL CYSTSBROTHER - COVID-19. SOCIAL HISTORY GENERAL: TOBACCO USE ARE YOU A:NONSMOKER LATEX QUESTIONNAIRE LATEX ALLERGY : HAVE YOU EVER DEVELOPED ANY TYPE OF REACTION AFTER HANDLING LATEX PRODUCTS SUCH RUBBER GLOVES, CONDOMS, DIAPHRAGMS, BALLOONS, SOCKS, OR UNDERWEAR?YES - PLEASE INDICATE :RUBBER GLOVES LATEX ALLERGY : HAVE YOU EVER DEVELOPED ANY TYPE OF REACTION DURING OR AFTER DENTAL APPOINTMENT, VAGINAL/RECTAL EXAMINATION, SURGICAL PROCEDURE, OR ANY OTHER EXPOSURE?NO LATEX RISK : HAVE YOU EVER HAD ANY DIFFICULTY BREATHING OR HIVES AFTER EATING OR HANDLING ANY FRUITS, OR VEGETABLES; SUCH KIWI, BANANAS, STONE FRUITS, OR CHESTNUTSNO LATEX RISK : DO YOU HAVE A PREVIOUS PERSONAL HISTORY OF MORE THAN NINE SURGERIES, SPINA BIFIDA, OR REPEATED CATHERIZATIONS? NO LATEX RISK : ARE YOU FREQUENTLY EXPOSED TO LATEX PRODUCTS IN YOUR OCCUPATION?NO DATE ASKED : 02/26/2020 ALCOHOL SCREENING DID YOU HAVE A DRINK CONTAINING ALCOHOL IN THE PAST YEAR?NO POINTS0 INTERPRETATIONNEGATIVE RECREATIONAL DRUG USE DRUG USE?NO CAFFEINE CAFFEINE USE?YES 1 CUP COFFEE/ DAY [employer] [id number] [employer] LANG[employer]AGE LANGUAGES SPOKEN:FAROESE EDUCATION LEVEL OF EDUCATION:COLLEGE A COUPLE OF SEMESTERS LEARNING BARRIERS / SPECIAL NEEDS CHANGE FROM LAST VISIT?NO BARRIERS TO LEARNING?NO HEARING IMPAIRED?NO VISION IMPAIRED?YES :CORRECTIVE LENSES COGNITIVELY IMPAIRED?NO READINESS TO LEARN?YES LEARNING PREFERENCES?YES :TAPES/VIDEOS, BOOKLETS, HANDOUTS LEARNING CAPABILITIES PRESENT?YES EMOTIONAL BARRIERS?NO SPECIAL DEVICES?YES :[facility] MED[facility] BILLER NEEDED?NO DOMESTIC 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 DIET: REGULAR. EXERCISE: NONE. MARITAL STATUS: .. OTHERS AT HOME: CHILD. PAIN CLINIC PFS, CLERGY, PUBLIC HEALTH REFERRALS PFS REFERRAL NEEDED?NO CLERGY REFERRAL NEEDED?NO PUBLIC HEALTH REFERRAL NEEDED?NO WAS THE PROVIDER NOTIFIED OF ANY PERTINENT INFO?YES HAS THE PATIENT BEEN EDUCATED REGARDING HIS/HER PLAN OF CARE?YES HAS THE PATIENT BEEN EDUCATED REGARDING PAIN, THE RISK FOR PAIN, THE IMPORTANCE OF EFFECTIVE PAIN MANAGEMENT, AND THE PAIN ASSESSMENT PROCESS?YES ADVANCE DIRECTIVE ADVANCE DIRECTIVE DISCUSSED WITH PATIENT:YES PATIENT STATES SHE HAS THE INFORMATION AT HOME, DECLINES ASSISTANCE AT THIS TIME IN FILLING IT OUT. HOSPITALIZATION/MAJOR DIAGNOSTIC PROCEDURE SURGERY RELATED MYOCARDIAL INFARCTION 09/26, 08/01 REVIEW OF SYSTEMS CONSTITUTIONAL: ANY RECENT FEVER NO . CHILLS NO . WEIGHT CHANGE OF UNKNOWN REASONS NO . GASTROENTEROLOGY: NEW UNEXPLAINABLE CHANGES IN BOWEL CONTROL NO . CONSTIPATION NO . GENITOURINARY: ANY NEW CHANGE IN BLADDER CONTROL? NO . NEUROLOGY: NEW ONSET DIZZINESS OR NEUROLOGICAL CHANGES NOT MENTIONED NO . NEW NUMBNESS OR PAIN PATTERNS NOT MENTIONED AND PERTINENT TO TODAY'S VISIT NO . CARDIOLOGY: NEW CHEST PRESSURE NO . NEW CHEST PAIN NO . RESPIRATORY: UNEXPLAINABLE COUGH NO . NEW SHORTNESS OF BREATH NO . VITAL SIGNS WT 170.4 LBS, HT 62 IN, BMI 31.16 INDEX, BP 134/63 MM HG, HR 55 /MIN, RR 18 /MIN, TEMP 97.1 F, OXYGEN SAT % 96%, SAFE IN ENV? (Y/N) Y, NA INITIALS AW 1329, REVIEWED BY: JSJ. LENORA RN. EXAMINATION GENERAL EXAMINATION: GENERAL AWAKE,ALERT ,PLEASANT . PSYCH AFFECT NORMAL . LUNGS: LUNG CATES ARE CLEAR TO AUSCULTATION BILATERALLY. GOOD MOVEMENT OF AIR . HEART: S1, S2 IN A REGULAR RATE AND RHYTHM. NO SIGNIFICANT MURMURS, RUBS OR GALLOPS NOTED . 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 FOLLOW-UP IS SCHEDULED IN 3 MONTHS. , ISTOP REGISTRY REVIEWED AND DEMONSTRATES COMPLLIANCE. BRINGS IN MEDICATIONS WHICH IS APPROPRIATE FOR WHAT WAS DISPENSED. RECENT URINE TOXICOLOGY REVIEWED. NO UNAUTHORIZED MEDICATIONS. NO ILLICIT SUBSTANCES AND PRESCRIBED MEDICATIONS WERE PRESENT. UTOX TODAY UPDATE NARCOTIC AGREEMENT , [facility] NARCOTIC AGREEMENT WAS REVIEWED AND SIGNED TODAY BY THE PATIENT. SEE ATTACHED DOCUMENT FOR FULL DETAILS; SPECIFIC ISSUES WERE REVIEWED: 1) KEEP PAIN MEDS IN THEIR ORIGINAL BOTTLES AND ANY WEEKLY PLANNERS ARE TO BE BROUGHT TO THE PAIN CENTER AT EVERY VISIT. 2) THE PATIENT IS NOT TO INCREASE DOSING OR TIMING OF THEIR PAIN MEDICATION WITHOUT SPECIFIC DIRECTION OF THEIR PAIN CENTERPROVIDER (NOT ER OR OTHER PROVIDERS). 3) ALL PAIN MEDS ARE TO BE KEPT SECURED, IN A LOCKED BOX. 4) NO PAIN MEDS ARE TO BE SHARED WITH ANY OTHER PERSON FOR ANY REASON. 5) NO PAIN MEDS MAY BE TAKEN FROM ANY FRIENDS OR RELATIVES FOR ANY REASON 6) NO MEDS OR SUBSTANCES WHICH ARE NOT LEGAL ARE TO BE USED- NO MARIJUANA, NO COCAINE, AMPHETAMINES, HEROIN, OR OTHERS ARE EVER TO BE USED. 7)URINE TESTING IS DONE TO ACCOUNT FOR MEDS AND SUBSTANCES BEING TAKEN AND WILL BE DONE RANDOMLY. , RISKS OF NARCOTIC/OPIOD MEDICATIONS INCLUDES BUT IS NOT LIMITED TO RISK OF DEPENDANCE/DEVELOPMENT OF ADDICTION, MOOD DISTURBANCE AND DEPRESSION, OSTEOPOROSIS, HORMONAL AND LABIDAL CHANGES, RESPIRATORY DEPRESSION AND . PATIENT IS ADVISED NOT TO DRIVE OR DRINK ALCOHOL WHILE ON THESE MEDICATIONS. PROCEDURE CODES FA211 ESTABILISHED PATIENT [facility] CHARGE DISPOSITION & COMMUNICATION FOLLOW UP 3 MONTHS (REASON: LOW BACK PAIN/MEDICARE/MEDICATION MANAGEMENT/REVIEW YOU TOX DONE ON 08/14/2020) ELECTRONICALLY SIGNED BY BENJAMÍN MORALES ON 08/16/2020 AT 01:41 PM EST DISCLAIMER : THIS IS A VISIT SUMMARY EXTRACTED FROM THE [employer] CHART. IT IS NOT A COPY OF THE [employer] PROGRESS NOTE. OSMIN
== END ==
LOC: M PAIN 13:30
PROVIDERS: ATTEND Nurse Practitioner Family
DX: M54.42 Lumbago with sciatica, left side (principal); G89.29 Other chronic pain; G47.00 Insomnia, unspecified; K21.9 Gastro-esophageal reflux disease without esophagitis; E03.9 Hypothyroidism, unspecified; I25.2 Old myocardial infarction; Z86.59 Personal history of other mental and behavioral disorders; Z95.5 Presence of coronary angioplasty implant and graft; Z88.1 Allergy status to other antibiotic agents; Z88.5 Allergy status to narcotic agent; Z88.8 Allergy status to other drugs, medicaments and biological substances; Z79.01 Long term (current) use of anticoagulants; Z79.82 Long term (current) use of aspirin; Z79.899 Other long term (current) drug therapy

== ENCOUNTER → 2020-08-27 | Outpatient (CLI) | payer OTHER, MEDICAID, MEDICARE ==
--- NOTE | 2020-08-30 06:40 | ECWPNPC ---
PATIENT NAME: HAWK CASE : 1955 GENDER: FEMALE VISIT DATE: 08/27/2020 DISCHARGE DATE: 08/27/20 1427 VISIT LOCKED DATE TIME: PHYSICIAN: GERMAN SLAUGHTER RESOURCE: GERMAN SLAUGHTER REASON FOR APPOINTMENT 1. W/C NECK HISTORY OF PRESENT ILLNESS GENERAL: -. FALL RISK SCREENING: SCREENING :NO FALLS REPORTED IN THE LAST YEAR PAIN SCREENING: PATIENT HAS A COMPLAINT OF ACUTE OR CHRONIC PAIN :YES LOCATION OF PAIN:NECK INTENSITY OF PAIN (SCALE OF 1 TO 10):2 WHAT DOES YOUR PAIN FEEL LIKE:INTERMITTENT PAIN IS INCREASED BY:ACTIVITIES NURSING NOTE: -. PAIN CENTER INTAKE QUESTIONS: DO YOU HAVE A HISTORY OF MRSA? :NO DO YOU TAKE A BLOOD THINNERS? :NO DO YOU HAVE ANY BLEEDING DISORDERS? :NO ANY NEW NUMBNESS OR WEAKNESS IN YOUR LEGS OR ARMS? :NO ANY PACEMAKER,DEFIBRILLATOR, OR DORSAL COLUMN STIMULATOR? :NO DO YOU HAVE ANY RASHES OR OPEN SORES? :NO ARE YOU ALLERGIC TO IV DYE? :NO ARE YOU DIABETIC? :NO ANY NEW PROBLEMS WITH YOUR MEDICATIONS? :NO HAVE YOU RECEIVED A VACCINE IN THE PAST 30 DAYS? :NO DO YOU PLAN TO RECEIVE A VACCINE IN THE NEXT 21 DAYS? :NO DO YOU NEED ANY PRESCRIPTION? :NO DO YOU TAKE ANY IMMUNOSUPPRESSIVE MEDICATIONS? :NO IS THERE A CHANCE YOU COULD BE ? :NO ARE YOU BREAST FEEDING? :NO HISTORY OF PRESENT ILLNESS: PAIN THE PATIENT DESCRIBES THE PAIN... HERE FOR F/U OF CHRONIC NECK PAIN. PATIENT DESCRIBES THE PAIN ACHING, TENDER, THROBBING AND SORE WITH THE PAIN COMING AND GOING AND CURRENT PAIN SCORE OF 2/10. 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 PATIENT REPORTS HAVING CERVICAL SURGERY IN 1996. MRS. CASE STATES THAT SHE HAS TRIED PHYSICAL THERAPY IN THE PAST BUT IT DID NOT AID IN PAIN RELIEF OR FUNCTIONALITY AND MOBILITY. MRS. CASE DOES USE A TENS MACHINE AND STATES THAT IT KEEPS HER MOBILE. CURRENT MEDICATIONS TAKING ASPIR-81 81 MG TABLET DELAYED RELEASE 1 TABLET ORALLY ONCE A DAY TAKING KLONOPIN 0.5 MG TABLET 1 TABLET ORALLY QHS TAKING LORATADINE 10 MG TABLET 1 TABLET ORALLY ONCE A DAY TAKING LEVOTHYROXINE SODIUM 100 MCG TABLET 1 TABLET EVERY MORNING ON AN EMPTY STOMACH ORALLY ONCE A DAY TAKING HYDROCHLOROTHIAZIDE 25 25 MG SOFT GEL 1 TABLETS ORAL DAILY TAKING CRESTOR 20 MG TABLET 1 TABLET ORALLY ONCE A DAY TAKING LAMOTRIGINE 200 MG TABLET 1 TABLET ORALLY ONCE DAILY TAKING LISINOPRIL 10 MG TABLET 1 TABLET ORALLY ONCE A DAY TAKING PLAVIX 75 MG TABLET 1 TABLET ORALLY ONCE A DAY TAKING ZETIA 10 MG TABLET 1 TABLET ORALLY ONCE A DAY TAKING DEXILANT 30 MG CAPSULE DELAYED RELEASE 1 CAPSULE ORALLY ONCE A DAY TAKING SOMA 350 MG TABLET 1 TABLET ORALLY BEFORE BEDTIME TAKING DOCUSATE SODIUM 100 MG CAPSULE 1 CAP ORALLY BID, NOTES: TAKES NEEDED TAKING PERCOCET 10-325 MG TABLET 1 TABLET NEEDED ORALLY Q4-6H PRN MDD5 NOT-TAKING CARAFATE 1 GM TABLET 2TABLET ON AN EMPTY STOMACH ORALLY ONCE DAILY NOT-TAKING NEXIUM 40 MG CAPSULE DELAYED RELEASE 1 CAPSULE ORALLY TWICE A DAY NOT-TAKING MODAFINIL 100 MG TABLET 1 TABLET IN THE MORNING ORALLY ONCE A DAY NOT-TAKING MIRALAX - PACKET 1 PACKET MIXED WITH 8 OUNCES OF FLUID ORALLY ONCE A DAY NOT-TAKING VITAMIN D-3 2000 CAPSULE 1 CAPSULE ORALLY DAILY NOT-TAKING ROPINIROLE HCL 0.25 MG TABLET 1 TO 2 TAB ORALLY 2 HRS PRE BEDTIME NOT-TAKING LIDOCAINE HCL 2 % CREAM DIRECTED EXTERNALLY APPLY TO LEFT HIP DIRECTED Q8H PRN MEDICATION LIST REVIEWED AND RECONCILED WITH THE PATIENT PAST MEDICAL HISTORY PALPITATIONS, HEART HX BLOOD CLOTS, LEFT LEG HX ANEMIA ARTHRITIS, OA BACK PAIN HX BONE SPURS INSOMNIA MOOD SWINGS XEROPTHALMIA EARLY SATIETY COLONIC POLYPS RECURRENT UTIS SYSTEMIC LUPUS ERYTHEMATOUS ESOPHAGEAL REFLUX HYPOTHYROIDISM HYPERTENSION HYPERCHOLESTEROLEMIA RAYNAUDS SYNDROME NECK PAIN DEPRESSION OSTEOARTHRITIS MYOCARDIAL INFARCTION 2013, 2018 MYOFASCIAL PAIN SYNDROME LOW BACK PAIN LUMBAR RADICULOPATHY FRACTURED HAND JOINT HYPERCALCEMIA HYPONATREMIA LUPUS ALLERGIES PROPRANOLOL HCL: NAUSEA/VOMITING - ALLERGY CAPTOPRIL: NAUSEA/VOMITING - ALLERGY MACROBID: N/DIARRHEA - ALLERGY CIPRO: NAUSEA/VOMITING/DIARRHEA - ALLERGY MS CONTIN: N/V UNABLE TO VOID ANTIDEPRESSANTS: FLU LIKE SYMPTOMS /NAUSEA NUCYNTA ER: NIGHTMARES, INCREASED DEPRESSION - SIDE EFFECTS SURGICAL HISTORY NECK SURGERY BONE SPUR 1997 TUBAL LIGATION 1982 ENDOMETRIAL BIOPSY 2010 CARDIAC CATHETERIZATION 09/26 CARDIAC STENT 09/26 SURGERY TO REPAIR RIGHT FEMORAL ARTERY 09/26 CARDIAC STENT 10/27 CARDIAC STENT 03/26 COLONOSCOPY 2010 CARDIAC CATH/STENT PLACEMENT 07/31/2019 FAMILY HISTORY FATHER: DIAGNOSED WITH HYPERTENSION, DIABETES, OTHER MALIGNANT NEOPLASM OF UNSPECIFIED SITE MOTHER: HYPERTENSION, DIABETES, OTHER MALIGNANT NEOPLASM OF UNSPECIFIED SITE PATERNAL GRAND MOTHER: OTHER MALIGNANT NEOPLASM OF UNSPECIFIED SITE MATERNAL GRAND MOTHER: OTHER MALIGNANT NEOPLASM OF UNSPECIFIED SITE 7 BROTHER(S) , 3 SISTER(S) . 1 SON(S) , 3 DAUGHTER(S) . BROTHER CAD,IMMDM,CANCER BROTHER HEART DIEASE IDDM,BROTHER HEART DIEASE, IDDM, SISTER FROM LIVER FAILURE, SISTER HEART DIEASE, HTN\NDAUGHTER FROM DRUG OVERDOSE METPROBAMATE. ONE DAUGHTER LUPUS, BACK PROBLEMS, SPINAL STENOSIS AND SPINAL CYSTSBROTHER - COVID-19. SOCIAL HISTORY GENERAL: TOBACCO USE ARE YOU A:NONSMOKER LATEX QUESTIONNAIRE LATEX ALLERGY : HAVE YOU EVER DEVELOPED ANY TYPE OF REACTION AFTER HANDLING LATEX PRODUCTS SUCH RUBBER GLOVES, CONDOMS, DIAPHRAGMS, BALLOONS, SOCKS, OR UNDERWEAR?YES LATEX ALLERGY : HAVE YOU EVER DEVELOPED ANY TYPE OF REACTION DURING OR AFTER DENTAL APPOINTMENT, VAGINAL/RECTAL EXAMINATION, SURGICAL PROCEDURE, OR ANY OTHER EXPOSURE?NO - PLEASE INDICATE :RUBBER GLOVES DATE ASKED : 02/26/2020 LATEX RISK : HAVE YOU EVER HAD ANY DIFFICULTY BREATHING OR HIVES AFTER EATING OR HANDLING ANY FRUITS, OR VEGETABLES; SUCH KIWI, BANANAS, STONE FRUITS, OR CHESTNUTSNO LATEX RISK : DO YOU HAVE A PREVIOUS PERSONAL HISTORY OF MORE THAN NINE SURGERIES, SPINA BIFIDA, OR REPEATED CATHERIZATIONS? NO LATEX RISK : ARE YOU FREQUENTLY EXPOSED TO LATEX PRODUCTS IN YOUR OCCUPATION?NO ALCOHOL SCREENING DID YOU HAVE A DRINK CONTAINING ALCOHOL IN THE PAST YEAR?NO POINTS0 INTERPRETATIONNEGATIVE RECREATIONAL DRUG USE DRUG USE?NO CAFFEINE CAFFEINE USE?YES 1 CUP COFFEE/ DAY [employer] [id number] [employer] LANG[employer] LANGUAGES SPOKEN:NORWEGIAN EDUCATION LEVEL OF EDUCATION:COLLEGE A COUPLE OF SEMESTERS LEARNING BARRIERS / SPECIAL NEEDS CHANGE FROM LAST VISIT?NO BARRIERS TO LEARNING?NO HEARING IMPAIRED?NO VISION IMPAIRED?YES COGNITIVELY IMPAIRED?NO :CORRECTIVE LENSES READINESS TO LEARN?YES LEARNING PREFERENCES?YES :TAPES/VIDEOS, BOOKLETS, HANDOUTS LEARNING CAPABILITIES PRESENT?YES EMOTIONAL BARRIERS?NO SPECIAL DEVICES?YES :CANE EXPERIMENTAL BOX TESTER NEEDED?NO DOMESTIC 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 DIET: REGULAR. EXERCISE: NONE. MARITAL STATUS: .. OTHERS AT HOME: CHILD. PAIN CLINIC PFS, CLERGY, PUBLIC HEALTH REFERRALS PFS REFERRAL NEEDED?NO CLERGY REFERRAL NEEDED?NO PUBLIC HEALTH REFERRAL NEEDED?NO WAS THE PROVIDER NOTIFIED OF ANY PERTINENT INFO?YES HAS THE PATIENT BEEN EDUCATED REGARDING HIS/HER PLAN OF CARE?YES HAS THE PATIENT BEEN EDUCATED REGARDING PAIN, THE RISK FOR PAIN, THE IMPORTANCE OF EFFECTIVE PAIN MANAGEMENT, AND THE PAIN ASSESSMENT PROCESS?YES ADVANCE DIRECTIVE ADVANCE DIRECTIVE DISCUSSED WITH PATIENT:YES PATIENT STATES SHE HAS THE INFORMATION AT HOME, DECLINES ASSISTANCE AT THIS TIME IN FILLING IT OUT. HOSPITALIZATION/MAJOR DIAGNOSTIC PROCEDURE SURGERY RELATED MYOCARDIAL INFARCTION 09/26, 08/01 REVIEW OF SYSTEMS CONSTITUTIONAL: ANY RECENT FEVER NO . CHILLS NO . WEIGHT CHANGE OF UNKNOWN REASONS NO . GASTROENTEROLOGY: NEW UNEXPLAINABLE CHANGES IN BOWEL CONTROL NO . CONSTIPATION NO . GENITOURINARY: ANY NEW CHANGE IN BLADDER CONTROL? NO . NEUROLOGY: NEW ONSET DIZZINESS OR NEUROLOGICAL CHANGES NOT MENTIONED NO . NEW NUMBNESS OR PAIN PATTERNS NOT MENTIONED AND PERTINENT TO TODAY'S VISIT NO . CARDIOLOGY: NEW CHEST PRESSURE NO . NEW CHEST PAIN NO . RESPIRATORY: UNEXPLAINABLE COUGH NO . NEW SHORTNESS OF BREATH NO . VITAL SIGNS WT 170.4 LBS, HT 62 IN, BMI 31.16 INDEX, BP 141/63 MM HG, HR 57 /MIN, RR 18 /MIN, TEMP 96.3 F, OXYGEN SAT % 99%, SAFE IN ENV? (Y/N) YES, NA INITIALS TX 13:37, REVIEWED BY: AD. EXAMINATION GENERAL EXAMINATION: GENERAL AWAKE,ALERT ,PLEASANT . PSYCH AFFECT NORMAL . LUNGS: LUNG CATES ARE CLEAR TO AUSCULTATION BILATERALLY. GOOD MOVEMENT OF AIR . HEART: S1, S2 IN A REGULAR RATE AND RHYTHM. NO SIGNIFICANT MURMURS, RUBS OR GALLOPS NOTED . ASSESSMENTS SPONDYLOSIS WITHOUT MYELOPATHY OR RADICULOPATHY, CERVICAL REGION - M47.812 (PRIMARY) PROCEDURES PN WORKMANS' COMP OPINION IN YOUR OPINION, WAS THE INCIDENT THAT THE PATIENT DESCRIBED THE COMPETENT MEDICAL CAUSE OF THIS INJURY/ILLNESS? YES ARE THE PATIENT'S COMPLAINTS CONSISTENT WITH HIS/HER HISTORY OF THE INJURY/ILLNESS? YES IS THE PATIENT'S HISTORY OF THE INJURY/ILLNESS CONSISTENT WITH YOUR OBJECTIVE FINDING? YES WHAT IS THE PERCENTAGE OF TEMPORARY IMPAIRMENT? MODERATE TO MARKED = 66.7% IS THE PATIENT WORKING? NO DOCTOR ON SITE: ALONZO ALCANTARA MD , ALONZO ALCANTARA MD PROCEDURE CODES FA211 ESTABILISHED PATIENT [facility] FACILITY CHARGE DISPOSITION & COMMUNICATION FOLLOW UP 3 MONTHS (REASON: W/C NECK) ELECTRONICALLY SIGNED BY BENJAMÍN MORALES ON 08/29/2020 AT 09:45 AM EST DISCLAIMER : THIS IS A VISIT SUMMARY EXTRACTED FROM THE [employer] CHART. IT IS NOT A COPY OF THE [employer] PROGRESS NOTE. SERENAD
== END ==
LOC: M PAIN 13:30
PROVIDERS: ATTEND Nurse Practitioner Family
DX: M47.812 Spondylosis without myelopathy or radiculopathy, cervical region (principal); G89.29 Other chronic pain; G47.00 Insomnia, unspecified; K21.9 Gastro-esophageal reflux disease without esophagitis; E03.9 Hypothyroidism, unspecified; Z86.59 Personal history of other mental and behavioral disorders; Z95.5 Presence of coronary angioplasty implant and graft; Z88.1 Allergy status to other antibiotic agents; Z88.5 Allergy status to narcotic agent; Z88.8 Allergy status to other drugs, medicaments and biological substances; Z79.82 Long term (current) use of aspirin; Z79.899 Other long term (current) drug therapy

== ENCOUNTER → 2020-11-03 | Outpatient (CLI) | payer MEDICARE, MEDICAID ==
[~2020-11-03] MED LIST changes: +HYDR-3490 PO; -HYDR25TAB PO
[2020-11-03 15:11] LABS: TOTAL VOLUME, URINE 1400 ML
[2020-11-03 15:35] LABS: CALCIUM, URINE < 5.0 MG/DL
== END ==
LOC: M LAB 13:56
PROVIDERS: ATTEND Internal Medicine Endocrinology, Diabetes & Metabolism
DX: E83.52 Hypercalcemia (principal)

== ENCOUNTER → 2020-11-12 | Outpatient (CLI) | payer MEDICARE, MEDICAID ==
--- NOTE | 2020-11-19 06:47 | ECWPNPC ---
PATIENT NAME: HAWK CASE : 1955 GENDER: FEMALE VISIT DATE: 11/12/2020 DISCHARGE DATE: 11/12/20 1416 VISIT LOCKED DATE TIME: PHYSICIAN: GERMAN SLAUGHTER RESOURCE: GERMAN SLAUGHTER REASON FOR APPOINTMENT 1. 3 MONTH LOW BACK PAIN/MEDICARE/MEDICATION MANAGEMENT/REVIEW U TOX DONE ON 08/14/2020 HISTORY OF PRESENT ILLNESS GENERAL: HERE FOR ROUTINE FOLLOW-UP OF CHRONIC LOW BACK PAIN/MEDICATION MANAGEMENT. REPORTS AGGRAVATION IN LOW BACK PAIN OVER THE PAST FEW MONTHS. STATES SHE WAS LIFTING A HEAVY BOX A FEW DAYS AGO AND HAS HAD AGGRAVATION IN MAINLY RIGHT-SIDED LOW BACK PAIN. SHE IS VERY TENDER OVER RIGHT SIJ AND RIGHT LUMBAR FACETS TODAY. SHE IS NOT INTERESTED IN DOING INJECTION THERAPY WE DISCUSSED TODAY. -. FALL RISK SCREENING: SCREENING : TWO OR MORE FALLS WITHOUT INJURY IN THE PAST YEAR. PAIN SCREENING: PATIENT HAS A COMPLAINT OF ACUTE OR CHRONIC PAIN :YES LOCATION OF PAIN:LOW BACK INTENSITY OF PAIN (SCALE OF 1 TO 10):8 WHAT DOES YOUR PAIN FEEL LIKE:INTERMITTENT, SHARP, TENDER, SORE DURATION:INTERMITTENT PAIN IS INCREASED BY:ACTIVITIES PAIN IS DECREASED BY:USE OF PAIN MEDICATIONS, OTHERS HEAT PAD NURSING NOTE: -. PAIN CENTER INTAKE QUESTIONS: DO YOU HAVE A HISTORY OF MRSA? :NO DO YOU TAKE A BLOOD THINNERS? :YES DO YOU HAVE ANY BLEEDING DISORDERS? :NO ANY NEW NUMBNESS OR WEAKNESS IN YOUR LEGS OR ARMS? :NO ANY PACEMAKER,DEFIBRILLATOR, OR DORSAL COLUMN STIMULATOR? :NO DO YOU HAVE ANY RASHES OR OPEN SORES? :YES RASHES ON NECK ARE YOU ALLERGIC TO IV DYE? :NO ARE YOU DIABETIC? :NO ANY NEW PROBLEMS WITH YOUR MEDICATIONS? :NO HAVE YOU RECEIVED A VACCINE IN THE PAST 30 DAYS? :NO DO YOU PLAN TO RECEIVE A VACCINE IN THE NEXT 21 DAYS? :NO DO YOU NEED ANY PRESCRIPTION? :YES SOMA, OXYCODONE DO YOU TAKE ANY IMMUNOSUPPRESSIVE MEDICATIONS? :NO IS THERE A CHANCE YOU COULD BE ? :NO ARE YOU BREAST FEEDING? :NO CURRENT MEDICATIONS TAKING ASPIR-81 81 MG TABLET DELAYED RELEASE 1 TABLET ORALLY ONCE A DAY TAKING KLONOPIN 0.5 MG TABLET 1 TABLET ORALLY QHS TAKING LORATADINE 10 MG TABLET 1 TABLET ORALLY ONCE A DAY TAKING LEVOTHYROXINE SODIUM 100 MCG TABLET 1 TABLET EVERY MORNING ON AN EMPTY STOMACH ORALLY ONCE A DAY TAKING HYDROCHLOROTHIAZIDE 25 25 MG SOFT GEL 1 TABLETS ORAL DAILY TAKING CRESTOR 20 MG TABLET 1 TABLET ORALLY ONCE A DAY TAKING LAMOTRIGINE 200 MG TABLET 1 TABLET ORALLY ONCE DAILY TAKING LISINOPRIL 10 MG TABLET 1 TABLET ORALLY ONCE A DAY TAKING PLAVIX 75 MG TABLET 1 TABLET ORALLY ONCE A DAY TAKING ZETIA 10 MG TABLET 1 TABLET ORALLY ONCE A DAY TAKING DEXILANT 30 MG CAPSULE DELAYED RELEASE 1 CAPSULE ORALLY ONCE A DAY TAKING SOMA 350 MG TABLET 1 TABLET ORALLY BEFORE BEDTIME TAKING DOCUSATE SODIUM 100 MG CAPSULE 1 CAP ORALLY BID TAKING PERCOCET 10-325 MG TABLET 1 TABLET NEEDED ORALLY Q4-6H PRN MDD5 TAKING NITROGLYCERIN 0.4 MG TABLET SUBLINGUAL NEEDED SUBLINGUAL NOT-TAKING CARAFATE 1 GM TABLET 2TABLET ON AN EMPTY STOMACH ORALLY ONCE DAILY NOT-TAKING NEXIUM 40 MG CAPSULE DELAYED RELEASE 1 CAPSULE ORALLY TWICE A DAY NOT-TAKING MODAFINIL 100 MG TABLET 1 TABLET IN THE MORNING ORALLY ONCE A DAY NOT-TAKING MIRALAX - PACKET 1 PACKET MIXED WITH 8 OUNCES OF FLUID ORALLY ONCE A DAY NOT-TAKING VITAMIN D-3 2000 CAPSULE 1 CAPSULE ORALLY DAILY NOT-TAKING ROPINIROLE HCL 0.25 MG TABLET 1 TO 2 TAB ORALLY 2 HRS PRE BEDTIME NOT-TAKING LIDOCAINE HCL 2 % CREAM DIRECTED EXTERNALLY APPLY TO LEFT HIP DIRECTED Q8H PRN MEDICATION LIST REVIEWED AND RECONCILED WITH THE PATIENT PAST MEDICAL HISTORY PALPITATIONS, HEART HX BLOOD CLOTS, LEFT LEG HX ANEMIA ARTHRITIS, OA BACK PAIN HX BONE SPURS INSOMNIA MOOD SWINGS XEROPTHALMIA EARLY SATIETY COLONIC POLYPS RECURRENT UTIS SYSTEMIC LUPUS ERYTHEMATOUS ESOPHAGEAL REFLUX HYPOTHYROIDISM HYPERTENSION HYPERCHOLESTEROLEMIA RAYNAUDS SYNDROME NECK PAIN DEPRESSION OSTEOARTHRITIS MYOCARDIAL INFARCTION 2013, 2018 MYOFASCIAL PAIN SYNDROME LOW BACK PAIN LUMBAR RADICULOPATHY FRACTURED HAND JOINT HYPERCALCEMIA HYPONATREMIA LUPUS ALLERGIES PROPRANOLOL HCL: NAUSEA/VOMITING - ALLERGY CAPTOPRIL: NAUSEA/VOMITING - ALLERGY MACROBID: N/DIARRHEA - ALLERGY CIPRO: NAUSEA/VOMITING/DIARRHEA - ALLERGY MS CONTIN: N/V UNABLE TO VOID ANTIDEPRESSANTS: FLU LIKE SYMPTOMS /NAUSEA NUCYNTA ER: NIGHTMARES, INCREASED DEPRESSION - SIDE EFFECTS SOCIAL HISTORY GENERAL: TOBACCO USE ARE YOU A:NONSMOKER LATEX QUESTIONNAIRE LATEX ALLERGY : HAVE YOU EVER DEVELOPED ANY TYPE OF REACTION AFTER HANDLING LATEX PRODUCTS SUCH RUBBER GLOVES, CONDOMS, DIAPHRAGMS, BALLOONS, SOCKS, OR UNDERWEAR?YES - PLEASE INDICATE :RUBBER GLOVES LATEX ALLERGY : HAVE YOU EVER DEVELOPED ANY TYPE OF REACTION DURING OR AFTER DENTAL APPOINTMENT, VAGINAL/RECTAL EXAMINATION, SURGICAL PROCEDURE, OR ANY OTHER EXPOSURE?NO LATEX RISK : HAVE YOU EVER HAD ANY DIFFICULTY BREATHING OR HIVES AFTER EATING OR HANDLING ANY FRUITS, OR VEGETABLES; SUCH KIWI, BANANAS, STONE FRUITS, OR CHESTNUTSNO LATEX RISK : DO YOU HAVE A PREVIOUS PERSONAL HISTORY OF MORE THAN NINE SURGERIES, SPINA BIFIDA, OR REPEATED CATHERIZATIONS? NO LATEX RISK : ARE YOU FREQUENTLY EXPOSED TO LATEX PRODUCTS IN YOUR OCCUPATION?NO DATE ASKED : 11/12/2020 ALCOHOL USE: NO. ALCOHOL SCREENING DID YOU HAVE A DRINK CONTAINING ALCOHOL IN THE PAST YEAR?NO POINTS0 INTERPRETATIONNEGATIVE RECREATIONAL DRUG USE DRUG USE?NO CAFFEINE CAFFEINE USE?YES 1 CUP COFFEE/ DAY YAZDANISM [id number] CAODAISM LANGUAGE LANGUAGES SPOKEN:CZECH EDUCATION LEVEL OF EDUCATION:COLLEGE A COUPLE OF SEMESTERS LEARNING BARRIERS / SPECIAL NEEDS CHANGE FROM LAST VISIT?NO BARRIERS TO LEARNING?NO HEARING IMPAIRED?NO VISION IMPAIRED?YES :CORRECTIVE LENSES COGNITIVELY IMPAIRED?NO READINESS TO LEARN?YES LEARNING PREFERENCES?YES :TAPES/VIDEOS, BOOKLETS, HANDOUTS LEARNING CAPABILITIES PRESENT?YES EMOTIONAL BARRIERS?NO SPECIAL DEVICES?YES :CANE RESEARCH CHEF NEEDED?NO DOMESTIC 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 DIET: REGULAR. EXERCISE: NONE. MARITAL STATUS: .. OTHERS AT HOME: CHILD. - PFS REFERRAL NEEDED?NO CLERGY REFERRAL NEEDED?NO PUBLIC HEALTH REFERRAL NEEDED?NO WAS THE PROVIDER NOTIFIED OF ANY PERTINENT INFO?YES HAS THE PATIENT BEEN EDUCATED REGARDING HIS/HER PLAN OF CARE?YES HAS THE PATIENT BEEN EDUCATED REGARDING PAIN, THE RISK FOR PAIN, THE IMPORTANCE OF EFFECTIVE PAIN MANAGEMENT, AND THE PAIN ASSESSMENT PROCESS?YES ADVANCE DIRECTIVE ADVANCE DIRECTIVE DISCUSSED WITH PATIENT:YES PATIENT STATES SHE HAS THE INFORMATION AT HOME, DECLINES ASSISTANCE AT THIS TIME IN FILLING IT OUT. REVIEW OF SYSTEMS CONSTITUTIONAL: ANY RECENT FEVER NO . CHILLS NO . WEIGHT CHANGE OF UNKNOWN REASONS NO . GASTROENTEROLOGY: NEW UNEXPLAINABLE CHANGES IN BOWEL CONTROL NO . CONSTIPATION NO . GENITOURINARY: ANY NEW CHANGE IN BLADDER CONTROL? NO . NEUROLOGY: NEW ONSET DIZZINESS OR NEUROLOGICAL CHANGES NOT MENTIONED NO . NEW NUMBNESS OR PAIN PATTERNS NOT MENTIONED AND PERTINENT TO TODAY'S VISIT NO . CARDIOLOGY: NEW CHEST PRESSURE NO . PATIENT DENIES NO . RESPIRATORY: UNEXPLAINABLE COUGH NO . NEW SHORTNESS OF BREATH NO . VITAL SIGNS WT 175 LBS, HT 62 IN, BMI 32.00 INDEX, BP 134/68 MM HG, HR 60 /MIN, RR 18 /MIN, TEMP 97.5 F, OXYGEN SAT % 100%, SAFE IN ENV? (Y/N) LEAHAVERY PERRY. EXAMINATION GENERAL EXAMINATION: GENERALAWAKE,ALERT ,PLEASANT . PSYCHAFFECT NORMAL . LUNGS:LUNG CATES ARE CLEAR TO AUSCULTATION BILATERALLY. GOOD MOVEMENT OF AIR . HEART:S1, S2 IN A REGULAR RATE AND RHYTHM. NO SIGNIFICANT MURMURS, RUBS OR GALLOPS NOTED . 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 TREATMENT LUMBAGO WITH SCIATICA, LEFT SIDE REFILL SOMA TABLET, 350 MG, 1 TABLET, ORALLY, BEFORE BEDTIME, 30 DAYS, 30, REFILLS 2 REFILL DOCUSATE SODIUM CAPSULE, 100 MG, 1 CAP, ORALLY, BID, 30 DAY(S), 60 CAPSULE, REFILLS 2 REFILL PERCOCET TABLET, 10-325 MG, 1 TABLET NEEDED, ORALLY, Q4-6H PRN MDD5, 30 DAYS, 150, REFILLS 0 NOTES: ISTOP REGISTRY REVIEWED AND DEMONSTRATES COMPLLIANCE. BRINGS IN MEDICATIONS WHICH IS APPROPRIATE FOR WHAT WAS DISPENSED. RECENT URINE TOXICOLOGY REVIEWED. NO UNAUTHORIZED MEDICATIONS. NO ILLICIT SUBSTANCES AND PRESCRIBED MEDICATIONS WERE PRESENT. , RISKS OF NARCOTIC/OPIOD MEDICATIONS INCLUDES BUT IS NOT LIMITED TO RISK OF DEPENDANCE/DEVELOPMENT OF ADDICTION, MOOD DISTURBANCE AND DEPRESSION, OSTEOPOROSIS, HORMONAL AND LABIDAL CHANGES, RESPIRATORY DEPRESSION AND . PATIENT IS ADVISED NOT TO DRIVE OR DRINK ALCOHOL WHILE ON THESE MEDICATIONS. PROCEDURE CODES FA211 ESTABILISHED PATIENT [facility] FACILITY CHARGE DISPOSITION & COMMUNICATION FOLLOW UP 3 MONTHS (REASON: MEDICATION MGMNT/MEDICARE/LBP/URINE TOX) ELECTRONICALLY SIGNED BY BENJAMÍN MORALES ON 11/18/2020 AT 05:01 PM EST DISCLAIMER : THIS IS A VISIT SUMMARY EXTRACTED FROM THE [employer] CHART. IT IS NOT A COPY OF THE [employer] PROGRESS NOTE. OSMIN
== END ==
LOC: M PAIN 13:30
PROVIDERS: ATTEND Nurse Practitioner Family
DX: M54.42 Lumbago with sciatica, left side (principal); G89.29 Other chronic pain; G47.00 Insomnia, unspecified; K21.9 Gastro-esophageal reflux disease without esophagitis; E03.9 Hypothyroidism, unspecified; I25.2 Old myocardial infarction; Z86.59 Personal history of other mental and behavioral disorders; Z88.1 Allergy status to other antibiotic agents; Z88.5 Allergy status to narcotic agent; Z88.8 Allergy status to other drugs, medicaments and biological substances; Z79.01 Long term (current) use of anticoagulants; Z79.82 Long term (current) use of aspirin; Z79.899 Other long term (current) drug therapy

== ENCOUNTER → 2020-12-05 | Outpatient (CLI) | payer OTHER, MEDICAID, MEDICARE ==
--- NOTE | 2020-12-12 03:10 | ECWPNPC ---
PATIENT NAME: HAWK CASE : 1955 GENDER: FEMALE VISIT DATE: 12/05/2020 DISCHARGE DATE: 12/05/20 1527 VISIT LOCKED DATE TIME: PHYSICIAN: GERMAN SLAUGHTER RESOURCE: GERMAN SLAUGHTER REASON FOR APPOINTMENT 1. W/C NECK HISTORY OF PRESENT ILLNESS DEPRESSION SCREENING: PHQ-9 LITTLE INTEREST OR PLEASURE IN DOING THINGSMORE THAN HALF THE DAYS FEELING DOWN, DEPRESSED, OR HOPELESSMORE THAN HALF THE DAYS TROUBLE FALLING OR STAYING ASLEEP, OR SLEEPING TOO MUCHNOT AT ALL FEELING TIRED OR HAVING LITTLE ENERGYSEVERAL DAYS POOR APPETITE OR OVEREATING NEARLY EVERY DAY FEELING BAD ABOUT YOURSELF-OR THAT YOU ARE A FAILURE OR HAVE LET YOURSELF OR YOUR FAMILY DOWN NOT AT ALL TROUBLE CONCENTRATING ON THINGS, SUCH READING THE NEWSPAPER OR WATCHING TELEVISION SEVERAL DAYS MOVING OR SPEAKING SO SLOWLY THAT OTHER PEOPLE COULD HAVE NOTICED. OR THE OPPOSITE- BEING SO FIDGETY OR RESTLESS THAT YOU HAVE BEEN MOVING AROUND A LOT MORE THAN USUALNOT AT ALL THOUGHTS THAT YOU WOULD BE BETTER OFF , OR OF HURTING YOURSELF IN SOME WAY?NOT AT ALL TOTAL SCORE:9 INTERPRETATIONMILD DEPRESSION PHQ-2 (2015 EDITION) LITTLE INTEREST OR PLEASURE IN DOING THINGS?MORE THAN HALF THE DAYS FEELING DOWN, DEPRESSED, OR HOPELESS?MORE THAN HALF THE DAYS TOTAL SCORE4 GENERAL: HERE FOR FOLLOW-UP OF PERSISTENT NECK PAIN WITH A HISTORY OF POST-CERVICAL LAMINECTOMY SYNDROME. REPORTING SIGNIFICANT INCREASE IN NECK PAIN OVER THE PAST FEW MONTHS. PAIN IS AGGRAVATED AROUND THE NECK MUSCLES. PAIN IS AGGRAVATED IN THIS REGION WITH USE OF LEFT ARM AND RANGE OF JOINT MOTION OF THE NECK. DISCUSSED PHYSICAL THERAPY FOR MYOFASCIAL RELEASE. THIS IS A WORK RELATED INJURY.-. FALL RISK SCREENING: SCREENING FALL DOWN A COUPLEMONTHS AGO WHEN YOU FELL ON ICE, FALL ON THE RIGHT SIDE OF THE BODY. PAIN SCREENING: PATIENT HAS A COMPLAINT OF ACUTE OR CHRONIC PAIN :YES LOCATION OF PAIN:NECK INTENSITY OF PAIN (SCALE OF 1 TO 10):2 WHAT DOES YOUR PAIN FEEL LIKE:TENDER, SHOOTING SHOOTING INTO SHOULDER DURATION:ONLY WITH SPECIFIC ACTIVITIES PAIN IS INCREASED BY:ACTIVITIES PAIN IS DECREASED BY:USE OF PAIN MEDICATIONS NURSING NOTE: -. PAIN CENTER INTAKE QUESTIONS: DO YOU HAVE A HISTORY OF MRSA? :NO DO YOU TAKE A BLOOD THINNERS? :YES DO YOU HAVE ANY BLEEDING DISORDERS? :NO ANY NEW NUMBNESS OR WEAKNESS IN YOUR LEGS OR ARMS? :NO ANY PACEMAKER,DEFIBRILLATOR, OR DORSAL COLUMN STIMULATOR? :NO DO YOU HAVE ANY RASHES OR OPEN SORES? :YES RASHES ON NECK ARE YOU ALLERGIC TO IV DYE? :NO ARE YOU DIABETIC? :NO ANY NEW PROBLEMS WITH YOUR MEDICATIONS? :NO HAVE YOU RECEIVED A VACCINE IN THE PAST 30 DAYS? :YES IF SO WHAT VACCINE AND WHEN? 1ST COVID 11/15/2020 DO YOU PLAN TO RECEIVE A VACCINE IN THE NEXT 21 DAYS? :YES IF SO WHAT VACCINE AND WHEN? 2ND COVID 12/16/2020 ISNT GOING TO TAKE IT DO YOU NEED ANY PRESCRIPTION? :NO DO YOU TAKE ANY IMMUNOSUPPRESSIVE MEDICATIONS? :NO IS THERE A CHANCE YOU COULD BE ? :NO ARE YOU BREAST FEEDING? :NO CURRENT MEDICATIONS TAKING ASPIR-81 81 MG TABLET DELAYED RELEASE 1 TABLET ORALLY ONCE A DAY TAKING KLONOPIN 0.5 MG TABLET 1 TABLET ORALLY QHS TAKING LORATADINE 10 MG TABLET 1 TABLET ORALLY ONCE A DAY TAKING LEVOTHYROXINE SODIUM 100 MCG TABLET 1 TABLET EVERY MORNING ON AN EMPTY STOMACH ORALLY ONCE A DAY TAKING HYDROCHLOROTHIAZIDE 25 25 MG SOFT GEL 1 TABLETS ORAL DAILY TAKING CRESTOR 20 MG TABLET 1 TABLET ORALLY ONCE A DAY TAKING LAMOTRIGINE 200 MG TABLET 1 TABLET ORALLY ONCE DAILY TAKING LISINOPRIL 10 MG TABLET 1 TABLET ORALLY ONCE A DAY TAKING PLAVIX 75 MG TABLET 1 TABLET ORALLY ONCE A DAY TAKING ZETIA 10 MG TABLET 1 TABLET ORALLY ONCE A DAY TAKING DEXILANT 30 MG CAPSULE DELAYED RELEASE 1 CAPSULE ORALLY ONCE A DAY TAKING NITROGLYCERIN 0.4 MG TABLET SUBLINGUAL NEEDED SUBLINGUAL TAKING DOCUSATE SODIUM 100 MG CAPSULE 1 CAP ORALLY BID TAKING PERCOCET 10-325 MG TABLET 1 TABLET NEEDED ORALLY Q4-6H PRN MDD5 TAKING SOMA 350 MG TABLET 1 TABLET ORALLY BEFORE BEDTIME NOT-TAKING CARAFATE 1 GM TABLET 2TABLET ON AN EMPTY STOMACH ORALLY ONCE DAILY NOT-TAKING NEXIUM 40 MG CAPSULE DELAYED RELEASE 1 CAPSULE ORALLY TWICE A DAY NOT-TAKING MODAFINIL 100 MG TABLET 1 TABLET IN THE MORNING ORALLY ONCE A DAY NOT-TAKING MIRALAX - PACKET 1 PACKET MIXED WITH 8 OUNCES OF FLUID ORALLY ONCE A DAY NOT-TAKING VITAMIN D-3 2000 CAPSULE 1 CAPSULE ORALLY DAILY NOT-TAKING ROPINIROLE HCL 0.25 MG TABLET 1 TO 2 TAB ORALLY 2 HRS PRE BEDTIME NOT-TAKING LIDOCAINE HCL 2 % CREAM DIRECTED EXTERNALLY APPLY TO LEFT HIP DIRECTED Q8H PRN MEDICATION LIST REVIEWED AND RECONCILED WITH THE PATIENT PAST MEDICAL HISTORY PALPITATIONS, HEART HX BLOOD CLOTS, LEFT LEG HX ANEMIA ARTHRITIS, OA BACK PAIN HX BONE SPURS INSOMNIA MOOD SWINGS XEROPTHALMIA EARLY SATIETY COLONIC POLYPS RECURRENT UTIS SYSTEMIC LUPUS ERYTHEMATOUS ESOPHAGEAL REFLUX HYPOTHYROIDISM HYPERTENSION HYPERCHOLESTEROLEMIA RAYNAUDS SYNDROME NECK PAIN DEPRESSION OSTEOARTHRITIS MYOCARDIAL INFARCTION 2013, 2018 MYOFASCIAL PAIN SYNDROME LOW BACK PAIN LUMBAR RADICULOPATHY FRACTURED HAND JOINT HYPERCALCEMIA HYPONATREMIA LUPUS ALLERGIES PROPRANOLOL HCL: NAUSEA/VOMITING - ALLERGY CAPTOPRIL: NAUSEA/VOMITING - ALLERGY MACROBID: N/DIARRHEA - ALLERGY CIPRO: NAUSEA/VOMITING/DIARRHEA - ALLERGY MS CONTIN: N/V UNABLE TO VOID ANTIDEPRESSANTS: FLU LIKE SYMPTOMS /NAUSEA NUCYNTA ER: NIGHTMARES, INCREASED DEPRESSION - SIDE EFFECTS SOCIAL HISTORY GENERAL: TOBACCO USE ARE YOU A:NONSMOKER LATEX QUESTIONNAIRE LATEX ALLERGY : HAVE YOU EVER DEVELOPED ANY TYPE OF REACTION AFTER HANDLING LATEX PRODUCTS SUCH RUBBER GLOVES, CONDOMS, DIAPHRAGMS, BALLOONS, SOCKS, OR UNDERWEAR?YES - PLEASE INDICATE :RUBBER GLOVES LATEX ALLERGY : HAVE YOU EVER DEVELOPED ANY TYPE OF REACTION DURING OR AFTER DENTAL APPOINTMENT, VAGINAL/RECTAL EXAMINATION, SURGICAL PROCEDURE, OR ANY OTHER EXPOSURE?NO LATEX RISK : HAVE YOU EVER HAD ANY DIFFICULTY BREATHING OR HIVES AFTER EATING OR HANDLING ANY FRUITS, OR VEGETABLES; SUCH KIWI, BANANAS, STONE FRUITS, OR CHESTNUTSNO LATEX RISK : DO YOU HAVE A PREVIOUS PERSONAL HISTORY OF MORE THAN NINE SURGERIES, SPINA BIFIDA, OR REPEATED CATHERIZATIONS? NO LATEX RISK : ARE YOU FREQUENTLY EXPOSED TO LATEX PRODUCTS IN YOUR OCCUPATION?NO DATE ASKED : 12/05/2020 ALCOHOL USE: NO. ALCOHOL SCREENING DID YOU HAVE A DRINK CONTAINING ALCOHOL IN THE PAST YEAR?NO POINTS0 INTERPRETATIONNEGATIVE RECREATIONAL DRUG USE DRUG USE?NO CAFFEINE CAFFEINE USE?YES 1 CUP COFFEE/ DAY AMISH [id number] JAINISM LANGUAGE LANGUAGES SPOKEN:KAZAKH EDUCATION LEVEL OF EDUCATION:COLLEGE A COUPLE OF SEMESTERS LEARNING BARRIERS / SPECIAL NEEDS CHANGE FROM LAST VISIT?NO BARRIERS TO LEARNING?NO HEARING IMPAIRED?NO VISION IMPAIRED?YES :CORRECTIVE LENSES COGNITIVELY IMPAIRED?NO READINESS TO LEARN?YES LEARNING PREFERENCES?YES :TAPES/VIDEOS, BOOKLETS, HANDOUTS LEARNING CAPABILITIES PRESENT?YES EMOTIONAL BARRIERS?NO SPECIAL DEVICES?YES :CANE, WALKER NEEDED MACHINE PLASTER MIXER NEEDED?NO DOMESTIC 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 DIET: REGULAR. EXERCISE: NONE. MARITAL STATUS: .. OTHERS AT HOME: CHILD. - PFS REFERRAL NEEDED?NO CLERGY REFERRAL NEEDED?NO PUBLIC HEALTH REFERRAL NEEDED?NO WAS THE PROVIDER NOTIFIED OF ANY PERTINENT INFO?YES HAS THE PATIENT BEEN EDUCATED REGARDING HIS/HER PLAN OF CARE?YES HAS THE PATIENT BEEN EDUCATED REGARDING PAIN, THE RISK FOR PAIN, THE IMPORTANCE OF EFFECTIVE PAIN MANAGEMENT, AND THE PAIN ASSESSMENT PROCESS?YES ADVANCE DIRECTIVE ADVANCE DIRECTIVE DISCUSSED WITH PATIENT:YES PATIENT STATES SHE HAS THE INFORMATION AT HOME, DECLINES ASSISTANCE AT THIS TIME IN FILLING IT OUT. REVIEW OF SYSTEMS CONSTITUTIONAL: ANY RECENT FEVER NO . CHILLS NO . WEIGHT CHANGE OF UNKNOWN REASONS NO . GASTROENTEROLOGY: NEW UNEXPLAINABLE CHANGES IN BOWEL CONTROL NO . CONSTIPATION NO . GENITOURINARY: ANY NEW CHANGE IN BLADDER CONTROL? NO . NEUROLOGY: NEW ONSET DIZZINESS OR NEUROLOGICAL CHANGES NOT MENTIONED NO . NEW NUMBNESS OR PAIN PATTERNS NOT MENTIONED AND PERTINENT TO TODAY'S VISIT NO . CARDIOLOGY: NEW CHEST PRESSURE NO . PATIENT DENIES NO . RESPIRATORY: UNEXPLAINABLE COUGH NO . NEW SHORTNESS OF BREATH NO . VITAL SIGNS WT 175.8 LBS, HT 62 IN, BMI 32.15 INDEX, BP 152/71 MM HG, HR 63 /MIN, RR 18 /MIN, TEMP 98.2 F, OXYGEN SAT % 95%, SAFE IN ENV? (Y/N) YES, NA INITIALS NM 14:35T.AVERY PERRY. EXAMINATION GENERAL EXAMINATION: GENERAL AWAKE,ALERT ,PLEAASANT . PSYCH AFFECT NORMAL . LUNGS: LUNG CATES ARE CLEAR TO AUSCULTATION BILATERALLY. GOOD MOVEMENT OF AIR . HEART: S1, S2 IN A REGULAR RATE AND RHYTHM. NO SIGNIFICANT MURMURS, RUBS OR GALLOPS NOTED . CERVICAL: TRIGGER POINTS: CERVICAL AND TRAPEZIUS BILAT..PAIN IS AGGREVATED WITH ROJM NECK AND USE OF RIGHT ARM.. ASSESSMENTS MYALGIA OF AUXILIARY MUSCLES, HEAD AND NECK - M79.12 (PRIMARY) CERVICAL POST-LAMINECTOMY SYNDROME - M96.1 TREATMENT MYALGIA OF AUXILIARY MUSCLES, HEAD AND NECK NOTES: WILL REQUEST PHYSICAL THERAPY FROM [facility] FOR MYOFASCIAL RELEASE OVER NECK MUSCULATURE. FOLLOW-UP AT PAIN CLINIC IN 6-8 WEEKS TO EVALUATE PROGRESS FROM PHYSICAL THERAPY. REFERRAL TO:PHYSICAL THERAPIST REASON:2XWK X 6 WKS,MASSAGE,MYOFASCIAL RELEASE,STRETCHING PROCEDURES PN [facility] OPINION IN YOUR OPINION, WAS THE INCIDENT THAT THE PATIENT DESCRIBED THE COMPETENT MEDICAL CAUSE OF THIS INJURY/ILLNESS? YES ARE THE PATIENT'S COMPLAINTS CONSISTENT WITH HIS/HER HISTORY OF THE INJURY/ILLNESS? YES IS THE PATIENT'S HISTORY OF THE INJURY/ILLNESS CONSISTENT WITH YOUR OBJECTIVE FINDING? YES WHAT IS THE PERCENTAGE OF TEMPORARY IMPAIRMENT? MODERATE TO MARKED = 66.7% IS THE PATIENT WORKING? NO DOCTOR ON SITE: ALONZO ALCANTARA MD PROCEDURE CODES FA211 ESTABILISHED PATIENT [facility] CHARGE DISPOSITION & COMMUNICATION FOLLOW UP 2 MONTHS (REASON: FOLLOW-UP [facility] PHYSICAL THERAPY MUSCLES OF THE NECK/MYOFASCIAL RELEASE) ELECTRONICALLY SIGNED BY BENJAMÍN MORALES ON 12/11/2020 AT 03:34 PM EDT DISCLAIMER : THIS IS A VISIT SUMMARY EXTRACTED FROM THE [employer] CHART. IT IS NOT A COPY OF THE [employer] PROGRESS NOTE. OSMIN
== END ==
LOC: M PAIN 14:30
PROVIDERS: ATTEND Nurse Practitioner Family
DX: M79.12 Myalgia of auxiliary muscles, head and neck (principal); M96.1 Postlaminectomy syndrome, not elsewhere classified; G47.00 Insomnia, unspecified; K21.9 Gastro-esophageal reflux disease without esophagitis; E03.9 Hypothyroidism, unspecified; I25.2 Old myocardial infarction; Z86.59 Personal history of other mental and behavioral disorders; Z88.1 Allergy status to other antibiotic agents; Z88.5 Allergy status to narcotic agent; Z88.8 Allergy status to other drugs, medicaments and biological substances; Z79.01 Long term (current) use of anticoagulants; Z79.82 Long term (current) use of aspirin; Z79.899 Other long term (current) drug therapy

== ENCOUNTER → 2020-12-31 | Outpatient (REF) | payer MEDICARE, MEDICAID | LOC: M LAB REF 17:25 | PROVIDERS: ATTEND Family Medicine Addiction Medicine | DX: R30.9 Painful micturition, unspecified (principal) ==

== ENCOUNTER → 2021-02-04 | Outpatient (CLI) | payer OTHER, MEDICAID, MEDICARE ==
--- NOTE | 2021-02-06 04:35 | ECWPNPC ---
PATIENT NAME: HAWK CASE : 1955 GENDER: FEMALE VISIT DATE: 02/04/2021 DISCHARGE DATE: 02/04/21 1356 VISIT LOCKED DATE TIME: PHYSICIAN: GERMAN SLAUGHTER RESOURCE: GERMAN SLAUGHTER REASON FOR APPOINTMENT 1. FOLLOW-UP WORKMEN'S COMP PHYSICAL THERAPY MUSCLES OF THE NECK/MYOFASCIAL RELEASE HISTORY OF PRESENT ILLNESS GENERAL: HERE FOR F/U OF CHRONIC NECK PAIN.THIS IS A WORK RELATED INJURY.HAS BEEN ATTENDING PT AND IS HAVING SOME IMPROVEMENT IN PAIN AND ROJM NECK. -. FALL RISK SCREENING: SCREENING COUPLE FALLS REPORTED IN THE LAST YEAR NO INJURIES, NO FAALS THIS YEAR. PAIN SCREENING: PATIENT HAS A COMPLAINT OF ACUTE OR CHRONIC PAIN :YES LOCATION OF PAIN:NECK INTENSITY OF PAIN (SCALE OF 1 TO 10):3 WHAT DOES YOUR PAIN FEEL LIKE:TENDER, SORE DURATION:INTERMITTENT PAIN IS INCREASED BY:ACTIVITIES PAIN IS DECREASED BY:OTHERS TEN UNITS, HEATING PAD NURSING NOTE: -. PAIN CENTER INTAKE QUESTIONS: DO YOU HAVE A HISTORY OF MRSA? :NO DO YOU TAKE A BLOOD THINNERS? :YES PLAVIX 75 MG DO YOU HAVE ANY BLEEDING DISORDERS? :NO ANY NEW NUMBNESS OR WEAKNESS IN YOUR LEGS OR ARMS? :YES BOTH ARMS ANY PACEMAKER,DEFIBRILLATOR, OR DORSAL COLUMN STIMULATOR? :NO DO YOU HAVE ANY RASHES OR OPEN SORES? :YES RASHES ON NECK ARE YOU ALLERGIC TO IV DYE? :NO ARE YOU DIABETIC? :NO ANY NEW PROBLEMS WITH YOUR MEDICATIONS? :NO HAVE YOU RECEIVED A VACCINE IN THE PAST 30 DAYS? :YES IF SO WHAT VACCINE AND WHEN? 1ST COVID 11/15/2020 DO YOU PLAN TO RECEIVE A VACCINE IN THE NEXT 21 DAYS? :YES IF SO WHAT VACCINE AND WHEN? 2ND COVID 12/16/2020 ISNT GOING TO TAKE IT DO YOU NEED ANY PRESCRIPTION? :NO DO YOU TAKE ANY IMMUNOSUPPRESSIVE MEDICATIONS? :NO IS THERE A CHANCE YOU COULD BE ? :NO ARE YOU BREAST FEEDING? :NO CURRENT MEDICATIONS TAKING ASPIR-81 81 MG TABLET DELAYED RELEASE 1 TABLET ORALLY ONCE A DAY TAKING KLONOPIN 0.5 MG TABLET 1 TABLET ORALLY QHS TAKING LORATADINE 10 MG TABLET 1 TABLET ORALLY ONCE A DAY TAKING LEVOTHYROXINE SODIUM 100 MCG TABLET 1 TABLET EVERY MORNING ON AN EMPTY STOMACH ORALLY ONCE A DAY TAKING HYDROCHLOROTHIAZIDE 25 25 MG SOFT GEL 1 TABLETS ORAL DAILY TAKING CRESTOR 20 MG TABLET 1 TABLET ORALLY ONCE A DAY TAKING LAMOTRIGINE 200 MG TABLET 1 TABLET ORALLY ONCE DAILY TAKING LISINOPRIL 10 MG TABLET 1 TABLET ORALLY ONCE A DAY TAKING PLAVIX 75 MG TABLET 1 TABLET ORALLY ONCE A DAY TAKING ZETIA 10 MG TABLET 1 TABLET ORALLY ONCE A DAY TAKING DEXILANT 30 MG CAPSULE DELAYED RELEASE 1 CAPSULE ORALLY ONCE A DAY TAKING NITROGLYCERIN 0.4 MG TABLET SUBLINGUAL NEEDED SUBLINGUAL TAKING DOCUSATE SODIUM 100 MG CAPSULE 1 CAP ORALLY BID TAKING SOMA 350 MG TABLET 1 TABLET ORALLY BEFORE BEDTIME TAKING PERCOCET 10-325 MG TABLET 1 TABLET NEEDED ORALLY Q4-6H PRN MDD5 TAKING BACTRIM DS 800-160 MG TABLET 1 TABLET ORALLY 500MG TWICE A DAY NOT-TAKING CARAFATE 1 GM TABLET 2TABLET ON AN EMPTY STOMACH ORALLY ONCE DAILY NOT-TAKING NEXIUM 40 MG CAPSULE DELAYED RELEASE 1 CAPSULE ORALLY TWICE A DAY NOT-TAKING MODAFINIL 100 MG TABLET 1 TABLET IN THE MORNING ORALLY ONCE A DAY NOT-TAKING MIRALAX - PACKET 1 PACKET MIXED WITH 8 OUNCES OF FLUID ORALLY ONCE A DAY NOT-TAKING VITAMIN D-3 2000 CAPSULE 1 CAPSULE ORALLY DAILY NOT-TAKING ROPINIROLE HCL 0.25 MG TABLET 1 TO 2 TAB ORALLY 2 HRS PRE BEDTIME NOT-TAKING LIDOCAINE HCL 2 % CREAM DIRECTED EXTERNALLY APPLY TO LEFT HIP DIRECTED Q8H PRN PAST MEDICAL HISTORY PALPITATIONS, HEART HX BLOOD CLOTS, LEFT LEG HX ANEMIA ARTHRITIS, OA BACK PAIN HX BONE SPURS INSOMNIA MOOD SWINGS XEROPTHALMIA EARLY SATIETY COLONIC POLYPS RECURRENT UTIS SYSTEMIC LUPUS ERYTHEMATOUS ESOPHAGEAL REFLUX HYPOTHYROIDISM HYPERTENSION HYPERCHOLESTEROLEMIA RAYNAUDS SYNDROME NECK PAIN DEPRESSION OSTEOARTHRITIS MYOCARDIAL INFARCTION 2013, 2018 MYOFASCIAL PAIN SYNDROME LOW BACK PAIN LUMBAR RADICULOPATHY FRACTURED HAND JOINT HYPERCALCEMIA HYPONATREMIA LUPUS ALLERGIES PROPRANOLOL HCL: NAUSEA/VOMITING - ALLERGY CAPTOPRIL: NAUSEA/VOMITING - ALLERGY MACROBID: N/DIARRHEA - ALLERGY CIPRO: NAUSEA/VOMITING/DIARRHEA - ALLERGY MS CONTIN: N/V UNABLE TO VOID ANTIDEPRESSANTS: FLU LIKE SYMPTOMS /NAUSEA NUCYNTA ER: NIGHTMARES, INCREASED DEPRESSION - SIDE EFFECTS SURGICAL HISTORY NECK SURGERY BONE SPUR 1997 TUBAL LIGATION 1982 ENDOMETRIAL BIOPSY 2010 CARDIAC CATHETERIZATION 09/26 CARDIAC STENT 09/26 SURGERY TO REPAIR RIGHT FEMORAL ARTERY 09/26 CARDIAC STENT 10/27 CARDIAC STENT 03/26 COLONOSCOPY 2010 CARDIAC CATH/STENT PLACEMENT 07/31/2019 COLONOSCOPY 02/12/2021 SOCIAL HISTORY GENERAL: TOBACCO USE ARE YOU A:NONSMOKER LATEX QUESTIONNAIRE LATEX ALLERGY : HAVE YOU EVER DEVELOPED ANY TYPE OF REACTION AFTER HANDLING LATEX PRODUCTS SUCH RUBBER GLOVES, CONDOMS, DIAPHRAGMS, BALLOONS, SOCKS, OR UNDERWEAR?YES - PLEASE INDICATE :RUBBER GLOVES LATEX ALLERGY : HAVE YOU EVER DEVELOPED ANY TYPE OF REACTION DURING OR AFTER DENTAL APPOINTMENT, VAGINAL/RECTAL EXAMINATION, SURGICAL PROCEDURE, OR ANY OTHER EXPOSURE?NO LATEX RISK : HAVE YOU EVER HAD ANY DIFFICULTY BREATHING OR HIVES AFTER EATING OR HANDLING ANY FRUITS, OR VEGETABLES; SUCH KIWI, BANANAS, STONE FRUITS, OR CHESTNUTSNO LATEX RISK : DO YOU HAVE A PREVIOUS PERSONAL HISTORY OF MORE THAN NINE SURGERIES, SPINA BIFIDA, OR REPEATED CATHERIZATIONS? NO LATEX RISK : ARE YOU FREQUENTLY EXPOSED TO LATEX PRODUCTS IN YOUR OCCUPATION?NO DATE ASKED : 02/04/2021 ALCOHOL USE: NO. ALCOHOL SCREENING DID YOU HAVE A DRINK CONTAINING ALCOHOL IN THE PAST YEAR?NO POINTS0 INTERPRETATIONNEGATIVE RECREATIONAL DRUG USE DRUG USE?NO CAFFEINE CAFFEINE USE?YES 1 CUP COFFEE/ DAY YAZ[employer]ANISM [id number] [employer] LANGUAGE LANGUAGES SPOKEN:SYRIAC EDUCATION LEVEL OF EDUCATION:COLLEGE A COUPLE OF SEMESTERS LEARNING BARRIERS / SPECIAL NEEDS CHANGE FROM LAST VISIT?NO BARRIERS TO LEARNING?NO HEARING IMPAIRED?NO VISION IMPAIRED?YES :CORRECTIVE LENSES COGNITIVELY IMPAIRED?NO READINESS TO LEARN?YES LEARNING PREFERENCES?YES :TAPES/VIDEOS, BOOKLETS, HANDOUTS LEARNING CAPABILITIES PRESENT?YES EMOTIONAL BARRIERS?NO SPECIAL DEVICES?YES :CANE, WALKER NEEDED EVENT STAFF NEEDED?NO DOMESTIC 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 DIET: REGULAR. EXERCISE: NONE. MARITAL STATUS: .. OTHERS AT HOME: CHILD. - PFS REFERRAL NEEDED?NO CLERGY REFERRAL NEEDED?NO PUBLIC HEALTH REFERRAL NEEDED?NO WAS THE PROVIDER NOTIFIED OF ANY PERTINENT INFO?YES HAS THE PATIENT BEEN EDUCATED REGARDING HIS/HER PLAN OF CARE?YES HAS THE PATIENT BEEN EDUCATED REGARDING PAIN, THE RISK FOR PAIN, THE IMPORTANCE OF EFFECTIVE PAIN MANAGEMENT, AND THE PAIN ASSESSMENT PROCESS?YES ADVANCE DIRECTIVE ADVANCE DIRECTIVE DISCUSSED WITH PATIENT:YES PATIENT STATES SHE HAS THE INFORMATION AT HOME, DECLINES ASSISTANCE AT THIS TIME IN FILLING IT OUT. HOSPITALIZATION/MAJOR DIAGNOSTIC PROCEDURE SURGERY RELATED MYOCARDIAL INFARCTION 09/26, 08/01 REVIEW OF SYSTEMS CONSTITUTIONAL: ANY RECENT FEVER NO . CHILLS NO . WEIGHT CHANGE OF UNKNOWN REASONS NO . GASTROENTEROLOGY: NEW UNEXPLAINABLE CHANGES IN BOWEL CONTROL NO . CONSTIPATION NO . GENITOURINARY: ANY NEW CHANGE IN BLADDER CONTROL? NO . NEUROLOGY: NEW ONSET DIZZINESS OR NEUROLOGICAL CHANGES NOT MENTIONED NO . NEW NUMBNESS OR PAIN PATTERNS NOT MENTIONED AND PERTINENT TO TODAY'S VISIT NO . CARDIOLOGY: NEW CHEST PRESSURE NO . PATIENT DENIES NO . RESPIRATORY: UNEXPLAINABLE COUGH NO . NEW SHORTNESS OF BREATH NO . VITAL SIGNS WT 176.2 LBS, HT 62 IN, BMI 32.22 INDEX, BP 149/69 MM HG, HR 65 /MIN, RR 18 /MIN, TEMP 98.2 F, OXYGEN SAT % 97%, SAFE IN ENV? (Y/N) YES, NA INITIALS AW 1324T.AVERY PERRY. EXAMINATION GENERAL EXAMINATION: GENERAL AWAKE,ALERT ,PLEAASANT . PSYCH AFFECT NORMAL . LUNGS: LUNG CATES ARE CLEAR TO AUSCULTATION BILATERALLY. GOOD MOVEMENT OF AIR . HEART: S1, S2 IN A REGULAR RATE AND RHYTHM. NO SIGNIFICANT MURMURS, RUBS OR GALLOPS NOTED . CERVICAL: TRIGGER POINTS: CERVICAL AND TRAPEZIUS BILAT..PAIN IS AGGREVATED WITH ROJM NECK AND USE OF RIGHT ARM.. ASSESSMENTS MYALGIA OF AUXILIARY MUSCLES, HEAD AND NECK - M79.12 (PRIMARY) CERVICAL POST-LAMINECTOMY SYNDROME - M96.1 TREATMENT MYALGIA OF AUXILIARY MUSCLES, HEAD AND NECK NOTES: CONTINUE HOME EXCERSISE AND STRETCHING/FORMAL PT. PROCEDURES PN WORKMANS' COMP OPINION IN YOUR OPINION, WAS THE INCIDENT THAT THE PATIENT DESCRIBED THE COMPETENT MEDICAL CAUSE OF THIS INJURY/ILLNESS? YES ARE THE PATIENT'S COMPLAINTS CONSISTENT WITH HIS/HER HISTORY OF THE INJURY/ILLNESS? YES IS THE PATIENT'S HISTORY OF THE INJURY/ILLNESS CONSISTENT WITH YOUR OBJECTIVE FINDING? YES WHAT IS THE PERCENTAGE OF TEMPORARY IMPAIRMENT? MODERATE TO MARKED = 66.7% IS THE PATIENT WORKING? NO DOCTOR ON SITE: ALONZO ALCANTARA MD PROCEDURE CODES FA211 ESTABILISHED PATIENT [facility] CHARGE DISPOSITION & COMMUNICATION FOLLOW UP 3 MONTHS (REASON: F/U PT-WORKMANS COMP/NECK) ELECTRONICALLY SIGNED BY BENJAMÍN MORALES ON 02/05/2021 AT 02:33 PM EDT DISCLAIMER : THIS IS A VISIT SUMMARY EXTRACTED FROM THE [employer] CHART. IT IS NOT A COPY OF THE [employer] PROGRESS NOTE. MTDD
== END ==
LOC: M PAIN 13:30
PROVIDERS: ATTEND Nurse Practitioner Family
DX: M79.12 Myalgia of auxiliary muscles, head and neck (principal); M96.1 Postlaminectomy syndrome, not elsewhere classified; G47.00 Insomnia, unspecified; K21.9 Gastro-esophageal reflux disease without esophagitis; E03.9 Hypothyroidism, unspecified; I25.2 Old myocardial infarction; Z86.59 Personal history of other mental and behavioral disorders; Z88.1 Allergy status to other antibiotic agents; Z88.5 Allergy status to narcotic agent; Z88.8 Allergy status to other drugs, medicaments and biological substances; Z79.01 Long term (current) use of anticoagulants; Z79.82 Long term (current) use of aspirin; Z79.899 Other long term (current) drug therapy

== ENCOUNTER → 2021-02-12 | Outpatient (CLI) | payer MEDICARE, MEDICAID ==
--- NOTE | 2021-02-14 16:52 | ECWPNPC ---
PATIENT NAME: HAWK CASE : 1955 GENDER: FEMALE VISIT DATE: 02/12/2021 DISCHARGE DATE: 02/12/21 1428 VISIT LOCKED DATE TIME: PHYSICIAN: GERMAN SLAUGHTER RESOURCE: GERMAN SLAUGHTER REASON FOR APPOINTMENT 1. MEDICATION MGMNT/MEDICARE/LBP/URINE TOX HISTORY OF PRESENT ILLNESS GENERAL: HERE FOR FOLLOW-UP OF CHRONIC LOW BACK PAIN. REPORTING NEW ONSET OF RIGHT LOW BACK PAIN WITH RADIATION INTO RIGHT LATERAL THIGH. THIS BEGAN APPROXIMATELY 2 WEEKS AGO WITHOUT PRECIPITATING EVENT. DENIES BOWEL OR BLADDER INCONTINENCE. DISCUSSED MEDICATION AND TREATMENT OPTIONS. -. FALL RISK SCREENING: SCREENING : NO FALLS REPORTED IN THE LAST YEAR. PAIN SCREENING: PATIENT HAS A COMPLAINT OF ACUTE OR CHRONIC PAIN :YES LOCATION OF PAIN:LOW BACK PAIN GOES DOWN INTO BUTTOCK DOWN INTO THE LEGS MOSTLY IN THE FRONT OF RIGHT LEG INTENSITY OF PAIN (SCALE OF 1 TO 10):2 WHAT DOES YOUR PAIN FEEL LIKE:ACHING, SHARP, STABBING, SHOOTING DURATION:MAINLY DURING THE NIGHT, INTERMITTENT PAIN IS INCREASED BY:ACTIVITIES, PROLONGED STANDING PAIN IS DECREASED BY:OTHERS LEG DOWN WITH HER LEGS OFF THE BED NURSING NOTE: -. PAIN CENTER INTAKE QUESTIONS: DO YOU HAVE A HISTORY OF MRSA? :NO DO YOU TAKE A BLOOD THINNERS? :YES PLAVIX 75 MG DO YOU HAVE ANY BLEEDING DISORDERS? :NO ANY NEW NUMBNESS OR WEAKNESS IN YOUR LEGS OR ARMS? :YES BOTH ARMS, PAIN GOES DOWN INTO BUTTOCK DOWN INTO THE LEGS MOSTLY IN THE FRONT OF RIGHT LEG ANY PACEMAKER,DEFIBRILLATOR, OR DORSAL COLUMN STIMULATOR? :NO DO YOU HAVE ANY RASHES OR OPEN SORES? :YES RASHES ON NECK ARE YOU ALLERGIC TO IV DYE? :NO ARE YOU DIABETIC? :NO ANY NEW PROBLEMS WITH YOUR MEDICATIONS? :NO HAVE YOU RECEIVED A VACCINE IN THE PAST 30 DAYS? :YES IF SO WHAT VACCINE AND WHEN? 1ST COVID 11/15/2020 DO YOU PLAN TO RECEIVE A VACCINE IN THE NEXT 21 DAYS? :YES IF SO WHAT VACCINE AND WHEN? 2ND COVID 12/16/2020 ISNT GOING TO TAKE IT DO YOU NEED ANY PRESCRIPTION? :NO DO YOU TAKE ANY IMMUNOSUPPRESSIVE MEDICATIONS? :NO IS THERE A CHANCE YOU COULD BE ? :NO ARE YOU BREAST FEEDING? :NO CURRENT MEDICATIONS TAKING ASPIR-81 81 MG TABLET DELAYED RELEASE 1 TABLET ORALLY ONCE A DAY TAKING KLONOPIN 0.5 MG TABLET 1 TABLET ORALLY QHS TAKING LORATADINE 10 MG TABLET 1 TABLET ORALLY ONCE A DAY TAKING LEVOTHYROXINE SODIUM 100 MCG TABLET 1 TABLET EVERY MORNING ON AN EMPTY STOMACH ORALLY ONCE A DAY TAKING HYDROCHLOROTHIAZIDE 25 25 MG SOFT GEL 1 TABLETS ORAL DAILY TAKING CRESTOR 20 MG TABLET 1 TABLET ORALLY ONCE A DAY TAKING LAMOTRIGINE 200 MG TABLET 1 TABLET ORALLY ONCE DAILY TAKING LISINOPRIL 10 MG TABLET 1 TABLET ORALLY ONCE A DAY TAKING PLAVIX 75 MG TABLET 1 TABLET ORALLY ONCE A DAY TAKING ZETIA 10 MG TABLET 1 TABLET ORALLY ONCE A DAY TAKING DEXILANT 30 MG CAPSULE DELAYED RELEASE 1 CAPSULE ORALLY ONCE A DAY TAKING NITROGLYCERIN 0.4 MG TABLET SUBLINGUAL NEEDED SUBLINGUAL TAKING DOCUSATE SODIUM 100 MG CAPSULE 1 CAP ORALLY BID TAKING SOMA 350 MG TABLET 1 TABLET ORALLY BEFORE BEDTIME TAKING PERCOCET 10-325 MG TABLET 1 TABLET NEEDED ORALLY Q4-6H PRN MDD5 TAKING BACTRIM DS 800-160 MG TABLET 1 TABLET ORALLY 500MG TWICE A DAY NOT-TAKING CARAFATE 1 GM TABLET 2TABLET ON AN EMPTY STOMACH ORALLY ONCE DAILY NOT-TAKING NEXIUM 40 MG CAPSULE DELAYED RELEASE 1 CAPSULE ORALLY TWICE A DAY NOT-TAKING MODAFINIL 100 MG TABLET 1 TABLET IN THE MORNING ORALLY ONCE A DAY NOT-TAKING MIRALAX - PACKET 1 PACKET MIXED WITH 8 OUNCES OF FLUID ORALLY ONCE A DAY NOT-TAKING VITAMIN D-3 2000 CAPSULE 1 CAPSULE ORALLY DAILY NOT-TAKING ROPINIROLE HCL 0.25 MG TABLET 1 TO 2 TAB ORALLY 2 HRS PRE BEDTIME NOT-TAKING LIDOCAINE HCL 2 % CREAM DIRECTED EXTERNALLY APPLY TO LEFT HIP DIRECTED Q8H PRN MEDICATION LIST REVIEWED AND RECONCILED WITH THE PATIENT PAST MEDICAL HISTORY PALPITATIONS, HEART HX BLOOD CLOTS, LEFT LEG HX ANEMIA ARTHRITIS, OA BACK PAIN HX BONE SPURS INSOMNIA MOOD SWINGS XEROPTHALMIA EARLY SATIETY COLONIC POLYPS RECURRENT UTIS SYSTEMIC LUPUS ERYTHEMATOUS ESOPHAGEAL REFLUX HYPOTHYROIDISM HYPERTENSION HYPERCHOLESTEROLEMIA RAYNAUDS SYNDROME NECK PAIN DEPRESSION OSTEOARTHRITIS MYOCARDIAL INFARCTION 2013, 2018 MYOFASCIAL PAIN SYNDROME LOW BACK PAIN LUMBAR RADICULOPATHY FRACTURED HAND JOINT HYPERCALCEMIA HYPONATREMIA LUPUS ALLERGIES PROPRANOLOL HCL: NAUSEA/VOMITING - ALLERGY CAPTOPRIL: NAUSEA/VOMITING - ALLERGY MACROBID: N/DIARRHEA - ALLERGY CIPRO: NAUSEA/VOMITING/DIARRHEA - ALLERGY MS CONTIN: N/V UNABLE TO VOID ANTIDEPRESSANTS: FLU LIKE SYMPTOMS /NAUSEA NUCYNTA ER: NIGHTMARES, INCREASED DEPRESSION - SIDE EFFECTS SURGICAL HISTORY NECK SURGERY BONE SPUR 1996 TUBAL LIGATION 1981 ENDOMETRIAL BIOPSY 2010 CARDIAC CATHETERIZATION 09/26 CARDIAC STENT 09/26 SURGERY TO REPAIR RIGHT FEMORAL ARTERY 09/26 CARDIAC STENT 10/27 CARDIAC STENT 03/26 COLONOSCOPY 2010 CARDIAC CATH/STENT PLACEMENT 07/31/2019 COLONOSCOPY FAMILY HISTORY FATHER: DIAGNOSED WITH HYPERTENSION, DIABETES, OTHER MALIGNANT NEOPLASM OF UNSPECIFIED SITE MOTHER: HYPERTENSION, DIABETES, OTHER MALIGNANT NEOPLASM OF UNSPECIFIED SITE PATERNAL GRAND MOTHER: OTHER MALIGNANT NEOPLASM OF UNSPECIFIED SITE MATERNAL GRAND MOTHER: OTHER MALIGNANT NEOPLASM OF UNSPECIFIED SITE 7 BROTHER(S) , 3 SISTER(S) . 1 SON(S) , 3 DAUGHTER(S) . BROTHER CAD,IMMDM,CANCER BROTHER HEART DIEASE IDDM,BROTHER HEART DIEASE, IDDM, SISTER FROM LIVER FAILURE, SISTER HEART DIEASE, HTN\NDAUGHTER FROM DRUG OVERDOSE METPROBAMATE. ONE DAUGHTER LUPUS, BACK PROBLEMS, SPINAL STENOSIS AND SPINAL CYSTSBROTHER - COVID-19. SOCIAL HISTORY GENERAL: TOBACCO USE ARE YOU A:NONSMOKER LATEX QUESTIONNAIRE LATEX ALLERGY : HAVE YOU EVER DEVELOPED ANY TYPE OF REACTION AFTER HANDLING LATEX PRODUCTS SUCH RUBBER GLOVES, CONDOMS, DIAPHRAGMS, BALLOONS, SOCKS, OR UNDERWEAR?YES - PLEASE INDICATE :RUBBER GLOVES LATEX ALLERGY : HAVE YOU EVER DEVELOPED ANY TYPE OF REACTION DURING OR AFTER DENTAL APPOINTMENT, VAGINAL/RECTAL EXAMINATION, SURGICAL PROCEDURE, OR ANY OTHER EXPOSURE?NO LATEX RISK : HAVE YOU EVER HAD ANY DIFFICULTY BREATHING OR HIVES AFTER EATING OR HANDLING ANY FRUITS, OR VEGETABLES; SUCH KIWI, BANANAS, STONE FRUITS, OR CHESTNUTSNO LATEX RISK : DO YOU HAVE A PREVIOUS PERSONAL HISTORY OF MORE THAN NINE SURGERIES, SPINA BIFIDA, OR REPEATED CATHERIZATIONS? NO LATEX RISK : ARE YOU FREQUENTLY EXPOSED TO LATEX PRODUCTS IN YOUR OCCUPATION?NO DATE ASKED : 02/12/2021 ALCOHOL USE: NO. ALCOHOL SCREENING DID YOU HAVE A DRINK CONTAINING ALCOHOL IN THE PAST YEAR?NO POINTS0 INTERPRETATIONNEGATIVE RECREATIONAL DRUG USE DRUG USE?NO CAFFEINE CAFFEINE USE?YES 1 CUP COFFEE/ DAY EPISCOPALIAN [id number] JEW LANGUAGE LANGUAGES SPOKEN:ARABIC EDUCATION LEVEL OF EDUCATION:COLLEGE A COUPLE OF SEMESTERS LEARNING BARRIERS / SPECIAL NEEDS CHANGE FROM LAST VISIT?NO BARRIERS TO LEARNING?NO HEARING IMPAIRED?NO VISION IMPAIRED?YES :CORRECTIVE LENSES COGNITIVELY IMPAIRED?NO READINESS TO LEARN?YES LEARNING PREFERENCES?YES :TAPES/VIDEOS, BOOKLETS, HANDOUTS LEARNING CAPABILITIES PRESENT?YES EMOTIONAL BARRIERS?NO SPECIAL DEVICES?YES :CANE, WALKER NEEDED SENIOR INFORMATION SYSTEMS ARCHITECT NEEDED?NO DOMESTIC 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 DIET: REGULAR. EXERCISE: NONE. MARITAL STATUS: .. OTHERS AT HOME: CHILD. - PFS REFERRAL NEEDED?NO CLERGY REFERRAL NEEDED?NO PUBLIC HEALTH REFERRAL NEEDED?NO WAS THE PROVIDER NOTIFIED OF ANY PERTINENT INFO?YES HAS THE PATIENT BEEN EDUCATED REGARDING HIS/HER PLAN OF CARE?YES HAS THE PATIENT BEEN EDUCATED REGARDING PAIN, THE RISK FOR PAIN, THE IMPORTANCE OF EFFECTIVE PAIN MANAGEMENT, AND THE PAIN ASSESSMENT PROCESS?YES ADVANCE DIRECTIVE ADVANCE DIRECTIVE DISCUSSED WITH PATIENT:YES PATIENT STATES SHE HAS THE INFORMATION AT HOME, DECLINES ASSISTANCE AT THIS TIME IN FILLING IT OUT. HOSPITALIZATION/MAJOR DIAGNOSTIC PROCEDURE SURGERY RELATED MYOCARDIAL INFARCTION 09/26, 08/01 REVIEW OF SYSTEMS CONSTITUTIONAL: ANY RECENT FEVER NO . CHILLS NO . WEIGHT CHANGE OF UNKNOWN REASONS NO . GASTROENTEROLOGY: NEW UNEXPLAINABLE CHANGES IN BOWEL CONTROL NO . CONSTIPATION NO . GENITOURINARY: ANY NEW CHANGE IN BLADDER CONTROL? NO . NEUROLOGY: NEW ONSET DIZZINESS OR NEUROLOGICAL CHANGES NOT MENTIONED NO . NEW NUMBNESS OR PAIN PATTERNS NOT MENTIONED AND PERTINENT TO TODAY'S VISIT NO . CARDIOLOGY: NEW CHEST PRESSURE NO . PATIENT DENIES NO . RESPIRATORY: UNEXPLAINABLE COUGH NO . NEW SHORTNESS OF BREATH NO . VITAL SIGNS WT 175 LBS, HT 62 IN, BMI 32.00 INDEX, BP 152/73 MM HG, REPEAT BP 148/71 MM HG, HR 55 /MIN, RR 16 /MIN, TEMP 98.2 F, OXYGEN SAT % 100%, SAFE IN ENV? (Y/N) YES, NA INITIALS MT 13:42T.AVERY PERRY. EXAMINATION GENERAL EXAMINATION: GENERALNO ACUTE DISTRESS, WELL NOURISHED AND HYDRATED. PSYCHAPPROPRIATE MOOD AND AFFECT . LUNGS:CLEAR TO AUSCULTATION BILATERALLY, NO WHEEZES, RHONCHI, RALES. HEART:NO MURMURS, REGULAR RATE AND RHYTHM. MUSCULOSKELETAL: SLIGHTLY WEAK OVER RIGHT LEG. LUMBAR: TENDER OVER RIGHT LOW BACK. ASSESSMENTS CHRONIC PRESCRIPTION OPIATE USE - Z79.899 (PRIMARY) INTERVERTEBRAL DISC DISORDER WITH RADICULOPATHY OF LUMBAR REGION - M51.16 TREATMENT CHRONIC PRESCRIPTION OPIATE USE REFILL SOMA TABLET, 350 MG, 1 TABLET, ORALLY, BEFORE BEDTIME, 30 DAYS, 30, REFILLS 2 REFILL PERCOCET TABLET, 10-325 MG, 1 TABLET NEEDED, ORALLY, Q4-6H PRN MDD5, 30 DAYS, 150, REFILLS 0 LAB: URINE TEST GROUP NOTES: DUE TO NEW ONSET OF RIGHT LOW BACK PAIN WITH RIGHT LEG RADICULAR SYMPTOMS I WILL ORDER AN MRI OF THE LUMBOSACRAL SPINE TO RULE OUT NERVE IMPINGEMENT SYNDROME/RADICULOPATHY. FOLLOW-UP WILL BE SCHEDULED IN 6-8 WEEKS TO REVIEW THIS AND DISCUSS TREATMENT PLAN. INTERVERTEBRAL DISC DISORDER WITH RADICULOPATHY OF LUMBAR REGION [facility] MRI SPINE, [facility]. WITHOUT [id number] PROCEDURE CODES FA211 ESTABILISHED PATIENT [facility] CHARGE DISPOSITION & COMMUNICATION FOLLOW UP 6-8WKS REVIEW MRI/REVIEW UTOX (REASON: MEDICARE LOW BACK PAIN/REVIEW MRI/REVIEW UTOX) ELECTRONICALLY SIGNED BY BENJAMÍN MORALES ON 02/13/2021 AT 02:43 PM EDT DISCLAIMER : THIS IS A VISIT SUMMARY EXTRACTED FROM THE [employer] CHART. IT IS NOT A COPY OF THE [employer] PROGRESS NOTE. OSMIN
== END ==
LOC: M PAIN 13:30
PROVIDERS: ATTEND Nurse Practitioner Family
DX: M51.16 Intervertebral disc disorders with radiculopathy, lumbar region (principal); G89.29 Other chronic pain; G47.00 Insomnia, unspecified; K21.9 Gastro-esophageal reflux disease without esophagitis; E03.9 Hypothyroidism, unspecified; I25.2 Old myocardial infarction; Z86.59 Personal history of other mental and behavioral disorders; Z88.1 Allergy status to other antibiotic agents; Z88.5 Allergy status to narcotic agent; Z88.8 Allergy status to other drugs, medicaments and biological substances; Z79.01 Long term (current) use of anticoagulants; Z79.82 Long term (current) use of aspirin; Z79.899 Other long term (current) drug therapy

== ENCOUNTER → 2021-02-26 | Outpatient (CLI) | payer MEDICARE, MEDICAID | LOC: M PLARAD 13:33 | PROVIDERS: ATTEND Nurse Practitioner Family | DX: Z53.9 Procedure and treatment not carried out, unspecified reason (principal); M51.16 Intervertebral disc disorders with radiculopathy, lumbar region ==

== ENCOUNTER → 2021-03-04 | Outpatient (REF) | payer MEDICARE, MEDICAID ==
[2021-03-04 18:18] LABS: ALBUMIN 4.5 GM/DL (3.2-5.2); BILIRUBIN,TOTAL 0.3 MG/DL (0.2-1.0); CALCIUM LEVEL 10.4 MG/DL (8.8-10.2); CHOLESTEROL RISK RATIO 4.204 (<5); CREATININE FOR GFR 1.04 MG/DL (0.55-1.30); GLOMERULAR FILTRATION RATE 56.4 (>45); POTASSIUM SERUM 4.4 MEQ/L (3.5-5.1); PTH INTACT 167.1 PG/ML (18.5-88.0); THYROID STIMULATING HORMONE 1.51 uIU/ML (0.358-3.740); TOTAL PROTEIN 7.9 GM/DL (6.4-8.2)
== END ==
LOC: M LAB REF 16:30
PROVIDERS: ATTEND Family Medicine Addiction Medicine
DX: E21.3 Hyperparathyroidism, unspecified (principal); I10 Essential (primary) hypertension; E78.5 Hyperlipidemia, unspecified; E03.9 Hypothyroidism, unspecified

== ENCOUNTER → 2021-04-02 | Outpatient (CLI) | payer MEDICARE, MEDICAID, OTHER ==
--- NOTE | 2021-04-04 03:28 | ECWPNPC ---
PATIENT NAME: HAWK CASE : 1955 GENDER: FEMALE VISIT DATE: 04/02/2021 DISCHARGE DATE: 04/02/21 1436 VISIT LOCKED DATE TIME: PHYSICIAN: GERMAN SLAUGHTER RESOURCE: GERMAN SLAUGHTER REASON FOR APPOINTMENT 1. MEDICARE LOW BACK PAIN/REVIEW MRI/REVIEW UTOX HISTORY OF PRESENT ILLNESS GENERAL: HERE FOR FOLLOW-UP OF CHRONIC LOW BACK PAIN. FINDS CURRENT CHRONIC PAIN MEDICATION HELPFUL AT REDUCING PAIN AND KEEPING HER FUNCTIONAL. DENIES ADVERSE EFFECTS WITH THE MEDICATION. HISTORY OF MULTIPLE MEDICAL COMORBIDITIES. BRINGS IN HER MEDICATION WHICH IS APPROPRIATE FOR WHAT WAS DISPENSED. RECENT URINE TOXICOLOGY WITHIN NORMAL LIMITS. -. FALL RISK SCREENING: SCREENING : NO FALLS REPORTED IN THE LAST YEAR. PAIN SCREENING: PATIENT HAS A COMPLAINT OF ACUTE OR CHRONIC PAIN :YES INTENSITY OF PAIN (SCALE OF 1 TO 10):3 WHAT DOES YOUR PAIN FEEL LIKE:ACHING, INTERMITTENT, THROBBING, SHOOTING DURATION:INTERMITTENT PAIN IS INCREASED BY:ACTIVITIES, PROLONGED STANDING PAIN IS DECREASED BY:USE OF PAIN MEDICATIONS NURSING NOTE: -. PAIN CENTER INTAKE QUESTIONS: DO YOU HAVE A HISTORY OF MRSA? :NO DO YOU TAKE A BLOOD THINNERS? :YES PLAVIX 75 MG DO YOU HAVE ANY BLEEDING DISORDERS? :NO ANY NEW NUMBNESS OR WEAKNESS IN YOUR LEGS OR ARMS? :YES BOTH ARMS, PAIN GOES DOWN INTO BUTTOCK DOWN INTO THE LEGS MOSTLY IN THE FRONT OF RIGHT LEG ANY PACEMAKER,DEFIBRILLATOR, OR DORSAL COLUMN STIMULATOR? :NO DO YOU HAVE ANY RASHES OR OPEN SORES? :YES RASHES ON NECK ARE YOU ALLERGIC TO IV DYE? :NO ARE YOU DIABETIC? :NO ANY NEW PROBLEMS WITH YOUR MEDICATIONS? :NO HAVE YOU RECEIVED A VACCINE IN THE PAST 30 DAYS? :YES IF SO WHAT VACCINE AND WHEN? 1ST COVID 11/15/2020 DO YOU PLAN TO RECEIVE A VACCINE IN THE NEXT 21 DAYS? :YES IF SO WHAT VACCINE AND WHEN? 2ND COVID 12/16/2020 ISNT GOING TO TAKE IT DO YOU NEED ANY PRESCRIPTION? :NO DO YOU TAKE ANY IMMUNOSUPPRESSIVE MEDICATIONS? :NO IS THERE A CHANCE YOU COULD BE ? :NO ARE YOU BREAST FEEDING? :NO CURRENT MEDICATIONS TAKING ASPIR-81 81 MG TABLET DELAYED RELEASE 1 TABLET ORALLY ONCE A DAY TAKING KLONOPIN 0.5 MG TABLET 1 TABLET ORALLY QHS TAKING LORATADINE 10 MG TABLET 1 TABLET ORALLY ONCE A DAY TAKING LEVOTHYROXINE SODIUM 100 MCG TABLET 1 TABLET EVERY MORNING ON AN EMPTY STOMACH ORALLY ONCE A DAY TAKING HYDROCHLOROTHIAZIDE 25 25 MG SOFT GEL 1 TABLETS ORAL DAILY TAKING CRESTOR 20 MG TABLET 1 TABLET ORALLY ONCE A DAY TAKING LAMOTRIGINE 200 MG TABLET 1 TABLET ORALLY ONCE DAILY TAKING LISINOPRIL 10 MG TABLET 1 TABLET ORALLY ONCE A DAY TAKING PLAVIX 75 MG TABLET 1 TABLET ORALLY ONCE A DAY TAKING ZETIA 10 MG TABLET 1 TABLET ORALLY ONCE A DAY TAKING DEXILANT 30 MG CAPSULE DELAYED RELEASE 1 CAPSULE ORALLY ONCE A DAY TAKING NITROGLYCERIN 0.4 MG TABLET SUBLINGUAL NEEDED SUBLINGUAL TAKING DOCUSATE SODIUM 100 MG CAPSULE 1 CAP ORALLY BID TAKING SOMA 350 MG TABLET 1 TABLET ORALLY BEFORE BEDTIME TAKING PERCOCET 10-325 MG TABLET 1 TABLET NEEDED ORALLY Q4-6H PRN MDD5 3MOS SUPPLY CAT D CHRONIC PAIN NOT-TAKING BACTRIM DS 800-160 MG TABLET 1 TABLET ORALLY 500MG TWICE A DAY NOT-TAKING CARAFATE 1 GM TABLET 2TABLET ON AN EMPTY STOMACH ORALLY ONCE DAILY NOT-TAKING NEXIUM 40 MG CAPSULE DELAYED RELEASE 1 CAPSULE ORALLY TWICE A DAY NOT-TAKING MODAFINIL 100 MG TABLET 1 TABLET IN THE MORNING ORALLY ONCE A DAY NOT-TAKING MIRALAX - PACKET 1 PACKET MIXED WITH 8 OUNCES OF FLUID ORALLY ONCE A DAY NOT-TAKING VITAMIN D-3 2000 CAPSULE 1 CAPSULE ORALLY DAILY NOT-TAKING ROPINIROLE HCL 0.25 MG TABLET 1 TO 2 TAB ORALLY 2 HRS PRE BEDTIME NOT-TAKING LIDOCAINE HCL 2 % CREAM DIRECTED EXTERNALLY APPLY TO LEFT HIP DIRECTED Q8H PRN MEDICATION LIST REVIEWED AND RECONCILED WITH THE PATIENT PAST MEDICAL HISTORY PALPITATIONS, HEART HX BLOOD CLOTS, LEFT LEG HX ANEMIA ARTHRITIS, OA BACK PAIN HX BONE SPURS INSOMNIA MOOD SWINGS XEROPTHALMIA EARLY SATIETY COLONIC POLYPS RECURRENT UTIS SYSTEMIC LUPUS ERYTHEMATOUS ESOPHAGEAL REFLUX HYPOTHYROIDISM HYPERTENSION HYPERCHOLESTEROLEMIA RAYNAUDS SYNDROME NECK PAIN DEPRESSION OSTEOARTHRITIS MYOCARDIAL INFARCTION 2013, 2018 MYOFASCIAL PAIN SYNDROME LOW BACK PAIN LUMBAR RADICULOPATHY FRACTURED HAND JOINT HYPERCALCEMIA HYPONATREMIA LUPUS ALLERGIES PROPRANOLOL HCL: NAUSEA/VOMITING - ALLERGY CAPTOPRIL: NAUSEA/VOMITING - ALLERGY MACROBID: N/DIARRHEA - ALLERGY CIPRO: NAUSEA/VOMITING/DIARRHEA - ALLERGY MS CONTIN: N/V UNABLE TO VOID ANTIDEPRESSANTS: FLU LIKE SYMPTOMS /NAUSEA NUCYNTA ER: NIGHTMARES, INCREASED DEPRESSION - SIDE EFFECTS SURGICAL HISTORY NECK SURGERY BONE SPUR 1996 TUBAL LIGATION 1981 ENDOMETRIAL BIOPSY 2010 CARDIAC CATHETERIZATION 09/26 CARDIAC STENT 09/26 SURGERY TO REPAIR RIGHT FEMORAL ARTERY 09/26 CARDIAC STENT 10/27 CARDIAC STENT 03/26 COLONOSCOPY 2010 CARDIAC CATH/STENT PLACEMENT 07/31/2019 COLONOSCOPY FAMILY HISTORY FATHER: DIAGNOSED WITH HYPERTENSION, OTHER MALIGNANT NEOPLASM OF UNSPECIFIED SITE, DIABETES MOTHER: HYPERTENSION, DIABETES, OTHER MALIGNANT NEOPLASM OF UNSPECIFIED SITE PATERNAL GRAND MOTHER: OTHER MALIGNANT NEOPLASM OF UNSPECIFIED SITE MATERNAL GRAND MOTHER: OTHER MALIGNANT NEOPLASM OF UNSPECIFIED SITE 7 BROTHER(S) , 3 SISTER(S) . 1 SON(S) , 3 DAUGHTER(S) . BROTHER CAD,IMMDM,CANCER BROTHER HEART DIEASE IDDM,BROTHER HEART DIEASE, IDDM, SISTER FROM LIVER FAILURE, SISTER HEART DIEASE, HTN\NDAUGHTER FROM DRUG OVERDOSE METPROBAMATE. ONE DAUGHTER LUPUS, BACK PROBLEMS, SPINAL STENOSIS AND SPINAL CYSTSBROTHER - COVID-19. SOCIAL HISTORY GENERAL: TOBACCO USE ARE YOU A:NONSMOKER LATEX QUESTIONNAIRE LATEX ALLERGY : HAVE YOU EVER DEVELOPED ANY TYPE OF REACTION AFTER HANDLING LATEX PRODUCTS SUCH RUBBER GLOVES, CONDOMS, DIAPHRAGMS, BALLOONS, SOCKS, OR UNDERWEAR?YES - PLEASE INDICATE :RUBBER GLOVES LATEX ALLERGY : HAVE YOU EVER DEVELOPED ANY TYPE OF REACTION DURING OR AFTER DENTAL APPOINTMENT, VAGINAL/RECTAL EXAMINATION, SURGICAL PROCEDURE, OR ANY OTHER EXPOSURE?NO LATEX RISK : HAVE YOU EVER HAD ANY DIFFICULTY BREATHING OR HIVES AFTER EATING OR HANDLING ANY FRUITS, OR VEGETABLES; SUCH KIWI, BANANAS, STONE FRUITS, OR CHESTNUTSNO LATEX RISK : DO YOU HAVE A PREVIOUS PERSONAL HISTORY OF MORE THAN NINE SURGERIES, SPINA BIFIDA, OR REPEATED CATHERIZATIONS? NO LATEX RISK : ARE YOU FREQUENTLY EXPOSED TO LATEX PRODUCTS IN YOUR OCCUPATION?NO DATE ASKED : 04/02/2021 ALCOHOL USE: NO. ALCOHOL SCREENING DID YOU HAVE A DRINK CONTAINING ALCOHOL IN THE PAST YEAR?NO POINTS0 INTERPRETATIONNEGATIVE RECREATIONAL DRUG USE DRUG USE?NO CAFFEINE CAFFEINE USE?YES 1 CUP COFFEE/ DAY YAZIDI [id number] HINDUISM LANGUAGE LANGUAGES SPOKEN:[place] EDUCATION LEVEL OF EDUCATION:COLLEGE A COUPLE OF SEMESTERS LEARNING BARRIERS / SPECIAL NEEDS CHANGE FROM LAST VISIT?NO BARRIERS TO LEARNING?NO HEARING IMPAIRED?NO VISION IMPAIRED?YES :CORRECTIVE LENSES COGNITIVELY IMPAIRED?NO READINESS TO LEARN?YES LEARNING PREFERENCES?YES :TAPES/VIDEOS, BOOKLETS, HANDOUTS LEARNING CAPABILITIES PRESENT?YES EMOTIONAL BARRIERS?NO SPECIAL DEVICES?YES :CANE, WALKER NEEDED IDENTIFIER HORSE NEEDED?NO DOMESTIC 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 DIET: REGULAR. EXERCISE: NONE. MARITAL STATUS: .. OTHERS AT HOME: CHILD. - PFS REFERRAL NEEDED?NO CLERGY REFERRAL NEEDED?NO PUBLIC HEALTH REFERRAL NEEDED?NO WAS THE PROVIDER NOTIFIED OF ANY PERTINENT INFO?YES HAS THE PATIENT BEEN EDUCATED REGARDING HIS/HER PLAN OF CARE?YES HAS THE PATIENT BEEN EDUCATED REGARDING PAIN, THE RISK FOR PAIN, THE IMPORTANCE OF EFFECTIVE PAIN MANAGEMENT, AND THE PAIN ASSESSMENT PROCESS?YES ADVANCE DIRECTIVE ADVANCE DIRECTIVE DISCUSSED WITH PATIENT:YES PATIENT STATES SHE HAS THE INFORMATION AT HOME, DECLINES ASSISTANCE AT THIS TIME IN FILLING IT OUT. HOSPITALIZATION/MAJOR DIAGNOSTIC PROCEDURE SURGERY RELATED MYOCARDIAL INFARCTION 09/26, 08/01 REVIEW OF SYSTEMS CONSTITUTIONAL: ANY RECENT FEVER NO . CHILLS NO . WEIGHT CHANGE OF UNKNOWN REASONS NO . GASTROENTEROLOGY: NEW UNEXPLAINABLE CHANGES IN BOWEL CONTROL NO . CONSTIPATION NO . GENITOURINARY: ANY NEW CHANGE IN BLADDER CONTROL? NO . VITAL SIGNS WT 174.0 LBS, HT 62 IN, BMI 31.82 INDEX, BP 153/74 MM HG, HR 52 /MIN, RR 18 /MIN, TEMP 98.0 F, OXYGEN SAT % 100%, SAFE IN ENV? (Y/N) YES, NA INITIALS AW 1356T.AVERY PERRY. EXAMINATION GENERAL EXAMINATION: GENERALAWAKE,ALERT ,PLEASANT . PSYCHAFFECT NORMAL . LUNGS:LUNG CATES ARE CLEAR TO AUSCULTATION BILATERALLY. GOOD MOVEMENT OF AIR . HEART:S1, S2 IN A REGULAR RATE AND RHYTHM. NO SIGNIFICANT MURMURS, RUBS OR GALLOPS NOTED . ASSESSMENTS INTERVERTEBRAL DISC DISORDER WITH RADICULOPATHY OF LUMBAR REGION - M51.16 (PRIMARY) TREATMENT INTERVERTEBRAL DISC DISORDER WITH RADICULOPATHY OF LUMBAR REGION CONTINUE DOCUSATE SODIUM CAPSULE, 100 MG, 1 CAP, ORALLY, BID CONTINUE SOMA TABLET, 350 MG, 1 TABLET, ORALLY, BEFORE BEDTIME CONTINUE PERCOCET TABLET, 10-325 MG, 1 TABLET NEEDED, ORALLY, Q4-6H PRN MDD5 3MOS SUPPLY CAT D CHRONIC PAIN NOTES: ISTOP REGISTRY REVIEWED AND DEMONSTRATES COMPLLIANCE. BRINGS IN MEDICATIONS WHICH IS APPROPRIATE FOR WHAT WAS DISPENSED. RECENT URINE TOXICOLOGY REVIEWED. NO UNAUTHORIZED MEDICATIONS. NO ILLICIT SUBSTANCES AND PRESCRIBED MEDICATIONS WERE PRESENT. , RISKS OF NARCOTIC/OPIOD MEDICATIONS INCLUDES BUT IS NOT LIMITED TO RISK OF DEPENDANCE/DEVELOPMENT OF ADDICTION, MOOD DISTURBANCE AND DEPRESSION, OSTEOPOROSIS, HORMONAL AND LABIDAL CHANGES, RESPIRATORY DEPRESSION AND . PATIENT IS ADVISED NOT TO DRIVE OR DRINK ALCOHOL WHILE ON THESE MEDICATIONS. DISPOSITION & COMMUNICATION FOLLOW UP 3 MONTHS (REASON: MED MGMNT) ELECTRONICALLY SIGNED BY BENJAMÍN MORALES ON 04/03/2021 AT 12:17 PM EDT DISCLAIMER : THIS IS A VISIT SUMMARY EXTRACTED FROM THE [employer] CHART. IT IS NOT A COPY OF THE [employer] PROGRESS NOTE. OSMIN
== END ==
LOC: M PAIN 14:00
PROVIDERS: ATTEND Nurse Practitioner Family
DX: M51.16 Intervertebral disc disorders with radiculopathy, lumbar region (principal); G89.29 Other chronic pain; K21.9 Gastro-esophageal reflux disease without esophagitis; E03.9 Hypothyroidism, unspecified; Z86.59 Personal history of other mental and behavioral disorders; Z88.1 Allergy status to other antibiotic agents; Z88.5 Allergy status to narcotic agent; Z88.8 Allergy status to other drugs, medicaments and biological substances; Z79.01 Long term (current) use of anticoagulants; Z79.82 Long term (current) use of aspirin; Z79.899 Other long term (current) drug therapy

== ENCOUNTER → 2021-05-31 | Outpatient (CLI) | payer OTHER, MEDICAID ==
[~2021-05-31] MED LIST changes: +D31000TA2 PO; +EZET10TA21; -LISI2.5T2 PO; +LISI2.5T9 PO
== END ==
LOC: M LABSMTC 11:23
PROVIDERS: ATTEND Anesthesiology
DX: Z01.812 Encounter for preprocedural laboratory examination (principal); Z20.822 Contact with and (suspected) exposure to COVID-19

== ENCOUNTER 2021-06-05 10:05 | Day surgery (SDC) | payer MEDICARE, MEDICAID ==
[~2021-06-05] VITALS: Ht 160 cm; Wt 77.0 kg
[~2021-06-05 10:05] MED LIST changes: +LIDOCAINE 2% 100MG/5ML SDV (FOR ANES.) As Ordered ONE; +NS 1,000 ML IV ONE; +propofoL 200 MG/20 ML VIAL As Ordered ONE
--- NOTE | 2021-06-05 11:03 | ROOR ---
Patient Name: Karyna Holm Procedure Date: 06/05/2021 10:38 AM Date of : 1955 Age: 65 Room: [facility] Gender: Female Note Status: Finalized Procedure: Colonoscopy Indications: Rectal bleeding Providers: Rogelio Santo Jr, MD Referring MD: Garfield BRENNAN MD Requesting Provider: Medicines: Propofol per Anesthesia Complications: No immediate complications. Procedure: Pre-Anesthesia Assessment: - Prior to the procedure, a History and Physical was performed, and patient medications and allergies were reviewed. The patient is competent. The risks and benefits of the procedure and the sedation options and risks were discussed with the patient. All questions were answered and informed consent was obtained. Patient identification and proposed procedure were verified by the physician and the nurse in the pre-procedure area and in the procedure room. Mental Status Examination: alert and oriented. Airway Examination: normal oropharyngeal airway and neck mobility. Respiratory Examination: clear to auscultation. CV Examination: normal. ASA Grade Assessment: II - A patient with mild systemic disease. After reviewing the risks and benefits, the patient was deemed in satisfactory condition to undergo the procedure. The anesthesia plan was to use moderate sedation / analgesia (conscious sedation). Immediately prior to administration of medications, the patient was re-assessed for adequacy to receive sedatives. The heart rate, respiratory rate, oxygen saturations, blood pressure, adequacy of pulmonary ventilation, and response to care were monitored throughout the procedure. The physical status of the patient was re-assessed after the procedure. The Colonoscope was introduced through the anus and advanced to the cecum, identified by appendiceal orifice and ileocecal valve. The colonoscopy was performed without difficulty. The patient tolerated the procedure well. The quality of the bowel preparation was adequate. Findings: The rectum, descending colon, ascending colon, cecum, appendiceal orifice and ileocecal valve appeared normal. Two polyps were found in the recto-sigmoid colon and transverse colon. The polyps were diminutive in size. These polyps were removed with a cold snare. Resection and retrieval were complete. Multiple small and large-mouthed diverticula were found in the sigmoid colon. Non-bleeding external and internal hemorrhoids were found during endoscopy. The hemorrhoids were Grade II (internal hemorrhoids that prolapse but reduce spontaneously) and Grade III (internal hemorrhoids that prolapse but require manual reduction). Impression: - The rectum, descending colon, ascending colon, cecum, appendiceal orifice and ileocecal valve are normal. - Two diminutive polyps at the recto-sigmoid colon and in the transverse colon, removed with a cold snare. Resected and retrieved. - Diverticulosis in the sigmoid colon. Recommendation: - Discharge patient to home (ambulatory). - Repeat colonoscopy in 5-10 years for surveillance based on pathology results. Procedure Code(s): --- Professional --- 10525, Colonoscopy, flexible; with removal of tumor(s), polyp(s), or other lesion(s) by snare technique Diagnosis Code(s): --- Professional --- K63.5, Polyp of colon K62.5, Hemorrhage of anus and rectum K57.30, Diverticulosis of large intestine without perforation or abscess without bleeding CPT copyright 2019 [employer]. All rights reserved. The codes documented in this report are preliminary and upon distributor publications review may be revised to meet current compliance requirements. Rogelio Santo MD Rogelio Santo Jr, MD 06/05/2021 11:03:02 AM Electronically signed by Rogelio Santo Jr, MD Number of Addenda: 0 Note Initiated On: 06/05/2021 10:38 AM Estimated Blood Loss: Estimated blood loss: none. Estimated blood loss: none.
[2021-06-05 11:25] VITALS: BP 131/63
== END 2021-06-05 11:38 | disposition home or self-care (01) ==
LOC: M OPP 10:05
PROVIDERS: ATTEND Surgery
DX: K63.5 Polyp of colon (principal); K57.30 Diverticulosis of large intestine without perforation or abscess without bleeding; K64.1 Second degree hemorrhoids; K62.5 Hemorrhage of anus and rectum; Z79.82 Long term (current) use of aspirin; Z79.891 Long term (current) use of opiate analgesic; Z79.899 Other long term (current) drug therapy; Z88.1 Allergy status to other antibiotic agents; Z88.8 Allergy status to other drugs, medicaments and biological substances; Z91.040 Latex allergy status; Z95.5 Presence of coronary angioplasty implant and graft

== ENCOUNTER → 2021-07-03 | Outpatient (CLI) | payer MEDICARE, MEDICAID ==
[~2021-07-03] MED LIST changes: -LIDOCAINE 2% 100MG/5ML SDV (FOR ANES.) As Ordered ONE; -NS 1,000 ML IV ONE; -propofoL 200 MG/20 ML VIAL As Ordered ONE
== END ==
LOC: M PAIN 14:00
PROVIDERS: ATTEND Anesthesiology
DX: M51.16 Intervertebral disc disorders with radiculopathy, lumbar region (principal); G89.29 Other chronic pain; K21.9 Gastro-esophageal reflux disease without esophagitis; E03.9 Hypothyroidism, unspecified; Z86.59 Personal history of other mental and behavioral disorders; Z88.1 Allergy status to other antibiotic agents; Z88.5 Allergy status to narcotic agent; Z88.8 Allergy status to other drugs, medicaments and biological substances; Z79.01 Long term (current) use of anticoagulants; Z79.82 Long term (current) use of aspirin; Z79.899 Other long term (current) drug therapy

== ENCOUNTER → 2021-07-10 | Outpatient (CLI) | payer OTHER | LOC: M PAIN 11:30 | PROVIDERS: ATTEND Anesthesiology | DX: M96.1 Postlaminectomy syndrome, not elsewhere classified (principal); K21.9 Gastro-esophageal reflux disease without esophagitis; E03.9 Hypothyroidism, unspecified; Z86.59 Personal history of other mental and behavioral disorders; Z88.1 Allergy status to other antibiotic agents; Z88.5 Allergy status to narcotic agent; Z88.8 Allergy status to other drugs, medicaments and biological substances; Z79.01 Long term (current) use of anticoagulants; Z79.82 Long term (current) use of aspirin; Z79.899 Other long term (current) drug therapy ==

== ENCOUNTER → 2021-08-13 | Outpatient (CLI) | payer OTHER ==
[~2021-08-13] MED LIST changes: +AMOX875T2 PO
== END ==
LOC: M SOG 11:25
PROVIDERS: ATTEND Orthopaedic Surgery
DX: M47.812 Spondylosis without myelopathy or radiculopathy, cervical region (principal); M48.02 Spinal stenosis, cervical region

== ENCOUNTER → 2021-10-03 | Outpatient (CLI) | payer MEDICARE, MEDICAID, OTHER ==
[~2021-10-03] MED LIST changes: -AMOX875T2 PO
== END ==
LOC: M PAIN 11:30
PROVIDERS: ATTEND Nurse Practitioner Family
DX: M51.16 Intervertebral disc disorders with radiculopathy, lumbar region (principal); G89.29 Other chronic pain; K21.9 Gastro-esophageal reflux disease without esophagitis; E03.9 Hypothyroidism, unspecified; I25.2 Old myocardial infarction; Z86.59 Personal history of other mental and behavioral disorders; Z88.1 Allergy status to other antibiotic agents; Z88.5 Allergy status to narcotic agent; Z88.8 Allergy status to other drugs, medicaments and biological substances; Z79.01 Long term (current) use of anticoagulants; Z79.82 Long term (current) use of aspirin; Z79.899 Other long term (current) drug therapy

== ENCOUNTER 2021-10-25 12:48 | Emergency (ER) | payer MEDICARE, MEDICAID ==
[~2021-10-25] VITALS: Ht 160 cm; Wt 81.3 kg
[~2021-10-25 12:48] MED LIST changes: -AMOX875T2 PO
[2021-10-25] MEDS ORDERED: AUGMENTIN 875 MG TAB PO ONE (14:15)
[2021-10-25] MEDS ORDERED: AMOX875T2 PO (14:26)
[2021-10-25 14:44] VITALS: BP 137/71
== END 2021-10-25 14:51 | disposition home or self-care (01) ==
LOC: M ED 12:48
DX: K08.89 Other specified disorders of teeth and supporting structures (principal); I10 Essential (primary) hypertension; F41.8 Other specified anxiety disorders; F32.A Depression, unspecified; Z88.5 Allergy status to narcotic agent; Z91.040 Latex allergy status; Z86.79 Personal history of other diseases of the circulatory system

== ENCOUNTER → 2021-10-25 | Outpatient (CLI) | payer MEDICARE, MEDICAID, OTHER ==
[~2021-10-25] MED LIST changes: +AMOX875T2 PO
== END ==
LOC: M LAB 11:35
PROVIDERS: ATTEND Nurse Practitioner Family
DX: Z79.891 Long term (current) use of opiate analgesic (principal)

== ENCOUNTER 2021-11-03 17:20 | Emergency (ER) | payer MEDICARE, MEDICAID ==
[~2021-11-03] VITALS: Ht 160 cm; Wt 82.4 kg
[~2021-11-03 17:20] MED LIST changes: -D31000TA2 PO; -DEXI30CA2; +DEXI30CA2 PO; -EZET10TA21; +EZET10TA21 PO; +VITA100093 PO
[2021-11-03 20:43] VITALS: BP 160/82
== END 2021-11-03 20:45 | disposition home or self-care (01) ==
LOC: M ED 17:20
DX: S00.93XA Contusion of unspecified part of head, initial encounter (principal); W01.0XXA Fall on same level from slipping, tripping and stumbling without subsequent striking against object, initial encounter; W22.8XXA Striking against or struck by other objects, initial encounter; I10 Essential (primary) hypertension; I25.2 Old myocardial infarction; E78.5 Hyperlipidemia, unspecified; M51.16 Intervertebral disc disorders with radiculopathy, lumbar region; Z86.79 Personal history of other diseases of the circulatory system; Z91.040 Latex allergy status; Z88.1 Allergy status to other antibiotic agents; Z88.8 Allergy status to other drugs, medicaments and biological substances; Z79.811 Long term (current) use of aromatase inhibitors; Z79.899 Other long term (current) drug therapy; Y92.9 Unspecified place or not applicable; Y93.9 Activity, unspecified; Y99.9 Unspecified external cause status

== ENCOUNTER → 2021-11-03 | Outpatient (CLI) | payer MEDICARE, MEDICAID ==
[~2021-11-03] MED LIST changes: +AMOX875T2 PO
[2021-11-03 17:51] LABS: GLOMERULAR FILTRATION RATE 58.9 (>45)
== END ==
LOC: M LAB 16:54
PROVIDERS: ATTEND Anesthesiology
DX: M51.16 Intervertebral disc disorders with radiculopathy, lumbar region (principal)

== ENCOUNTER → 2021-12-05 | Outpatient (CLI) | payer OTHER ==
[~2021-12-05] MED LIST changes: +DEXI30CA2; -DEXI30CA2 PO; +EZET10TA21; -EZET10TA21 PO
== END ==
LOC: M PLARAD 12:25
PROVIDERS: ATTEND Nurse Practitioner Family
DX: M50.21 Other cervical disc displacement, high cervical region (principal); M50.221 Other cervical disc displacement at C4-C5 level; M50.222 Other cervical disc displacement at C5-C6 level; M50.223 Other cervical disc displacement at C6-C7 level; M48.02 Spinal stenosis, cervical region; M96.1 Postlaminectomy syndrome, not elsewhere classified; M25.78 Osteophyte, vertebrae

== ENCOUNTER → 2021-12-19 | Outpatient (CLI) | payer MEDICARE, MEDICAID, OTHER | LOC: M PAIN 10:30 | PROVIDERS: ATTEND Nurse Practitioner Family | DX: M51.16 Intervertebral disc disorders with radiculopathy, lumbar region (principal); G89.29 Other chronic pain; K21.9 Gastro-esophageal reflux disease without esophagitis; E03.9 Hypothyroidism, unspecified; Z86.59 Personal history of other mental and behavioral disorders; Z88.1 Allergy status to other antibiotic agents; Z88.5 Allergy status to narcotic agent; Z88.8 Allergy status to other drugs, medicaments and biological substances; Z79.01 Long term (current) use of anticoagulants; Z79.82 Long term (current) use of aspirin; Z79.899 Other long term (current) drug therapy ==

== ENCOUNTER → 2021-12-23 | Outpatient (REF) | payer MEDICARE, MEDICAID, OTHER | LOC: M LAB REF 16:31 | PROVIDERS: ATTEND Nurse Practitioner Family | DX: J02.9 Acute pharyngitis, unspecified (principal) ==

== ENCOUNTER 2021-12-26 13:30 | Observation (INO) | payer MEDICARE, MEDICAID ==
[~2021-12-26] VITALS: Ht 160 cm; Wt 77.3 kg
[~2021-12-26 13:30] MED LIST changes: -DEXI30CA2; +DEXI30CA2 PO; -EZET10TA21; +EZET10TA21 PO
[2021-12-26] MEDS ORDERED: IMIT50TA PO (13:52)
[2021-12-26] MEDS ORDERED: NS 1,000 ML IV SCH (13:55)
[2021-12-26 14:09] LABS: BASO % 0.2 % (0.0-1.0); HEMATOCRIT 40.1 % (36.0-47.0); HEMOGLOBIN 13.1 g/dl (12.0-15.5); LYMPH # 1.6 10^3/uL (1.5-5.0); LYMPH % 28.5 % (24.0-44.0); MEAN CORPUSCULAR HEMOGLOBIN 29.2 pg (27.0-33.0); MEAN CORPUSCULAR HGB CONC 32.7 g/dl (32.0-36.5); MEAN CORPUSCULAR VOLUME 89.5 fl (80.0-96.0); MONO # 0.7 10^3/uL (0.0-0.8); MONO % 12.4 % (2.0-8.0); NEUTROPHILS # 3.4 10^3/uL (1.5-8.5); NEUTROPHILS % 58.7 % (36.0-66.0); PLATELET COUNT, AUTOMATED 306 10^3/uL (150-450); RED BLOOD COUNT 4.48 10^6/uL (4.00-5.40); WHITE BLOOD COUNT 5.7 10^3/uL (4.0-10.0)
[2021-12-26 14:19] LABS: INR 0.85
[2021-12-26 14:43] LABS: ALBUMIN 4.1 GM/DL (3.2-5.2); ALT/SGPT 19 U/L (12-78); BILIRUBIN,DIRECT < 0.1 MG/DL (0.0-0.2); BILIRUBIN,TOTAL 0.2 MG/DL (0.2-1.0); BLOOD UREA NITROGEN 13 MG/DL (7-18); CALCIUM LEVEL 10.9 MG/DL (8.8-10.2); CARBON DIOXIDE LEVEL 28 MEQ/L (21-32); CHLORIDE LEVEL 104 MEQ/L (98-107); CK-MB VALUE MASS 1.9 NG/ML (<3.6); CREATININE FOR GFR 1.09 MG/DL (0.55-1.30); GLOMERULAR FILTRATION RATE 53.3 (>45); GLUCOSE, FASTING 87 MG/DL (70-100); MB/CK RELATIVE INDEX 1.79 (< OR =4); NT-PRO BNP 555 PG/ML (<125); POTASSIUM SERUM 3.8 MEQ/L (3.5-5.1); SODIUM LEVEL 138 MEQ/L (136-145); TOTAL PROTEIN 7.6 GM/DL (6.4-8.2)
[2021-12-26] MEDS ORDERED: ROSU40TA4 PO (15:20)
[2021-12-26] MEDS ORDERED: CLON0.5T17 PO (15:20)
[2021-12-26] MEDS ORDERED: HYDR200T3 PO (15:21)
[2021-12-26] MEDS ORDERED: LISI10TA22 PO (15:22)
[2021-12-26] MEDS ORDERED: HOME MED LIST COMPLETE! XX SCH (15:25)
[2021-12-26] MEDS ORDERED: ACETAMINOPHEN TAB 650MG DOSE (2X325MG) PO PRN (17:25)
[2021-12-26] MEDS ORDERED: ACETAMINOPHEN 325 MG TAB PO PRN (18:35)
[2021-12-26 20:06] VITALS: BP 160/84
[2021-12-26] MEDS: oxyCODONE 5MG TAB PO PRN (20:27)
[2021-12-26] MEDS ORDERED: ROSUVASTATIN 10 MG TAB (CRESTOR) PO SCH (21:00)
[2021-12-27] VITALS: BP 146/67
[2021-12-27 04:00] VITALS: BP 158/72
[2021-12-27 07:34] LABS: HEMATOCRIT 42.1 % (36.0-47.0); HEMOGLOBIN 13.6 g/dl (12.0-15.5); MEAN CORPUSCULAR HEMOGLOBIN 29.2 pg (27.0-33.0); MEAN CORPUSCULAR HGB CONC 32.3 g/dl (32.0-36.5); MEAN CORPUSCULAR VOLUME 90.5 fl (80.0-96.0); PLATELET COUNT, AUTOMATED 312 10^3/uL (150-450); RED BLOOD COUNT 4.65 10^6/uL (4.00-5.40); WHITE BLOOD COUNT 9.8 10^3/uL (4.0-10.0)
[2021-12-27 07:36] VITALS: BP 138/69
[2021-12-27 08:02] LABS: BLOOD UREA NITROGEN 11 MG/DL (7-18); CALCIUM LEVEL 10.4 MG/DL (8.8-10.2); CARBON DIOXIDE LEVEL 29 MEQ/L (21-32); CHLORIDE LEVEL 103 MEQ/L (98-107); CREATININE FOR GFR 0.96 MG/DL (0.55-1.30); GLOMERULAR FILTRATION RATE > 60.0 (>45); GLUCOSE, FASTING 91 MG/DL (70-100); MAGNESIUM LEVEL 1.9 MG/DL (1.8-2.4); POTASSIUM SERUM 3.6 MEQ/L (3.5-5.1); SODIUM LEVEL 139 MEQ/L (136-145)
[2021-12-27 08:19] VITALS: BP 138/69
[2021-12-27] MEDS: oxyCODONE 5MG TAB PO PRN (08:19)
[2021-12-27] MEDS ORDERED: SUMAtriptan SUCCINATE 25 MG TAB PO SCH (09:00)
[2021-12-27] MEDS ORDERED: VITAMIN D 1,000 INTERNATIONAL UNITS TABLET PO SCH (09:00)
[2021-12-27] MEDS ORDERED: LORATADINE 10 MG TAB PO SCH (09:00)
[2021-12-27] MEDS ORDERED: ASPIRIN 81MG ENTERIC TABLET PO SCH (09:00)
[2021-12-27] MEDS ORDERED: guaiFENesin ER 600 MG TAB PO SCH (09:00)
[2021-12-27] MEDS ORDERED: LEVOTHYROXINE 100MCG TABLET (0.1MG) PO SCH (09:00)
[2021-12-27] MEDS ORDERED: ENOXAPARIN 40MG/0.4ML SYRINGE (J1650 PER 10MG) SC SCH (09:00)
[2021-12-27] MEDS ORDERED: HYDROXYCHLOROQUINE 200 MG TAB PO SCH (09:00)
[2021-12-27] MEDS ORDERED: lamoTRIgine 100MG TAB PO SCH (09:00)
[2021-12-27] MEDS ORDERED: EZETIMIBE 10MG TABLET (ZETIA) PO SCH (09:00)
[2021-12-27] MEDS ORDERED: CLOPIDOGREL 75 MG TAB PO SCH (09:00)
== END 2021-12-27 11:25 | disposition home or self-care (01) ==
LOC: M ED 13:30 → M ED INP 13:31 → M 4MAIN 20:20
PROVIDERS: ADMIT Family Medicine; ATTEND Family Medicine
DX: R00.1 Bradycardia, unspecified (principal); U07.1 COVID-19; M32.9 Systemic lupus erythematosus, unspecified; I10 Essential (primary) hypertension; E78.5 Hyperlipidemia, unspecified; I25.10 Atherosclerotic heart disease of native coronary artery without angina pectoris; I25.2 Old myocardial infarction; Z98.61 Coronary angioplasty status; Z79.82 Long term (current) use of aspirin; Z79.899 Other long term (current) drug therapy; Z88.1 Allergy status to other antibiotic agents; Z91.040 Latex allergy status; Z88.8 Allergy status to other drugs, medicaments and biological substances
CPT/HCPCS: 36415; 71045; 80048; 80076; 82550; 82553; 83735; 83880; 84443; 84484; 85025; 85027; 85610; 93005; 93041; 94760; 96360; 96361; 96372; 99285; G0378; J1650

== ENCOUNTER → 2022-01-16 | Outpatient (CLI) | payer OTHER ==
[~2022-01-16] MED LIST changes: +CLON0.5T17 PO; +HYDR200T3 PO; +IMIT50TA PO; +LISI10TA22 PO; +ROSU40TA4 PO
== END ==
LOC: M PAIN 11:45
PROVIDERS: ATTEND Nurse Practitioner Family
DX: M96.1 Postlaminectomy syndrome, not elsewhere classified (principal); M50.10 Cervical disc disorder with radiculopathy, unspecified cervical region; K21.9 Gastro-esophageal reflux disease without esophagitis; E03.9 Hypothyroidism, unspecified; Z86.59 Personal history of other mental and behavioral disorders; Z88.1 Allergy status to other antibiotic agents; Z88.4 Allergy status to anesthetic agent; Z88.5 Allergy status to narcotic agent; Z88.8 Allergy status to other drugs, medicaments and biological substances; Z79.01 Long term (current) use of anticoagulants; Z79.82 Long term (current) use of aspirin; Z79.899 Other long term (current) drug therapy

== ENCOUNTER → 2022-04-16 | Outpatient (CLI) | payer OTHER | LOC: M PAIN 11:45 | PROVIDERS: ATTEND Nurse Practitioner Family | DX: M96.1 Postlaminectomy syndrome, not elsewhere classified (principal); G89.29 Other chronic pain; K21.9 Gastro-esophageal reflux disease without esophagitis; E03.9 Hypothyroidism, unspecified; I10 Essential (primary) hypertension; I25.2 Old myocardial infarction; Z88.1 Allergy status to other antibiotic agents; Z88.4 Allergy status to anesthetic agent; Z88.5 Allergy status to narcotic agent; Z88.8 Allergy status to other drugs, medicaments and biological substances; Z79.01 Long term (current) use of anticoagulants; Z79.82 Long term (current) use of aspirin; Z79.890 Hormone replacement therapy; Z79.899 Other long term (current) drug therapy ==

== ENCOUNTER → 2022-04-22 | Outpatient (CLI) | payer MEDICARE, MEDICAID | LOC: M WHC 14:10 | PROVIDERS: ATTEND Nurse Practitioner Family | DX: Z12.31 Encounter for screening mammogram for malignant neoplasm of breast (principal); Z13.820 Encounter for screening for osteoporosis; M85.89 Other specified disorders of bone density and structure, multiple sites ==

== ENCOUNTER → 2022-06-08 | Outpatient (CLI) | payer OTHER, MEDICARE | LOC: M PAIN 11:15 | PROVIDERS: ATTEND Nurse Practitioner Family | DX: M51.16 Intervertebral disc disorders with radiculopathy, lumbar region (principal); G89.29 Other chronic pain; K21.9 Gastro-esophageal reflux disease without esophagitis; E03.9 Hypothyroidism, unspecified; I10 Essential (primary) hypertension; I25.2 Old myocardial infarction; Z86.59 Personal history of other mental and behavioral disorders; Z88.1 Allergy status to other antibiotic agents; Z88.4 Allergy status to anesthetic agent; Z88.5 Allergy status to narcotic agent; Z88.8 Allergy status to other drugs, medicaments and biological substances; Z79.01 Long term (current) use of anticoagulants; Z79.82 Long term (current) use of aspirin; Z79.890 Hormone replacement therapy; Z79.899 Other long term (current) drug therapy ==

== ENCOUNTER → 2022-07-17 | Outpatient (CLI) | payer OTHER, MEDICARE | LOC: M PAIN 10:45 | PROVIDERS: ATTEND Nurse Practitioner Family | DX: M96.1 Postlaminectomy syndrome, not elsewhere classified (principal); G89.29 Other chronic pain; K21.9 Gastro-esophageal reflux disease without esophagitis; E03.9 Hypothyroidism, unspecified; I10 Essential (primary) hypertension; I25.2 Old myocardial infarction; Z86.59 Personal history of other mental and behavioral disorders; Z88.1 Allergy status to other antibiotic agents; Z88.5 Allergy status to narcotic agent; Z88.8 Allergy status to other drugs, medicaments and biological substances; Z79.01 Long term (current) use of anticoagulants; Z79.82 Long term (current) use of aspirin; Z79.890 Hormone replacement therapy; Z79.899 Other long term (current) drug therapy ==

== ENCOUNTER → 2022-08-18 | Outpatient (CLI) | payer MEDICARE, OTHER | LOC: M PAIN 11:15 | PROVIDERS: ATTEND Nurse Practitioner Family | DX: M51.16 Intervertebral disc disorders with radiculopathy, lumbar region (principal); G89.29 Other chronic pain; K21.9 Gastro-esophageal reflux disease without esophagitis; E03.9 Hypothyroidism, unspecified; I10 Essential (primary) hypertension; I25.2 Old myocardial infarction; Z86.59 Personal history of other mental and behavioral disorders; Z88.1 Allergy status to other antibiotic agents; Z88.4 Allergy status to anesthetic agent; Z88.5 Allergy status to narcotic agent; Z88.8 Allergy status to other drugs, medicaments and biological substances; Z79.01 Long term (current) use of anticoagulants; Z79.82 Long term (current) use of aspirin; Z79.890 Hormone replacement therapy; Z79.899 Other long term (current) drug therapy ==

== ENCOUNTER → 2022-09-21 | Outpatient (CLI) | payer OTHER | LOC: M PAIN 11:00 | PROVIDERS: ATTEND Nurse Practitioner Family | DX: M96.1 Postlaminectomy syndrome, not elsewhere classified (principal); G89.29 Other chronic pain; K21.9 Gastro-esophageal reflux disease without esophagitis; E03.9 Hypothyroidism, unspecified; I10 Essential (primary) hypertension; I25.2 Old myocardial infarction; Z86.59 Personal history of other mental and behavioral disorders; Z88.1 Allergy status to other antibiotic agents; Z88.5 Allergy status to narcotic agent; Z88.8 Allergy status to other drugs, medicaments and biological substances; Z79.01 Long term (current) use of anticoagulants; Z79.82 Long term (current) use of aspirin; Z79.890 Hormone replacement therapy; Z79.899 Other long term (current) drug therapy ==

== ENCOUNTER → 2022-10-08 | Outpatient (CLI) | payer MEDICARE ==
[2022-10-08 11:36] LABS: BASO % 0.2 % (0.0-1.0); HEMATOCRIT 39.4 % (36.0-47.0); HEMOGLOBIN 12.3 g/dl (12.0-15.5); LYMPH # 1.1 10^3/uL (1.5-5.0); MEAN CORPUSCULAR HEMOGLOBIN 28.7 pg (27.0-33.0); MEAN CORPUSCULAR HGB CONC 31.2 g/dl (32.0-36.5); MEAN CORPUSCULAR VOLUME 92.1 fl (80.0-96.0); MONO # 0.5 10^3/uL (0.0-0.8); NEUTROPHILS % 65.6 % (36.0-66.0); PLATELET COUNT, AUTOMATED 316 10^3/uL (150-450); RED BLOOD COUNT 4.28 10^6/uL (4.00-5.40); WHITE BLOOD COUNT 4.6 10^3/uL (4.0-10.0)
[2022-10-08 12:07] LABS: ALBUMIN 3.9 G/DL (3.2-5.2); ALKALINE PHOSPHATASE 69 U/L (46-116); ALT/SGPT 14 U/L (7.0-40); AST/SGOT 20 U/L (<34); BILIRUBIN,TOTAL 0.3 MG/DL (0.3-1.2); BLOOD UREA NITROGEN 15 MG/DL (9-23); CALCIUM LEVEL 10.4 MG/DL (8.3-10.6); CARBON DIOXIDE LEVEL 29 MMOL/L (20-31); CHLORIDE LEVEL 104 MMOL/L (98-107); CREATININE FOR GFR 0.97 MG/DL (0.55-1.30); GLOMERULAR FILTRATION RATE > 60.0 (>45); GLUCOSE, FASTING 100 MG/DL (74-106); POTASSIUM SERUM 4.5 MMOL/L (3.5-5.1); PTH INTACT 159.7 PG/ML (18.5-88.0); SODIUM LEVEL 138 MMOL/L (136-145); THYROID STIMULATING HORMONE 1.656 uIU/ML (0.55-4.78); TOTAL PROTEIN 7.1 G/DL (5.7-8.2)
== END ==
LOC: M LAB 10:37
PROVIDERS: ATTEND Nurse Practitioner Family
DX: R68.89 Other general symptoms and signs (principal)

== ENCOUNTER → 2022-10-27 | Outpatient (REF) | payer MEDICARE, MEDICAID ==
[2022-10-27 14:49] LABS: BASO % 0.2 % (0.0-1.0); LYMPH # 1.4 10^3/uL (1.5-5.0); LYMPH % 29.5 % (24.0-44.0); MEAN CORPUSCULAR HEMOGLOBIN 29.3 pg (27.0-33.0); MEAN CORPUSCULAR HGB CONC 31.6 g/dl (32.0-36.5); MEAN CORPUSCULAR VOLUME 92.9 fl (80.0-96.0); MONO # 0.5 10^3/uL (0.0-0.8); MONO % 10.2 % (2.0-8.0); NEUTROPHILS # 2.7 10^3/uL (1.5-8.5); NEUTROPHILS % 58.8 % (36.0-66.0); PLATELET COUNT, AUTOMATED 292 10^3/uL (150-450); RED BLOOD COUNT 4.09 10^6/uL (4.00-5.40); WHITE BLOOD COUNT 4.6 10^3/uL (4.0-10.0)
[2022-10-27 15:19] LABS: FREE T4 1.08 NG/DL (0.89-1.76); THYROID STIMULATING HORMONE 1.752 uIU/ML (0.55-4.78)
[2022-10-27 15:20] LABS: ALBUMIN 4.1 G/DL (3.2-5.2); ALKALINE PHOSPHATASE 69 U/L (46-116); ALT/SGPT 12 U/L (7.0-40); AST/SGOT < 8 U/L (<34); BILIRUBIN,TOTAL 0.3 MG/DL (0.3-1.2); BLOOD UREA NITROGEN 13 MG/DL (9-23); CALCIUM LEVEL 10.7 MG/DL (8.3-10.6); CARBON DIOXIDE LEVEL 30 MMOL/L (20-31); CHLORIDE LEVEL 107 MMOL/L (98-107); CHOLESTEROL LEVEL 145 MG/DL (<200); CHOLESTEROL RISK RATIO 2.45 (<5); CREATININE FOR GFR 1.07 MG/DL (0.55-1.30); GLOMERULAR FILTRATION RATE 54.3 (>45); GLUCOSE, FASTING 82 MG/DL (74-106); HDL CHOLESTEROL 59.1 MG/DL (>40); LDL CHOLESTEROL 61.5 MG/DL (<100); NON-HDL-C 86 MG/DL; POTASSIUM SERUM 4.8 MMOL/L (3.5-5.1); SODIUM LEVEL 138 MMOL/L (136-145); TRIGLYCERIDES LEVEL 122 MG/DL (<150)
[2022-10-27 15:51] LABS: HEMOGLOBIN A1c 5.3 % (4.0-6.0)
== END ==
LOC: M LAB REF 13:02
PROVIDERS: ATTEND Nurse Practitioner Family
DX: Z13.228 Encounter for screening for other metabolic disorders (principal)

== ENCOUNTER → 2022-11-05 | Outpatient (CLI) | payer MEDICARE, MEDICAID | LOC: M PLAIMG 14:31 | PROVIDERS: ATTEND Nurse Practitioner Family | DX: M51.16 Intervertebral disc disorders with radiculopathy, lumbar region (principal) ==

== ENCOUNTER → 2022-11-20 | Outpatient (CLI) | payer MEDICARE, MEDICAID | LOC: M PAIN 13:45 | PROVIDERS: ATTEND Nurse Practitioner Family | DX: M51.16 Intervertebral disc disorders with radiculopathy, lumbar region (principal); G89.29 Other chronic pain; K21.9 Gastro-esophageal reflux disease without esophagitis; E03.9 Hypothyroidism, unspecified; I10 Essential (primary) hypertension; I25.2 Old myocardial infarction; Z86.59 Personal history of other mental and behavioral disorders; Z88.1 Allergy status to other antibiotic agents; Z88.4 Allergy status to anesthetic agent; Z88.5 Allergy status to narcotic agent; Z88.8 Allergy status to other drugs, medicaments and biological substances; Z79.01 Long term (current) use of anticoagulants; Z79.82 Long term (current) use of aspirin; Z79.890 Hormone replacement therapy; Z79.899 Other long term (current) drug therapy ==

== ENCOUNTER → 2022-12-08 | Outpatient (REF) | payer MEDICARE, MEDICAID ==
[2022-12-08 17:24] LABS: FREE T4 1.12 NG/DL (0.89-1.76); THYROID STIMULATING HORMONE 2.13 uIU/ML (0.55-4.78)
[2022-12-08 17:28] LABS: PTH INTACT 170.8 PG/ML (18.5-88.0)
== END ==
LOC: M LAB REF 12:12
PROVIDERS: ATTEND Nurse Practitioner Family
DX: E21.3 Hyperparathyroidism, unspecified (principal); R68.89 Other general symptoms and signs

== ENCOUNTER → 2022-12-29 | Outpatient (CLI) | payer MEDICARE, MEDICAID | LOC: M WHC 09:15 | PROVIDERS: ATTEND Nurse Practitioner | DX: R10.2 Pelvic and perineal pain (principal); N85.8 Other specified noninflammatory disorders of uterus ==

== ENCOUNTER → 2023-01-08 | Outpatient (CLI) | payer OTHER, MEDICARE, MEDICAID | LOC: M PAIN 14:15 | PROVIDERS: ATTEND Nurse Practitioner Family | DX: M96.1 Postlaminectomy syndrome, not elsewhere classified (principal); G89.29 Other chronic pain; K21.9 Gastro-esophageal reflux disease without esophagitis; E03.9 Hypothyroidism, unspecified; I10 Essential (primary) hypertension; I25.2 Old myocardial infarction; Z86.59 Personal history of other mental and behavioral disorders; Z88.1 Allergy status to other antibiotic agents; Z88.4 Allergy status to anesthetic agent; Z88.5 Allergy status to narcotic agent; Z88.8 Allergy status to other drugs, medicaments and biological substances; Z79.01 Long term (current) use of anticoagulants; Z79.890 Hormone replacement therapy; Z79.899 Other long term (current) drug therapy ==

== ENCOUNTER → 2023-02-23 | Outpatient (REF) | payer MEDICARE, MEDICAID, OTHER ==
[2023-02-23 14:56] LABS: APPEARANCE, URINE HAZY (CLEAR); BACTERIA, URINE AUTO 1+ (NEGATIVE); BILIRUBIN, URINE AUTO NEGATIVE (NEGATIVE); BLOOD, URINE BLOOD NEGATIVE (NEGATIVE); COLOR, URINE YELLOW (YELLOW); GLUCOSE, URINE (UA) AUTO NEGATIVE (NEGATIVE); KETONE, URINE AUTO NEGATIVE (NEGATIVE); LEUKOCYTE ESTERASE, URINE AUTO 3+ (NEGATIVE); MUCUS, URINE SMALL (NEGATIVE); NITRITE, URINE AUTO NEGATIVE (NEGATIVE); PROTEIN, URINE AUTO NEGATIVE (NEGATIVE); RBC, URINE AUTO 4 /HPF (0-3); SPECIFIC GRAVITY URINE AUTO 1.011 (1.002-1.035); SQUAMOUS EPITHELIAL CELL UR AU 7 /HPF (0-6); UROBILINOGEN, URINE AUTO 0.2 mg/dL (0.0-2.0); WBC, URINE AUTO 7 /HPF (0-3)
== END ==
LOC: M SMT 13:14
PROVIDERS: ATTEND Physician Assistant
DX: N39.0 Urinary tract infection, site not specified (principal)

== ENCOUNTER → 2023-03-23 | Outpatient (CLI) | payer MEDICARE, MEDICAID ==
[~2023-03-23] MED LIST changes: -HYDR200T3 PO; +HYDR200T46 PO
[2023-03-23 17:44] LABS: CALCIUM LEVEL 11.2 MG/DL (8.3-10.6); CREATININE FOR GFR 1.06 MG/DL (0.55-1.30); GLOMERULAR FILTRATION RATE 54.9 (>45); POTASSIUM SERUM 4.8 MMOL/L (3.5-5.1)
== END ==
LOC: M PLALAB 13:12
PROVIDERS: ATTEND Physician Assistant
DX: N13.30 Unspecified hydronephrosis (principal)

== ENCOUNTER → 2023-04-07 | Outpatient (CLI) | payer MEDICARE, MEDICAID | LOC: M PAIN 14:00 | PROVIDERS: ATTEND Anesthesiology | DX: M51.16 Intervertebral disc disorders with radiculopathy, lumbar region (principal); M48.062 Spinal stenosis, lumbar region with neurogenic claudication; I25.2 Old myocardial infarction; M79.18 Myalgia, other site; G47.00 Insomnia, unspecified; M32.9 Systemic lupus erythematosus, unspecified; G89.29 Other chronic pain; K21.9 Gastro-esophageal reflux disease without esophagitis; E03.9 Hypothyroidism, unspecified; I10 Essential (primary) hypertension; E78.00 Pure hypercholesterolemia, unspecified; I73.00 Raynaud's syndrome without gangrene; F32.A Depression, unspecified; M54.2 Cervicalgia; Z86.16 Personal history of COVID-19; Z79.02 Long term (current) use of antithrombotics/antiplatelets; Z79.890 Hormone replacement therapy; Z79.891 Long term (current) use of opiate analgesic; Z79.899 Other long term (current) drug therapy; Z88.1 Allergy status to other antibiotic agents; Z88.8 Allergy status to other drugs, medicaments and biological substances; Z88.5 Allergy status to narcotic agent ==

== ENCOUNTER → 2023-04-20 | Outpatient (REF) | payer MEDICARE, MEDICAID | LOC: M LAB REF 11:15 | PROVIDERS: ATTEND Pediatrics | DX: R35.0 Frequency of micturition (principal) ==

== ENCOUNTER → 2023-05-07 | Outpatient (CLI) | payer MEDICARE, MEDICAID ==
[~2023-05-07] MED LIST changes: +LORA-1041 PO; -LORA-674 PO
== END ==
LOC: M PAIN 15:15
PROVIDERS: ATTEND Anesthesiology
DX: M51.16 Intervertebral disc disorders with radiculopathy, lumbar region (principal); G89.29 Other chronic pain; I25.2 Old myocardial infarction; K21.9 Gastro-esophageal reflux disease without esophagitis; E03.9 Hypothyroidism, unspecified; I10 Essential (primary) hypertension; Z86.59 Personal history of other mental and behavioral disorders; Z86.16 Personal history of COVID-19; Z88.1 Allergy status to other antibiotic agents; Z88.5 Allergy status to narcotic agent; Z88.8 Allergy status to other drugs, medicaments and biological substances; Z79.02 Long term (current) use of antithrombotics/antiplatelets; Z79.890 Hormone replacement therapy; Z79.899 Other long term (current) drug therapy

== ENCOUNTER → 2023-06-10 | Outpatient (CLI) | payer MEDICARE, MEDICAID | LOC: M PAIN 14:30 | PROVIDERS: ATTEND Nurse Practitioner Family | DX: M51.16 Intervertebral disc disorders with radiculopathy, lumbar region (principal); G89.29 Other chronic pain; M25.562 Pain in left knee; M17.12 Unilateral primary osteoarthritis, left knee; R35.0 Frequency of micturition; W01.0XXA Fall on same level from slipping, tripping and stumbling without subsequent striking against object, initial encounter; M79.7 Fibromyalgia; M54.50 Low back pain, unspecified; F17.200 Nicotine dependence, unspecified, uncomplicated; Y92.009 Unspecified place in unspecified non-institutional (private) residence as the place of occurrence of the external cause; Z88.1 Allergy status to other antibiotic agents; Z88.4 Allergy status to anesthetic agent; Z88.5 Allergy status to narcotic agent; Z88.8 Allergy status to other drugs, medicaments and biological substances; Z79.02 Long term (current) use of antithrombotics/antiplatelets; Z79.82 Long term (current) use of aspirin; Z79.811 Long term (current) use of aromatase inhibitors; Z79.899 Other long term (current) drug therapy; Y93.E5 Activity, floor mopping and cleaning; Y99.9 Unspecified external cause status; Z91.040 Latex allergy status | CPT/HCPCS: 73564; 81001; 87086; 99283; G0463 ==

== ENCOUNTER → 2023-08-20 | Outpatient (CLI) | payer MEDICARE, MEDICAID | LOC: M PAIN 11:15 | PROVIDERS: ATTEND Nurse Practitioner Family | DX: M51.16 Intervertebral disc disorders with radiculopathy, lumbar region (principal); G89.29 Other chronic pain; Z88.1 Allergy status to other antibiotic agents; Z88.5 Allergy status to narcotic agent; Z88.8 Allergy status to other drugs, medicaments and biological substances; Z79.02 Long term (current) use of antithrombotics/antiplatelets; Z79.899 Other long term (current) drug therapy ==

== ENCOUNTER 2023-09-16 13:47 | Emergency (ER) | payer MEDICARE, MEDICAID ==
[~2023-09-16] VITALS: Ht 160 cm; Wt 80.0 kg
[2023-09-16 17:25] VITALS: BP 158/72; TEMP 97.5; O2SAT 100
[2023-09-16] MEDS ORDERED: PERCOCET 5MG/325MG TAB PO ONE (17:25)
== END 2023-09-16 17:34 | disposition home or self-care (01) ==
LOC: M ED 13:47
DX: S92.912A Unspecified fracture of left toe(s), initial encounter for closed fracture (principal); W22.8XXA Striking against or struck by other objects, initial encounter; I25.2 Old myocardial infarction; I10 Essential (primary) hypertension; E03.9 Hypothyroidism, unspecified; E78.5 Hyperlipidemia, unspecified; Y92.009 Unspecified place in unspecified non-institutional (private) residence as the place of occurrence of the external cause; Y93.89 Activity, other specified; Y99.9 Unspecified external cause status; Z79.01 Long term (current) use of anticoagulants; Z88.1 Allergy status to other antibiotic agents; Z88.8 Allergy status to other drugs, medicaments and biological substances; Z91.040 Latex allergy status; Z79.82 Long term (current) use of aspirin; Z79.811 Long term (current) use of aromatase inhibitors; Z79.899 Other long term (current) drug therapy

== ENCOUNTER → 2023-10-12 | Outpatient (CLI) | payer MEDICARE, MEDICAID | LOC: M PAIN 10:15 | PROVIDERS: ATTEND Nurse Practitioner Family | DX: M51.16 Intervertebral disc disorders with radiculopathy, lumbar region (principal); Z79.891 Long term (current) use of opiate analgesic; G89.29 Other chronic pain; K21.9 Gastro-esophageal reflux disease without esophagitis; E03.9 Hypothyroidism, unspecified; E78.00 Pure hypercholesterolemia, unspecified; I73.00 Raynaud's syndrome without gangrene; F32.A Depression, unspecified; M79.10 Myalgia, unspecified site; Z79.890 Hormone replacement therapy; Z79.02 Long term (current) use of antithrombotics/antiplatelets; Z79.899 Other long term (current) drug therapy; Z88.1 Allergy status to other antibiotic agents; Z88.8 Allergy status to other drugs, medicaments and biological substances ==

== ENCOUNTER → 2023-12-15 | Outpatient (CLI) | payer MEDICARE, MEDICAID ==
[~2023-12-15] MED LIST changes: +ALEN70TA82 PO; -ASPI-161 PO; +ASPI-615 PO; +CARI1TAB7 PO; +CLON0.5T2 PO; +ERGO500029 PO; -KLON0.5T PO; +KLON0.5T8 PO; +LIDO1PAD; +MYCO500T PO; +NIFE1TAB52 PO; +NITR0.4S14; +SALA1TAB PO; +VITA1TAB78 PO; +VITACAP8 PO
== END ==
LOC: M PAIN 10:00
PROVIDERS: ATTEND Anesthesiology
DX: Z01.818 Encounter for other preprocedural examination (principal); M48.062 Spinal stenosis, lumbar region with neurogenic claudication; M51.16 Intervertebral disc disorders with radiculopathy, lumbar region; I25.2 Old myocardial infarction; G89.29 Other chronic pain; E03.9 Hypothyroidism, unspecified; K21.9 Gastro-esophageal reflux disease without esophagitis; M32.9 Systemic lupus erythematosus, unspecified; E78.00 Pure hypercholesterolemia, unspecified; I73.00 Raynaud's syndrome without gangrene; F32.A Depression, unspecified; Z79.891 Long term (current) use of opiate analgesic; Z79.02 Long term (current) use of antithrombotics/antiplatelets; Z79.890 Hormone replacement therapy; Z79.899 Other long term (current) drug therapy; Z88.1 Allergy status to other antibiotic agents; Z88.8 Allergy status to other drugs, medicaments and biological substances

== ENCOUNTER → 2024-01-26 | Outpatient (CLI) | payer MEDICARE, MEDICAID ==
[~2024-01-26] MED LIST changes: -ROSU40TA4 PO; +ROSU40TA63 PO
== END ==
LOC: M PAIN 11:45
PROVIDERS: ATTEND Anesthesiology
DX: M43.16 Spondylolisthesis, lumbar region (principal); G89.29 Other chronic pain; M54.50 Low back pain, unspecified; M48.061 Spinal stenosis, lumbar region without neurogenic claudication; Z79.891 Long term (current) use of opiate analgesic; N13.30 Unspecified hydronephrosis; M51.16 Intervertebral disc disorders with radiculopathy, lumbar region; K21.9 Gastro-esophageal reflux disease without esophagitis; E03.9 Hypothyroidism, unspecified; I10 Essential (primary) hypertension; E78.00 Pure hypercholesterolemia, unspecified; I73.00 Raynaud's syndrome without gangrene; F32.A Depression, unspecified; M19.90 Unspecified osteoarthritis, unspecified site; I25.2 Old myocardial infarction; L93.0 Discoid lupus erythematosus; Z86.16 Personal history of COVID-19; Z79.890 Hormone replacement therapy; Z79.82 Long term (current) use of aspirin; Z79.02 Long term (current) use of antithrombotics/antiplatelets; Z79.899 Other long term (current) drug therapy; Z88.1 Allergy status to other antibiotic agents; Z88.8 Allergy status to other drugs, medicaments and biological substances

== ENCOUNTER → 2024-02-02 | Outpatient (CLI) | payer MEDICARE, MEDICAID | LOC: M PAIN 14:00 | PROVIDERS: ATTEND Anesthesiology | DX: M51.16 Intervertebral disc disorders with radiculopathy, lumbar region (principal); M48.061 Spinal stenosis, lumbar region without neurogenic claudication; M43.16 Spondylolisthesis, lumbar region; G89.29 Other chronic pain; E03.9 Hypothyroidism, unspecified; E78.00 Pure hypercholesterolemia, unspecified; I73.00 Raynaud's syndrome without gangrene; I10 Essential (primary) hypertension; F32.A Depression, unspecified; I25.2 Old myocardial infarction; L93.0 Discoid lupus erythematosus; Z79.890 Hormone replacement therapy; Z79.891 Long term (current) use of opiate analgesic; Z79.82 Long term (current) use of aspirin; Z79.02 Long term (current) use of antithrombotics/antiplatelets; Z79.899 Other long term (current) drug therapy; Z88.1 Allergy status to other antibiotic agents; Z88.8 Allergy status to other drugs, medicaments and biological substances; Z88.5 Allergy status to narcotic agent ==

== ENCOUNTER → 2024-02-09 | Outpatient (CLI) | payer MEDICARE, MEDICAID | LOC: M PAIN 16:45 | PROVIDERS: ATTEND Anesthesiology | DX: M51.16 Intervertebral disc disorders with radiculopathy, lumbar region (principal); M48.061 Spinal stenosis, lumbar region without neurogenic claudication; E03.9 Hypothyroidism, unspecified; I10 Essential (primary) hypertension; M32.9 Systemic lupus erythematosus, unspecified; Z79.01 Long term (current) use of anticoagulants; Z79.82 Long term (current) use of aspirin; Z79.890 Hormone replacement therapy; Z79.891 Long term (current) use of opiate analgesic; Z88.1 Allergy status to other antibiotic agents; Z88.6 Allergy status to analgesic agent; Z88.8 Allergy status to other drugs, medicaments and biological substances; Z91.040 Latex allergy status ==

== ENCOUNTER → 2024-03-24 | Outpatient (CLI) | payer MEDICARE, MEDICAID ==
[~2024-03-24] MED LIST changes: +B-COCAP7 PO; +OMEP40CA5 PO
== END ==
LOC: M PAIN 11:30
PROVIDERS: ATTEND Nurse Practitioner Family
DX: M51.16 Intervertebral disc disorders with radiculopathy, lumbar region (principal); G89.29 Other chronic pain; G47.00 Insomnia, unspecified; K21.9 Gastro-esophageal reflux disease without esophagitis; E03.9 Hypothyroidism, unspecified; I10 Essential (primary) hypertension; E78.00 Pure hypercholesterolemia, unspecified; I73.00 Raynaud's syndrome without gangrene; M54.2 Cervicalgia; M79.18 Myalgia, other site; L93.0 Discoid lupus erythematosus; I25.2 Old myocardial infarction; M19.90 Unspecified osteoarthritis, unspecified site; Z79.890 Hormone replacement therapy; Z79.82 Long term (current) use of aspirin; Z79.891 Long term (current) use of opiate analgesic; Z79.899 Other long term (current) drug therapy; Z88.1 Allergy status to other antibiotic agents; Z88.8 Allergy status to other drugs, medicaments and biological substances; Z88.5 Allergy status to narcotic agent

== ENCOUNTER → 2024-04-04 | Outpatient (REF) | payer MEDICARE, MEDICAID ==
[2024-04-04 18:06] LABS: BASO % 0.5 % (0.0-1.0); HEMATOCRIT 37.9 % (36.0-47.0); HEMOGLOBIN 11.9 g/dl (12.0-15.5); LYMPH # 1.6 10^3/uL (1.5-5.0); MEAN CORPUSCULAR HEMOGLOBIN 29.5 pg (27.0-33.0); MEAN CORPUSCULAR HGB CONC 31.4 g/dl (32.0-36.5); MONO # 0.6 10^3/uL (0.0-0.8); MONO % 10.2 % (2.0-8.0); NEUTROPHILS # 3.5 10^3/uL (1.5-8.5); NEUTROPHILS % 60.9 % (36.0-66.0); PLATELET COUNT, AUTOMATED 309 10^3/uL (150-450); RED BLOOD COUNT 4.03 10^6/uL (4.00-5.40); WHITE BLOOD COUNT 5.7 10^3/uL (4.0-10.0)
[2024-04-04 18:48] LABS: ALBUMIN 4.2 G/DL (3.2-5.2); BILIRUBIN,TOTAL 0.3 MG/DL (0.3-1.2); CALCIUM LEVEL 10.1 MG/DL (8.3-10.6); CHOLESTEROL RISK RATIO 2.43 (<5); CREATININE FOR GFR 1.65 MG/DL (0.55-1.30); GLOMERULAR FILTRATION RATE 32.8 (>45); HDL CHOLESTEROL 60.4 MG/DL (>40); LDL CHOLESTEROL 63.4 MG/DL (<100); NON-HDL-C 86.6 MG/DL; THYROID STIMULATING HORMONE 5.909 uIU/ML (0.55-4.78); TOTAL 25(OH) VITAMIN D 71.6 NG/ML (20.0-100.0)
[2024-04-04 18:50] LABS: HEMOGLOBIN A1c 5.4 % (4.0-6.0)
== END ==
LOC: M LAB REF 16:48
PROVIDERS: ATTEND Nurse Practitioner Family
DX: E55.9 Vitamin D deficiency, unspecified (principal); E66.3 Overweight; K21.9 Gastro-esophageal reflux disease without esophagitis; Z79.899 Other long term (current) drug therapy

== ENCOUNTER → 2024-05-25 | Outpatient (CLI) | payer MEDICARE, MEDICAID ==
[~2024-05-25] MED LIST changes: -ROSU40TA63 PO; +ROSU40TA81 PO
== END ==
LOC: M PAIN 11:30
PROVIDERS: ATTEND Nurse Practitioner Family
DX: M51.16 Intervertebral disc disorders with radiculopathy, lumbar region (principal); Z79.891 Long term (current) use of opiate analgesic; G89.29 Other chronic pain; K21.9 Gastro-esophageal reflux disease without esophagitis; E03.9 Hypothyroidism, unspecified; I10 Essential (primary) hypertension; E78.00 Pure hypercholesterolemia, unspecified; I73.00 Raynaud's syndrome without gangrene; F32.A Depression, unspecified; M54.2 Cervicalgia; M19.90 Unspecified osteoarthritis, unspecified site; M79.18 Myalgia, other site; I25.2 Old myocardial infarction; L93.0 Discoid lupus erythematosus; Z79.890 Hormone replacement therapy; Z79.02 Long term (current) use of antithrombotics/antiplatelets; Z79.899 Other long term (current) drug therapy; Z88.1 Allergy status to other antibiotic agents; Z88.8 Allergy status to other drugs, medicaments and biological substances; Z88.5 Allergy status to narcotic agent

== ENCOUNTER → 2024-05-26 | Outpatient (CLI) | payer MEDICARE, MEDICAID | LOC: M PAIN 10:45 | PROVIDERS: ATTEND Nurse Practitioner Family | DX: Z79.891 Long term (current) use of opiate analgesic (principal) ==

== ENCOUNTER → 2024-06-28 | Outpatient (CLI) | payer MEDICARE, MEDICAID ==
[2024-06-28 14:18] LABS: IONIZED CALCIUM 5.3 MG/DL (4.5-5.3)
[2024-06-28 14:51] LABS: PTH INTACT 243.5 PG/ML (18.5-88.0)
[2024-06-28 14:55] LABS: THYROID STIMULATING HORMONE 0.089 uIU/ML (0.55-4.78)
== END ==
LOC: M LAB 13:31
PROVIDERS: ATTEND Nurse Practitioner Family
DX: E03.9 Hypothyroidism, unspecified (principal)

== ENCOUNTER → 2024-08-03 | Outpatient (CLI) | payer MEDICARE, MEDICAID | LOC: M PAIN 11:30 | PROVIDERS: ATTEND Nurse Practitioner Family | DX: M51.16 Intervertebral disc disorders with radiculopathy, lumbar region (principal); G89.29 Other chronic pain; E03.9 Hypothyroidism, unspecified; I10 Essential (primary) hypertension; E78.00 Pure hypercholesterolemia, unspecified; I73.00 Raynaud's syndrome without gangrene; M54.2 Cervicalgia; E21.3 Hyperparathyroidism, unspecified; F32.A Depression, unspecified; I25.2 Old myocardial infarction; M79.18 Myalgia, other site; L93.0 Discoid lupus erythematosus; Z79.890 Hormone replacement therapy; Z79.82 Long term (current) use of aspirin; Z79.891 Long term (current) use of opiate analgesic; Z79.899 Other long term (current) drug therapy; Z88.1 Allergy status to other antibiotic agents; Z88.8 Allergy status to other drugs, medicaments and biological substances | CPT/HCPCS: 83970; 84439; 84443; G0463 ==

== ENCOUNTER → 2024-08-03 | Outpatient (REF) | payer MEDICARE, MEDICAID ==
[2024-08-03 19:56] LABS: PTH INTACT 306.6 PG/ML (18.5-88.0)
[2024-08-03 19:58] LABS: FREE T4 1.09 NG/DL (0.89-1.76); THYROID STIMULATING HORMONE 4.993 uIU/ML (0.55-4.78)
== END ==
LOC: M LAB REF 16:44
PROVIDERS: ATTEND Nurse Practitioner Family
DX: E03.9 Hypothyroidism, unspecified (principal); E21.3 Hyperparathyroidism, unspecified

== ENCOUNTER → 2024-09-22 | Outpatient (CLI) | payer MEDICARE, MEDICAID | LOC: M PAIN 16:30 | PROVIDERS: ATTEND Anesthesiology | DX: M51.16 Intervertebral disc disorders with radiculopathy, lumbar region (principal); G89.29 Other chronic pain; Z79.02 Long term (current) use of antithrombotics/antiplatelets; Z79.82 Long term (current) use of aspirin; Z79.899 Other long term (current) drug therapy; Z86.16 Personal history of COVID-19; Z88.1 Allergy status to other antibiotic agents; Z88.5 Allergy status to narcotic agent; Z88.8 Allergy status to other drugs, medicaments and biological substances ==

== ENCOUNTER → 2024-10-17 | Outpatient (CLI) | payer MEDICARE, MEDICAID ==
[~2024-10-17] MED LIST changes: +CARI-555 PO; -CARI1TAB7 PO
== END ==
LOC: M PAIN 11:00
PROVIDERS: ATTEND Anesthesiology
DX: M47.816 Spondylosis without myelopathy or radiculopathy, lumbar region (principal); M51.16 Intervertebral disc disorders with radiculopathy, lumbar region; G89.29 Other chronic pain; E03.9 Hypothyroidism, unspecified; I10 Essential (primary) hypertension; K21.9 Gastro-esophageal reflux disease without esophagitis; F32.1 Major depressive disorder, single episode, moderate; Z79.890 Hormone replacement therapy; Z79.891 Long term (current) use of opiate analgesic; Z79.02 Long term (current) use of antithrombotics/antiplatelets; Z79.899 Other long term (current) drug therapy; Z79.82 Long term (current) use of aspirin; Z88.1 Allergy status to other antibiotic agents; Z88.5 Allergy status to narcotic agent; Z88.8 Allergy status to other drugs, medicaments and biological substances
CPT/HCPCS: 36415; 80053; 82533; 82728; 82941; 83010; 83036; 83735; 84144; 84145; 84146; 84436; 84443; 84479; 84600; 84703; 85025; 85384; 85652; 86140; G0463; G0480

== ENCOUNTER → 2024-10-17 | Outpatient (CLI) | payer MEDICARE, MEDICAID ==
[~2024-10-17] MED LIST changes: -CARI-555 PO; +CARI1TAB7 PO
[2024-10-17 15:02] LABS: BASO % 0.3 % (0.0-1.0); EOS % 0.2 % (0.0-3.0); HEMATOCRIT 39.3 % (36.0-47.0); HEMOGLOBIN 12.6 g/dl (12.0-15.5); LYMPH # 1.8 10^3/uL (1.5-5.0); MEAN CORPUSCULAR HEMOGLOBIN 29.2 pg (27.0-33.0); MEAN CORPUSCULAR HGB CONC 32.1 g/dl (32.0-36.5); MONO # 0.5 10^3/uL (0.0-0.8); NEUTROPHILS # 3.8 10^3/uL (1.5-8.5); NEUTROPHILS % 62.2 % (36.0-66.0); PLATELET COUNT, AUTOMATED 337 10^3/uL (150-450); RED BLOOD COUNT 4.32 10^6/uL (4.00-5.40)
[2024-10-17 15:12] LABS: ERYTHROCYTE SEDIMENTATION RATE 50 mm/hr (0-30)
[2024-10-17 15:29] LABS: ALBUMIN 4.2 G/DL (3.2-5.2); ALKALINE PHOSPHATASE 56 U/L (35-104); ALT/SGPT 15 U/L (7.0-40); AST/SGOT 20 U/L (<34); BILIRUBIN,TOTAL 0.3 MG/DL (0.3-1.2); BLOOD UREA NITROGEN 19 MG/DL (9-23); C REACTIVE PROTEIN QUANTITATIV < 0.50 MG/DL (<1.0); CALCIUM LEVEL 10.3 MG/DL (8.3-10.6); CARBON DIOXIDE LEVEL 28 MMOL/L (20-31); CHLORIDE LEVEL 99 MMOL/L (98-107); CREATININE FOR GFR 1.14 MG/DL (0.55-1.30); FREE THYROXINE INDEX 2.4 % (1.3-4.8); GLOMERULAR FILTRATION RATE 50.2 (>39); GLUCOSE, FASTING 92 MG/DL (74-106); POTASSIUM SERUM 4.4 MMOL/L (3.5-5.1); SODIUM LEVEL 136 MMOL/L (136-145); T UPTAKE 23.3 % (22.5-37.0); THYROID STIMULATING HORMONE 1.744 uIU/ML (0.55-4.78); THYROXINE (T4) 10.1 UG/DL (4.5-10.9); TOTAL PROTEIN 7.8 G/DL (5.7-8.2)
[2024-10-17 15:30] LABS: FERRITIN 62.1 NG/ML (7.3-270.7); PROLACTIN 6.92 NG/ML
[2024-10-17 15:31] LABS: PROGESTERONE < 0.21 NG/ML
[2024-10-17 15:38] LABS: HEMOGLOBIN A1c 5.3 % (4.0-6.0)
[2024-10-17 15:40] LABS: PROCALCITONIN <0.04 ng/ml
[2024-10-17 15:41] LABS: CORTISOL PM 13.4 UG/DL (3.1-16.7)
[2024-10-17 16:18] LABS: HCG, SERUM QUALITATIVE NEGATIVE (NEGATIVE)
== END ==
LOC: M LAB 13:00
PROVIDERS: ATTEND Nurse Practitioner Psychiatric/Mental Health
DX: G89.4 Chronic pain syndrome (principal); F32.1 Major depressive disorder, single episode, moderate; Z79.899 Other long term (current) drug therapy
CPT/HCPCS: 36415; 80053; 82533; 82728; 82941; 83010; 83036; 83735; 84144; 84145; 84146; 84436; 84443; 84479; 84600; 84703; 85025; 85384; 85652; 86140; G0480

== ENCOUNTER → 2024-10-24 | Outpatient (CLI) | payer MEDICARE, MEDICAID ==
[~2024-10-24] MED LIST changes: +CARI-555 PO; -CARI1TAB7 PO
== END ==
LOC: M PAIN 16:00
PROVIDERS: ATTEND Anesthesiology
DX: M51.16 Intervertebral disc disorders with radiculopathy, lumbar region (principal); G89.29 Other chronic pain; Z79.890 Hormone replacement therapy; Z79.02 Long term (current) use of antithrombotics/antiplatelets; Z79.891 Long term (current) use of opiate analgesic; Z79.899 Other long term (current) drug therapy; Z88.1 Allergy status to other antibiotic agents; Z88.8 Allergy status to other drugs, medicaments and biological substances; Z88.5 Allergy status to narcotic agent

== ENCOUNTER → 2024-10-27 | Outpatient (CLI) | payer MEDICARE, MEDICAID | LOC: M PAIN 11:30 | PROVIDERS: ATTEND Anesthesiology | DX: M54.42 Lumbago with sciatica, left side (principal); M51.16 Intervertebral disc disorders with radiculopathy, lumbar region; G89.29 Other chronic pain; K21.9 Gastro-esophageal reflux disease without esophagitis; M32.9 Systemic lupus erythematosus, unspecified; E03.9 Hypothyroidism, unspecified; I73.00 Raynaud's syndrome without gangrene; Z79.890 Hormone replacement therapy; Z79.899 Other long term (current) drug therapy; Z79.02 Long term (current) use of antithrombotics/antiplatelets; Z88.1 Allergy status to other antibiotic agents; Z88.8 Allergy status to other drugs, medicaments and biological substances ==

== ENCOUNTER → 2024-11-08 | Outpatient (CLI) | payer OTHER | LOC: M PAIN 11:30 | PROVIDERS: ATTEND Anesthesiology | DX: M96.1 Postlaminectomy syndrome, not elsewhere classified (principal); M54.2 Cervicalgia; G89.29 Other chronic pain; Z79.02 Long term (current) use of antithrombotics/antiplatelets; Z79.899 Other long term (current) drug therapy; Z80.51 Family history of malignant neoplasm of kidney; Z80.8 Family history of malignant neoplasm of other organs or systems; Z88.1 Allergy status to other antibiotic agents; Z88.5 Allergy status to narcotic agent; Z88.8 Allergy status to other drugs, medicaments and biological substances ==

== ENCOUNTER 2024-12-18 08:26 | Inpatient (IN) | payer MEDICARE, OTHER ==
[~2024-12-18] VITALS: Ht 160 cm; Wt 75.1 kg
[2024-12-18 09:03] LABS: BASO % 0.1 % (0.0-1.0); HEMATOCRIT 38.6 % (36.0-47.0); HEMOGLOBIN 12.7 g/dl (12.0-15.5); LYMPH # 0.6 10^3/uL (1.5-5.0); LYMPH % 3.5 % (24.0-44.0); MEAN CORPUSCULAR HEMOGLOBIN 29.8 pg (27.0-33.0); MEAN CORPUSCULAR HGB CONC 32.9 g/dl (32.0-36.5); MEAN CORPUSCULAR VOLUME 90.6 fl (80.0-96.0); MONO % 6.3 % (2.0-8.0); NEUTROPHILS # 14.6 10^3/uL (1.5-8.5); NEUTROPHILS % 89.5 % (36.0-66.0); PLATELET COUNT, AUTOMATED 292 10^3/uL (150-450); RED BLOOD COUNT 4.26 10^6/uL (4.00-5.40); WHITE BLOOD COUNT 16.3 10^3/uL (4.0-10.0)
[2024-12-18 09:20] LABS: INR 1.01; PARTIAL THROMBOPLASTIN TIME 25.6 SECONDS (24.8-34.2); PROTHROMBIN TIME 13.6 SECONDS (12.5-14.5)
[2024-12-18] MEDS ORDERED: ISOVUE-370 76% 100ML VIAL As Ordered ONE (11:29)
[2024-12-18] MEDS: GASTROGRAFIN SOLUTION 30ML PO SCH (11:48)
[2024-12-18 11:57] LABS: BILIRUBIN,DIRECT 0.1 MG/DL (<0.4); BILIRUBIN,TOTAL 0.5 MG/DL (0.3-1.2); CREATININE FOR GFR 1.24 MG/DL (0.55-1.30); GLOMERULAR FILTRATION RATE 46.8 (>39); POTASSIUM SERUM 4.9 MMOL/L (3.5-5.1); TOTAL PROTEIN 7.4 G/DL (5.7-8.2)
[2024-12-18] MEDS: ACETAMINOPHEN *IV* 1,000 MG in IV 1 EA IV ONE (15:12)
[2024-12-18] MEDS: ONDANSETRON 4MG 2ML VIAL IV ONE (15:12)
[2024-12-18] MEDS ORDERED: NS (Normal Saline) 0.9% 1,000 ML IV ONE (17:35)
[2024-12-18] MEDS ORDERED: ACETAMINOPHEN 325 MG TAB PO PRN (18:05)
[2024-12-18 18:42] LABS: C REACTIVE PROTEIN QUANTITATIV 0.77 MG/DL (<1.0)
[2024-12-18 18:50] LABS: PROCALCITONIN 0.17 ng/ml
[2024-12-18] MEDS: PIPERACILLIN/TAZOBACTAM SOD 3.375 GM in DEXTROSE 5% (D5W) ADV/MINI-BAG 50 ML IV ONE (19:07)
[2024-12-18 19:16] LABS: ERYTHROCYTE SEDIMENTATION RATE 36 mm/hr (0-30)
[2024-12-18] MEDS: LR 1,000 ML IV ONE ×2 (19:20→21:33)
[2024-12-18] MEDS ORDERED: LEVO75TA4 PO (20:38)
[2024-12-18] MEDS ORDERED: FLUTISP (20:38)
[2024-12-18] MEDS ORDERED: HOME MED LIST COMPLETE! XX SCH (20:40)
[2024-12-18] MEDS: ROSUVASTATIN 10 MG TAB (CRESTOR) PO SCH (22:44)
[2024-12-18] MEDS: PERCOCET 5MG/325MG TAB PO PRN (22:45)
[2024-12-18] MEDS: LR 1,000 ML IV SCH (22:45)
[2024-12-19] MEDS: PIPERACILLIN/TAZOBACTAM SOD 4.5 GM in DEXTROSE 5% (D5W) ADV/MINI-BAG 50 ML IV SCH (01:42)
[2024-12-19] MEDS ORDERED: LEVOTHYROXINE 100MCG TABLET (0.1MG) PO SCH (06:00)
[2024-12-19] MEDS: PANTOPRAZOLE 40MG TAB (PROTONIX) PO SCH (08:12)
[2024-12-19] MEDS: ONDANSETRON 4MG 2ML VIAL IV PRN (08:12)
[2024-12-19] MEDS: ASPIRIN 81MG CHEW TABLET PO SCH (08:12)
[2024-12-19] MEDS: lamoTRIgine 100MG TAB PO SCH (08:12)
[2024-12-19] MEDS: CLOPIDOGREL 75 MG TAB PO SCH (08:12)
[2024-12-19] MEDS: LEVOTHYROXINE 75MCG TABLET (0.075MG) PO SCH (08:13)
[2024-12-19 16:03] VITALS: BP 124/56; TEMP 97.9; O2SAT 91
[2024-12-19 20:00] VITALS: BP 123/58; TEMP 98.1; O2SAT 94
[2024-12-20 00:22] LABS: BASO % 0.2 % (0.0-1.0); HEMATOCRIT 32.7 % (36.0-47.0); LYMPH # 1.2 10^3/uL (1.5-5.0); LYMPH % 10.4 % (24.0-44.0); MEAN CORPUSCULAR HEMOGLOBIN 29.7 pg (27.0-33.0); MEAN CORPUSCULAR HGB CONC 32.7 g/dl (32.0-36.5); MEAN CORPUSCULAR VOLUME 90.8 fl (80.0-96.0); MONO % 8.2 % (2.0-8.0); NEUTROPHILS # 9.4 10^3/uL (1.5-8.5); NEUTROPHILS % 80.9 % (36.0-66.0); PLATELET COUNT, AUTOMATED 272 10^3/uL (150-450); WHITE BLOOD COUNT 11.6 10^3/uL (4.0-10.0)
[2024-12-20 00:28] LABS: C REACTIVE PROTEIN QUANTITATIV 9.18 MG/DL (<1.0)
[2024-12-20 00:30] LABS: ALBUMIN 3.2 G/DL (3.2-5.2); BILIRUBIN,TOTAL 0.5 MG/DL (0.3-1.2); CALCIUM LEVEL 9.8 MG/DL (8.3-10.6); CREATININE FOR GFR 1.12 MG/DL (0.55-1.30); GLOMERULAR FILTRATION RATE 52.9 (>39); POTASSIUM SERUM 4.1 MMOL/L (3.5-5.1); TOTAL PROTEIN 6.3 G/DL (5.7-8.2)
[2024-12-20 00:31] LABS: HEMOGLOBIN 10.7 g/dl (12.0-15.5)
[2024-12-20 04:25] VITALS: BP 100/53; TEMP 97.3; O2SAT 94
[2024-12-20 12:00] VITALS: BP 104/53; TEMP 97.6; O2SAT 95
[2024-12-20 16:15] VITALS: BP 126/58; TEMP 97.7; O2SAT 96
[2024-12-20 20:39] VITALS: BP 131/55; TEMP 97.5
[2024-12-21 05:06] VITALS: BP 149/63; TEMP 97.7
[2024-12-21 05:51] LABS: BASO % 0.2 % (0.0-1.0); HEMATOCRIT 35.2 % (36.0-47.0); HEMOGLOBIN 11.1 g/dl (12.0-15.5); LYMPH # 1.3 10^3/uL (1.5-5.0); LYMPH % 12.1 % (24.0-44.0); MEAN CORPUSCULAR HEMOGLOBIN 29.1 pg (27.0-33.0); MEAN CORPUSCULAR HGB CONC 31.5 g/dl (32.0-36.5); MEAN CORPUSCULAR VOLUME 92.1 fl (80.0-96.0); MONO # 0.9 10^3/uL (0.0-0.8); NEUTROPHILS # 8.5 10^3/uL (1.5-8.5); NEUTROPHILS % 79.2 % (36.0-66.0); PLATELET COUNT, AUTOMATED 329 10^3/uL (150-450); RED BLOOD COUNT 3.82 10^6/uL (4.00-5.40); WHITE BLOOD COUNT 10.8 10^3/uL (4.0-10.0)
[2024-12-21 12:00] VITALS: BP 109/53; TEMP 97.3
[2024-12-21 20:00] VITALS: BP 130/49; TEMP 97.7; O2SAT 98
[2024-12-22 04:27] VITALS: BP 103/53; TEMP 97.3; O2SAT 98
[2024-12-22 08:19] LABS: BASO % 0.1 % (0.0-1.0); HEMATOCRIT 31.2 % (36.0-47.0); HEMOGLOBIN 9.7 g/dl (12.0-15.5); LYMPH # 1.2 10^3/uL (1.5-5.0); LYMPH % 14.1 % (24.0-44.0); MEAN CORPUSCULAR HEMOGLOBIN 28.9 pg (27.0-33.0); MEAN CORPUSCULAR HGB CONC 31.1 g/dl (32.0-36.5); MEAN CORPUSCULAR VOLUME 92.9 fl (80.0-96.0); MONO # 0.8 10^3/uL (0.0-0.8); NEUTROPHILS # 6.1 10^3/uL (1.5-8.5); NEUTROPHILS % 75.2 % (36.0-66.0); PLATELET COUNT, AUTOMATED 294 10^3/uL (150-450); RED BLOOD COUNT 3.36 10^6/uL (4.00-5.40); WHITE BLOOD COUNT 8.2 10^3/uL (4.0-10.0)
[2024-12-22 08:37] LABS: CALCIUM LEVEL 9.3 MG/DL (8.3-10.6); CREATININE FOR GFR 0.93 MG/DL (0.55-1.30); GLOMERULAR FILTRATION RATE 66.1 (>39); POTASSIUM SERUM 3.6 MMOL/L (3.5-5.1)
[2024-12-22 08:45] VITALS: BP 119/62; TEMP 97.5; O2SAT 99
[2024-12-22] MEDS ORDERED: AUGM500T34 PO (12:45)
[2024-12-22] MEDS ORDERED: METR375C3 PO (12:45)
[2024-12-25 18:32] LABS: ANTI DS-DNA AB NEGATIVE (NEGATIVE)
== END 2024-12-22 15:40 | disposition home or self-care (01) | DRG 872 ==
LOC: EDBD 08:26 → M ED 08:26 → M ED INP 08:27 → OBSVTOIN 20:07 → M MS4PR 12-19 15:11 → M MS5PR 12-20 16:00
PROVIDERS: ADMIT General Practice; ATTEND Student in an Organized Health Care Education/Training Program
DX: A41.9 Sepsis, unspecified organism (principal); E87.20 Acidosis, unspecified; A08.39 Other viral enteritis; I10 Essential (primary) hypertension; E78.5 Hyperlipidemia, unspecified; I95.9 Hypotension, unspecified; K21.9 Gastro-esophageal reflux disease without esophagitis; I73.00 Raynaud's syndrome without gangrene; F11.90 Opioid use, unspecified, uncomplicated; I25.10 Atherosclerotic heart disease of native coronary artery without angina pectoris; Z95.2 Presence of prosthetic heart valve; I25.2 Old myocardial infarction; M32.9 Systemic lupus erythematosus, unspecified; M79.18 Myalgia, other site; M19.90 Unspecified osteoarthritis, unspecified site; F32.A Depression, unspecified; Z79.899 Other long term (current) drug therapy; Z79.82 Long term (current) use of aspirin; Z91.040 Latex allergy status; Z91.048 Other nonmedicinal substance allergy status; Z88.8 Allergy status to other drugs, medicaments and biological substances

== ENCOUNTER → 2025-01-23 | Outpatient (REF) | payer MEDICARE ==
[~2025-01-23] MED LIST changes: +AUGM500T34 PO; +FLUTISP; +LEVO75TA4 PO; +METR375C3 PO
[2025-01-23 17:29] LABS: CHOLESTEROL RISK RATIO 3.54 (<5); HDL CHOLESTEROL 44.8 MG/DL (>40); MAGNESIUM LEVEL 1.8 MG/DL (1.8-2.4); NON-HDL-C 114.2 MG/DL
[2025-01-23 17:31] LABS: THYROID STIMULATING HORMONE 8.72 uIU/ML (0.55-4.78)
[2025-01-23 18:25] LABS: HEMOGLOBIN A1c 5.4 % (4.0-6.0)
== END ==
LOC: M LAB REF 16:41
PROVIDERS: ATTEND Nurse Practitioner Family
DX: E66.3 Overweight (principal); E07.9 Disorder of thyroid, unspecified

== ENCOUNTER 2025-03-13 10:38 | Day surgery (SDC) | payer MEDICARE ==
[~2025-03-13] VITALS: Ht 160 cm; Wt 72.2 kg
[~2025-03-13 10:38] MED LIST changes: +DEXL30CA6 PO; +LEVO88TA3 PO; +LIDOCAINE 2% 100 MG/5 ML SDV (FOR ANES.) As Ordered ONE
[2025-03-13] MEDS ORDERED: PHENYLephrine 500MCG 5ML (100MCG/ML) SYRINGE As Ordered ONE (13:22)
[2025-03-13 13:42] VITALS: TEMP 97.9
[2025-03-13 14:06] VITALS: BP 137/65; O2SAT 99
== END 2025-03-13 14:25 | disposition home or self-care (01) ==
LOC: M OPP 10:38
PROVIDERS: ATTEND Surgery
DX: D12.6 Benign neoplasm of colon, unspecified (principal); K92.2 Gastrointestinal hemorrhage, unspecified; K57.30 Diverticulosis of large intestine without perforation or abscess without bleeding; K64.2 Third degree hemorrhoids; R10.84 Generalized abdominal pain; R93.3 Abnormal findings on diagnostic imaging of other parts of digestive tract; Z86.73 Personal history of transient ischemic attack (TIA), and cerebral infarction without residual deficits; Z88.1 Allergy status to other antibiotic agents; Z88.8 Allergy status to other drugs, medicaments and biological substances; Z79.51 Long term (current) use of inhaled steroids; Z79.891 Long term (current) use of opiate analgesic; Z79.899 Other long term (current) drug therapy; Z87.891 Personal history of nicotine dependence
CPT/HCPCS: 43235; 45385; 88305; J2371; J3010

== ENCOUNTER → 2025-07-12 | Outpatient (REF) | payer MEDICARE, MEDICAID ==
[~2025-07-12] MED LIST changes: -EZET10TA21 PO; +EZET10TA57 PO; -LIDOCAINE 2% 100 MG/5 ML SDV (FOR ANES.) As Ordered ONE
== END ==
LOC: M LAB REF 16:18
PROVIDERS: ATTEND Family Medicine Addiction Medicine
DX: R39.9 Unspecified symptoms and signs involving the genitourinary system (principal)